=== PATIENT | male | born 1975 | race Two or more races ===

== ENCOUNTER 2017-11-20 13:52 | Inpatient (IN) | payer MEDICAID ==
[2017-11-20 15:04] LABS: % EOSINOPHILS 0.7 % (0.0-5.0); EOSINOPHILE ABSOLUTE 0.1 Th/cmm (0.1-0.4); HEMOGLOBIN 8.7 gm/dL (12-16)
[2017-11-20 15:08] LABS: % BASOPHILS 0.4 % (0.0-2.0); % LYMPHOCYTES 6.2 % (20.0-50.0); % NEUTROPHILS 88.7 % (40.0-80.0); HEMATOCRIT 25.3 % (41.0-60); LYMPHOCYTE ABSOLUTE 0.5 Th/cmm (1.5-3.0); MEAN CELL VOLUME 87.5 fl (80-99); MEAN CORPUSCULAR HGB CONC 34.3 pg (28.0-36.0); MEAN PLATELET VOLUME 6.8 fl; MONOCYTE ABSOLUTE 0.3 Th/cmm (0.3-1.0); NEUTROPHILE ABSOLUTE 7.8 Th/cmm (1.8-8.0); PLATELET COUNT 218 Th/cmm (150-400); RED BLOOD COUNT 2.89 Mil/cmm (4.30-5.70); RED CELL DISTRIBUTION WIDTH 12.1 % (11.5-20.0); WHITE BLOOD COUNT 8.7 Th/cmm (4.8-10.8)
[2017-11-20 15:29] LABS: ALB/GLOB RATIO 0.8 (1.0-1.8); ALBUMIN 2.9 gm/dL (4.2-5.5); ALKALINE PHOSPHATASE 88 U/L (34-104); ANION GAP 9.9 (7.0-16.0); BILIRUBIN,TOTAL 0.5 mg/dL (0.3-1.0); BUN - UREA NITROGEN 14 mg/dL (7-25); CALCIUM SERUM 8.5 mg/dL (8.6-10.3); CARBON DIOXIDE 29.2 mEq/L (21.0-31.0); CHLORIDE 95 mEq/L (98-107); CREATININE - SERUM 1.2 mg/dL (0.7-1.3); GFR AFRICAN-AMERICAN > 60.0 ml/min (>90); GFR NON AFRICAN-AMERICAN > 60.0 ml/min; GLUCOSE 411 mg/dL (70-105); POTASSIUM SERUM 3.1 mEq/L (3.5-5.1); SGOT 13 U/L (13-39); SGPT/ALT 13 U/L (7-52); SODIUM SERUM 131 mEq/L (136-145); TOTAL PROTEIN,SERUM 6.4 gm/dL (6.0-8.3)
[2017-11-20] MEDS ORDERED: Potassium Chloride Elixir 20 mEq /15 mL UDC PO ONE (16:04)
[2017-11-20] MEDS ORDERED: Potassium Chloride Elixir 20 mEq /15 mL UDC ONE (16:05)
[2017-11-20] MEDS ORDERED: Sodium Chloride 0.9% 1,000 ML IV ONE (16:05)
[2017-11-20] MEDS ORDERED: INSULIN HUMAN REGULAR 100 UNITS/ML UNIT SUBQ ONE (16:08)
--- NOTE | 2017-11-20 16:14 | ED Physician Chart ---
ED Chief Complaint/HPI - Patient Information Date Seen:: 11/20/17 Time Seen:: 14:20 Chief Complaint:: LEFT ARM PAIN History of Present Illness:: THIS IS A PARAPLEGIC WHO IS DIABETIC WITH HYPERTENSION AND HAS DIFFICULTY MOVING AROUND BECAUSE OF HE IS PARAPLEGIC. Allergies:: Allergies Allergy/AdvReac Type Severity Reaction Status Date / Time No Known Allergies Allergy Verified 11/20/17 14:00 Vitals:: Vital Signs - 8 hr 11/20/17 14:00 Temp 97.9 F HR 101 RR 15 BP 167/86 O2 Sat % 95 Historian:: Patient Review:: Nurse's Note Reviewed ED Review of Systems - Review of Systems General/Constitutional: No fever, No chills, Weight loss, Weakness, No diaphoresis, No edema, No loss of appetite Skin: No skin lesions, No rash, No bruising Head: No headache, No light-headedness Eyes: No loss of vision, No pain, No diplopia ENT: No earache, No nasal drainage, No sore throat, No tinnitus Neck: No neck pain, No swelling, No thyromegaly, No stiffness, No mass noted Cardio Vascular: No chest pain, No palpitations, No PND, No orthopnea, No edema Pulmonary: No SOB, No cough, No sputum, No wheezing GI: No nausea, No vomiting, No diarrhea, No pain, No melena, No hematochezia, No constipation, No hematemesis G/U: No dysuria, No frequency, No hematuria Musculoskeletal: Bone or joint pain, No back pain, Muscle pain Endocrine: No polyuria, No polydipsia Psychiatric: No prior psych history, No depression, No anxiety, No suicidal ideation Hematopoietic: No bruising, No lymphadenopathy Allergic/Immuno: No urticaria, No angioedema Neurological: No syncope, Focal symptoms, Weakness, No paresthesia, No headache , No seizure, No dizziness, No confusion, No vertigo ED Past Medical History - Past Medical History Obtainable: Yes Past Medical History: HTN, DM, CVA/TIA Family History: None Social History: Non Smoker, Alcohol, No Drug Use, Homeless, Lives Alone Surgical History: other (BACK SURGERY) Psychiatricy History: Depression Medication: Reviewed Family Medical History - Family Member Mother History Unknown: Yes ED Physical Exam - Physical Examination General/Constitutional: Awake, Well-developed, well-nourished, Alert, No distress, GCS 15, Non-toxic appearing, Ambulatory Head: Atraumatic Eyes: Lids, conjuctiva normal, PERRL, EOMI Skin: Nl inspection, No rash, No skin lesions, No ecchymosis, Well hydrated, No lymphadenopathy ENMT: External ears, nose nl, Nasal exam nl, Lips, teeth, gums nl Neck: Nontender, Full ROM w/o pain, No JVD, No nuchal rigidity, No bruit, No mass, No stridor Respiratory: Nl effort/Exclusion, Clear to Auscultation, No Wheeze/Rhonchi/Rales Cardio Vascular: RRR, No murmur, gallop, rubs, NL S1 S2 GI: No tenderness/rebounding/guarding, No organomegaly, No hernia, Normal BS's, Nondistended, No mass/bruits, No McBurney tenderness : No CVA tenderness Extremities: Full ROM, normal strength in all extremities Other Extremities comments:: BOTH LOWER EXTREMITIES ARE SWOLLEN WITH FLUID GREATER ON THE LEFT THAN ON THE RIGHT. Neuro/Psych: Alert/oriented, DTR's symmetric, Normal sensory exam, Normal motor strength, Judgement/insight normal, Mood normal, Normal gait, No focal deficits Other Neuro/Psych comments:: PARAPLEGIC Misc: Normal back, No paraspinal tenderness ED Labs/Radiology/EKG Results - Lab Results Results: Laboratory Tests 11/20/17 11/20/17 11/20/17 14:50 14:50 14:50 WBC 8.7 RBC 2.89 L Hgb 8.7 L Hct 25.3 L MCV 87.5 MCH 30.0 MCHC Differential 34.3 RDW 12.1 Plt Count 218 MPV 6.8 Neutrophils % 88.7 H Lymphocytes % 6.2 L Monocytes % 4.0 Eosinophils % 0.7 Basophils % 0.4 PTT (Actin FS) 30.1 Sodium 131 L Potassium 3.1 L Chloride 95 L Carbon Dioxide 29.2 Anion Gap 9.9 BUN 14 Creatinine 1.2 Est GFR ( Amer) > 60.0 Est GFR (Non-Af Amer) > 60.0 BUN/Creatinine Ratio 11.7 Glucose 411 H Calcium 8.5 L Total Bilirubin 0.5 AST 13 ALT 13 Alkaline Phosphatase 88 Troponin I Total Protein 6.4 Albumin 2.9 L Globulin 3.5 Albumin/Globulin Ratio 0.8 L 11/20/17 14:50 WBC RBC Hgb Hct MCV MCH MCHC Differential RDW Plt Count MPV Neutrophils % Lymphocytes % Monocytes % Eosinophils % Basophils % PTT (Actin FS) Sodium Potassium Chloride Carbon Dioxide Anion Gap BUN Creatinine Est GFR ( Amer) Est GFR (Non-Af Amer) BUN/Creatinine Ratio Glucose Calcium Total Bilirubin AST ALT Alkaline Phosphatase Troponin I 0.03 Total Protein Albumin Globulin Albumin/Globulin Ratio ED Assessment - Assessment General Assessment: ANEMIA ELECTROLYTE IMBALANCE ED Septic Shock - . Is Septic Shock (SBP<90, OR Lactate>4 mmol\L) present?: No - <6hrs of presentation: Vital Signs: Vital Signs - 8 hr 11/20/17 14:00 Temp 97.9 F HR 101 RR 15 BP 167/86 O2 Sat % 95 ED Reassessment (Disposition) - Reassessment Reassessment Condition:: Unchanged - Diagnosis Diagnosis:: ANEMIA DIABETIC HYPERTENSION PARAPLEGIC - Patient Disposition Discharge/Transfer:: Acute Care w/in this hosp Admitted to:: Med/Surg Admitting Medical Physician:: Ajay Davis Condition at Disposition:: Unchanged
[2017-11-20] MEDS ORDERED: INSULIN HUMAN REGULAR 100 UNITS/ML UNIT ONE (16:30)
[2017-11-21] MEDS ORDERED: Sodium Chloride 0.9% 1,000 ML IV ONE (06:20)
[2017-11-21 06:51] LABS: % EOSINOPHILS 0.6 % (0.0-5.0); % NEUTROPHILS 82.4 % (40.0-80.0); BASOPHILE ABSOLUTE 0.1 Th/cumm (0-0.2); EOSINOPHILE ABSOLUTE 0.1 Th/cmm (0.1-0.4); MEAN CELL VOLUME 86.8 fl (80-99); MEAN CORPUSCULAR HEMOGLOBIN 30.1 pg (26.0-30.0); MEAN CORPUSCULAR HGB CONC 34.7 pg (28.0-36.0); MONOCYTE ABSOLUTE 0.4 Th/cmm (0.3-1.0); NEUTROPHILE ABSOLUTE 7.3 Th/cmm (1.8-8.0); RED BLOOD COUNT 2.67 Mil/cmm (4.30-5.70); RED CELL DISTRIBUTION WIDTH 12.3 % (11.5-20.0); WHITE BLOOD COUNT 8.9 Th/cmm (4.8-10.8)
[2017-11-21 06:59] LABS: HEMATOCRIT 23.2 % (41.0-60); PLATELET COUNT 165 Th/cmm (150-400)
[2017-11-21 07:06] LABS: ANION GAP 9.8 (7.0-16.0); BUN - UREA NITROGEN 16 mg/dL (7-25); CARBON DIOXIDE 26.5 mEq/L (21.0-31.0); CHLORIDE 97 mEq/L (98-107); CREATININE - SERUM 1.1 mg/dL (0.7-1.3); GFR AFRICAN-AMERICAN > 60.0 ml/min (>90); GFR NON AFRICAN-AMERICAN > 60.0 ml/min; GLUCOSE 385 mg/dL (70-105); POTASSIUM SERUM 3.3 mEq/L (3.5-5.1); SODIUM SERUM 130 mEq/L (136-145)
[2017-11-21] MEDS ORDERED: Potassium Chloride 20 mEq ER Tab PO ONE ×2 (07:34→08:39)
--- NOTE | 2017-11-21 07:41 | History and Physical ---
History of Present Illness - HPI Chief Complaint: Left arm pain s/p fall HPI: 42 y/o paraplegic homeless man who presents to [facility] ER for left arm pain s/p fall. Patient was brought in for evaluation of his left arm pain due to a fall. Xray of the left arm was negative for a fracture. However the patient had the following labwork WBC 8.9 H/H 8.0/23.2 platelets 165K Na 131 K 3.1 Bun/Cr 14/1.2 glu 411 Patient has a history of Diabetes, HTN, CVA, Depression. Patient was subsequently admitted for further evaluation and treatment. Vital Signs: Last Vital Signs Temp 98.3 F 11/21/17 07:07 Pulse 62 11/21/17 07:07 Resp 17 11/21/17 07:07 BP 142/70 11/21/17 07:07 Pulse Ox 97 11/21/17 07:07 Past Medical History Cardiovascular: Report: HTN Pulmonary: Report: No Pertinent Hx [employer] WORKER: Report: CVA, TIA GI: Report: No Pertinent Hx Psych: Report: Depression Musculoskeletal: Report: No Pertinent Hx Rheumatologic: Report: No pertinent Hx Infectious Disease: Report: No Pertinent Hx Renal/: Report: No Pertinent Hx Endocrine: Report: Diabetes - Past Surgical History Past Surgical History: No pertinent Hx Family Medical History - Family Member Mother History Unknown: Yes Social History Smoke: No Alcohol: None Drugs: None Lives: Homeless - Allergies Allergies/Adverse Reactions: Allergies Allergy/AdvReac Type Severity Reaction Status Date / Time No Known Allergies Allergy Verified 11/20/17 14:00 Review of Systems - Review of Systems Constitutional: Report: No Significant Eyes: Report: No Significant ENT: Report: No Significant Respiratory: Report: No Significant Cardiovascular: Report: No Significant Gastrointestinal: Report: No Significant Genitourinary: Report: No Significant Musculoskeletal: Report: No Significant Skin: Report: No Significant Neurological: Report: No Significant Physical Exam - Physical Exam HEENT: Report: Ears Nose Throat within normal limits, Pharnyx within normal limits Neck: Report: Within normal limits Cardiovascular Systems: Report: +s1/s2 noted, Regular, Rate and Rhythm Respiratory: Report: Breath Sounds are within normal limits, Clear to Auscultation of lung dover Abdomen: Report: Non-tender to palpation Back: Report: Inspection of back is within normal limits. Extremities: Report: Other (patient is a paraplegic) Skin: Report: Color of skin is within normal limits Neuro/Psych: Report: Mood affect is within normal limits - Lab Results All Lab Results last 24 hours: Laboratory Results - last 24 hr 11/20/17 11/20/17 11/20/17 14:50 14:50 14:50 WBC 8.7 RBC 2.89 L Hgb 8.7 L Hct 25.3 L MCV 87.5 MCH 30.0 MCHC Differential 34.3 RDW 12.1 Plt Count 218 MPV 6.8 Neutrophils % 88.7 H Lymphocytes % 6.2 L Monocytes % 4.0 Eosinophils % 0.7 Basophils % 0.4 PTT (Actin FS) 30.1 Sodium 131 L Potassium 3.1 L Chloride 95 L Carbon Dioxide 29.2 Anion Gap 9.9 BUN 14 Creatinine 1.2 Est GFR ( Amer) > 60.0 Est GFR (Non-Af Amer) > 60.0 BUN/Creatinine Ratio 11.7 Glucose 411 H Calcium 8.5 L Total Bilirubin 0.5 AST 13 ALT 13 Alkaline Phosphatase 88 Troponin I Total Protein 6.4 Albumin 2.9 L Globulin 3.5 Albumin/Globulin Ratio 0.8 L 11/20/17 11/21/17 11/21/17 14:50 06:40 06:40 WBC 8.9 RBC 2.67 L Hgb 8.0 L Hct 23.2 L MCV 86.8 MCH 30.1 H MCHC Differential 34.7 RDW 12.3 Plt Count 165 D MPV 7.0 Neutrophils % 82.4 H Lymphocytes % 11.0 L Monocytes % 5.0 Eosinophils % 0.6 Basophils % 1.0 PTT (Actin FS) Sodium 130 L Potassium 3.3 L Chloride 97 L Carbon Dioxide 26.5 Anion Gap 9.8 BUN 16 Creatinine 1.1 Est GFR ( Amer) > 60.0 Est GFR (Non-Af Amer) > 60.0 BUN/Creatinine Ratio 14.5 Glucose 385 H Calcium 8.0 L Total Bilirubin AST ALT Alkaline Phosphatase Troponin I 0.03 Total Protein Albumin Globulin Albumin/Globulin Ratio - Assessment Assessment: s/p fall homeless anemia hyponatremia hypokalemia diabetes mellitus hyperglycemia - Plan Plan: will repeat labwork CBC,CMP GI consult stool occult Protonix 40mg IV qdaily K supplements
[2017-11-21] MEDS ORDERED: Morphine Sulfate 2 mg/mL 1mL Syr IV STA (08:26)
[2017-11-21 09:08] LABS: IRON LC 7 ug/dL (38-169); TIBC (LC) 161 ug/dL (250-450); UIBC 154 ug/dL (111-343)
[2017-11-21] MEDS ORDERED: Morphine Sulfate 2 mg/mL 1mL Syr ONE (09:32)
--- NOTE | 2017-11-21 09:38 | Diagnostic Imaging Report ---
Portable chest x-ray History: Shortness of breath Allowing for portable technique the heart size is normal. No focal pulmonary parenchymal processes. No hilar or mediastinal abnormalities. Impression: No acute abnormalities.
--- NOTE | 2017-11-21 09:43 | Diagnostic Imaging Report ---
Left elbow (3 views) HISTORY: Pain, trauma No acute bony abnormalities. No fractures. Joint spaces appear normal. No radiographic evidence of a joint effusion. IMPRESSION: No acute bony abnormalities
--- NOTE | 2017-11-21 09:44 | Diagnostic Imaging Report ---
Left lower extremity Doppler venous ultrasound exam HISTORY: Pain/swelling Sonographic sector images were obtained through the deep venous systems of the left leg. Associated Doppler data was obtained. The exam demonstrates patency of the common femoral, superficial femoral, popliteal, and posterior tibial veins. Specifically, no thrombus is seen. There are normal compressibility and augmentation responses. IMPRESSION: Negative exam for deep vein thrombophlebitis.
[2017-11-21] MEDS: INSULIN ASPART SLIDING SCALE 100 UNITS/ML UNIT SUBQ SCH ×3 (11:35→21:32)
[2017-11-21] MEDS: KCL 20mEq/100mL Premix 20 MEQ/100 ML PIGGYBACK IV SCH ×2 (13:13→18:20)
[2017-11-21 14:21] LABS: URINE SOURCE CATH
[2017-11-21 14:23] LABS: URINE BILIRUBIN NEGATIVE (NEGATIVE); URINE BLOOD LARGE (NEGATIVE); URINE GLUCOSE (UA) >=1000 mg/dL (NEGATIVE); URINE KETONE 15 mg/dL (NEGATIVE); URINE LEUKOCYTE ESTERASE MODERATE (NEGATIVE); URINE MICROSCOPIC INDICATED? YES; URINE NITRATE NEGATIVE (NEGATIVE); URINE PROTEIN >=300 mg/dL (NEGATIVE); URINE UROBILINOGEN 0.2 E.U./dL (0.2 - 1.0)
[2017-11-21 14:44] LABS: URINE CLARITY HAZY (CLEAR); URINE COLOR YELLOW
[2017-11-21 14:46] LABS: URINE RBC 0-2 /hpf (0-5)
[2017-11-21 14:47] LABS: URINE WBC 50-100 /hpf (0-5)
[2017-11-21 14:48] LABS: URINE BACTERIA MANY /hpf (NONE SEEN); URINE EPITHELIAL CELLS FEW /lpf (FEW)
[2017-11-21] MEDS ORDERED: KCL 20mEq/100mL Premix 20 MEQ/100 ML PIGGYBACK IV ONE (18:07)
[2017-11-21] MEDS: 0.9% NS w/20 mEq KCL 1,000 ML IV SCH (18:19)
--- NOTE | 2017-11-21 20:20 | Consultation ---
Consult Note - Consult Note Service Date: 11/21/17 Referring Physician: Evelio Davis Consult Note: PHYSICIAN Consultation Note: Date of Admission: 11/20/17 Purpose of Consultation: sepsis, UTI. Chief Complaint: Patient NEEMA AGEE was admitted to location Medical/ Surgical Unit I with ELECTROLYTE IMBALANCE,ANEMIA. History of Present Illness: 42 year old male admitted for left arm pain after a fall. On initial evaluation , his temperature was 97.9 F and WBC count was 8,700. He was found to have UTI. sepsis w/u was performed and blood culture grew GNR and ID consult was called for antibiotic management. Meanwhile, Zosyn was started. There is no episode of fever. Today, he was coming out of his car and he fell on his left forearm and developed pain. Patient gives history of paresthesia in legs and went for back surgery at the [facility]. Since his back surgery, he has no sensation in the waist down and has developed bladder issues. He has indwelling Boles catheter since then. He has also developed back pains. Past Medical History: DM2, HTN, CVA and depression. Allergies Allergy/AdvReac Type Severity Reaction Status Date / Time No Known Allergies Allergy Verified 11/20/17 14:00 Vital Signs Temp 98.3 F 11/21/17 11:00 Pulse 89 11/21/17 11:00 Resp 20 11/21/17 11:00 BP 137/73 11/21/17 11:00 Pulse Ox 97 11/21/17 11:00 Intake & Output 11/21/17 11/21/17 11/22/17 06:59 18:59 06:59 Intake Total 1999 100 Balance 1999 Intake: Intake, IV Amount 1999 100 KCL 20mEq/100mL Premix 20 100 meq In 100 ml @ 50 mls/ hr IV Q2H [facility] Rx#: [id number] Sodium Chloride 0.9% 1, 1000 000 ml @ 100 mls/hr IV . Q10H ONE Rx#:[id number] Laboratory Results - last 24 hr 11/20/17 11/21/17 11/21/17 14:50 06:40 06:40 WBC 8.9 RBC 2.67 L Hgb 8.0 L Hct 23.2 L MCV 86.8 MCH 30.1 H MCHC Differential 34.7 RDW 12.3 Plt Count 165 D MPV 7.0 Neutrophils % 82.4 H Lymphocytes % 11.0 L Monocytes % 5.0 Eosinophils % 0.6 Basophils % 1.0 Sodium 130 L Potassium 3.3 L Chloride 97 L Carbon Dioxide 26.5 Anion Gap 9.8 BUN 16 Creatinine 1.1 Est GFR ( Amer) > 60.0 Est GFR (Non-Af Amer) > 60.0 BUN/Creatinine Ratio 14.5 Glucose 385 H POC Glucose Calcium 8.0 L Iron 7 L TIBC 161 L Iron Saturation 4 L Unsaturated IBC 154 B-Natriuretic Peptide Urine Source Urine Color Urine Clarity Urine pH Ur Specific [place] Urine Protein Urine Glucose (UA) Urine Ketones Urine Blood Urine Nitrate Urine Bilirubin Urine Urobilinogen Ur Leukocyte Esterase Urine RBC Urine WBC Ur Epithelial Cells Urine Bacteria 11/21/17 11/21/17 11/21/17 06:40 09:00 11:27 WBC RBC Hgb Hct MCV MCH MCHC Differential RDW Plt Count MPV Neutrophils % Lymphocytes % Monocytes % Eosinophils % Basophils % Sodium Potassium Chloride Carbon Dioxide Anion Gap BUN Creatinine Est GFR ( Amer) Est GFR (Non-Af Amer) BUN/Creatinine Ratio Glucose POC Glucose 405 H Calcium Iron TIBC Iron Saturation Unsaturated IBC B-Natriuretic Peptide 239.0 H Urine Source CATH Urine Color YELLOW Urine Clarity HAZY Urine pH 6.0 Ur Specific [place] 1.020 Urine Protein >=300 Urine Glucose (UA) >=1000 H Urine Ketones 15 H Urine Blood LARGE H Urine Nitrate NEGATIVE Urine Bilirubin NEGATIVE Urine Urobilinogen 0.2 Ur Leukocyte Esterase MODERATE H Urine RBC 0-2 H Urine WBC 50-100 H Ur Epithelial Cells FEW Urine Bacteria MANY H 11/21/17 16:52 WBC RBC Hgb Hct MCV MCH MCHC Differential RDW Plt Count MPV Neutrophils % Lymphocytes % Monocytes % Eosinophils % Basophils % Sodium Potassium Chloride Carbon Dioxide Anion Gap BUN Creatinine Est GFR ( Amer) Est GFR (Non-Af Amer) BUN/Creatinine Ratio Glucose POC Glucose 415 H Calcium Iron TIBC Iron Saturation Unsaturated IBC B-Natriuretic Peptide Urine Source Urine Color Urine Clarity Urine pH Ur Specific [place] Urine Protein Urine Glucose (UA) Urine Ketones Urine Blood Urine Nitrate Urine Bilirubin Urine Urobilinogen Ur Leukocyte Esterase Urine RBC Urine WBC Ur Epithelial Cells Urine Bacteria Home Medication Medication Instructions Recorded Type NK [No Home Meds] 11/21/17 History Current Medications Generic Name Dose Route Start Last Admin Trade Name Freq PRN Reason Stop Dose Admin Glipizide 10 mg 11/21/17 09:00 11/21/17 13:12 Glucotrol PO 01/20/18 08:59 10 mg DAILY CLARICE Administration Sodium Chloride 1,000 mls @ 50 mls/hr 11/21/17 06:20 11/21/17 07:02 Nacl 0.9% IV 11/22/17 02:19 50 mls/hr .Q20H ONE Administration Potassium Chloride/Sodium Chloride 1,000 mls @ 50 mls/hr 11/21/17 09:00 11/21 18:19 0.9% Ns W/20 Meq Kcl IV 01/20/18 08:59 50 mls/hr .Q20H CLARICE Administration Piperacillin Sod/Tazobactam 100 mls @ 200 mls/hr 11/21/17 18:30 Sod 3.375 gm/ Dextrose IV 01/20/18 18:29 Q6H CLARICE Insulin Aspart 0 units 11/21/17 08:00 11/21/17 17:18 Novolog Insulin Sliding Scale SUBQ 01/20/18 07:59 12 units ACHS CLARICE Administration Protocol Insulin Detemir 10 units 11/21/17 21:00 Levemir Insulin SUBQ 01/20/18 20:59 HS CLARICE Protocol Miscellaneous 1 ea 11/21/17 17:35 Zosyn Iv Per Pharmacy 01/20/18 17:34 PRN PRN PROTOCOL Nystatin 1 appl 11/21/17 09:00 Mycostatin Cream TP 01/20/18 08:59 DAILY PRN Diaper Rash Nystatin 100,000 units 11/21/17 07:57 Nystop TP 01/20/18 07:56 DAILY PRN Diaper Rash Pantoprazole Sodium 40 mg 11/21/17 09:00 11/21/17 18:19 Protonix IVP 01/20/18 08:59 40 mg DAILY CLARICE Administration Review of Systems: A 12 point ROS was reviewed with the pertinent positive and negatives noted in the HPI. General/Constitutional: No fever, No chills, Weight loss, Weakness, No diaphoresis, No edema, No loss of appetite Skin: No skin lesions, No rash, No bruising Head: No headache, No light-headedness Eyes: No loss of vision, No pain, No diplopia ENT: No earache, No nasal drainage, No sore throat, No tinnitus Neck: No neck pain, No swelling, No thyromegaly, No stiffness, No mass noted Cardio Vascular: No chest pain, No palpitations, No PND, No orthopnea, No edema Pulmonary: No SOB, No cough, No sputum, No wheezing GI: No nausea, No vomiting, No diarrhea, No pain, No melena, No hematochezia, No constipation, No hematemesis G/U: has indwelling Boles catheter for his neurogenic bladder. Musculoskeletal: Bone or joint pain, No back pain, Muscle pain Endocrine: No polyuria, No polydipsia Psychiatric: No prior psych history, No depression, No anxiety, No suicidal ideation Hematopoietic: No bruising, No lymphadenopathy Allergic/Immuno: No urticaria, No angioedema Neurological: No syncope, , No headache, No seizure, No dizziness, No confusion , No vertigo. He has paraparesis and neurogenic bladder. Social History Homeless. Smoking Status Light Tobacco Smoker Drug Use No Alcohol Use No Family Medical History Family Medical History Start: 11/21/17 08: 25 Freq: ONCE Status: Active Protocol: Document 11/21/17 08:25 [email or web address] (Rec: 11/21/17 20:04 [email or web address] [id number] [id number] -[id number]) Family Medical History Mother History Unknown Yes Ethnicity Living Status Unknown Hx Family Cancer No Hx Family Coronary Artery Disease No Hx Family Congestive Heart Failure No Hx Family Hypertension No Hx Family Stroke No Hx Family Diabetes No Hx Family Seizures No Hx Family Dementia No Hx Family AIDS No Hx Family HIV No Hx Family COPD No Hx Family Hepatitis No Hx Family Psychiatric Problems No Hx Family Tuberculosis No Physical Exam: General: Comfortable, not in any acute distress. HEENT: HEAD: normocephalic, atraumatic. Oral Cavity is moist, pink tongue. Pupil PERRLA. EOMI. Neck: Supple, no JVD. no carotid bruit. Cardio: S1 and S2 WNL. Respiratory: Vesicular breath sounds. Abdominal: Soft NT ND BS. Genital/Urinary: Extremities: NCCE Neurological: AAO x3. Paraplegia. SKIN: L inner buttock decubitus 4 cm x 2 cm---grade II well defined border, no surrounding erythema. inflammation of groins. Assessment: 1. GNR bacteremia. 2. UTI/pyelonephritis. 3. Tinia crurus. 4. DM2 5. HTN. 6. H/o CVA. 7. H/o depression. 8. Gluteal wound. 9. 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 10. Neurogenic bladder. 11. H/o Back surgery. 12. Left forearm pain after a traumatic fall. Plan: Continue Zosyn. Depending on the culture report will define final antibiotic therapy. CT a/p. repeat blood cultures. Wound care. Check HIV. X ray of left forearm and wrist. apply lotrisone to groins. Thank you, Dr Davis for involving me in taking care of this patient. Signed, Cyrus Muhammad M.D. [id number]
[2017-11-21] MEDS: Insulin Detemir 100 units/mL 10mL Vial SUBQ SCH (21:32)
[2017-11-21 23:55] VITALS: BP 135/75
[2017-11-22] MEDS ORDERED: Piperacillin Sodium/Tazobact 3.375 gm Vial IV ONE ×2 (00:10→05:14)
[2017-11-22 07:11] LABS: MEAN CELL VOLUME 87.2 fl (80-99); MEAN CORPUSCULAR HEMOGLOBIN 29.5 pg (26.0-30.0); MEAN CORPUSCULAR HGB CONC 33.8 pg (28.0-36.0); MEAN PLATELET VOLUME 7.9 fl; PLATELET COUNT 183 Th/cmm (150-400); RED BLOOD COUNT 2.57 Mil/cmm (4.30-5.70); WHITE BLOOD COUNT 6.6 Th/cmm (4.8-10.8)
[2017-11-22 07:23] LABS: HEMATOCRIT 22.4 % (41.0-60)
[2017-11-22 07:26] LABS: HEMOGLOBIN 7.6 gm/dL (12-16)
[2017-11-22 08:01] LABS: BAND NEUTROPHILE 3 % (0-10); BASOPHIL 0 % (0-3); EOSINOPHIL 2 % (0-5); LYMPHOCYTE 17 % (20-50); MONOCYTE 2 % (2-10); NEUTROPHILS 76 % (40-80)
[2017-11-22 08:02] LABS: PLATELET ESTIMATE ADEQUATE (NORMAL)
--- NOTE | 2017-11-22 08:29 | General Progress Note ---
Subjective - Review of Systems Service Date: 11/22/17 Subjective: Patient was seen and examined. Patient is resting comfortably in bed in no acute distress. Objective - Results Result Diagrams: 11/22/17 05:40 11/21/17 06:40 Recent Labs: Laboratory Last Values WBC 6.6 Th/cmm (4.8-10.8) 11/22/17 05:40 RBC 2.57 Mil/cmm (4.30-5.70) L 11/22/17 05:40 Hgb 7.6 gm/dL (12-16) L* 11/22/17 05:40 Hct 22.4 % (41.0-60) L 11/22/17 05:40 MCV 87.2 fl (80-99) 11/22/17 05:40 MCH 29.5 pg (26.0-30.0) 11/22/17 05:40 MCHC Differential 33.8 pg (28.0-36.0) 11/22/17 05:40 RDW 12.0 % (11.5-20.0) 11/22/17 05:40 Plt Count 183 Th/cmm (150-400) 11/22/17 05:40 MPV 7.9 fl 11/22/17 05:40 Add Manual Diff YES 11/22/17 05:40 Neutrophils % 82.4 % (40.0-80.0) H 11/21/17 06:40 Band Neutrophils % 3 % (0-10) 11/22/17 05:40 Lymphocytes % 11.0 % (20.0-50.0) L 11/21/17 06:40 Monocytes % 5.0 % (2.0-10.0) 11/21/17 06:40 Eosinophils % 0.6 % (0.0-5.0) 11/21/17 06:40 Basophils % 1.0 % (0.0-2.0) 11/21/17 06:40 Neutrophils (Manual) 76 % (40-80) 11/22/17 05:40 Lymphocytes 17 % (20-50) L 11/22/17 05:40 Monocytes 2 % (2-10) 11/22/17 05:40 Eosinophils 2 % (0-5) 11/22/17 05:40 Basophils 0 % (0-3) 11/22/17 05:40 Platelet Estimate ADEQUATE (NORMAL) 11/22/17 05:40 PTT (Actin FS) 30.1 SECONDS (26.0-38.0) 11/20/17 14:50 Sodium 130 mEq/L (136-145) L 11/21/17 06:40 Potassium 3.3 mEq/L (3.5-5.1) L 11/21/17 06:40 Chloride 97 mEq/L (98-107) L 11/21/17 06:40 Carbon Dioxide 26.5 mEq/L (21.0-31.0) 11/21/17 06:40 Anion Gap 9.8 (7.0-16.0) 11/21/17 06:40 BUN 16 mg/dL (7-25) 11/21/17 06:40 Creatinine 1.1 mg/dL (0.7-1.3) 11/21/17 06:40 Est GFR ( Amer) > 60.0 ml/min (>90) 11/21/17 06:40 Est GFR (Non-Af Amer) > 60.0 ml/min 11/21/17 06:40 BUN/Creatinine Ratio 14.5 11/21/17 06:40 Glucose 385 mg/dL (70-105) H 11/21/17 06:40 POC Glucose 245 MG/DL (70 - 105) H 11/22/17 07:01 Calcium 8.0 mg/dL (8.6-10.3) L 11/21/17 06:40 Iron 7 ug/dL (38-169) L 11/20/17 14:50 TIBC 161 ug/dL (250-450) L 11/20/17 14:50 Iron Saturation 4 % (15-55) L 11/20/17 14:50 Unsaturated IBC 154 ug/dL (111-343) 11/20/17 14:50 Total Bilirubin 0.5 mg/dL (0.3-1.0) 11/20/17 14:50 AST 13 U/L (13-39) 11/20/17 14:50 ALT 13 U/L (7-52) 11/20/17 14:50 Alkaline Phosphatase 88 U/L (34-104) 11/20/17 14:50 Troponin I 0.03 ng/mL (0.01-0.05) 11/20/17 14:50 B-Natriuretic Peptide 239.0 pg/mL (5.0-100.0) H 11/21/17 06:40 Total Protein 6.4 gm/dL (6.0-8.3) 11/20/17 14:50 Albumin 2.9 gm/dL (4.2-5.5) L 11/20/17 14:50 Globulin 3.5 gm/dL 11/20/17 14:50 Albumin/Globulin Ratio 0.8 (1.0-1.8) L 11/20/17 14:50 Urine Source CATH 11/21/17 09:00 Urine Color YELLOW 11/21/17 09:00 Urine Clarity HAZY (CLEAR) 11/21/17 09:00 Urine pH 6.0 (4.6 - 8.0) 11/21/17 09:00 Ur Specific [place] 1.020 (1.005-1.030) 11/21/17 09:00 Urine Protein >=300 mg/dL (NEGATIVE) 11/21/17 09:00 Urine Glucose (UA) >=1000 mg/dL (NEGATIVE) H 11/21/17 09:00 Urine Ketones 15 mg/dL (NEGATIVE) H 11/21/17 09:00 Urine Blood LARGE (NEGATIVE) H 11/21/17 09:00 Urine Nitrate NEGATIVE (NEGATIVE) 11/21/17 09:00 Urine Bilirubin NEGATIVE (NEGATIVE) 11/21/17 09:00 Urine Urobilinogen 0.2 E.U./dL (0.2 - 1.0) 11/21/17 09:00 Ur Leukocyte Esterase MODERATE (NEGATIVE) H 11/21/17 09:00 Urine RBC 0-2 /hpf (0-5) H 11/21/17 09:00 Urine WBC 50-100 /hpf (0-5) H 11/21/17 09:00 Ur Epithelial Cells FEW /lpf (FEW) 11/21/17 09:00 Urine Bacteria MANY /hpf (NONE SEEN) H 11/21/17 09:00 HIV 1&2 Antibody Screen NEGATIVE (NEG) 11/22/17 05:40 - Physical Exam Vitals and I&O: Vital Signs Temp 98.2 F 11/22/17 08:06 Pulse 88 11/22/17 08:06 Resp 18 09/17/18 08:06 BP 148/75 11/22/17 08:06 Pulse Ox 92 11/22/17 08:06 Intake & Output 11/21/17 11/22/17 11/22/17 18:59 06:59 18:59 Intake Total 100 900 Output Total 2000 Balance 100 -1100 Weight (lbs) 81.647 kg Intake: Intake, IV Amount 100 200 KCL 20mEq/100mL Premix 20 100 meq In 100 ml @ 50 mls/ hr IV Q2H [facility] Rx#: [id number] Piperacillin Sodium/ 200 Tazobact 3.375 gm In Sodium Chloride 0.9% 100 ml @ 200 mls/hr IV Q6HR [facility] Rx#:[id number] Oral 700 Output: Urine 2000 Other: # Bowel Movements 0 Weight Source Bedscale Active Medications: Current Medications Glipizide (Glucotrol) 10 mg PO DAILY [facility] Stop: 01/20/18 08:59 Last Admin: 11/21/17 13:12 Dose: 10 mg Potassium Chloride/Sodium Chloride (0.9% Ns W/20 Meq Kcl) 1,000 mls @ 50 mls/ hr IV .Q20H [facility] Stop: 01/20/18 08:59 Last Admin: 11/21/17 18:19 Dose: 50 mls/hr Piperacillin Sod/Tazobactam (Sod 3.375 gm/ Sodium Chloride) 100 mls @ 200 mls/ hr IV Q6HR [facility] Stop: 01/21/18 00:59 Last Infusion: 11/22/17 06:36 Dose: Infused Potassium Chloride (Potassium Chloride) 20 meq in 100 mls @ 50 mls/hr IV Q2H [facility] Stop: 11/22/17 12:14 Ibuprofen (Motrin) 600 mg PO BID [facility] Stop: 01/21/18 08:59 Insulin Aspart (Novolog Insulin Sliding Scale) 0 units SUBQ ACHS [facility]; Protocol Stop: 01/20/18 07:59 Last Admin: 11/21/17 21:32 Dose: 8 units Insulin Detemir (Levemir Insulin) 10 units SUBQ HS [facility]; Protocol Stop: 01/20/18 20:59 Last Admin: 11/21/17 21:32 Dose: 10 units Miscellaneous (Zosyn Iv Per Pharmacy) 1 ea MC PRN PRN PRN Reason: PROTOCOL Stop: 01/20/18 17:34 Nystatin (Mycostatin Cream) 1 appl TP DAILY PRN PRN Reason: Diaper Rash Stop: 01/20/18 08:59 Nystatin (Nystop) 100,000 units TP DAILY PRN PRN Reason: Diaper Rash Stop: 01/20/18 07:56 Pantoprazole Sodium (Protonix) 40 mg IVP DAILY [facility] Stop: 01/20/18 08:59 Last Admin: 11/21/17 18:19 Dose: 40 mg General: Alert, Oriented x3 HEENT: Atraumatic Neck: Supple Cardiovascular: Regular rate, Normal S1, Normal S2 Lungs: Clear to auscultation Abdomen: Bowel sounds, Soft Extremities: no Clubbing, no Cyanosis, no Edema Assessment/Plan - Assessment Assessment: s/p fall homeless anemia hyponatremia hypokalemia diabetes mellitus hyperglycemia GNR bacteremia. UTI/pyelonephritis. Tinia crurus. HTN. H/o CVA. H/o depression. Gluteal wound. 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 Neurogenic bladder. H/o Back surgery. Left forearm pain after a traumatic fall. - Plan Plan: will repeat labwork CBC,CMP GI consult stool occult Protonix 40mg IV qdaily K supplements ID consult type and screen 1 unit of pRBC's for CT abd/pelvis
[2017-11-22] MEDS ORDERED: KCL 20mEq/100mL Premix 20 MEQ/100 ML PIGGYBACK IV SCH (09:00)
--- NOTE | 2017-11-22 09:14 | Diagnostic Imaging Report ---
Left forearm (3 views) HISTORY: Pain, fracture Prior exams are not available for comparison. There is deformity involving the distal radius. Findings consistent with old trauma. No definite acute bony abnormalities. In addition, there appears to be an acute nondisplaced avulsion fracture of the ulnar styloid. IMPRESSION: 1. Deformity of the distal radius which appears chronic and consistent with old trauma 2. Findings suggesting an acute nondisplaced fracture of the ulna styloid. If necessary, dedicated radiographs of the left wrist would provide additional detail.
--- NOTE | 2017-11-22 09:15 | Diagnostic Imaging Report ---
Left wrist (3 views) HISTORY: Pain As noted in the previous forearm radiograph report, there is chronic deformity of the distal radius consistent with old trauma. A previously described fracture fragment involving the ulna styloid exhibits sclerotic margins also consistent with chronic change. No acute bony abnormalities. IMPRESSION: 1. Findings consistent with old fractures of the distal radius and ulna styloid.
[2017-11-22] MEDS: INSULIN ASPART SLIDING SCALE 100 UNITS/ML UNIT SUBQ SCH ×4 (09:38→21:47)
[2017-11-22] MEDS ORDERED: Potassium Chloride 40 MEQ, Lidocaine 1% 20mL Vial 25 MG in Sodium Chloride 0.9% 250 ML IV ONE (10:00)
--- NOTE | 2017-11-22 10:47 | Diagnostic Imaging Report ---
CT scan abdomen and pelvis without intravenous contrast HISTORY: Pyelonephritis, pain Total DLP equals 516 CTDI equals 9.5 Axial sections were obtained from the xiphoid process down to the pubic symphysis. Limited sections of the lower chest demonstrate small bilateral pleural effusions. The liver is increased in size. No focal lesions. The spleen is also generous in size. Evidence for small hiatal hernia. No focal amenities seen within the region of the pancreas. The exam of the right kidney demonstrates [id number] hydronephrosis along with dilatation of the right ureter. The left kidney also demonstrates mild to moderate hydronephrosis along with dilatation of the left ureter. Findings are associated with a distended thick-walled urinary bladder. Changes associated with a degree of bladder outlet obstruction cannot be excluded. Clinical correlation is needed. An inferior vena cava filter is seen. Surgical changes noted in the lumbar spine. No abnormal masses or fluid collections seen within the pelvis. IMPRESSION: 1. Bilateral hydronephrosis associated with a thick-walled somewhat distended urinary bladder. The findings may be associated with a degree of bladder outlet obstruction. Clinical correlation is needed. No focal renal lesions are seen. Mild perinephric stranding. Changes may be related to obstructive sequelae. Inflammatory change cannot be definitely excluded. Clinical correlation is needed. 2. Inferior vena cava filter 3. Minimally distended stool-filled ascending colon 4. Small bilateral pleural effusions
[2017-11-22] MEDS ORDERED: Probiotic Screen MC PRN (12:44)
--- NOTE | 2017-11-22 13:37 | Infectious Disease Prog Note ---
Infectious Disease Subjective - Review of Systems Service Date: 11/22/17 Subjective: There is no new change, no fever. CT A/p reviewed. Infectious Disease Objective - Results Result Diagrams: 11/22/17 05:40 11/21/17 06:40 Recent Labs: Laboratory Last Values WBC 6.6 Th/cmm (4.8-10.8) 11/22/17 05:40 RBC 2.57 Mil/cmm (4.30-5.70) L 11/22/17 05:40 Hgb 7.6 gm/dL (12-16) L* 11/22/17 05:40 Hct 22.4 % (41.0-60) L 11/22/17 05:40 MCV 87.2 fl (80-99) 11/22/17 05:40 MCH 29.5 pg (26.0-30.0) 11/22/17 05:40 MCHC Differential 33.8 pg (28.0-36.0) 11/22/17 05:40 RDW 12.0 % (11.5-20.0) 11/22/17 05:40 Plt Count 183 Th/cmm (150-400) 11/22/17 05:40 MPV 7.9 fl 11/22/17 05:40 Add Manual Diff YES 11/22/17 05:40 Neutrophils % 82.4 % (40.0-80.0) H 11/21/17 06:40 Band Neutrophils % 3 % (0-10) 11/22/17 05:40 Lymphocytes % 11.0 % (20.0-50.0) L 11/21/17 06:40 Monocytes % 5.0 % (2.0-10.0) 11/21/17 06:40 Eosinophils % 0.6 % (0.0-5.0) 11/21/17 06:40 Basophils % 1.0 % (0.0-2.0) 11/21/17 06:40 Neutrophils (Manual) 76 % (40-80) 11/22/17 05:40 Lymphocytes 17 % (20-50) L 11/22/17 05:40 Monocytes 2 % (2-10) 11/22/17 05:40 Eosinophils 2 % (0-5) 11/22/17 05:40 Basophils 0 % (0-3) 11/22/17 05:40 Platelet Estimate ADEQUATE (NORMAL) 11/22/17 05:40 PTT (Actin FS) 30.1 SECONDS (26.0-38.0) 11/20/17 14:50 Sodium 130 mEq/L (136-145) L 11/21/17 06:40 Potassium 3.3 mEq/L (3.5-5.1) L 11/21/17 06:40 Chloride 97 mEq/L (98-107) L 11/21/17 06:40 Carbon Dioxide 26.5 mEq/L (21.0-31.0) 11/21/17 06:40 Anion Gap 9.8 (7.0-16.0) 11/21/17 06:40 BUN 16 mg/dL (7-25) 11/21/17 06:40 Creatinine 1.1 mg/dL (0.7-1.3) 11/21/17 06:40 Est GFR ( Amer) > 60.0 ml/min (>90) 11/21/17 06:40 Est GFR (Non-Af Amer) > 60.0 ml/min 11/21/17 06:40 BUN/Creatinine Ratio 14.5 11/21/17 06:40 Glucose 385 mg/dL (70-105) H 11/21/17 06:40 POC Glucose 287 MG/DL (70 - 105) H 11/22/17 11:18 Calcium 8.0 mg/dL (8.6-10.3) L 11/21/17 06:40 Iron 7 ug/dL (38-169) L 11/20/17 14:50 TIBC 161 ug/dL (250-450) L 11/20/17 14:50 Iron Saturation 4 % (15-55) L 11/20/17 14:50 Unsaturated IBC 154 ug/dL (111-343) 11/20/17 14:50 Total Bilirubin 0.5 mg/dL (0.3-1.0) 11/20/17 14:50 AST 13 U/L (13-39) 11/20/17 14:50 ALT 13 U/L (7-52) 11/20/17 14:50 Alkaline Phosphatase 88 U/L (34-104) 11/20/17 14:50 Troponin I 0.03 ng/mL (0.01-0.05) 11/20/17 14:50 B-Natriuretic Peptide 239.0 pg/mL (5.0-100.0) H 11/21/17 06:40 Total Protein 6.4 gm/dL (6.0-8.3) 11/20/17 14:50 Albumin 2.9 gm/dL (4.2-5.5) L 11/20/17 14:50 Globulin 3.5 gm/dL 11/20/17 14:50 Albumin/Globulin Ratio 0.8 (1.0-1.8) L 11/20/17 14:50 Urine Source CATH 11/21/17 09:00 Urine Color YELLOW 11/21/17 09:00 Urine Clarity HAZY (CLEAR) 11/21/17 09:00 Urine pH 6.0 (4.6 - 8.0) 11/21/17 09:00 Ur Specific [place] 1.020 (1.005-1.030) 11/21/17 09:00 Urine Protein >=300 mg/dL (NEGATIVE) 11/21/17 09:00 Urine Glucose (UA) >=1000 mg/dL (NEGATIVE) H 11/21/17 09:00 Urine Ketones 15 mg/dL (NEGATIVE) H 11/21/17 09:00 Urine Blood LARGE (NEGATIVE) H 11/21/17 09:00 Urine Nitrate NEGATIVE (NEGATIVE) 11/21/17 09:00 Urine Bilirubin NEGATIVE (NEGATIVE) 11/21/17 09:00 Urine Urobilinogen 0.2 E.U./dL (0.2 - 1.0) 11/21/17 09:00 Ur Leukocyte Esterase MODERATE (NEGATIVE) H 11/21/17 09:00 Urine RBC 0-2 /hpf (0-5) H 11/21/17 09:00 Urine WBC 50-100 /hpf (0-5) H 11/21/17 09:00 Ur Epithelial Cells FEW /lpf (FEW) 11/21/17 09:00 Urine Bacteria MANY /hpf (NONE SEEN) H 11/21/17 09:00 HIV 1&2 Antibody Screen NEGATIVE (NEG) 11/22/17 05:40 Blood Type A POSITIVE 11/22/17 09:50 Antibody Screen NEGATIVE 11/22/17 09:50 Crossmatch See Detail 11/22/17 09:50 - Physical Exam Vitals and I&O: Vital Signs Temp 98.4 F 11/22/17 11:44 Pulse 80 11/22/17 11:44 Resp 18 11/22/17 11:44 BP 132/71 11/22/17 11:44 Pulse Ox 94 11/22/17 11:44 Intake & Output 11/21/17 11/22/17 11/22/17 18:59 06:59 18:59 Intake Total 100 900 Output Total 2000 Balance 100 -1100 Weight (lbs) 81.647 kg Intake: Intake, IV Amount 100 200 KCL 20mEq/100mL Premix 20 100 meq In 100 ml @ 50 mls/ hr IV Q2H [facility] Rx#: [id number] Piperacillin Sodium/ 200 Tazobact 3.375 gm In Sodium Chloride 0.9% 100 ml @ 200 mls/hr IV Q6HR [facility] Rx#:[id number] Oral 700 Output: Urine 2000 Other: # Bowel Movements 0 Weight Source Bedscale Active Medications: Current Medications Glipizide (Glucotrol) 10 mg PO DAILY [facility] Stop: 01/20/18 08:59 Last Admin: 11/22/17 09:33 Dose: 10 mg Potassium Chloride/Sodium Chloride (0.9% Ns W/20 Meq Kcl) 1,000 mls @ 50 mls/ hr IV .Q20H [facility] Stop: 01/20/18 08:59 Last Admin: 11/21/17 18:19 Dose: 50 mls/hr Piperacillin Sod/Tazobactam (Sod 3.375 gm/ Sodium Chloride) 100 mls @ 200 mls/ hr IV Q6HR [facility] Stop: 01/21/18 00:59 Last Admin: 11/22/17 12:34 Dose: 200 mls/hr Potassium Chloride 40 meq/Lidocaine HCl 25 mg/ Sodium Chloride 272.5 mls @ 68 mls/hr IV X1 [facility] Stop: 11/22/17 14:00 Last Admin: 11/22/17 10:20 Dose: 68 mls/hr Ibuprofen (Motrin) 600 mg PO BID [facility] Stop: 01/21/18 08:59 Last Admin: 11/22/17 09:33 Dose: 600 mg Insulin Aspart (Novolog Insulin Sliding Scale) 0 units SUBQ ACHS [facility]; Protocol Stop: 01/20/18 07:59 Last Admin: 11/22/17 12:37 Dose: 6 units Insulin Detemir (Levemir Insulin) 10 units SUBQ HS [facility]; Protocol Stop: 01/20/18 20:59 Last Admin: 11/21/17 21:32 Dose: 10 units Lactobacillus Rhamnosus (Culturelle 15b) 1 each PO DAILY [facility] Stop: 01/21/18 13:59 Miscellaneous (Zosyn Iv Per Pharmacy) 1 ea PRN PRN PRN Reason: PROTOCOL Stop: 01/20/18 17:34 Miscellaneous (Probiotic Screen) 1 ea PRN PRN PRN Reason: PROTOCOL Stop: 01/21/18 12:43 Nystatin (Mycostatin Cream) 1 appl TP DAILY PRN PRN Reason: Diaper Rash Stop: 01/20/18 08:59 Nystatin (Nystop) 100,000 units TP DAILY PRN PRN Reason: Diaper Rash Stop: 01/20/18 07:56 Pantoprazole Sodium (Protonix) 40 mg IVP DAILY [facility] Stop: 01/20/18 08:59 Last Admin: 11/22/17 09:44 Dose: 40 mg General: no acute distress, well developed, well nourished HEENT: atraumatic, normocephalic, PERRLA, EOMI, moist mucous membrane Neck: supple, no thyromegaly Cardiovascular: S1S2, regular, systolic murmur Lungs: clear to auscultation bilaterally, clear to percussion Abdomen: soft, no tender, no distended, no mass, no hepatomegaly Extremities: no cyanosis, no clubbing, no edema Neurological: awake, alert, oriented Skin: intact Infectious Disease Assmt/Plan - Assessment Assessment: 1. GNR bacteremia. 2. UTI/pyelonephritis complicated with hydronephrosis. 3. Tinia crurus. 4. DM2 5. HTN. 6. H/o CVA. 7. H/o depression. 8. Gluteal wound. 9. 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 10. Neurogenic bladder. 11. H/o Back surgery. 12. Left forearm pain after a traumatic fall, acute fracture of ulna styloid. - Plan Plan: Continue Zosyn, depending on the culture report will define final antibiotic therapy. Follow up repeat blood cultures. He will need urology consult, for bilateral hydronephrosis. Renal us. Ortho consult. SHEILA RN.
[2017-11-22] MEDS: Lactobacillus Rhamnosus GG 15 Billion CFU CAP.SPRINK PO SCH (16:47)
[2017-11-22] MEDS: 0.9% NS w/20 mEq KCL 1,000 ML IV SCH (18:48)
[2017-11-22] MEDS: Insulin Detemir 100 units/mL 10mL Vial SUBQ SCH (21:45)
--- NOTE | 2017-11-22 23:40 | History & Physical ---
ADMIT DATE: 11/22/2017 REQUESTING PHYSICIAN: Evelio Davis D.O. REASON FOR CONSULTATION: Anemia. Thank you for asking me to see this patient in consultation. HISTORY OF PRESENT ILLNESS: This is a 42-year-old paraplegic homeless man who presents to [facility] for left arm pain, status post fall. The patient was brought in for evaluation of left arm pain; however, was found to be grossly anemic with a hemoglobin of 8.0 and platelet count of 165,000. The patient had MCV of 87.5 and symptomatic weakness, thought secondary to his anemia as well. The patient denies any overt blood losses. His hemoglobin had drifted down to 7.6 and GI was called. He is currently interested in having an endoscopic workup performed here in the hospital. He also had an iron level of 7 and iron saturation of about 4%. PAST MEDICAL HISTORY: Diabetes, hypertension, CVA, and depression. MEDICATIONS: Have been reviewed including glipizide, insulin, and Protonix. FAMILY HISTORY: Noncontributory for GI disease. REVIEW OF SYSTEMS: Denies any melena. Denies any abdominal pain. No nausea, no vomiting. All other 12-point systems are negative. PHYSICAL EXAMINATION: VITAL SIGNS: stable. GENERAL: He is comfortable, in no acute distress. HEENT: Normocephalic, atraumatic were positive. LUNGS: Clear bilaterally. No wheezes, rales, or rhonchi. ABDOMEN: Soft, nontender. Bowel sounds are positive. EXTREMITIES: Show no lower extremity edema. NEUROLOGIC: He has got paraplegia. SKIN: He has a left inner buttock decubitus ulcer 4 x 2 cm, grade 2 well defined border. No surrounding erythema. ASSESSMENT AND PLAN: This is a 42-year-old gentleman with paraplegia and symptomatic anemia. 1. Symptomatic anemia. 2. History of paraplegia, diabetes, and cerebrovascular accident. 3. Decubitus ulcer. The patient is currently interested in GI workup. Would recommend placing the patient on clear liquid diet and await until he has good wound care for his decubitus ulcer before proceeding with preparation for colonoscopy. Alternatively, we can offer an upper endoscopy to look for any obvious signs for anemia if they cannot prep well. Discussed that most the patient will likely get an EGD and colonoscopy later this week. Thank you for allowing us to participate in this patient's care. JOB# [id number]
[2017-11-23 07:00] LABS: HEMATOCRIT 26.1 % (41.0-60); HEMOGLOBIN 8.9 gm/dL (12-16); MEAN CELL VOLUME 86.1 fl (80-99); MEAN CORPUSCULAR HEMOGLOBIN 29.3 pg (26.0-30.0); MEAN PLATELET VOLUME 7.3 fl; PLATELET COUNT 238 Th/cmm (150-400); RED BLOOD COUNT 3.04 Mil/cmm (4.30-5.70); RED CELL DISTRIBUTION WIDTH 12.4 % (11.5-20.0); WHITE BLOOD COUNT 5.6 Th/cmm (4.8-10.8)
[2017-11-23 07:33] LABS: ALB/GLOB RATIO 0.9 (1.0-1.8); ALBUMIN 2.6 gm/dL (4.2-5.5); ALKALINE PHOSPHATASE 108 U/L (34-104); ANION GAP 9.6 (7.0-16.0); BILIRUBIN,TOTAL 0.3 mg/dL (0.3-1.0); BUN - UREA NITROGEN 18 mg/dL (7-25); CALCIUM SERUM 8.3 mg/dL (8.6-10.3); CARBON DIOXIDE 27.6 mEq/L (21.0-31.0); CHLORIDE 105 mEq/L (98-107); GFR AFRICAN-AMERICAN > 60.0 ml/min (>90); GFR NON AFRICAN-AMERICAN > 60.0 ml/min; GLUCOSE 205 mg/dL (70-105); POTASSIUM SERUM 4.2 mEq/L (3.5-5.1); SGOT 11 U/L (13-39); SGPT/ALT 8 U/L (7-52); SODIUM SERUM 138 mEq/L (136-145); TOTAL PROTEIN,SERUM 5.6 gm/dL (6.0-8.3)
--- NOTE | 2017-11-23 08:34 | General Progress Note ---
Subjective - Review of Systems Service Date: 11/23/17 Subjective: Patient was seen and examined. Patient is resting comfortably in bed in no acute distress. Objective - Results Result Diagrams: 11/23/17 05:50 11/23/17 05:50 Recent Labs: Laboratory Last Values WBC 5.6 Th/cmm (4.8-10.8) 11/23/17 05:50 RBC 3.04 Mil/cmm (4.30-5.70) L 11/23/17 05:50 Hgb 8.9 gm/dL (12-16) L 11/23/17 05:50 Hct 26.1 % (41.0-60) L 11/23/17 05:50 MCV 86.1 fl (80-99) 11/23/17 05:50 MCH 29.3 pg (26.0-30.0) 11/23/17 05:50 MCHC Differential 34.0 pg (28.0-36.0) 11/23/17 05:50 RDW 12.4 % (11.5-20.0) 11/23/17 05:50 Plt Count 238 Th/cmm (150-400) 11/23/17 05:50 MPV 7.3 fl 11/23/17 05:50 Add Manual Diff YES 11/23/17 05:50 Neutrophils % 82.4 % (40.0-80.0) H 11/21/17 06:40 Band Neutrophils % 3 % (0-10) 11/22/17 05:40 Lymphocytes % 11.0 % (20.0-50.0) L 11/21/17 06:40 Monocytes % 5.0 % (2.0-10.0) 11/21/17 06:40 Eosinophils % 0.6 % (0.0-5.0) 11/21/17 06:40 Basophils % 1.0 % (0.0-2.0) 11/21/17 06:40 Neutrophils (Manual) 76 % (40-80) 11/22/17 05:40 Lymphocytes 17 % (20-50) L 11/22/17 05:40 Monocytes 2 % (2-10) 11/22/17 05:40 Eosinophils 2 % (0-5) 11/22/17 05:40 Basophils 0 % (0-3) 11/22/17 05:40 Platelet Estimate ADEQUATE (NORMAL) 11/22/17 05:40 PTT (Actin FS) 30.1 SECONDS (26.0-38.0) 11/20/17 14:50 Sodium 138 mEq/L (136-145) 11/23/17 05:50 Potassium 4.2 mEq/L (3.5-5.1) 11/23/17 05:50 Chloride 105 mEq/L (98-107) 11/23/17 05:50 Carbon Dioxide 27.6 mEq/L (21.0-31.0) 11/23/17 05:50 Anion Gap 9.6 (7.0-16.0) 11/23/17 05:50 BUN 18 mg/dL (7-25) 11/23/17 05:50 Creatinine 1.0 mg/dL (0.7-1.3) 11/23/17 05:50 Est GFR ( Amer) > 60.0 ml/min (>90) 11/23/17 05:50 Est GFR (Non-Af Amer) > 60.0 ml/min 11/23/17 05:50 BUN/Creatinine Ratio 18.0 11/23/17 05:50 Glucose 205 mg/dL (70-105) H 11/23/17 05:50 POC Glucose 185 MG/DL (70 - 105) H 11/23/17 06:13 Calcium 8.3 mg/dL (8.6-10.3) L 11/23/17 05:50 Iron 7 ug/dL (38-169) L 11/20/17 14:50 TIBC 161 ug/dL (250-450) L 11/20/17 14:50 Iron Saturation 4 % (15-55) L 11/20/17 14:50 Unsaturated IBC 154 ug/dL (111-343) 11/20/17 14:50 Total Bilirubin 0.3 mg/dL (0.3-1.0) 11/23/17 05:50 AST 11 U/L (13-39) L 11/23/17 05:50 ALT 8 U/L (7-52) 11/23/17 05:50 Alkaline Phosphatase 108 U/L (34-104) H 11/23/17 05:50 Troponin I 0.03 ng/mL (0.01-0.05) 11/20/17 14:50 B-Natriuretic Peptide 239.0 pg/mL (5.0-100.0) H 11/21/17 06:40 Total Protein 5.6 gm/dL (6.0-8.3) L 11/23/17 05:50 Albumin 2.6 gm/dL (4.2-5.5) L 11/23/17 05:50 Globulin 3.0 gm/dL 11/23/17 05:50 Albumin/Globulin Ratio 0.9 (1.0-1.8) L 11/23/17 05:50 Urine Source CATH 11/21/17 09:00 Urine Color YELLOW 11/21/17 09:00 Urine Clarity HAZY (CLEAR) 11/21/17 09:00 Urine pH 6.0 (4.6 - 8.0) 11/21/17 09:00 Ur Specific [place] 1.020 (1.005-1.030) 11/21/17 09:00 Urine Protein >=300 mg/dL (NEGATIVE) 11/21/17 09:00 Urine Glucose (UA) >=1000 mg/dL (NEGATIVE) H 11/21/17 09:00 Urine Ketones 15 mg/dL (NEGATIVE) H 11/21/17 09:00 Urine Blood LARGE (NEGATIVE) H 11/21/17 09:00 Urine Nitrate NEGATIVE (NEGATIVE) 11/21/17 09:00 Urine Bilirubin NEGATIVE (NEGATIVE) 11/21/17 09:00 Urine Urobilinogen 0.2 E.U./dL (0.2 - 1.0) 11/21/17 09:00 Ur Leukocyte Esterase MODERATE (NEGATIVE) H 11/21/17 09:00 Urine RBC 0-2 /hpf (0-5) H 11/21/17 09:00 Urine WBC 50-100 /hpf (0-5) H 11/21/17 09:00 Ur Epithelial Cells FEW /lpf (FEW) 11/21/17 09:00 Urine Bacteria MANY /hpf (NONE SEEN) H 11/21/17 09:00 HIV 1&2 Antibody Screen NEGATIVE (NEG) 11/22/17 05:40 Blood Type A POSITIVE 11/22/17 09:50 Antibody Screen NEGATIVE 11/22/17 09:50 Crossmatch See Detail 11/22/17 09:50 - Physical Exam Vitals and I&O: Vital Signs Temp 98.3 F 11/23/17 08:00 Pulse 75 11/23/17 08:00 Resp 18 11/23/17 08:00 BP 158/84 11/23/17 08:00 Pulse Ox 99 11/23/17 08:00 Intake & Output 11/22/17 11/23/17 11/23/17 18:59 06:59 18:59 Intake Total 1100 200 Output Total 1300 700 Balance -200 -500 Weight (lbs) 81.647 kg 78.335 kg Intake: Intake, IV Amount 1100 200 0.9% NS w/20 mEq KCL 1, 1000 000 ml @ 50 mls/hr IV . Q20H [facility] Rx#:[id number] Piperacillin Sodium/ 100 200 Tazobact 3.375 gm In Sodium Chloride 0.9% 100 ml @ 200 mls/hr IV Q6HR [facility] Rx#:[id number] Output: Urine 1300 700 Other: # Bowel Movements 0 0 Weight Source Estimated Bedscale Active Medications: Current Medications Acetaminophen/Hydrocodone Bitart ([place] 5mg/325mg) 1 tab PO Q12HR PRN PRN Reason: Pain (Moderate) Stop: 12/06/17 14:25 Glipizide (Glucotrol) 10 mg PO DAILY [facility] Stop: 01/20/18 08:59 Last Admin: 11/22/17 09:33 Dose: 10 mg Potassium Chloride/Sodium Chloride (0.9% Ns W/20 Meq Kcl) 1,000 mls @ 50 mls/ hr IV .Q20H [facility] Stop: 01/20/18 08:59 Last Admin: 11/22/17 18:48 Dose: 50 mls/hr Piperacillin Sod/Tazobactam (Sod 3.375 gm/ Sodium Chloride) 100 mls @ 200 mls/ hr IV Q6HR [facility] Stop: 01/21/18 00:59 Last Admin: 11/23/17 06:32 Dose: 200 mls/hr Ibuprofen (Motrin) 600 mg PO BID [facility] Stop: 01/21/18 08:59 Last Admin: 11/22/17 16:47 Dose: 600 mg Insulin Aspart (Novolog Insulin Sliding Scale) 0 units SUBQ ACHS [facility]; Protocol Stop: 01/20/18 07:59 Last Admin: 11/22/17 21:47 Dose: 10 units Insulin Detemir (Levemir Insulin) 10 units SUBQ HS [facility]; Protocol Stop: 01/20/18 20:59 Last Admin: 11/22/17 21:45 Dose: 10 units Lactobacillus Rhamnosus (Culturelle 15b) 1 each PO DAILY [facility] Stop: 01/21/18 13:59 Last Admin: 11/22/17 16:47 Dose: 1 each Miscellaneous (Zosyn Iv Per Pharmacy) 1 ea PRN PRN PRN Reason: PROTOCOL Stop: 01/20/18 17:34 Miscellaneous (Probiotic Screen) 1 ea MC PRN PRN PRN Reason: PROTOCOL Stop: 01/21/18 12:43 Nystatin (Mycostatin Cream) 1 appl TP DAILY PRN PRN Reason: Diaper Rash Stop: 01/20/18 08:59 Nystatin (Nystop) 100,000 units TP DAILY PRN PRN Reason: Diaper Rash Stop: 01/20/18 07:56 Pantoprazole Sodium (Protonix) 40 mg IVP DAILY [facility] Stop: 01/20/18 08:59 Last Admin: 11/22/17 09:44 Dose: 40 mg General: Alert, Oriented x3 HEENT: Atraumatic Neck: Supple Cardiovascular: Regular rate, Normal S1, Normal S2 Lungs: Clear to auscultation Abdomen: Bowel sounds, Soft Extremities: no Clubbing, no Cyanosis, no Edema Assessment/Plan - Assessment Assessment: s/p fall homeless anemia -- s/p blood transfusion for GI workup hyponatremia -- improved hypokalemia -- improved diabetes mellitus --improved. hyperglycemia GNR bacteremia -- on Zosyn IV. awaiting cultures UTI/pyelonephritis -- continue IV antibiotics. Tinia crurus. HTN --start Lisinopril 10mg PO daily H/o CVA. H/o depression. Gluteal wound. 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 Neurogenic bladder. H/o Back surgery. Left forearm pain after a traumatic fall, acute fracture of ulna styloid. -- ortho consult - Plan Plan: will repeat labwork CBC,CMP GI consult stool occult Protonix 40mg IV qdaily K supplements ID consult type and screen 1 unit of pRBC's for CT abd/pelvis Nutritional Asmnt/Malnutr-PDOC - Dietary Evaluation Malnutrition Findings (Please click <Entered> for more info): Nutritional Asmnt/Malnutrition Start: 11/22/17 17: 38 Text: Status: Complete Freq: Protocol: Document 11/22/17 17:38 LCCOLLINSSanti (Rec: 11/22/17 17:57 RAMSEY ANA [id number]) Nutritional Asmnt/Malnutrition Patient General Information Nutritional Screening High Risk Diagnosis electrolyte imbalance, anemia Pertinent Medical Hx/Surgical Hx HTN, Dm, CVA/TIA, back surgery , depression Subjective Information consult received for diabetic. Pt is Khmer speaking. Per EMR, Pt consumded 50% of breakfast today. Not able to provide diabetic education d/t language barrier. Current Diet Order/ Nutrition Support diabetic diet Pertinent Medications glucotrol, novolog, levemir, culturelle, protonix, piperacillin, 0.9% ns w/20 meq kcl Pertinent Labs 11/21 Na 130, K 3.3, Cl 97, glucsoe 385 11/21-11/22 POC [id number] Nutritional Hx/Data Height 1.78 m Height (Calculated Centimeters) 177.8 Current Weight (lbs) 81.647 kg Weight (Calculated Kilograms) 81.6 Weight (Calculated Grams) 65994.6 [place] Body Weight 166 Body Mass Index (BMI) 25.8 Weight Status Overweight GI Symptoms GI Symptoms None Last BM none Difficult in: None Skin Integrity/Comment: pressure ulcer to sacrum Current %PO Fair (50-74%) Estimated Nutritional Goals BEE in Kcals: Using Current wt Calories/Kcals/Kg 25-30 Kcals Calculated 6087-7516 Protein: Using Current wt Protein g/k Protein Calculated 75 Fluid: ml 1875-2250ml (1ml/kcal) Nutritional Problem 1. Problem Problem increased nutrition needs Etiology increased metabolic needs for impaired skin integrity Signs/Symptoms: pressure ulcer to sacrum Malnutrition Alert Is there a minimum of two criteria No selected? Query Text:Check all the applicable criteria. A minimum of two criteria are recommended for diagnosis of either severe or non-severe malnutrition. Malnutrition Related to Morbid Obesity Malnutrition related to morbid obesity No Intervention/Recommendation Comments 1. Continue with diabetic diet diet as ordered. 2. Monitor PO intake, wt, labs and skin integrity 3. F/U as moderate risk in 3-5 days, 11/25-11/27, PO check Expected Outcomes/Goals Expected Outcomes/Goals 1. PO intake to meet at least 75% of nutritional needs. 2. Wt stability, skin to remain intact, labs to approach WNL.
[2017-11-23] MEDS: INSULIN ASPART SLIDING SCALE 100 UNITS/ML UNIT SUBQ SCH ×4 (08:48→20:58)
[2017-11-23] MEDS: Lactobacillus Rhamnosus GG 15 Billion CFU CAP.SPRINK PO SCH (08:48)
[2017-11-23 08:52] LABS: BAND NEUTROPHILE 4 % (0-10); BASOPHIL 0 % (0-3); EOSINOPHIL 3 % (0-5); LYMPHOCYTE 19 % (20-50); MONOCYTE 3 % (2-10); NEUTROPHILS 71 % (40-80)
--- NOTE | 2017-11-23 09:09 | GI Progress Note ---
Subjective - Review of Systems Service Date: 11/23/17 Subjective: No overt GI bleeding Objective - Results Result Diagrams: 11/23/17 05:50 11/23/17 05:50 Recent Labs: Laboratory Last Values WBC 5.6 Th/cmm (4.8-10.8) 11/23/17 05:50 RBC 3.04 Mil/cmm (4.30-5.70) L 11/23/17 05:50 Hgb 8.9 gm/dL (12-16) L 11/23/17 05:50 Hct 26.1 % (41.0-60) L 11/23/17 05:50 MCV 86.1 fl (80-99) 11/23/17 05:50 MCH 29.3 pg (26.0-30.0) 11/23/17 05:50 MCHC Differential 34.0 pg (28.0-36.0) 11/23/17 05:50 RDW 12.4 % (11.5-20.0) 11/23/17 05:50 Plt Count 238 Th/cmm (150-400) 11/23/17 05:50 MPV 7.3 fl 11/23/17 05:50 Add Manual Diff YES 11/23/17 05:50 Neutrophils % 82.4 % (40.0-80.0) H 11/21/17 06:40 Band Neutrophils % 4 % (0-10) 11/23/17 05:50 Lymphocytes % 11.0 % (20.0-50.0) L 11/21/17 06:40 Monocytes % 5.0 % (2.0-10.0) 11/21/17 06:40 Eosinophils % 0.6 % (0.0-5.0) 11/21/17 06:40 Basophils % 1.0 % (0.0-2.0) 11/21/17 06:40 Neutrophils (Manual) 71 % (40-80) 11/23/17 05:50 Lymphocytes 19 % (20-50) L 11/23/17 05:50 Monocytes 3 % (2-10) 11/23/17 05:50 Eosinophils 3 % (0-5) 11/23/17 05:50 Basophils 0 % (0-3) 11/23/17 05:50 Platelet Estimate ADEQUATE (NORMAL) 11/22/17 05:40 PTT (Actin FS) 30.1 SECONDS (26.0-38.0) 11/20/17 14:50 Sodium 138 mEq/L (136-145) 11/23/17 05:50 Potassium 4.2 mEq/L (3.5-5.1) 11/23/17 05:50 Chloride 105 mEq/L (98-107) 11/23/17 05:50 Carbon Dioxide 27.6 mEq/L (21.0-31.0) 11/23/17 05:50 Anion Gap 9.6 (7.0-16.0) 11/23/17 05:50 BUN 18 mg/dL (7-25) 11/23/17 05:50 Creatinine 1.0 mg/dL (0.7-1.3) 11/23/17 05:50 Est GFR ( Amer) > 60.0 ml/min (>90) 11/23/17 05:50 Est GFR (Non-Af Amer) > 60.0 ml/min 11/23/17 05:50 BUN/Creatinine Ratio 18.0 11/23/17 05:50 Glucose 205 mg/dL (70-105) H 11/23/17 05:50 POC Glucose 185 MG/DL (70 - 105) H 11/23/17 06:13 Calcium 8.3 mg/dL (8.6-10.3) L 11/23/17 05:50 Iron 7 ug/dL (38-169) L 11/20/17 14:50 TIBC 161 ug/dL (250-450) L 11/20/17 14:50 Iron Saturation 4 % (15-55) L 11/20/17 14:50 Unsaturated IBC 154 ug/dL (111-343) 11/20/17 14:50 Total Bilirubin 0.3 mg/dL (0.3-1.0) 11/23/17 05:50 AST 11 U/L (13-39) L 11/23/17 05:50 ALT 8 U/L (7-52) 11/23/17 05:50 Alkaline Phosphatase 108 U/L (34-104) H 11/23/17 05:50 Troponin I 0.03 ng/mL (0.01-0.05) 11/20/17 14:50 B-Natriuretic Peptide 239.0 pg/mL (5.0-100.0) H 11/21/17 06:40 Total Protein 5.6 gm/dL (6.0-8.3) L 11/23/17 05:50 Albumin 2.6 gm/dL (4.2-5.5) L 11/23/17 05:50 Globulin 3.0 gm/dL 11/23/17 05:50 Albumin/Globulin Ratio 0.9 (1.0-1.8) L 11/23/17 05:50 Urine Source CATH 11/21/17 09:00 Urine Color YELLOW 11/21/17 09:00 Urine Clarity HAZY (CLEAR) 11/21/17 09:00 Urine pH 6.0 (4.6 - 8.0) 11/21/17 09:00 Ur Specific [place] 1.020 (1.005-1.030) 11/21/17 09:00 Urine Protein >=300 mg/dL (NEGATIVE) 11/21/17 09:00 Urine Glucose (UA) >=1000 mg/dL (NEGATIVE) H 11/21/17 09:00 Urine Ketones 15 mg/dL (NEGATIVE) H 11/21/17 09:00 Urine Blood LARGE (NEGATIVE) H 11/21/17 09:00 Urine Nitrate NEGATIVE (NEGATIVE) 11/21/17 09:00 Urine Bilirubin NEGATIVE (NEGATIVE) 11/21/17 09:00 Urine Urobilinogen 0.2 E.U./dL (0.2 - 1.0) 11/21/17 09:00 Ur Leukocyte Esterase MODERATE (NEGATIVE) H 11/21/17 09:00 Urine RBC 0-2 /hpf (0-5) H 11/21/17 09:00 Urine WBC 50-100 /hpf (0-5) H 11/21/17 09:00 Ur Epithelial Cells FEW /lpf (FEW) 11/21/17 09:00 Urine Bacteria MANY /hpf (NONE SEEN) H 11/21/17 09:00 HIV 1&2 Antibody Screen NEGATIVE (NEG) 11/22/17 05:40 Blood Type A POSITIVE 11/22/17 09:50 Antibody Screen NEGATIVE 11/22/17 09:50 Crossmatch See Detail 11/22/17 09:50 - Physical Exam Vitals and I&O: Vital Signs Temp 98.3 F 11/23/17 08:00 Pulse 75 11/23/17 08:49 Resp 18 11/23/17 08:00 BP 158/84 11/23/17 08:49 Pulse Ox 99 11/23/17 08:00 Intake & Output 11/22/17 11/23/17 11/23/17 18:59 06:59 18:59 Intake Total 1100 200 Output Total 1300 700 Balance -200 -500 Weight (lbs) 81.647 kg 78.335 kg Intake: Intake, IV Amount 1100 200 0.9% NS w/20 mEq KCL 1, 1000 000 ml @ 50 mls/hr IV . Q20H [facility] Rx#:[id number] Piperacillin Sodium/ 100 200 Tazobact 3.375 gm In Sodium Chloride 0.9% 100 ml @ 200 mls/hr IV Q6HR [facility] Rx#:[id number] Output: Urine 1300 700 Other: # Bowel Movements 0 0 Weight Source Estimated Bedscale Active Medications: Current Medications Acetaminophen/Hydrocodone Bitart ([place] 5mg/325mg) 1 tab PO Q12HR PRN PRN Reason: Pain (Moderate) Stop: 12/06/17 14:25 Bisacodyl (Dulcolax 5 Mg Ec Tab) 10 mg PO X1 [facility] Stop: 11/23/17 16:01 Glipizide (Glucotrol) 10 mg PO DAILY [facility] Stop: 01/20/18 08:59 Last Admin: 11/23/17 08:49 Dose: 10 mg Potassium Chloride/Sodium Chloride (0.9% Ns W/20 Meq Kcl) 1,000 mls @ 50 mls/ hr IV .Q20H [facility] Stop: 01/20/18 08:59 Last Admin: 11/22/17 18:48 Dose: 50 mls/hr Piperacillin Sod/Tazobactam (Sod 3.375 gm/ Sodium Chloride) 100 mls @ 200 mls/ hr IV Q6HR [facility] Stop: 01/21/18 00:59 Last Admin: 11/23/17 06:32 Dose: 200 mls/hr Ibuprofen (Motrin) 600 mg PO BID [facility] Stop: 01/21/18 08:59 Last Admin: 11/23/17 08:48 Dose: 600 mg Insulin Aspart (Novolog Insulin Sliding Scale) 0 units SUBQ ACHS [facility]; Protocol Stop: 01/20/18 07:59 Last Admin: 11/23/17 08:48 Dose: Not Given Insulin Detemir (Levemir Insulin) 10 units SUBQ HS [facility]; Protocol Stop: 01/20/18 20:59 Last Admin: 11/22/17 21:45 Dose: 10 units Lactobacillus Rhamnosus (Culturelle 15b) 1 each PO DAILY [facility] Stop: 01/21/18 13:59 Last Admin: 11/23/17 08:48 Dose: 1 each Lisinopril (Zestril) 10 mg PO DAILY [facility] Stop: 01/22/18 08:59 Last Admin: 11/23/17 08:49 Dose: 10 mg Miscellaneous (Zosyn Iv Per Pharmacy) 1 ea PRN PRN PRN Reason: PROTOCOL Stop: 01/20/18 17:34 Miscellaneous (Probiotic Screen) 1 ea PRN PRN PRN Reason: PROTOCOL Stop: 01/21/18 12:43 Nystatin (Mycostatin Cream) 1 appl TP DAILY PRN PRN Reason: Diaper Rash Stop: 01/20/18 08:59 Nystatin (Nystop) 100,000 units TP DAILY PRN PRN Reason: Diaper Rash Stop: 01/20/18 07:56 Pantoprazole Sodium (Protonix) 40 mg IVP DAILY [facility] Stop: 01/20/18 08:59 Last Admin: 11/23/17 08:49 Dose: 40 mg Polyethylene Glycol/Electrolytes (Golytely) 4,000 ml PO X1 [facility] Stop: 11/23/17 17:01 General: Alert, Oriented x3 HEENT: Atraumatic Neck: Supple Cardiovascular: Regular rate Abdomen: Bowel sounds, Soft, no Tender, no Hepatomegaly, no Splenomegaly, no Distended, no Rebound, no Mass, no Guarding Extremities: no Clubbing, no Cyanosis, no Edema Assessment/Plan - Assessment Assessment: # Anemia # Hemiplegia # CVA Endoscopic indicated to investigate this patient's anemia for GI blood loss. Will plan for this tomorrow. Plan: - EGD/colo in AM. Pt CAN HAVE more than 4L golytely, which he may need given he is paraplegic - can use rectal tube as will have difficulty with going to commode - trend LFTs - clears, NPO after midnight
--- NOTE | 2017-11-23 11:41 | Diagnostic Imaging Report ---
Renal ultrasound HISTORY: Pyelonephritis, pain The right kidney is increased in size (13.1 x 7.1 x 6.9 cm). No focal lesions. No hydronephrosis. The left kidney is increased in size (13.4 x 6.5 x 6.1 cm). No focal lesions. No hydronephrosis. The urinary bladder demonstrates generalized wall thickening. Indwelling Boles catheter is seen. Following release of the Boles catheter, no significant post void residual. IMPRESSION: 1. Increased renal size is bilaterally. The significance should be correlated clinically and with renal function tests. 2. Generalized thickening of the urinary bladder wall.
[2017-11-23] MEDS: 0.9% NS w/20 mEq KCL 1,000 ML IV SCH (15:02)
[2017-11-23] MEDS: Meropenem 1 GM in Sodium Chloride 0.9% 100 ML IV SCH ×2 (15:02→20:55)
[2017-11-23] MEDS: Insulin Detemir 100 units/mL 10mL Vial SUBQ SCH (20:59)
[2017-11-23] MEDS ORDERED: Magnesium Citrate 1.75 GM/300 mL Bottle PO ONE (23:00)
[2017-11-23] MEDS: Lactulose 10 Gm/15 mL 30mL UDC PO SCH (23:31)
[2017-11-24] MEDS: Lactulose 10 Gm/15 mL 30mL UDC PO SCH ×2 (00:12→04:39)
--- NOTE | 2017-11-24 02:18 | Consultation ---
DATE OF CONSULTATION: 11/23/2017 ORTHOPEDIC SURGERY CONSULTATION HISTORY OF PRESENT ILLNESS: The patient is a 42-year-old gentleman admitted to [facility] on 11/20/2017 via the Emergency Room with multiple medical issues and complaining of left arm and wrist pain. X-rays were taken and fractures possibly old were found. I was called in Orthopedic consultation by the admitting physician regarding the patient's left arm complaints. PAST HISTORY: The patient indicated to me he has had a prior injury to his left wrist with fractures. His current injury was has he was getting out of his car, he fell onto his left forearm. He is a paraplegic and has difficulty getting around. ADDITIONAL PAST HISTORY: He had back surgery following which he was paraplegic. He also carries diagnoses of depression, history of stroke, hypertension, diabetes. PHYSICAL EXAMINATION: The patient was examined in his hospital room at [facility]. He stated he is not in pain. Inspection of the lower extremities reveals the paraplegia and some swelling of the feet and ankles. There is a decubitus ulcer over the upper left buttock. Upper extremities, he has good function and range of motion. The right upper extremity is unremarkable. 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 His strength and stability of the wrist are good. IMAGING STUDIES: I viewed images in the PACS dated 11/22/2017 of the left wrist, they are identical images labeled right wrist. It appears that we were interested in the one labeled left wrist. The others are probably mislabeled. There is an old fracture of the distal left radius with shortening. Overall alignment is otherwise okay. There is a fracture at the tip of the ulnar styloid with a smooth edge. This is probably old. X-rays of the left elbow were negative for fracture. X-rays of the left forearm showed the old Colles fracture at the distal end of the radius. ORTHOPEDIC DIAGNOSES: 1. Fracture distal left radius old, healed and stable. 2. Recent injury to left wrist - most likely a moderate sprain. 3. Paraplegia. RECOMMENDATIONS: The patient does not require surgery or cast immobilization. Regarding his left wrist injury, the fractures are healed and stable. His more recent sprain will respond to conservative care of light activity and allowing it to heal. I will see him again at your request. Thank you for this interesting referral. JOB# [id number]
[2017-11-24] MEDS: Meropenem 1 GM in Sodium Chloride 0.9% 100 ML IV SCH ×3 (06:18→20:41)
[2017-11-24 06:47] LABS: HEMATOCRIT 27.1 % (41.0-60); HEMOGLOBIN 9.1 gm/dL (12-16); MEAN CELL VOLUME 85.9 fl (80-99); MEAN CORPUSCULAR HEMOGLOBIN 28.8 pg (26.0-30.0); MEAN CORPUSCULAR HGB CONC 33.6 pg (28.0-36.0); PLATELET COUNT 271 Th/cmm (150-400); RED BLOOD COUNT 3.16 Mil/cmm (4.30-5.70); RED CELL DISTRIBUTION WIDTH 12.2 % (11.5-20.0); WHITE BLOOD COUNT 6.1 Th/cmm (4.8-10.8)
[2017-11-24 06:57] LABS: ANION GAP 8.8 (7.0-16.0); BUN - UREA NITROGEN 11 mg/dL (7-25); CALCIUM SERUM 8.2 mg/dL (8.6-10.3); CARBON DIOXIDE 25.7 mEq/L (21.0-31.0); CHLORIDE 105 mEq/L (98-107); CREATININE - SERUM 0.8 mg/dL (0.7-1.3); GFR AFRICAN-AMERICAN > 60.0 ml/min (>90); GFR NON AFRICAN-AMERICAN > 60.0 ml/min; GLUCOSE 192 mg/dL (70-105); POTASSIUM SERUM 3.5 mEq/L (3.5-5.1); SODIUM SERUM 136 mEq/L (136-145)
[2017-11-24 07:06] LABS: INR 1.01 (0.5-1.4); PROTHROMBIN TIME (TEST) 10.5 SECONDS (9.5-11.5)
[2017-11-24 07:39] LABS: BAND NEUTROPHILE 1 % (0-10); BASOPHIL 0 % (0-3); EOSINOPHIL 2 % (0-5); LYMPHOCYTE 20 % (20-50); MONOCYTE 2 % (2-10); NEUTROPHILS 75 % (40-80); PLATELET ESTIMATE ADEQUATE (NORMAL)
--- NOTE | 2017-11-24 08:34 | General Progress Note ---
Subjective - Review of Systems Service Date: 11/24/17 Subjective: Patient was seen and examined. Patient is resting comfortably in bed in no acute distress. +Klebsiella urinalysis. Objective - Results Result Diagrams: 11/24/17 05:20 11/24/17 05:20 Recent Labs: Laboratory Last Values WBC 6.1 Th/cmm (4.8-10.8) 11/24/17 05:20 RBC 3.16 Mil/cmm (4.30-5.70) L 11/24/17 05:20 Hgb 9.1 gm/dL (12-16) L 11/24/17 05:20 Hct 27.1 % (41.0-60) L 11/24/17 05:20 MCV 85.9 fl (80-99) 11/24/17 05:20 MCH 28.8 pg (26.0-30.0) 11/24/17 05:20 MCHC Differential 33.6 pg (28.0-36.0) 11/24/17 05:20 RDW 12.2 % (11.5-20.0) 11/24/17 05:20 Plt Count 271 Th/cmm (150-400) 11/24/17 05:20 MPV 7.0 fl 11/24/17 05:20 Add Manual Diff YES 11/24/17 05:20 Neutrophils % 82.4 % (40.0-80.0) H 11/21/17 06:40 Band Neutrophils % 1 % (0-10) 11/24/17 05:20 Lymphocytes % 11.0 % (20.0-50.0) L 11/21/17 06:40 Monocytes % 5.0 % (2.0-10.0) 11/21/17 06:40 Eosinophils % 0.6 % (0.0-5.0) 11/21/17 06:40 Basophils % 1.0 % (0.0-2.0) 11/21/17 06:40 Neutrophils (Manual) 75 % (40-80) 11/24/17 05:20 Lymphocytes 20 % (20-50) 11/24/17 05:20 Monocytes 2 % (2-10) 11/24/17 05:20 Eosinophils 2 % (0-5) 11/24/17 05:20 Basophils 0 % (0-3) 11/24/17 05:20 Platelet Estimate ADEQUATE (NORMAL) 11/24/17 05:20 PT 10.5 SECONDS (9.5-11.5) 11/24/17 05:20 INR 1.01 (0.5-1.4) 11/24/17 05:20 PTT (Actin FS) 30.1 SECONDS (26.0-38.0) 11/20/17 14:50 Sodium 136 mEq/L (136-145) 11/24/17 05:20 Potassium 3.5 mEq/L (3.5-5.1) 11/24/17 05:20 Chloride 105 mEq/L (98-107) 11/24/17 05:20 Carbon Dioxide 25.7 mEq/L (21.0-31.0) 11/24/17 05:20 Anion Gap 8.8 (7.0-16.0) 11/24/17 05:20 BUN 11 mg/dL (7-25) 11/24/17 05:20 Creatinine 0.8 mg/dL (0.7-1.3) 11/24/17 05:20 Est GFR ( Amer) > 60.0 ml/min (>90) 11/24/17 05:20 Est GFR (Non-Af Amer) > 60.0 ml/min 11/24/17 05:20 BUN/Creatinine Ratio 13.8 11/24/17 05:20 Glucose 192 mg/dL (70-105) H 11/24/17 05:20 POC Glucose 184 MG/DL (70 - 105) H 11/24/17 06:21 Calcium 8.2 mg/dL (8.6-10.3) L 11/24/17 05:20 Iron 7 ug/dL (38-169) L 11/20/17 14:50 TIBC 161 ug/dL (250-450) L 11/20/17 14:50 Iron Saturation 4 % (15-55) L 11/20/17 14:50 Unsaturated IBC 154 ug/dL (111-343) 11/20/17 14:50 Total Bilirubin 0.3 mg/dL (0.3-1.0) 11/23/17 05:50 AST 11 U/L (13-39) L 11/23/17 05:50 ALT 8 U/L (7-52) 11/23/17 05:50 Alkaline Phosphatase 108 U/L (34-104) H 11/23/17 05:50 Troponin I 0.03 ng/mL (0.01-0.05) 11/20/17 14:50 B-Natriuretic Peptide 239.0 pg/mL (5.0-100.0) H 11/21/17 06:40 Total Protein 5.6 gm/dL (6.0-8.3) L 11/23/17 05:50 Albumin 2.6 gm/dL (4.2-5.5) L 11/23/17 05:50 Globulin 3.0 gm/dL 11/23/17 05:50 Albumin/Globulin Ratio 0.9 (1.0-1.8) L 11/23/17 05:50 Urine Source CATH 11/21/17 09:00 Urine Color YELLOW 11/21/17 09:00 Urine Clarity HAZY (CLEAR) 11/21/17 09:00 Urine pH 6.0 (4.6 - 8.0) 11/21/17 09:00 Ur Specific [place] 1.020 (1.005-1.030) 11/21/17 09:00 Urine Protein >=300 mg/dL (NEGATIVE) 11/21/17 09:00 Urine Glucose (UA) >=1000 mg/dL (NEGATIVE) H 11/21/17 09:00 Urine Ketones 15 mg/dL (NEGATIVE) H 11/21/17 09:00 Urine Blood LARGE (NEGATIVE) H 11/21/17 09:00 Urine Nitrate NEGATIVE (NEGATIVE) 11/21/17 09:00 Urine Bilirubin NEGATIVE (NEGATIVE) 11/21/17 09:00 Urine Urobilinogen 0.2 E.U./dL (0.2 - 1.0) 11/21/17 09:00 Ur Leukocyte Esterase MODERATE (NEGATIVE) H 11/21/17 09:00 Urine RBC 0-2 /hpf (0-5) H 11/21/17 09:00 Urine WBC 50-100 /hpf (0-5) H 11/21/17 09:00 Ur Epithelial Cells FEW /lpf (FEW) 11/21/17 09:00 Urine Bacteria MANY /hpf (NONE SEEN) H 11/21/17 09:00 HIV 1&2 Antibody Screen NEGATIVE (NEG) 11/22/17 05:40 Blood Type A POSITIVE 11/22/17 09:50 Antibody Screen NEGATIVE 11/22/17 09:50 Crossmatch See Detail 11/22/17 09:50 - Physical Exam Vitals and I&O: Vital Signs Temp 97.0 F 11/24/17 07:58 Pulse 77 11/24/17 07:58 Resp 18 11/24/17 07:58 BP 181/90 11/24/17 07:58 Pulse Ox 98 11/24/17 07:58 Intake & Output 11/23/17 11/24/17 11/24/17 18:59 06:59 18:59 Intake Total 1300 600 Output Total 1800 Balance 1300 -1200 Weight (lbs) 82.1 kg Intake: Intake, IV Amount 1300 100 0.9% NS w/20 mEq KCL 1, 1000 000 ml @ 50 mls/hr IV . Q20H [facility] Rx#:[id number] Meropenem 1 gm In Sodium 100 100 Chloride 0.9% 100 ml @ 100 mls/hr IV Q8HR [facility] Rx #:[id number] Piperacillin Sodium/ 200 Tazobact 3.375 gm In Sodium Chloride 0.9% 100 ml @ 200 mls/hr IV Q6HR [facility] Rx#:[id number] Oral 500 Output: Urine 1800 Other: # Voids 2 # Bowel Movements 3 Stool Characteristics Formed Black Weight Source Bedscale Active Medications: Current Medications Acetaminophen/Hydrocodone Bitart ([place] 5mg/325mg) 1 tab PO Q12HR PRN PRN Reason: Pain (Moderate) Stop: 12/06/17 14:25 Glipizide (Glucotrol) 10 mg PO DAILY [facility] Stop: 01/20/18 08:59 Last Admin: 11/23/17 08:49 Dose: 10 mg Potassium Chloride/Sodium Chloride (0.9% Ns W/20 Meq Kcl) 1,000 mls @ 50 mls/ hr IV .Q20H [facility] Stop: 01/20/18 08:59 Last Admin: 11/23/17 15:02 Dose: 50 mls/hr Meropenem 1 gm/ Sodium (Chloride) 100 mls @ 100 mls/hr IV Q8HR [facility] Stop: 01/22/18 13:59 Last Admin: 11/24/17 06:18 Dose: 100 mls/hr Ibuprofen (Motrin) 600 mg PO BID [facility] Stop: 01/21/18 08:59 Last Admin: 11/23/17 16:38 Dose: 600 mg Insulin Aspart (Novolog Insulin Sliding Scale) 0 units SUBQ ACHS [facility]; Protocol Stop: 01/20/18 07:59 Last Admin: 11/23/17 20:58 Dose: Not Given Insulin Detemir (Levemir Insulin) 10 units SUBQ HS [facility]; Protocol Stop: 01/20/18 20:59 Last Admin: 11/23/17 20:59 Dose: Not Given Lactobacillus Rhamnosus (Culturelle 15b) 1 each PO DAILY [facility] Stop: 01/21/18 13:59 Last Admin: 11/23/17 08:48 Dose: 1 each Lisinopril (Zestril) 10 mg PO DAILY [facility] Stop: 01/22/18 08:59 Last Admin: 11/23/17 08:49 Dose: 10 mg Miscellaneous (Zosyn Iv Per Pharmacy) 1 [facility] PRN PRN PRN Reason: PROTOCOL Stop: 01/20/18 17:34 Miscellaneous (Probiotic Screen) 1 [facility] PRN PRN PRN Reason: PROTOCOL Stop: 01/21/18 12:43 Nystatin (Mycostatin Cream) 1 appl TP DAILY [facility] PRN Reason: Diaper Rash Stop: 01/20/18 08:59 Nystatin (Nystop) 100,000 units TP DAILY [facility] PRN Reason: Diaper Rash Stop: 01/20/18 07:56 Pantoprazole Sodium (Protonix) 40 mg IVP DAILY [facility] Stop: 01/20/18 08:59 Last Admin: 11/23/17 08:49 Dose: 40 mg General: Alert, Oriented x3 HEENT: Atraumatic Neck: Supple Cardiovascular: Regular rate Lungs: Clear to auscultation Abdomen: Bowel sounds, Soft, no Tender, no Hepatomegaly, no Splenomegaly, no Distended, no Rebound, no Mass, no Guarding Extremities: no Clubbing, no Cyanosis, no Edema Assessment/Plan - Assessment Assessment: s/p fall homeless anemia -- s/p blood transfusion for GI workup hyponatremia -- improved hypokalemia -- improved diabetes mellitus --improved. hyperglycemia GNR bacteremia -- on Zosyn IV. awaiting cultures UTI/pyelonephritis -- continue IV antibiotics. ID consult tinea crurus. HTN --start Lisinopril 10mg PO daily H/o CVA. H/o depression. Gluteal wound. 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 Neurogenic bladder. H/o Back surgery. Left forearm pain after a traumatic fall, acute fracture of ulna styloid. -- ortho consult - Plan Plan: will repeat labwork CBC,CMP GI consult stool occult Protonix 40mg IV qdaily K supplements ID consult type and screen 1 unit of pRBC's for CT abd/pelvis Nutritional Asmnt/Malnutr-PDOC - Dietary Evaluation Malnutrition Findings (Please click <Entered> for more info): Nutritional Asmnt/Malnutrition Start: 11/22/17 17: 38 Text: Status: Complete Freq: Protocol: Document 11/22/17 17:38 [email or web address] (Rec: 11/22/17 17:57 RAMSEY ANA [id number]) Nutritional Asmnt/Malnutrition Patient General Information Nutritional Screening High Risk Diagnosis electrolyte imbalance, anemia Pertinent Medical Hx/Surgical Hx HTN, Dm, CVA/TIA, back surgery , depression Subjective Information consult received for diabetic. Pt is Indonesian speaking. Per EMR, Pt consumded 50% of breakfast today. Not able to provide diabetic education d/t language barrier. Current Diet Order/ Nutrition Support diabetic diet Pertinent Medications glucotrol, novolog, levemir, culturelle, protonix, piperacillin, 0.9% ns w/20 meq kcl Pertinent Labs 11/21 Na 130, K 3.3, Cl 97, glucsoe 385 11/21-11/22 POC [id number] Nutritional Hx/Data Height 1.78 m Height (Calculated Centimeters) 177.8 Current Weight (lbs) 81.647 kg Weight (Calculated Kilograms) 81.6 Weight (Calculated Grams) 71174.6 [place] Body Weight 166 Body Mass Index (BMI) 25.8 Weight Status Overweight GI Symptoms GI Symptoms None Last BM none Difficult in: None Skin Integrity/Comment: pressure ulcer to sacrum Current %PO Fair (50-74%) Estimated Nutritional Goals BEE in Kcals: Using Current wt Calories/Kcals/Kg 25-30 Kcals Calculated 1127-8203 Protein: Using Current wt Protein g/k Protein Calculated 75 Fluid: ml 1875-2250ml (1ml/kcal) Nutritional Problem 1. Problem Problem increased nutrition needs Etiology increased metabolic needs for impaired skin integrity Signs/Symptoms: pressure ulcer to sacrum Malnutrition Alert Is there a minimum of two criteria No selected? Query Text:Check all the applicable criteria. A minimum of two criteria are recommended for diagnosis of either severe or non-severe malnutrition. Malnutrition Related to Morbid Obesity Malnutrition related to morbid obesity No Intervention/Recommendation Comments 1. Continue with diabetic diet diet as ordered. 2. Monitor PO intake, wt, labs and skin integrity 3. F/U as moderate risk in 3-5 days, 11/25-11/27, PO check Expected Outcomes/Goals Expected Outcomes/Goals 1. PO intake to meet at least 75% of nutritional needs. 2. Wt stability, skin to remain intact, labs to approach WNL.
[2017-11-24] MEDS: INSULIN ASPART SLIDING SCALE 100 UNITS/ML UNIT SUBQ SCH ×4 (09:03→20:37)
--- NOTE | 2017-11-24 09:04 | GI Progress Note ---
Subjective - Review of Systems Service Date: 11/24/17 Subjective: Pt refused his bowel prep. Now reports he had EGD/colo at another hospital earlier this year. Objective - Results Result Diagrams: 11/24/17 05:20 11/24/17 05:20 Recent Labs: Laboratory Last Values WBC 6.1 Th/cmm (4.8-10.8) 11/24/17 05:20 RBC 3.16 Mil/cmm (4.30-5.70) L 11/24/17 05:20 Hgb 9.1 gm/dL (12-16) L 11/24/17 05:20 Hct 27.1 % (41.0-60) L 11/24/17 05:20 MCV 85.9 fl (80-99) 11/24/17 05:20 MCH 28.8 pg (26.0-30.0) 11/24/17 05:20 MCHC Differential 33.6 pg (28.0-36.0) 11/24/17 05:20 RDW 12.2 % (11.5-20.0) 11/24/17 05:20 Plt Count 271 Th/cmm (150-400) 11/24/17 05:20 MPV 7.0 fl 11/24/17 05:20 Add Manual Diff YES 11/24/17 05:20 Neutrophils % 82.4 % (40.0-80.0) H 11/21/17 06:40 Band Neutrophils % 1 % (0-10) 11/24/17 05:20 Lymphocytes % 11.0 % (20.0-50.0) L 11/21/17 06:40 Monocytes % 5.0 % (2.0-10.0) 11/21/17 06:40 Eosinophils % 0.6 % (0.0-5.0) 11/21/17 06:40 Basophils % 1.0 % (0.0-2.0) 11/21/17 06:40 Neutrophils (Manual) 75 % (40-80) 11/24/17 05:20 Lymphocytes 20 % (20-50) 11/24/17 05:20 Monocytes 2 % (2-10) 11/24/17 05:20 Eosinophils 2 % (0-5) 11/24/17 05:20 Basophils 0 % (0-3) 11/24/17 05:20 Platelet Estimate ADEQUATE (NORMAL) 11/24/17 05:20 PT 10.5 SECONDS (9.5-11.5) 11/24/17 05:20 INR 1.01 (0.5-1.4) 11/24/17 05:20 PTT (Actin FS) 30.1 SECONDS (26.0-38.0) 11/20/17 14:50 Sodium 136 mEq/L (136-145) 11/24/17 05:20 Potassium 3.5 mEq/L (3.5-5.1) 11/24/17 05:20 Chloride 105 mEq/L (98-107) 11/24/17 05:20 Carbon Dioxide 25.7 mEq/L (21.0-31.0) 11/24/17 05:20 Anion Gap 8.8 (7.0-16.0) 11/24/17 05:20 BUN 11 mg/dL (7-25) 11/24/17 05:20 Creatinine 0.8 mg/dL (0.7-1.3) 11/24/17 05:20 Est GFR ( Amer) > 60.0 ml/min (>90) 11/24/17 05:20 Est GFR (Non-Af Amer) > 60.0 ml/min 11/24/17 05:20 BUN/Creatinine Ratio 13.8 11/24/17 05:20 Glucose 192 mg/dL (70-105) H 11/24/17 05:20 POC Glucose 184 MG/DL (70 - 105) H 11/24/17 06:21 Calcium 8.2 mg/dL (8.6-10.3) L 11/24/17 05:20 Iron 7 ug/dL (38-169) L 11/20/17 14:50 TIBC 161 ug/dL (250-450) L 11/20/17 14:50 Iron Saturation 4 % (15-55) L 11/20/17 14:50 Unsaturated IBC 154 ug/dL (111-343) 11/20/17 14:50 Total Bilirubin 0.3 mg/dL (0.3-1.0) 11/23/17 05:50 AST 11 U/L (13-39) L 11/23/17 05:50 ALT 8 U/L (7-52) 11/23/17 05:50 Alkaline Phosphatase 108 U/L (34-104) H 11/23/17 05:50 Troponin I 0.03 ng/mL (0.01-0.05) 11/20/17 14:50 B-Natriuretic Peptide 239.0 pg/mL (5.0-100.0) H 11/21/17 06:40 Total Protein 5.6 gm/dL (6.0-8.3) L 11/23/17 05:50 Albumin 2.6 gm/dL (4.2-5.5) L 11/23/17 05:50 Globulin 3.0 gm/dL 11/23/17 05:50 Albumin/Globulin Ratio 0.9 (1.0-1.8) L 11/23/17 05:50 Urine Source CATH 11/21/17 09:00 Urine Color YELLOW 11/21/17 09:00 Urine Clarity HAZY (CLEAR) 11/21/17 09:00 Urine pH 6.0 (4.6 - 8.0) 11/21/17 09:00 Ur Specific [place] 1.020 (1.005-1.030) 11/21/17 09:00 Urine Protein >=300 mg/dL (NEGATIVE) 11/21/17 09:00 Urine Glucose (UA) >=1000 mg/dL (NEGATIVE) H 11/21/17 09:00 Urine Ketones 15 mg/dL (NEGATIVE) H 11/21/17 09:00 Urine Blood LARGE (NEGATIVE) H 11/21/17 09:00 Urine Nitrate NEGATIVE (NEGATIVE) 11/21/17 09:00 Urine Bilirubin NEGATIVE (NEGATIVE) 11/21/17 09:00 Urine Urobilinogen 0.2 E.U./dL (0.2 - 1.0) 11/21/17 09:00 Ur Leukocyte Esterase MODERATE (NEGATIVE) H 11/21/17 09:00 Urine RBC 0-2 /hpf (0-5) H 11/21/17 09:00 Urine WBC 50-100 /hpf (0-5) H 11/21/17 09:00 Ur Epithelial Cells FEW /lpf (FEW) 11/21/17 09:00 Urine Bacteria MANY /hpf (NONE SEEN) H 11/21/17 09:00 HIV 1&2 Antibody Screen NEGATIVE (NEG) 11/22/17 05:40 Blood Type A POSITIVE 11/22/17 09:50 Antibody Screen NEGATIVE 11/22/17 09:50 Crossmatch See Detail 11/22/17 09:50 - Physical Exam Vitals and I&O: Vital Signs Temp 97.0 F 11/24/17 07:58 Pulse 77 11/24/17 07:58 Resp 18 11/24/17 07:58 BP 181/90 11/24/17 07:58 Pulse Ox 98 11/24/17 07:58 Intake & Output 11/23/17 11/24/17 11/24/17 18:59 06:59 18:59 Intake Total 1300 600 Output Total 1800 Balance 1300 -1200 Weight (lbs) 82.1 kg Intake: Intake, IV Amount 1300 100 0.9% NS w/20 mEq KCL 1, 1000 000 ml @ 50 mls/hr IV . Q20H [facility] Rx#:[id number] Meropenem 1 gm In Sodium 100 100 Chloride 0.9% 100 ml @ 100 mls/hr IV Q8HR [facility] Rx #:[id number] Piperacillin Sodium/ 200 Tazobact 3.375 gm In Sodium Chloride 0.9% 100 ml @ 200 mls/hr IV Q6HR [facility] Rx#:[id number] Oral 500 Output: Urine 1800 Other: # Voids 2 # Bowel Movements 3 Stool Characteristics Formed Black Weight Source Bedscale Active Medications: Current Medications Acetaminophen/Hydrocodone Bitart ([place] 5mg/325mg) 1 tab PO Q12HR PRN PRN Reason: Pain (Moderate) Stop: 12/06/17 14:25 Glipizide (Glucotrol) 10 mg PO DAILY [facility] Stop: 01/20/18 08:59 Last Admin: 11/23/17 08:49 Dose: 10 mg Potassium Chloride/Sodium Chloride (0.9% Ns W/20 Meq Kcl) 1,000 mls @ 50 mls/ hr IV .Q20H [facility] Stop: 01/20/18 08:59 Last Admin: 11/23/17 15:02 Dose: 50 mls/hr Meropenem 1 gm/ Sodium (Chloride) 100 mls @ 100 mls/hr IV Q8HR [facility] Stop: 01/22/18 13:59 Last Admin: 11/24/17 06:18 Dose: 100 mls/hr Ibuprofen (Motrin) 600 mg PO BID [facility] Stop: 01/21/18 08:59 Last Admin: 11/23/17 16:38 Dose: 600 mg Insulin Aspart (Novolog Insulin Sliding Scale) 0 units SUBQ ACHS [facility]; Protocol Stop: 01/20/18 07:59 Last Admin: 11/23/17 20:58 Dose: Not Given Insulin Detemir (Levemir Insulin) 10 units SUBQ HS [facility]; Protocol Stop: 01/20/18 20:59 Last Admin: 11/23/17 20:59 Dose: Not Given Lactobacillus Rhamnosus (Culturelle 15b) 1 each PO DAILY [facility] Stop: 01/21/18 13:59 Last Admin: 11/23/17 08:48 Dose: 1 each Lisinopril (Zestril) 10 mg PO DAILY [facility] Stop: 01/22/18 08:59 Last Admin: 11/23/17 08:49 Dose: 10 mg Miscellaneous (Zosyn Iv Per Pharmacy) 1 [facility] PRN PRN PRN Reason: PROTOCOL Stop: 01/20/18 17:34 Miscellaneous (Probiotic Screen) 1 [facility] PRN PRN PRN Reason: PROTOCOL Stop: 01/21/18 12:43 Nystatin (Mycostatin Cream) 1 appl TP DAILY [facility] PRN Reason: Diaper Rash Stop: 01/20/18 08:59 Nystatin (Nystop) 100,000 units TP DAILY [facility] PRN Reason: Diaper Rash Stop: 01/20/18 07:56 Pantoprazole Sodium (Protonix) 40 mg IVP DAILY [facility] Stop: 01/20/18 08:59 Last Admin: 11/23/17 08:49 Dose: 40 mg General: Alert, Oriented x3 HEENT: Atraumatic Neck: Supple Cardiovascular: Regular rate Lungs: Clear to auscultation Abdomen: Bowel sounds, Soft, no Tender, no Hepatomegaly, no Splenomegaly, no Distended, no Rebound, no Mass, no Guarding Extremities: no Clubbing, no Cyanosis, no Edema Assessment/Plan - Assessment Assessment: # Anemia # Hemiplegia # CVA We had planned EGD/colo on 11/24 given pt was anemic. However, he has refused prep. He also now reports he had EGD/colo done this year already at [facility], and does not want to have another repeat exam now. Plan: - try and obtain records of EGD/colo done at [facility]. Pt is refusing any further exams at this point. - trend LFTs - trend hgb - resume diet
[2017-11-24] MEDS: Lactobacillus Rhamnosus GG 15 Billion CFU CAP.SPRINK PO SCH (09:05)
--- NOTE | 2017-11-24 14:17 | Infectious Disease Prog Note ---
Infectious Disease Subjective - Review of Systems Service Date: 11/24/17 Subjective: There is no new change, no fever. Infectious Disease Objective - Results Result Diagrams: 11/24/17 05:20 11/24/17 05:20 Recent Labs: Laboratory Last Values WBC 6.1 Th/cmm (4.8-10.8) 11/24/17 05:20 RBC 3.16 Mil/cmm (4.30-5.70) L 11/24/17 05:20 Hgb 9.1 gm/dL (12-16) L 11/24/17 05:20 Hct 27.1 % (41.0-60) L 11/24/17 05:20 MCV 85.9 fl (80-99) 11/24/17 05:20 MCH 28.8 pg (26.0-30.0) 11/24/17 05:20 MCHC Differential 33.6 pg (28.0-36.0) 11/24/17 05:20 RDW 12.2 % (11.5-20.0) 11/24/17 05:20 Plt Count 271 Th/cmm (150-400) 11/24/17 05:20 MPV 7.0 fl 11/24/17 05:20 Add Manual Diff YES 11/24/17 05:20 Neutrophils % 82.4 % (40.0-80.0) H 11/21/17 06:40 Band Neutrophils % 1 % (0-10) 11/24/17 05:20 Lymphocytes % 11.0 % (20.0-50.0) L 11/21/17 06:40 Monocytes % 5.0 % (2.0-10.0) 11/21/17 06:40 Eosinophils % 0.6 % (0.0-5.0) 11/21/17 06:40 Basophils % 1.0 % (0.0-2.0) 11/21/17 06:40 Neutrophils (Manual) 75 % (40-80) 11/24/17 05:20 Lymphocytes 20 % (20-50) 11/24/17 05:20 Monocytes 2 % (2-10) 11/24/17 05:20 Eosinophils 2 % (0-5) 11/24/17 05:20 Basophils 0 % (0-3) 11/24/17 05:20 Platelet Estimate ADEQUATE (NORMAL) 11/24/17 05:20 PT 10.5 SECONDS (9.5-11.5) 11/24/17 05:20 INR 1.01 (0.5-1.4) 11/24/17 05:20 PTT (Actin FS) 30.1 SECONDS (26.0-38.0) 11/20/17 14:50 Sodium 136 mEq/L (136-145) 11/24/17 05:20 Potassium 3.5 mEq/L (3.5-5.1) 11/24/17 05:20 Chloride 105 mEq/L (98-107) 11/24/17 05:20 Carbon Dioxide 25.7 mEq/L (21.0-31.0) 11/24/17 05:20 Anion Gap 8.8 (7.0-16.0) 11/24/17 05:20 BUN 11 mg/dL (7-25) 11/24/17 05:20 Creatinine 0.8 mg/dL (0.7-1.3) 11/24/17 05:20 Est GFR ( Amer) > 60.0 ml/min (>90) 11/24/17 05:20 Est GFR (Non-Af Amer) > 60.0 ml/min 11/24/17 05:20 BUN/Creatinine Ratio 13.8 11/24/17 05:20 Glucose 192 mg/dL (70-105) H 11/24/17 05:20 POC Glucose 212 MG/DL (70 - 105) H 11/24/17 11:34 Calcium 8.2 mg/dL (8.6-10.3) L 11/24/17 05:20 Iron 7 ug/dL (38-169) L 11/20/17 14:50 TIBC 161 ug/dL (250-450) L 11/20/17 14:50 Iron Saturation 4 % (15-55) L 11/20/17 14:50 Unsaturated IBC 154 ug/dL (111-343) 11/20/17 14:50 Total Bilirubin 0.3 mg/dL (0.3-1.0) 11/23/17 05:50 AST 11 U/L (13-39) L 11/23/17 05:50 ALT 8 U/L (7-52) 11/23/17 05:50 Alkaline Phosphatase 108 U/L (34-104) H 11/23/17 05:50 Troponin I 0.03 ng/mL (0.01-0.05) 11/20/17 14:50 B-Natriuretic Peptide 239.0 pg/mL (5.0-100.0) H 11/21/17 06:40 Total Protein 5.6 gm/dL (6.0-8.3) L 11/23/17 05:50 Albumin 2.6 gm/dL (4.2-5.5) L 11/23/17 05:50 Globulin 3.0 gm/dL 11/23/17 05:50 Albumin/Globulin Ratio 0.9 (1.0-1.8) L 11/23/17 05:50 Urine Source CATH 11/21/17 09:00 Urine Color YELLOW 11/21/17 09:00 Urine Clarity HAZY (CLEAR) 11/21/17 09:00 Urine pH 6.0 (4.6 - 8.0) 11/21/17 09:00 Ur Specific [place] 1.020 (1.005-1.030) 11/21/17 09:00 Urine Protein >=300 mg/dL (NEGATIVE) 11/21/17 09:00 Urine Glucose (UA) >=1000 mg/dL (NEGATIVE) H 11/21/17 09:00 Urine Ketones 15 mg/dL (NEGATIVE) H 11/21/17 09:00 Urine Blood LARGE (NEGATIVE) H 11/21/17 09:00 Urine Nitrate NEGATIVE (NEGATIVE) 11/21/17 09:00 Urine Bilirubin NEGATIVE (NEGATIVE) 11/21/17 09:00 Urine Urobilinogen 0.2 E.U./dL (0.2 - 1.0) 11/21/17 09:00 Ur Leukocyte Esterase MODERATE (NEGATIVE) H 11/21/17 09:00 Urine RBC 0-2 /hpf (0-5) H 11/21/17 09:00 Urine WBC 50-100 /hpf (0-5) H 11/21/17 09:00 Ur Epithelial Cells FEW /lpf (FEW) 11/21/17 09:00 Urine Bacteria MANY /hpf (NONE SEEN) H 11/21/17 09:00 HIV 1&2 Antibody Screen NEGATIVE (NEG) 11/22/17 05:40 Blood Type A POSITIVE 11/22/17 09:50 Antibody Screen NEGATIVE 11/22/17 09:50 Crossmatch See Detail 11/22/17 09:50 - Physical Exam Vitals and I&O: Vital Signs Temp 97.4 F 11/24/17 11:54 Pulse 90 11/24/17 11:54 Resp 17 11/24/17 11:54 BP 163/86 11/24/17 11:54 Pulse Ox 99 11/24/17 11:54 Intake & Output 11/23/17 11/24/17 11/24/17 18:59 06:59 18:59 Intake Total 1300 600 100 Output Total 1800 Balance 1300 -1200 100 Weight (lbs) 82.1 kg Intake: Intake, IV Amount 1300 100 100 0.9% NS w/20 mEq KCL 1, 1000 000 ml @ 50 mls/hr IV . Q20H [facility] Rx#:[id number] Meropenem 1 gm In Sodium 100 100 100 Chloride 0.9% 100 ml @ 100 mls/hr IV Q8HR [facility] Rx #:[id number] Piperacillin Sodium/ 200 Tazobact 3.375 gm In Sodium Chloride 0.9% 100 ml @ 200 mls/hr IV Q6HR [facility] Rx#:[id number] Oral 500 Output: Urine 1800 Other: # Voids 2 # Bowel Movements 3 Stool Characteristics Formed Formed Black Black Weight Source Bedscale Active Medications: Current Medications Acetaminophen/Hydrocodone Bitart ([place] 5mg/325mg) 1 tab PO Q12HR PRN PRN Reason: Pain (Moderate) Stop: 12/06/17 14:25 Glipizide (Glucotrol) 10 mg PO DAILY [facility] Stop: 01/20/18 08:59 Last Admin: 11/24/17 09:04 Dose: Not Given Potassium Chloride/Sodium Chloride (0.9% Ns W/20 Meq Kcl) 1,000 mls @ 50 mls/ hr IV .Q20H [facility] Stop: 01/20/18 08:59 Last Admin: 11/23/17 15:02 Dose: 50 mls/hr Meropenem 1 gm/ Sodium (Chloride) 100 mls @ 100 mls/hr IV Q8HR [facility] Stop: 01/22/18 13:59 Last Admin: 11/24/17 12:17 Dose: 100 mls/hr Ibuprofen (Motrin) 600 mg PO BID [facility] Stop: 01/21/18 08:59 Last Admin: 11/24/17 09:04 Dose: Not Given Insulin Aspart (Novolog Insulin Sliding Scale) 0 units SUBQ ACHS [facility]; Protocol Stop: 01/20/18 07:59 Last Admin: 11/24/17 12:15 Dose: 4 units Insulin Detemir (Levemir Insulin) 10 units SUBQ HS [facility]; Protocol Stop: 01/20/18 20:59 Last Admin: 11/23/17 20:59 Dose: Not Given Lactobacillus Rhamnosus (Culturelle 15b) 1 each PO DAILY [facility] Stop: 01/21/18 13:59 Last Admin: 11/24/17 09:05 Dose: Not Given Lisinopril (Zestril) 10 mg PO DAILY [facility] Stop: 01/22/18 08:59 Last Admin: 11/24/17 09:18 Dose: 10 mg Miscellaneous (Zosyn Iv Per Pharmacy) 1 [facility] PRN PRN PRN Reason: PROTOCOL Stop: 01/20/18 17:34 Miscellaneous (Probiotic Screen) 1 ea PRN PRN PRN Reason: PROTOCOL Stop: 01/21/18 12:43 Nystatin (Mycostatin Cream) 1 appl TP DAILY PRN PRN Reason: Diaper Rash Stop: 01/20/18 08:59 Nystatin (Nystop) 100,000 units TP DAILY PRN PRN Reason: Diaper Rash Stop: 01/20/18 07:56 Pantoprazole Sodium (Protonix) 40 mg IVP DAILY [facility] Stop: 01/20/18 08:59 Last Admin: 11/24/17 09:17 Dose: 40 mg General: no acute distress, well developed, well nourished HEENT: atraumatic, normocephalic, PERRLA, EOMI Neck: supple, no thyromegaly Cardiovascular: S1S2, regular Lungs: clear to auscultation bilaterally, clear to percussion Abdomen: soft, no tender, no distended Extremities: edema, no cyanosis, no clubbing Neurological: awake, alert Skin: intact Infectious Disease Assmt/Plan - Assessment Assessment: 1. ESBL klebsiella bacteremia. 2. UTI/pyelonephritis. hydronephrosis resolved. 3. Tinia crurus. 4. DM2 5. HTN. 6. H/o CVA. 7. H/o depression. 8. Gluteal wound. 9. 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 10. Neurogenic bladder. 11. H/o Back surgery. 12. Left forearm pain after a traumatic fall, acute fracture of ulna styloid. - Plan Plan: Continue meropenem, can be changed to Invanz 1 Gm IV for 9 more days. Follow up repeat blood cultures. SHEILA RN. Nutritional Asmnt/Malnutr-PDOC - Dietary Evaluation Malnutrition Findings (Please click <Entered> for more info): Nutritional Asmnt/Malnutrition Start: 11/22/17 17: 38 Text: Status: Complete Freq: Protocol: Document 11/22/17 17:38 LCHENG (Rec: 11/22/17 17:57 LCHENG ANA [id number]) Nutritional Asmnt/Malnutrition Patient General Information Nutritional Screening High Risk Diagnosis electrolyte imbalance, anemia Pertinent Medical Hx/Surgical Hx HTN, Dm, CVA/TIA, back surgery , depression Subjective Information consult received for diabetic. Pt is Maced[place] speaking. Per EMR, Pt consumded 50% of breakfast today. Not able to provide diabetic education d/t language barrier. Current Diet Order/ Nutrition Support diabetic diet Pertinent Medications glucotrol, novolog, levemir, culturelle, protonix, piperacillin, 0.9% ns w/20 meq kcl Pertinent Labs 11/21 Na 130, K 3.3, Cl 97, glucsoe 385 11/21-11/22 POC [id number] Nutritional Hx/Data Height 1.78 m Height (Calculated Centimeters) 177.8 Current Weight (lbs) 81.647 kg Weight (Calculated Kilograms) 81.6 Weight (Calculated Grams) 45035.6 [place] Body Weight 166 Body Mass Index (BMI) 25.8 Weight Status Overweight GI Symptoms GI Symptoms None Last BM none Difficult in: None Skin Integrity/Comment: pressure ulcer to sacrum Current %PO Fair (50-74%) Estimated Nutritional Goals BEE in Kcals: Using Current wt Calories/Kcals/Kg 25-30 Kcals Calculated 9100-4765 Protein: Using Current wt Protein g/k Protein Calculated 75 Fluid: ml 1875-2250ml (1ml/kcal) Nutritional Problem 1. Problem Problem increased nutrition needs Etiology increased metabolic needs for impaired skin integrity Signs/Symptoms: pressure ulcer to sacrum Malnutrition Alert Is there a minimum of two criteria No selected? Query Text:Check all the applicable criteria. A minimum of two criteria are recommended for diagnosis of either severe or non-severe malnutrition. Malnutrition Related to Morbid Obesity Malnutrition related to morbid obesity No Intervention/Recommendation Comments 1. Continue with diabetic diet diet as ordered. 2. Monitor PO intake, wt, labs and skin integrity 3. F/U as moderate risk in 3-5 days, 11/25-11/27, PO check Expected Outcomes/Goals Expected Outcomes/Goals 1. PO intake to meet at least 75% of nutritional needs. 2. Wt stability, skin to remain intact, labs to approach WNL.
[2017-11-24] MEDS: 0.9% NS w/20 mEq KCL 1,000 ML IV SCH ×2 (19:03→20:31)
[2017-11-24] MEDS: Insulin Detemir 100 units/mL 10mL Vial SUBQ SCH (20:38)
[2017-11-25] MEDS: Meropenem 1 GM in Sodium Chloride 0.9% 100 ML IV SCH ×3 (04:24→20:38)
[2017-11-25] MEDS: INSULIN ASPART SLIDING SCALE 100 UNITS/ML UNIT SUBQ SCH ×5 (06:46→20:39)
--- NOTE | 2017-11-25 08:33 | General Progress Note ---
Subjective - Review of Systems Service Date: 11/25/17 Subjective: Patient was seen and examined. Patient is resting comfortably in bed in no acute distress. +Klebsiella in urine and blood. Patient refusing treatment. Objective - Results Result Diagrams: 11/24/17 05:20 11/24/17 05:20 Recent Labs: Laboratory Last Values WBC 6.1 Th/cmm (4.8-10.8) 11/24/17 05:20 RBC 3.16 Mil/cmm (4.30-5.70) L 11/24/17 05:20 Hgb 9.1 gm/dL (12-16) L 11/24/17 05:20 Hct 27.1 % (41.0-60) L 11/24/17 05:20 MCV 85.9 fl (80-99) 11/24/17 05:20 MCH 28.8 pg (26.0-30.0) 11/24/17 05:20 MCHC Differential 33.6 pg (28.0-36.0) 11/24/17 05:20 RDW 12.2 % (11.5-20.0) 11/24/17 05:20 Plt Count 271 Th/cmm (150-400) 11/24/17 05:20 MPV 7.0 fl 11/24/17 05:20 Add Manual Diff YES 11/24/17 05:20 Neutrophils % 82.4 % (40.0-80.0) H 11/21/17 06:40 Band Neutrophils % 1 % (0-10) 11/24/17 05:20 Lymphocytes % 11.0 % (20.0-50.0) L 11/21/17 06:40 Monocytes % 5.0 % (2.0-10.0) 11/21/17 06:40 Eosinophils % 0.6 % (0.0-5.0) 11/21/17 06:40 Basophils % 1.0 % (0.0-2.0) 11/21/17 06:40 Neutrophils (Manual) 75 % (40-80) 11/24/17 05:20 Lymphocytes 20 % (20-50) 11/24/17 05:20 Monocytes 2 % (2-10) 11/24/17 05:20 Eosinophils 2 % (0-5) 11/24/17 05:20 Basophils 0 % (0-3) 11/24/17 05:20 Platelet Estimate ADEQUATE (NORMAL) 11/24/17 05:20 PT 10.5 SECONDS (9.5-11.5) 11/24/17 05:20 INR 1.01 (0.5-1.4) 11/24/17 05:20 PTT (Actin FS) 30.1 SECONDS (26.0-38.0) 11/20/17 14:50 Sodium 136 mEq/L (136-145) 11/24/17 05:20 Potassium 3.5 mEq/L (3.5-5.1) 11/24/17 05:20 Chloride 105 mEq/L (98-107) 11/24/17 05:20 Carbon Dioxide 25.7 mEq/L (21.0-31.0) 11/24/17 05:20 Anion Gap 8.8 (7.0-16.0) 11/24/17 05:20 BUN 11 mg/dL (7-25) 11/24/17 05:20 Creatinine 0.8 mg/dL (0.7-1.3) 11/24/17 05:20 Est GFR ( Amer) > 60.0 ml/min (>90) 11/24/17 05:20 Est GFR (Non-Af Amer) > 60.0 ml/min 11/24/17 05:20 BUN/Creatinine Ratio 13.8 11/24/17 05:20 Glucose 192 mg/dL (70-105) H 11/24/17 05:20 POC Glucose 316 MG/DL (70 - 105) H 11/25/17 06:37 Calcium 8.2 mg/dL (8.6-10.3) L 11/24/17 05:20 Iron 7 ug/dL (38-169) L 11/20/17 14:50 TIBC 161 ug/dL (250-450) L 11/20/17 14:50 Iron Saturation 4 % (15-55) L 11/20/17 14:50 Unsaturated IBC 154 ug/dL (111-343) 11/20/17 14:50 Total Bilirubin 0.3 mg/dL (0.3-1.0) 11/23/17 05:50 AST 11 U/L (13-39) L 11/23/17 05:50 ALT 8 U/L (7-52) 11/23/17 05:50 Alkaline Phosphatase 108 U/L (34-104) H 11/23/17 05:50 Troponin I 0.03 ng/mL (0.01-0.05) 11/20/17 14:50 B-Natriuretic Peptide 239.0 pg/mL (5.0-100.0) H 11/21/17 06:40 Total Protein 5.6 gm/dL (6.0-8.3) L 11/23/17 05:50 Albumin 2.6 gm/dL (4.2-5.5) L 11/23/17 05:50 Globulin 3.0 gm/dL 11/23/17 05:50 Albumin/Globulin Ratio 0.9 (1.0-1.8) L 11/23/17 05:50 Urine Source CATH 11/21/17 09:00 Urine Color YELLOW 11/21/17 09:00 Urine Clarity HAZY (CLEAR) 11/21/17 09:00 Urine pH 6.0 (4.6 - 8.0) 11/21/17 09:00 Ur Specific [place] 1.020 (1.005-1.030) 11/21/17 09:00 Urine Protein >=300 mg/dL (NEGATIVE) 11/21/17 09:00 Urine Glucose (UA) >=1000 mg/dL (NEGATIVE) H 11/21/17 09:00 Urine Ketones 15 mg/dL (NEGATIVE) H 11/21/17 09:00 Urine Blood LARGE (NEGATIVE) H 11/21/17 09:00 Urine Nitrate NEGATIVE (NEGATIVE) 11/21/17 09:00 Urine Bilirubin NEGATIVE (NEGATIVE) 11/21/17 09:00 Urine Urobilinogen 0.2 E.U./dL (0.2 - 1.0) 11/21/17 09:00 Ur Leukocyte Esterase MODERATE (NEGATIVE) H 11/21/17 09:00 Urine RBC 0-2 /hpf (0-5) H 11/21/17 09:00 Urine WBC 50-100 /hpf (0-5) H 11/21/17 09:00 Ur Epithelial Cells FEW /lpf (FEW) 11/21/17 09:00 Urine Bacteria MANY /hpf (NONE SEEN) H 11/21/17 09:00 HIV 1&2 Antibody Screen NEGATIVE (NEG) 11/22/17 05:40 Blood Type A POSITIVE 11/22/17 09:50 Antibody Screen NEGATIVE 11/22/17 09:50 Crossmatch See Detail 11/22/17 09:50 - Physical Exam Vitals and I&O: Vital Signs Temp 97.8 F 11/25/17 08:07 Pulse 78 11/25/17 08:07 Resp 20 11/25/17 08:07 BP 147/76 11/25/17 08:07 Pulse Ox 96 11/25/17 08:07 Intake & Output 11/24/17 11/25/17 11/25/17 18:59 06:59 18:59 Intake Total 2000 100 Output Total 2300 1090 Balance -300 -990 Weight (lbs) 81.647 kg 80.796 kg Intake: Intake, IV Amount 1200 100 0.9% NS w/20 mEq KCL 1, 1000 000 ml @ 50 mls/hr IV . Q20H [facility] Rx#:[id number] Meropenem 1 gm In Sodium 200 100 Chloride 0.9% 100 ml @ 100 mls/hr IV Q8HR [facility] Rx #:[id number] Oral 800 Output: Urine 2300 1090 Other: # Bowel Movements 2 0 Stool Characteristics Formed Formed Black Black Weight Source Bedscale Bedscale Active Medications: Current Medications Acetaminophen/Hydrocodone Bitart ([place] 5mg/325mg) 1 tab PO Q12HR PRN PRN Reason: Pain (Moderate) Stop: 12/06/17 14:25 Glipizide (Glucotrol) 10 mg PO DAILY [facility] Stop: 01/20/18 08:59 Last Admin: 11/24/17 09:04 Dose: Not Given Potassium Chloride/Sodium Chloride (0.9% Ns W/20 Meq Kcl) 1,000 mls @ 50 mls/ hr IV .Q20H [facility] Stop: 01/20/18 08:59 Last Admin: 11/24/17 20:31 Dose: 50 mls/hr Meropenem 1 gm/ Sodium (Chloride) 100 mls @ 100 mls/hr IV Q8HR [facility] Stop: 01/22/18 13:59 Last Admin: 11/25/17 04:24 Dose: 100 mls/hr Ibuprofen (Motrin) 600 mg PO BID [facility] Stop: 01/21/18 08:59 Last Admin: 11/24/17 16:40 Dose: 600 mg Insulin Aspart (Novolog Insulin Sliding Scale) 0 units SUBQ ACHS [facility]; Protocol Stop: 01/20/18 07:59 Last Admin: 11/25/17 06:46 Dose: 8 units Insulin Detemir (Levemir Insulin) 10 units SUBQ HS [facility]; Protocol Stop: 01/20/18 20:59 Last Admin: 11/24/17 20:38 Dose: 10 units Lactobacillus Rhamnosus (Culturelle 15b) 1 each PO DAILY [facility] Stop: 01/21/18 13:59 Last Admin: 11/24/17 09:05 Dose: Not Given Lisinopril (Zestril) 10 mg PO DAILY [facility] Stop: 01/22/18 08:59 Last Admin: 11/24/17 09:18 Dose: 10 mg Miscellaneous (Probiotic Screen) 1 ea [facility] PRN PRN PRN Reason: PROTOCOL Stop: 01/21/18 12:43 Nystatin (Mycostatin Cream) 1 appl TP DAILY PRN PRN Reason: Diaper Rash Stop: 01/20/18 08:59 Nystatin (Nystop) 100,000 units TP DAILY PRN PRN Reason: Diaper Rash Stop: 01/20/18 07:56 Pantoprazole Sodium (Protonix) 40 mg IVP DAILY [facility] Stop: 01/20/18 08:59 Last Admin: 11/24/17 09:17 Dose: 40 mg General: Alert, Oriented x3 HEENT: Atraumatic Neck: Supple Cardiovascular: Regular rate Lungs: Clear to auscultation Abdomen: Bowel sounds, Soft, no Tender, no Hepatomegaly, no Splenomegaly, no Distended, no Rebound, no Mass, no Guarding Extremities: no Clubbing, no Cyanosis, no Edema Assessment/Plan - Assessment Assessment: s/p fall homeless anemia -- s/p blood transfusion for GI workup hyponatremia -- improved hypokalemia -- improved diabetes mellitus --improved. hyperglycemia GNR bacteremia -- on Zosyn IV. awaiting cultures UTI/pyelonephritis -- continue IV antibiotics. ID consult tinea crurus. HTN --start Lisinopril 10mg PO daily H/o CVA. H/o depression. Gluteal wound. 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 Neurogenic bladder. H/o Back surgery. Left forearm pain after a traumatic fall, acute fracture of ulna styloid. -- ortho consult ESBL klebsiella bacteremia. - Plan Plan: will repeat labwork CBC,CMP GI consult stool occult Protonix 40mg IV qdaily K supplements ID consult type and screen 1 unit of pRBC's for CT abd/pelvis Nutritional Asmnt/Malnutr-PDOC - Dietary Evaluation Malnutrition Findings (Please click <Entered> for more info): Nutritional Asmnt/Malnutrition Start: 11/22/17 17: 38 Text: Status: Complete Freq: Protocol: Document 11/22/17 17:38 LCHENG (Rec: 11/22/17 17:57 HENG ANA [id number]) Nutritional Asmnt/Malnutrition Patient General Information Nutritional Screening High Risk Diagnosis electrolyte imbalance, anemia Pertinent Medical Hx/Surgical Hx HTN, Dm, CVA/TIA, back surgery , depression Subjective Information consult received for diabetic. Pt is Vietnamese speaking. Per EMR, Pt consumded 50% of breakfast today. Not able to provide diabetic education d/t language barrier. Current Diet Order/ Nutrition Support diabetic diet Pertinent Medications glucotrol, novolog, levemir, culturelle, protonix, piperacillin, 0.9% ns w/20 meq kcl Pertinent Labs 11/21 Na 130, K 3.3, Cl 97, glucsoe 385 11/21-11/22 POC 245-415 Nutritional Hx/Data Height 1.78 m Height (Calculated Centimeters) 177.8 Current Weight (lbs) 81.647 kg Weight (Calculated Kilograms) 81.6 Weight (Calculated Grams) 37463.6 [place] Body Weight 166 Body Mass Index (BMI) 25.8 Weight Status Overweight GI Symptoms GI Symptoms None Last BM none Difficult in: None Skin Integrity/Comment: pressure ulcer to sacrum Current %PO Fair (50-74%) Estimated Nutritional Goals BEE in Kcals: Using Current wt Calories/Kcals/Kg 25-30 Kcals Calculated 8028-1808 Protein: Using Current wt Protein g/k Protein Calculated 75 Fluid: ml 1875-2250ml (1ml/kcal) Nutritional Problem 1. Problem Problem increased nutrition needs Etiology increased metabolic needs for impaired skin integrity Signs/Symptoms: pressure ulcer to sacrum Malnutrition Alert Is there a minimum of two criteria No selected? Query Text:Check all the applicable criteria. A minimum of two criteria are recommended for diagnosis of either severe or non-severe malnutrition. Malnutrition Related to Morbid Obesity Malnutrition related to morbid obesity No Intervention/Recommendation Comments 1. Continue with diabetic diet diet as ordered. 2. Monitor PO intake, wt, labs and skin integrity 3. F/U as moderate risk in 3-5 days, 11/25-11/27, PO check Expected Outcomes/Goals Expected Outcomes/Goals 1. PO intake to meet at least 75% of nutritional needs. 2. Wt stability, skin to remain intact, labs to approach WNL.
[2017-11-25] MEDS: Lactobacillus Rhamnosus GG 15 Billion CFU CAP.SPRINK PO SCH (08:35)
--- NOTE | 2017-11-25 08:47 | GI Progress Note ---
Subjective - Review of Systems Service Date: 11/25/17 Subjective: No new events. Objective - Results Result Diagrams: 11/24/17 05:20 11/24/17 05:20 Recent Labs: Laboratory Last Values WBC 6.1 Th/cmm (4.8-10.8) 11/24/17 05:20 RBC 3.16 Mil/cmm (4.30-5.70) L 11/24/17 05:20 Hgb 9.1 gm/dL (12-16) L 11/24/17 05:20 Hct 27.1 % (41.0-60) L 11/24/17 05:20 MCV 85.9 fl (80-99) 11/24/17 05:20 MCH 28.8 pg (26.0-30.0) 11/24/17 05:20 MCHC Differential 33.6 pg (28.0-36.0) 11/24/17 05:20 RDW 12.2 % (11.5-20.0) 11/24/17 05:20 Plt Count 271 Th/cmm (150-400) 11/24/17 05:20 MPV 7.0 fl 11/24/17 05:20 Add Manual Diff YES 11/24/17 05:20 Neutrophils % 82.4 % (40.0-80.0) H 11/21/17 06:40 Band Neutrophils % 1 % (0-10) 11/24/17 05:20 Lymphocytes % 11.0 % (20.0-50.0) L 11/21/17 06:40 Monocytes % 5.0 % (2.0-10.0) 11/21/17 06:40 Eosinophils % 0.6 % (0.0-5.0) 11/21/17 06:40 Basophils % 1.0 % (0.0-2.0) 11/21/17 06:40 Neutrophils (Manual) 75 % (40-80) 11/24/17 05:20 Lymphocytes 20 % (20-50) 11/24/17 05:20 Monocytes 2 % (2-10) 11/24/17 05:20 Eosinophils 2 % (0-5) 11/24/17 05:20 Basophils 0 % (0-3) 11/24/17 05:20 Platelet Estimate ADEQUATE (NORMAL) 11/24/17 05:20 PT 10.5 SECONDS (9.5-11.5) 11/24/17 05:20 INR 1.01 (0.5-1.4) 11/24/17 05:20 PTT (Actin FS) 30.1 SECONDS (26.0-38.0) 11/20/17 14:50 Sodium 136 mEq/L (136-145) 11/24/17 05:20 Potassium 3.5 mEq/L (3.5-5.1) 11/24/17 05:20 Chloride 105 mEq/L (98-107) 11/24/17 05:20 Carbon Dioxide 25.7 mEq/L (21.0-31.0) 11/24/17 05:20 Anion Gap 8.8 (7.0-16.0) 11/24/17 05:20 BUN 11 mg/dL (7-25) 11/24/17 05:20 Creatinine 0.8 mg/dL (0.7-1.3) 11/24/17 05:20 Est GFR ( Amer) > 60.0 ml/min (>90) 11/24/17 05:20 Est GFR (Non-Af Amer) > 60.0 ml/min 11/24/17 05:20 BUN/Creatinine Ratio 13.8 11/24/17 05:20 Glucose 192 mg/dL (70-105) H 11/24/17 05:20 POC Glucose 316 MG/DL (70 - 105) H 11/25/17 06:37 Calcium 8.2 mg/dL (8.6-10.3) L 11/24/17 05:20 Iron 7 ug/dL (38-169) L 11/20/17 14:50 TIBC 161 ug/dL (250-450) L 11/20/17 14:50 Iron Saturation 4 % (15-55) L 11/20/17 14:50 Unsaturated IBC 154 ug/dL (111-343) 11/20/17 14:50 Total Bilirubin 0.3 mg/dL (0.3-1.0) 11/23/17 05:50 AST 11 U/L (13-39) L 11/23/17 05:50 ALT 8 U/L (7-52) 11/23/17 05:50 Alkaline Phosphatase 108 U/L (34-104) H 11/23/17 05:50 Troponin I 0.03 ng/mL (0.01-0.05) 11/20/17 14:50 B-Natriuretic Peptide 239.0 pg/mL (5.0-100.0) H 11/21/17 06:40 Total Protein 5.6 gm/dL (6.0-8.3) L 11/23/17 05:50 Albumin 2.6 gm/dL (4.2-5.5) L 11/23/17 05:50 Globulin 3.0 gm/dL 11/23/17 05:50 Albumin/Globulin Ratio 0.9 (1.0-1.8) L 11/23/17 05:50 Urine Source CATH 11/21/17 09:00 Urine Color YELLOW 11/21/17 09:00 Urine Clarity HAZY (CLEAR) 11/21/17 09:00 Urine pH 6.0 (4.6 - 8.0) 11/21/17 09:00 Ur Specific [place] 1.020 (1.005-1.030) 11/21/17 09:00 Urine Protein >=300 mg/dL (NEGATIVE) 11/21/17 09:00 Urine Glucose (UA) >=1000 mg/dL (NEGATIVE) H 11/21/17 09:00 Urine Ketones 15 mg/dL (NEGATIVE) H 11/21/17 09:00 Urine Blood LARGE (NEGATIVE) H 11/21/17 09:00 Urine Nitrate NEGATIVE (NEGATIVE) 11/21/17 09:00 Urine Bilirubin NEGATIVE (NEGATIVE) 11/21/17 09:00 Urine Urobilinogen 0.2 E.U./dL (0.2 - 1.0) 11/21/17 09:00 Ur Leukocyte Esterase MODERATE (NEGATIVE) H 11/21/17 09:00 Urine RBC 0-2 /hpf (0-5) H 11/21/17 09:00 Urine WBC 50-100 /hpf (0-5) H 11/21/17 09:00 Ur Epithelial Cells FEW /lpf (FEW) 11/21/17 09:00 Urine Bacteria MANY /hpf (NONE SEEN) H 11/21/17 09:00 HIV 1&2 Antibody Screen NEGATIVE (NEG) 11/22/17 05:40 Blood Type A POSITIVE 11/22/17 09:50 Antibody Screen NEGATIVE 11/22/17 09:50 Crossmatch See Detail 11/22/17 09:50 - Physical Exam Vitals and I&O: Vital Signs Temp 97.8 F 11/25/17 08:07 Pulse 78 11/25/17 08:35 Resp 20 11/25/17 08:07 BP 147/76 11/25/17 08:35 Pulse Ox 96 11/25/17 08:07 Intake & Output 11/24/17 11/25/17 11/25/17 18:59 06:59 18:59 Intake Total 2000 100 Output Total 2300 1090 Balance -300 -990 Weight (lbs) 81.647 kg 80.796 kg Intake: Intake, IV Amount 1200 100 0.9% NS w/20 mEq KCL 1, 1000 000 ml @ 50 mls/hr IV . Q20H [facility] Rx#:[id number] Meropenem 1 gm In Sodium 200 100 Chloride 0.9% 100 ml @ 100 mls/hr IV Q8HR [facility] Rx #:[id number] Oral 800 Output: Urine 2300 1090 Other: # Bowel Movements 2 0 Stool Characteristics Formed Formed Black Black Weight Source Bedscale Bedscale Active Medications: Current Medications Acetaminophen/Hydrocodone Bitart ([place] 5mg/325mg) 1 tab PO Q12HR PRN PRN Reason: Pain (Moderate) Stop: 12/06/17 14:25 Glipizide (Glucotrol) 10 mg PO DAILY [facility] Stop: 01/20/18 08:59 Last Admin: 11/25/17 08:36 Dose: 10 mg Potassium Chloride/Sodium Chloride (0.9% Ns W/20 Meq Kcl) 1,000 mls @ 50 mls/ hr IV .Q20H [facility] Stop: 01/20/18 08:59 Last Admin: 11/24/17 20:31 Dose: 50 mls/hr Meropenem 1 gm/ Sodium (Chloride) 100 mls @ 100 mls/hr IV Q8HR [facility] Stop: 01/22/18 13:59 Last Admin: 11/25/17 04:24 Dose: 100 mls/hr Ibuprofen (Motrin) 600 mg PO BID [facility] Stop: 01/21/18 08:59 Last Admin: 11/24/17 16:40 Dose: 600 mg Insulin Aspart (Novolog Insulin Sliding Scale) 0 units SUBQ ACHS [facility]; Protocol Stop: 01/20/18 07:59 Last Admin: 11/25/17 06:46 Dose: 8 units Insulin Detemir (Levemir Insulin) 10 units SUBQ HS [facility]; Protocol Stop: 01/20/18 20:59 Last Admin: 11/24/17 20:38 Dose: 10 units Lactobacillus Rhamnosus (Culturelle 15b) 1 each PO DAILY [facility] Stop: 01/21/18 13:59 Last Admin: 11/25/17 08:35 Dose: 1 each Lisinopril (Zestril) 10 mg PO DAILY [facility] Stop: 01/22/18 08:59 Last Admin: 11/25/17 08:35 Dose: 10 mg Miscellaneous (Probiotic Screen) 1 ea MC PRN PRN PRN Reason: PROTOCOL Stop: 01/21/18 12:43 Nystatin (Mycostatin Cream) 1 appl TP DAILY PRN PRN Reason: Diaper Rash Stop: 01/20/18 08:59 Nystatin (Nystop) 100,000 units TP DAILY PRN PRN Reason: Diaper Rash Stop: 01/20/18 07:56 Pantoprazole Sodium (Protonix) 40 mg IVP DAILY [facility] Stop: 01/20/18 08:59 Last Admin: 11/25/17 08:36 Dose: 40 mg General: Alert, Oriented x3 HEENT: Atraumatic Neck: Supple Cardiovascular: Regular rate Lungs: Clear to auscultation Abdomen: Bowel sounds, Soft, no Tender, no Hepatomegaly, no Splenomegaly, no Distended, no Rebound, no Mass, no Guarding Extremities: no Clubbing, no Cyanosis, no Edema Assessment/Plan - Assessment Assessment: # Anemia # Hemiplegia # CVA We had planned EGD/colo on 11/24 given pt was anemic. However, he has refused prep. He also now reports he had EGD/colo done this year already at [facility], and does not want to have another repeat exam now. Plan: - try and obtain records of EGD/colo done at [facility]SH. Pt is refusing any further exams at this point. Have not received any records as of yet - trend hgb - resume diet
[2017-11-25] MEDS: 0.9% NS w/20 mEq KCL 1,000 ML IV SCH (13:03)
[2017-11-25] MEDS: Insulin Detemir 100 units/mL 10mL Vial SUBQ SCH (20:40)
--- NOTE | 2017-11-25 23:42 | Infectious Disease Prog Note ---
Infectious Disease Subjective - Review of Systems Service Date: 11/25/17 Subjective: There is no new change, no fever. Infectious Disease Objective - Results Result Diagrams: 11/24/17 05:20 11/24/17 05:20 Recent Labs: Laboratory Last Values WBC 6.1 Th/cmm (4.8-10.8) 11/24/17 05:20 RBC 3.16 Mil/cmm (4.30-5.70) L 11/24/17 05:20 Hgb 9.1 gm/dL (12-16) L 11/24/17 05:20 Hct 27.1 % (41.0-60) L 11/24/17 05:20 MCV 85.9 fl (80-99) 11/24/17 05:20 MCH 28.8 pg (26.0-30.0) 11/24/17 05:20 MCHC Differential 33.6 pg (28.0-36.0) 11/24/17 05:20 RDW 12.2 % (11.5-20.0) 11/24/17 05:20 Plt Count 271 Th/cmm (150-400) 11/24/17 05:20 MPV 7.0 fl 11/24/17 05:20 Add Manual Diff YES 11/24/17 05:20 Neutrophils % 82.4 % (40.0-80.0) H 11/21/17 06:40 Band Neutrophils % 1 % (0-10) 11/24/17 05:20 Lymphocytes % 11.0 % (20.0-50.0) L 11/21/17 06:40 Monocytes % 5.0 % (2.0-10.0) 11/21/17 06:40 Eosinophils % 0.6 % (0.0-5.0) 11/21/17 06:40 Basophils % 1.0 % (0.0-2.0) 11/21/17 06:40 Neutrophils (Manual) 75 % (40-80) 11/24/17 05:20 Lymphocytes 20 % (20-50) 11/24/17 05:20 Monocytes 2 % (2-10) 11/24/17 05:20 Eosinophils 2 % (0-5) 11/24/17 05:20 Basophils 0 % (0-3) 11/24/17 05:20 Platelet Estimate ADEQUATE (NORMAL) 11/24/17 05:20 PT 10.5 SECONDS (9.5-11.5) 11/24/17 05:20 INR 1.01 (0.5-1.4) 11/24/17 05:20 PTT (Actin FS) 30.1 SECONDS (26.0-38.0) 11/20/17 14:50 Sodium 136 mEq/L (136-145) 11/24/17 05:20 Potassium 3.5 mEq/L (3.5-5.1) 11/24/17 05:20 Chloride 105 mEq/L (98-107) 11/24/17 05:20 Carbon Dioxide 25.7 mEq/L (21.0-31.0) 11/24/17 05:20 Anion Gap 8.8 (7.0-16.0) 11/24/17 05:20 BUN 11 mg/dL (7-25) 11/24/17 05:20 Creatinine 0.8 mg/dL (0.7-1.3) 11/24/17 05:20 Est GFR ( Amer) > 60.0 ml/min (>90) 11/24/17 05:20 Est GFR (Non-Af Amer) > 60.0 ml/min 11/24/17 05:20 BUN/Creatinine Ratio 13.8 11/24/17 05:20 Glucose 192 mg/dL (70-105) H 11/24/17 05:20 POC Glucose 193 MG/DL (70 - 105) H 11/25/17 20:37 Calcium 8.2 mg/dL (8.6-10.3) L 11/24/17 05:20 Iron 7 ug/dL (38-169) L 11/20/17 14:50 TIBC 161 ug/dL (250-450) L 11/20/17 14:50 Iron Saturation 4 % (15-55) L 11/20/17 14:50 Unsaturated IBC 154 ug/dL (111-343) 11/20/17 14:50 Total Bilirubin 0.3 mg/dL (0.3-1.0) 11/23/17 05:50 AST 11 U/L (13-39) L 11/23/17 05:50 ALT 8 U/L (7-52) 11/23/17 05:50 Alkaline Phosphatase 108 U/L (34-104) H 11/23/17 05:50 Troponin I 0.03 ng/mL (0.01-0.05) 11/20/17 14:50 B-Natriuretic Peptide 239.0 pg/mL (5.0-100.0) H 11/21/17 06:40 Total Protein 5.6 gm/dL (6.0-8.3) L 11/23/17 05:50 Albumin 2.6 gm/dL (4.2-5.5) L 11/23/17 05:50 Globulin 3.0 gm/dL 11/23/17 05:50 Albumin/Globulin Ratio 0.9 (1.0-1.8) L 11/23/17 05:50 Urine Source CATH 11/21/17 09:00 Urine Color YELLOW 11/21/17 09:00 Urine Clarity HAZY (CLEAR) 11/21/17 09:00 Urine pH 6.0 (4.6 - 8.0) 11/21/17 09:00 Ur Specific [place] 1.020 (1.005-1.030) 11/21/17 09:00 Urine Protein >=300 mg/dL (NEGATIVE) 11/21/17 09:00 Urine Glucose (UA) >=1000 mg/dL (NEGATIVE) H 11/21/17 09:00 Urine Ketones 15 mg/dL (NEGATIVE) H 11/21/17 09:00 Urine Blood LARGE (NEGATIVE) H 11/21/17 09:00 Urine Nitrate NEGATIVE (NEGATIVE) 11/21/17 09:00 Urine Bilirubin NEGATIVE (NEGATIVE) 11/21/17 09:00 Urine Urobilinogen 0.2 E.U./dL (0.2 - 1.0) 11/21/17 09:00 Ur Leukocyte Esterase MODERATE (NEGATIVE) H 11/21/17 09:00 Urine RBC 0-2 /hpf (0-5) H 11/21/17 09:00 Urine WBC 50-100 /hpf (0-5) H 11/21/17 09:00 Ur Epithelial Cells FEW /lpf (FEW) 11/21/17 09:00 Urine Bacteria MANY /hpf (NONE SEEN) H 11/21/17 09:00 HIV 1&2 Antibody Screen NEGATIVE (NEG) 11/22/17 05:40 Blood Type A POSITIVE 11/22/17 09:50 Antibody Screen NEGATIVE 11/22/17 09:50 Crossmatch See Detail 11/22/17 09:50 - Physical Exam Vitals and I&O: Vital Signs Temp 99.8 F 11/25/17 20:00 Pulse 81 11/25/17 20:00 Resp 18 11/25/17 20:00 BP 147/74 11/25/17 20:00 Pulse Ox 95 11/25/17 20:00 Intake & Output 11/25/17 11/25/17 11/26/17 06:59 18:59 06:59 Intake Total 200 700 Output Total 1090 1200 Balance -890 -500 Weight (lbs) 80.796 kg 80.796 kg Intake: Intake, IV Amount 200 100 Meropenem 1 gm In Sodium 200 100 Chloride 0.9% 100 ml @ 100 mls/hr IV Q8HR [facility] Rx #:[id number] Oral 600 Output: Urine 1090 1200 Other: # Bowel Movements 0 0 Stool Characteristics Formed Black Weight Source Bedscale Bedscale Active Medications: Current Medications Acetaminophen/Hydrocodone Bitart ([place] 5mg/325mg) 1 tab PO Q12HR PRN PRN Reason: Pain (Moderate) Stop: 12/06/17 14:25 Glipizide (Glucotrol) 10 mg PO DAILY [facility] Stop: 01/20/18 08:59 Last Admin: 11/25/17 08:36 Dose: 10 mg Potassium Chloride/Sodium Chloride (0.9% Ns W/20 Meq Kcl) 1,000 mls @ 50 mls/ hr IV .Q20H [facility] Stop: 01/20/18 08:59 Last Admin: 11/24/17 20:31 Dose: 50 mls/hr Meropenem 1 gm/ Sodium (Chloride) 100 mls @ 100 mls/hr IV Q8HR [facility] Stop: 01/22/18 13:59 Last Admin: 11/25/17 20:38 Dose: 100 mls/hr Ibuprofen (Motrin) 600 mg PO BID [facility] Stop: 01/21/18 08:59 Last Admin: 11/25/17 16:38 Dose: 600 mg Insulin Aspart (Novolog Insulin Sliding Scale) 0 units SUBQ ACHS [facility]; Protocol Stop: 01/20/18 07:59 Last Admin: 11/25/17 20:39 Dose: 2 units Insulin Detemir (Levemir Insulin) 10 units SUBQ HS [facility]; Protocol Stop: 01/20/18 20:59 Last Admin: 11/25/17 20:40 Dose: 10 units Lactobacillus Rhamnosus (Culturelle 15b) 1 each PO DAILY [facility] Stop: 01/21/18 13:59 Last Admin: 11/25/17 08:35 Dose: 1 each Lisinopril (Zestril) 10 mg PO DAILY [facility] Stop: 01/22/18 08:59 Last Admin: 11/25/17 08:35 Dose: 10 mg Miscellaneous (Probiotic Screen) 1 ea MC PRN PRN PRN Reason: PROTOCOL Stop: 01/21/18 12:43 Nystatin (Mycostatin Cream) 1 appl TP DAILY PRN PRN Reason: Diaper Rash Stop: 01/20/18 08:59 Nystatin (Nystop) 100,000 units TP DAILY PRN PRN Reason: Diaper Rash Stop: 01/20/18 07:56 Pantoprazole Sodium (Protonix) 40 mg IVP DAILY [facility] Stop: 01/20/18 08:59 Last Admin: 11/25/17 08:36 Dose: 40 mg General: no acute distress, well developed, well nourished HEENT: atraumatic, normocephalic, PERRLA Neck: no supple, no thyromegaly, no lymphadenopathy Cardiovascular: no S1S2, no regular Lungs: clear to auscultation bilaterally, crackles Abdomen: soft, distended Extremities: no cyanosis, no clubbing, no edema Neurological: alert, oriented, no awake Skin: no intact Infectious Disease Assmt/Plan - Assessment Assessment: 1. ESBL klebsiella bacteremia. 2. UTI/pyelonephritis. hydronephrosis resolved. 3. Tinia crurus. 4. DM2 5. HTN. 6. H/o CVA. 7. H/o depression. 8. Gluteal wound. 9. 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 10. Neurogenic bladder. 11. H/o Back surgery. 12. Left forearm pain after a traumatic fall, acute fracture of ulna styloid. - Plan Plan: Continue meropenem, can be changed to Invanz 1 Gm IV for 9 more days. Follow up repeat blood cultures. SHEILA RN. Nutritional Asmnt/Malnutr-PDOC - Dietary Evaluation Malnutrition Findings (Please click <Entered> for more info): Nutritional Asmnt/Malnutrition Start: 11/22/17 17: 38 Text: Status: Complete Freq: Protocol: Document 11/22/17 17:38 RAMSEY (Rec: 11/22/17 17:57 SATNAMDEXTER [email or web address]) Nutritional Asmnt/Malnutrition Patient General Information Nutritional Screening High Risk Diagnosis electrolyte imbalance, anemia Pertinent Medical Hx/Surgical Hx HTN, Dm, CVA/TIA, back surgery , depression Subjective Information consult received for diabetic. Pt is Turkish speaking. Per EMR, Pt consumded 50% of breakfast today. Not able to provide diabetic education d/t language barrier. Current Diet Order/ Nutrition Support diabetic diet Pertinent Medications glucotrol, novolog, levemir, culturelle, protonix, piperacillin, 0.9% ns w/20 meq kcl Pertinent Labs 11/21 Na 130, K 3.3, Cl 97, glucsoe 385 11/21-11/22 POC [id number] Nutritional Hx/Data Height 1.78 m Height (Calculated Centimeters) 177.8 Current Weight (lbs) 81.647 kg Weight (Calculated Kilograms) 81.6 Weight (Calculated Grams) 43862.6 [place] Body Weight 166 Body Mass Index (BMI) 25.8 Weight Status Overweight GI Symptoms GI Symptoms None Last BM none Difficult in: None Skin Integrity/Comment: pressure ulcer to sacrum Current %PO Fair (50-74%) Estimated Nutritional Goals BEE in Kcals: Using Current wt Calories/Kcals/Kg 25-30 Kcals Calculated [id number] Protein: Using Current wt Protein g/k Protein Calculated 75 Fluid: ml 1875-2250ml (1ml/kcal) Nutritional Problem 1. Problem Problem increased nutrition needs Etiology increased metabolic needs for impaired skin integrity Signs/Symptoms: pressure ulcer to sacrum Malnutrition Alert Is there a minimum of two criteria No selected? Query Text:Check all the applicable criteria. A minimum of two criteria are recommended for diagnosis of either severe or non-severe malnutrition. Malnutrition Related to Morbid Obesity Malnutrition related to morbid obesity No Intervention/Recommendation Comments 1. Continue with diabetic diet diet as ordered. 2. Monitor PO intake, wt, labs and skin integrity 3. F/U as moderate risk in 3-5 days, 11/25-11/27, PO check Expected Outcomes/Goals Expected Outcomes/Goals 1. PO intake to meet at least 75% of nutritional needs. 2. Wt stability, skin to remain intact, labs to approach WNL.
[2017-11-26] MEDS: Hydrocodone/APAP 5mg/325mg Tab PO PRN ×2 (01:28→20:32)
--- NOTE | 2017-11-26 05:06 | General Progress Note ---
Subjective - Review of Systems Service Date: 11/26/17 Subjective: Patient was seen and examined. Patient is resting comfortably in bed in no acute distress. +Klebsiella in urine and blood and wound. Patient for PICC Line placement for IV antibiotic treatment. Objective - Results Result Diagrams: 11/24/17 05:20 11/24/17 05:20 Recent Labs: Laboratory Last Values WBC 6.1 Th/cmm (4.8-10.8) 11/24/17 05:20 RBC 3.16 Mil/cmm (4.30-5.70) L 11/24/17 05:20 Hgb 9.1 gm/dL (12-16) L 11/24/17 05:20 Hct 27.1 % (41.0-60) L 11/24/17 05:20 MCV 85.9 fl (80-99) 11/24/17 05:20 MCH 28.8 pg (26.0-30.0) 11/24/17 05:20 MCHC Differential 33.6 pg (28.0-36.0) 11/24/17 05:20 RDW 12.2 % (11.5-20.0) 11/24/17 05:20 Plt Count 271 Th/cmm (150-400) 11/24/17 05:20 MPV 7.0 fl 11/24/17 05:20 Add Manual Diff YES 11/24/17 05:20 Neutrophils % 82.4 % (40.0-80.0) H 11/21/17 06:40 Band Neutrophils % 1 % (0-10) 11/24/17 05:20 Lymphocytes % 11.0 % (20.0-50.0) L 11/21/17 06:40 Monocytes % 5.0 % (2.0-10.0) 11/21/17 06:40 Eosinophils % 0.6 % (0.0-5.0) 11/21/17 06:40 Basophils % 1.0 % (0.0-2.0) 11/21/17 06:40 Neutrophils (Manual) 75 % (40-80) 11/24/17 05:20 Lymphocytes 20 % (20-50) 11/24/17 05:20 Monocytes 2 % (2-10) 11/24/17 05:20 Eosinophils 2 % (0-5) 11/24/17 05:20 Basophils 0 % (0-3) 11/24/17 05:20 Platelet Estimate ADEQUATE (NORMAL) 11/24/17 05:20 PT 10.5 SECONDS (9.5-11.5) 11/24/17 05:20 INR 1.01 (0.5-1.4) 11/24/17 05:20 PTT (Actin FS) 30.1 SECONDS (26.0-38.0) 11/20/17 14:50 Sodium 136 mEq/L (136-145) 11/24/17 05:20 Potassium 3.5 mEq/L (3.5-5.1) 11/24/17 05:20 Chloride 105 mEq/L (98-107) 11/24/17 05:20 Carbon Dioxide 25.7 mEq/L (21.0-31.0) 11/24/17 05:20 Anion Gap 8.8 (7.0-16.0) 11/24/17 05:20 BUN 11 mg/dL (7-25) 11/24/17 05:20 Creatinine 0.8 mg/dL (0.7-1.3) 11/24/17 05:20 Est GFR ( Amer) > 60.0 ml/min (>90) 11/24/17 05:20 Est GFR (Non-Af Amer) > 60.0 ml/min 11/24/17 05:20 BUN/Creatinine Ratio 13.8 11/24/17 05:20 Glucose 192 mg/dL (70-105) H 11/24/17 05:20 POC Glucose 193 MG/DL (70 - 105) H 11/25/17 20:37 Calcium 8.2 mg/dL (8.6-10.3) L 11/24/17 05:20 Iron 7 ug/dL (38-169) L 11/20/17 14:50 TIBC 161 ug/dL (250-450) L 11/20/17 14:50 Iron Saturation 4 % (15-55) L 11/20/17 14:50 Unsaturated IBC 154 ug/dL (111-343) 11/20/17 14:50 Total Bilirubin 0.3 mg/dL (0.3-1.0) 11/23/17 05:50 AST 11 U/L (13-39) L 11/23/17 05:50 ALT 8 U/L (7-52) 11/23/17 05:50 Alkaline Phosphatase 108 U/L (34-104) H 11/23/17 05:50 Troponin I 0.03 ng/mL (0.01-0.05) 11/20/17 14:50 B-Natriuretic Peptide 239.0 pg/mL (5.0-100.0) H 11/21/17 06:40 Total Protein 5.6 gm/dL (6.0-8.3) L 11/23/17 05:50 Albumin 2.6 gm/dL (4.2-5.5) L 11/23/17 05:50 Globulin 3.0 gm/dL 11/23/17 05:50 Albumin/Globulin Ratio 0.9 (1.0-1.8) L 11/23/17 05:50 Urine Source CATH 11/21/17 09:00 Urine Color YELLOW 11/21/17 09:00 Urine Clarity HAZY (CLEAR) 11/21/17 09:00 Urine pH 6.0 (4.6 - 8.0) 11/21/17 09:00 Ur Specific [place] 1.020 (1.005-1.030) 11/21/17 09:00 Urine Protein >=300 mg/dL (NEGATIVE) 11/21/17 09:00 Urine Glucose (UA) >=1000 mg/dL (NEGATIVE) H 11/21/17 09:00 Urine Ketones 15 mg/dL (NEGATIVE) H 11/21/17 09:00 Urine Blood LARGE (NEGATIVE) H 11/21/17 09:00 Urine Nitrate NEGATIVE (NEGATIVE) 11/21/17 09:00 Urine Bilirubin NEGATIVE (NEGATIVE) 11/21/17 09:00 Urine Urobilinogen 0.2 E.U./dL (0.2 - 1.0) 11/21/17 09:00 Ur Leukocyte Esterase MODERATE (NEGATIVE) H 11/21/17 09:00 Urine RBC 0-2 /hpf (0-5) H 11/21/17 09:00 Urine WBC 50-100 /hpf (0-5) H 11/21/17 09:00 Ur Epithelial Cells FEW /lpf (FEW) 11/21/17 09:00 Urine Bacteria MANY /hpf (NONE SEEN) H 11/21/17 09:00 HIV 1&2 Antibody Screen NEGATIVE (NEG) 11/22/17 05:40 Blood Type A POSITIVE 11/22/17 09:50 Antibody Screen NEGATIVE 11/22/17 09:50 Crossmatch See Detail 11/22/17 09:50 - Physical Exam Vitals and I&O: Vital Signs Temp 99.7 F 11/26/17 01:10 Pulse 84 11/26/17 01:10 Resp 18 11/26/17 01:10 BP 159/82 11/26/17 01:10 Pulse Ox 95 11/26/17 01:10 Intake & Output 11/25/17 11/25/17 11/26/17 06:59 18:59 06:59 Intake Total 200 700 Output Total 1090 1200 Balance -890 -500 Weight (lbs) 80.796 kg 80.796 kg Intake: Intake, IV Amount 200 100 Meropenem 1 gm In Sodium 200 100 Chloride 0.9% 100 ml @ 100 mls/hr IV Q8HR [facility] Rx #:[id number] Oral 600 Output: Urine 1090 1200 Other: # Bowel Movements 0 0 Stool Characteristics Formed Black Weight Source Bedscale Bedscale Active Medications: Current Medications Acetaminophen/Hydrocodone Bitart ([place] 5mg/325mg) 1 tab PO Q12HR PRN PRN Reason: Pain (Moderate) Stop: 12/06/17 14:25 Last Admin: 11/26/17 01:28 Dose: 1 tab Glipizide (Glucotrol) 10 mg PO DAILY [facility] Stop: 01/20/18 08:59 Last Admin: 11/25/17 08:36 Dose: 10 mg Potassium Chloride/Sodium Chloride (0.9% Ns W/20 Meq Kcl) 1,000 mls @ 50 mls/ hr IV .Q20H [facility] Stop: 01/20/18 08:59 Last Admin: 11/24/17 20:31 Dose: 50 mls/hr Meropenem 1 gm/ Sodium (Chloride) 100 mls @ 100 mls/hr IV Q8HR [facility] Stop: 01/22/18 13:59 Last Admin: 11/25/17 20:38 Dose: 100 mls/hr Ibuprofen (Motrin) 600 mg PO BID [facility] Stop: 01/21/18 08:59 Last Admin: 11/25/17 16:38 Dose: 600 mg Insulin Aspart (Novolog Insulin Sliding Scale) 0 units SUBQ ACHS [facility]; Protocol Stop: 01/20/18 07:59 Last Admin: 11/25/17 20:39 Dose: 2 units Insulin Detemir (Levemir Insulin) 10 units SUBQ HS [facility]; Protocol Stop: 01/20/18 20:59 Last Admin: 11/25/17 20:40 Dose: 10 units Lactobacillus Rhamnosus (Culturelle 15b) 1 each PO DAILY [facility] Stop: 01/21/18 13:59 Last Admin: 11/25/17 08:35 Dose: 1 each Lisinopril (Zestril) 10 mg PO DAILY [facility] Stop: 01/22/18 08:59 Last Admin: 11/25/17 08:35 Dose: 10 mg Miscellaneous (Probiotic Screen) 1 ea MC PRN PRN PRN Reason: PROTOCOL Stop: 01/21/18 12:43 Nystatin (Mycostatin Cream) 1 appl TP DAILY PRN PRN Reason: Diaper Rash Stop: 01/20/18 08:59 Nystatin (Nystop) 100,000 units TP DAILY PRN PRN Reason: Diaper Rash Stop: 01/20/18 07:56 Pantoprazole Sodium (Protonix) 40 mg IVP DAILY [facility] Stop: 01/20/18 08:59 Last Admin: 11/25/17 08:36 Dose: 40 mg General: Alert, Oriented x3 HEENT: Atraumatic Neck: Supple Cardiovascular: Regular rate Lungs: Clear to auscultation Abdomen: Bowel sounds, Soft, no Tender, no Hepatomegaly, no Splenomegaly, no Distended, no Rebound, no Mass, no Guarding Extremities: no Clubbing, no Cyanosis, no Edema Assessment/Plan - Assessment Assessment: s/p fall homeless anemia -- s/p blood transfusion for GI workup hyponatremia -- improved hypokalemia -- improved diabetes mellitus --improved. hyperglycemia GNR bacteremia -- on Zosyn IV. awaiting cultures UTI/pyelonephritis -- continue IV antibiotics. ID consult tinhalie lim. HTN --start Lisinopril 10mg PO daily H/o CVA. H/o depression. Gluteal wound. 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 Neurogenic bladder. H/o Back surgery. Left forearm pain after a traumatic fall, acute fracture of ulna styloid. -- ortho consult ESBL klebsiella bacteremia. - Plan Plan: will repeat labwork CBC,CMP GI consult stool occult Protonix 40mg IV qdaily K supplements ID consult type and screen 1 unit of pRBC's for CT abd/pelvis Nutritional Asmnt/Malnutr-PDOC - Dietary Evaluation Malnutrition Findings (Please click <Entered> for more info): Nutritional Asmnt/Malnutrition Start: 11/22/17 17: 38 Text: Status: Complete Freq: Protocol: Document 11/22/17 17:38 LCHENG (Rec: 11/22/17 17:57 [id number]) Nutritional Asmnt/Malnutrition Patient General Information Nutritional Screening High Risk Diagnosis electrolyte imbalance, anemia Pertinent Medical Hx/Surgical Hx HTN, Dm, CVA/TIA, back surgery , depression Subjective Information consult received for diabetic. Pt is [place] speaking. Per EMR, Pt consumded 50% of breakfast today. Not able to provide diabetic education d/t language barrier. Current Diet Order/ Nutrition Support diabetic diet Pertinent Medications glucotrol, novolog, levemir, culturelle, protonix, piperacillin, 0.9% ns w/20 meq kcl Pertinent Labs 11/21 Na 130, K 3.3, Cl 97, glucsoe 385 11/21-11/22 POC [id number] Nutritional Hx/Data Height 1.78 m Height (Calculated Centimeters) 177.8 Current Weight (lbs) 81.647 kg Weight (Calculated Kilograms) 81.6 Weight (Calculated Grams) 85330.6 [place] Body Weight 166 Body Mass Index (BMI) 25.8 Weight Status Overweight GI Symptoms GI Symptoms None Last BM none Difficult in: None Skin Integrity/Comment: pressure ulcer to sacrum Current %PO Fair (50-74%) Estimated Nutritional Goals BEE in Kcals: Using Current wt Calories/Kcals/Kg 25-30 Kcals Calculated 1595-1455 Protein: Using Current wt Protein g/k Protein Calculated 75 Fluid: ml 1875-2250ml (1ml/kcal) Nutritional Problem 1. Problem Problem increased nutrition needs Etiology increased metabolic needs for impaired skin integrity Signs/Symptoms: pressure ulcer to sacrum Malnutrition Alert Is there a minimum of two criteria No selected? Query Text:Check all the applicable criteria. A minimum of two criteria are recommended for diagnosis of either severe or non-severe malnutrition. Malnutrition Related to Morbid Obesity Malnutrition related to morbid obesity No Intervention/Recommendation Comments 1. Continue with diabetic diet diet as ordered. 2. Monitor PO intake, wt, labs and skin integrity 3. F/U as moderate risk in 3-5 days, 11/25-11/27, PO check Expected Outcomes/Goals Expected Outcomes/Goals 1. PO intake to meet at least 75% of nutritional needs. 2. Wt stability, skin to remain intact, labs to approach WNL.
[2017-11-26] MEDS: Meropenem 1 GM in Sodium Chloride 0.9% 100 ML IV SCH ×3 (05:16→20:36)
[2017-11-26] MEDS: 0.9% NS w/20 mEq KCL 1,000 ML IV SCH (05:24)
[2017-11-26] MEDS: INSULIN ASPART SLIDING SCALE 100 UNITS/ML UNIT SUBQ SCH ×4 (08:44→20:32)
[2017-11-26] MEDS: Lactobacillus Rhamnosus GG 15 Billion CFU CAP.SPRINK PO SCH (08:45)
--- NOTE | 2017-11-26 09:31 | GI Progress Note ---
Subjective - Review of Systems Service Date: 11/26/17 Subjective: No new events. Objective - Results Result Diagrams: 11/24/17 05:20 11/24/17 05:20 Recent Labs: Laboratory Last Values WBC 6.1 Th/cmm (4.8-10.8) 11/24/17 05:20 RBC 3.16 Mil/cmm (4.30-5.70) L 11/24/17 05:20 Hgb 9.1 gm/dL (12-16) L 11/24/17 05:20 Hct 27.1 % (41.0-60) L 11/24/17 05:20 MCV 85.9 fl (80-99) 11/24/17 05:20 MCH 28.8 pg (26.0-30.0) 11/24/17 05:20 MCHC Differential 33.6 pg (28.0-36.0) 11/24/17 05:20 RDW 12.2 % (11.5-20.0) 11/24/17 05:20 Plt Count 271 Th/cmm (150-400) 11/24/17 05:20 MPV 7.0 fl 11/24/17 05:20 Add Manual Diff YES 11/24/17 05:20 Neutrophils % 82.4 % (40.0-80.0) H 11/21/17 06:40 Band Neutrophils % 1 % (0-10) 11/24/17 05:20 Lymphocytes % 11.0 % (20.0-50.0) L 11/21/17 06:40 Monocytes % 5.0 % (2.0-10.0) 11/21/17 06:40 Eosinophils % 0.6 % (0.0-5.0) 11/21/17 06:40 Basophils % 1.0 % (0.0-2.0) 11/21/17 06:40 Neutrophils (Manual) 75 % (40-80) 11/24/17 05:20 Lymphocytes 20 % (20-50) 11/24/17 05:20 Monocytes 2 % (2-10) 11/24/17 05:20 Eosinophils 2 % (0-5) 11/24/17 05:20 Basophils 0 % (0-3) 11/24/17 05:20 Platelet Estimate ADEQUATE (NORMAL) 11/24/17 05:20 PT 10.5 SECONDS (9.5-11.5) 11/24/17 05:20 INR 1.01 (0.5-1.4) 11/24/17 05:20 PTT (Actin FS) 30.1 SECONDS (26.0-38.0) 11/20/17 14:50 Sodium 136 mEq/L (136-145) 11/24/17 05:20 Potassium 3.5 mEq/L (3.5-5.1) 11/24/17 05:20 Chloride 105 mEq/L (98-107) 11/24/17 05:20 Carbon Dioxide 25.7 mEq/L (21.0-31.0) 11/24/17 05:20 Anion Gap 8.8 (7.0-16.0) 11/24/17 05:20 BUN 11 mg/dL (7-25) 11/24/17 05:20 Creatinine 0.8 mg/dL (0.7-1.3) 11/24/17 05:20 Est GFR ( Amer) > 60.0 ml/min (>90) 11/24/17 05:20 Est GFR (Non-Af Amer) > 60.0 ml/min 11/24/17 05:20 BUN/Creatinine Ratio 13.8 11/24/17 05:20 Glucose 192 mg/dL (70-105) H 11/24/17 05:20 POC Glucose 193 MG/DL (70 - 105) H 11/25/17 20:37 Calcium 8.2 mg/dL (8.6-10.3) L 11/24/17 05:20 Iron 7 ug/dL (38-169) L 11/20/17 14:50 TIBC 161 ug/dL (250-450) L 11/20/17 14:50 Iron Saturation 4 % (15-55) L 11/20/17 14:50 Unsaturated IBC 154 ug/dL (111-343) 11/20/17 14:50 Total Bilirubin 0.3 mg/dL (0.3-1.0) 11/23/17 05:50 AST 11 U/L (13-39) L 11/23/17 05:50 ALT 8 U/L (7-52) 11/23/17 05:50 Alkaline Phosphatase 108 U/L (34-104) H 11/23/17 05:50 Troponin I 0.03 ng/mL (0.01-0.05) 11/20/17 14:50 B-Natriuretic Peptide 239.0 pg/mL (5.0-100.0) H 11/21/17 06:40 Total Protein 5.6 gm/dL (6.0-8.3) L 11/23/17 05:50 Albumin 2.6 gm/dL (4.2-5.5) L 11/23/17 05:50 Globulin 3.0 gm/dL 11/23/17 05:50 Albumin/Globulin Ratio 0.9 (1.0-1.8) L 11/23/17 05:50 Urine Source CATH 11/21/17 09:00 Urine Color YELLOW 11/21/17 09:00 Urine Clarity HAZY (CLEAR) 11/21/17 09:00 Urine pH 6.0 (4.6 - 8.0) 11/21/17 09:00 Ur Specific [place] 1.020 (1.005-1.030) 11/21/17 09:00 Urine Protein >=300 mg/dL (NEGATIVE) 11/21/17 09:00 Urine Glucose (UA) >=1000 mg/dL (NEGATIVE) H 11/21/17 09:00 Urine Ketones 15 mg/dL (NEGATIVE) H 11/21/17 09:00 Urine Blood LARGE (NEGATIVE) H 11/21/17 09:00 Urine Nitrate NEGATIVE (NEGATIVE) 11/21/17 09:00 Urine Bilirubin NEGATIVE (NEGATIVE) 11/21/17 09:00 Urine Urobilinogen 0.2 E.U./dL (0.2 - 1.0) 11/21/17 09:00 Ur Leukocyte Esterase MODERATE (NEGATIVE) H 11/21/17 09:00 Urine RBC 0-2 /hpf (0-5) H 11/21/17 09:00 Urine WBC 50-100 /hpf (0-5) H 11/21/17 09:00 Ur Epithelial Cells FEW /lpf (FEW) 11/21/17 09:00 Urine Bacteria MANY /hpf (NONE SEEN) H 11/21/17 09:00 HIV 1&2 Antibody Screen NEGATIVE (NEG) 11/22/17 05:40 Blood Type A POSITIVE 11/22/17 09:50 Antibody Screen NEGATIVE 11/22/17 09:50 Crossmatch See Detail 11/22/17 09:50 - Physical Exam Vitals and I&O: Vital Signs Temp 98.0 F 11/26/17 08:17 Pulse 65 11/26/17 08:45 Resp 18 11/26/17 08:17 BP 149/81 11/26/17 08:45 Pulse Ox 99 11/26/17 08:17 Intake & Output 11/25/17 11/26/17 11/26/17 18:59 06:59 18:59 Intake Total 1700 100 300 Output Total 1200 950 Balance 500 100 -650 Weight (lbs) 80.796 kg 81.193 kg Intake: Intake, IV Amount 1100 100 0.9% NS w/20 mEq KCL 1, 1000 000 ml @ 50 mls/hr IV . Q20H [facility] Rx#:[id number] Meropenem 1 gm In Sodium 100 100 Chloride 0.9% 100 ml @ 100 mls/hr IV Q8HR [facility] Rx #:[id number] Oral 600 300 Output: Urine 1200 950 Other: # Bowel Movements 0 0 Weight Source Bedscale Bedscale Active Medications: Current Medications Acetaminophen/Hydrocodone Bitart ([place] 5mg/325mg) 1 tab PO Q12HR PRN PRN Reason: Pain (Moderate) Stop: 12/06/17 14:25 Last Admin: 11/26/17 01:28 Dose: 1 tab Glipizide (Glucotrol) 10 mg PO DAILY [facility] Stop: 01/20/18 08:59 Last Admin: 11/26/17 08:45 Dose: 10 mg Potassium Chloride/Sodium Chloride (0.9% Ns W/20 Meq Kcl) 1,000 mls @ 50 mls/ hr IV .Q20H [facility] Stop: 01/20/18 08:59 Last Admin: 11/26/17 05:24 Dose: 50 mls/hr Meropenem 1 gm/ Sodium (Chloride) 100 mls @ 100 mls/hr IV Q8HR [facility] Stop: 01/22/18 13:59 Last Admin: 11/26/17 05:16 Dose: 100 mls/hr Ibuprofen (Motrin) 600 mg PO BID [facility] Stop: 01/21/18 08:59 Last Admin: 11/26/17 08:46 Dose: 600 mg Insulin Aspart (Novolog Insulin Sliding Scale) 0 units SUBQ ACHS [facility]; Protocol Stop: 01/20/18 07:59 Last Admin: 11/26/17 08:44 Dose: 2 units Insulin Detemir (Levemir Insulin) 10 units SUBQ HS [facility]; Protocol Stop: 01/20/18 20:59 Last Admin: 11/25/17 20:40 Dose: 10 units Lactobacillus Rhamnosus (Culturelle 15b) 1 each PO DAILY [facility] Stop: 01/21/18 13:59 Last Admin: 11/26/17 08:45 Dose: 1 each Lisinopril (Zestril) 10 mg PO DAILY [facility] Stop: 01/22/18 08:59 Last Admin: 11/26/17 08:45 Dose: 10 mg Miscellaneous (Probiotic Screen) 1 ea MC PRN PRN PRN Reason: PROTOCOL Stop: 01/21/18 12:43 Nystatin (Mycostatin Cream) 1 appl TP DAILY PRN PRN Reason: Diaper Rash Stop: 01/20/18 08:59 Nystatin (Nystop) 100,000 units TP DAILY PRN PRN Reason: Diaper Rash Stop: 01/20/18 07:56 Pantoprazole Sodium (Protonix) 40 mg IVP DAILY [facility] Stop: 01/20/18 08:59 Last Admin: 11/26/17 08:45 Dose: 40 mg General: Alert, Oriented x3 HEENT: Atraumatic Neck: Supple Cardiovascular: Regular rate Lungs: Clear to auscultation Abdomen: Bowel sounds, Soft, no Tender, no Hepatomegaly, no Splenomegaly, no Distended, no Rebound, no Mass, no Guarding Extremities: no Clubbing, no Cyanosis, no Edema Assessment/Plan - Assessment Assessment: # Anemia # Hemiplegia # CVA We had planned EGD/colo on 11/24 given pt was anemic. However, he has refused prep. He also now reports he had EGD/colo done this year already at [facility], and does not want to have another repeat exam now. Plan: - try and obtain records of EGD/colo done at [facility]. Pt is refusing any further exams at this point. Have not received any records as of yet - trend hgb - resume diet GI available to review EGD/colo report if it arrives. Otherwise will see intermittently. Please call with any questions
--- NOTE | 2017-11-26 12:48 | Infectious Disease Prog Note ---
Infectious Disease Subjective - Review of Systems Service Date: 11/26/17 Subjective: There is no new change, no fever. Infectious Disease Objective - Results Result Diagrams: 11/24/17 05:20 11/24/17 05:20 Recent Labs: Laboratory Last Values WBC 6.1 Th/cmm (4.8-10.8) 11/24/17 05:20 RBC 3.16 Mil/cmm (4.30-5.70) L 11/24/17 05:20 Hgb 9.1 gm/dL (12-16) L 11/24/17 05:20 Hct 27.1 % (41.0-60) L 11/24/17 05:20 MCV 85.9 fl (80-99) 11/24/17 05:20 MCH 28.8 pg (26.0-30.0) 11/24/17 05:20 MCHC Differential 33.6 pg (28.0-36.0) 11/24/17 05:20 RDW 12.2 % (11.5-20.0) 11/24/17 05:20 Plt Count 271 Th/cmm (150-400) 11/24/17 05:20 MPV 7.0 fl 11/24/17 05:20 Add Manual Diff YES 11/24/17 05:20 Neutrophils % 82.4 % (40.0-80.0) H 11/21/17 06:40 Band Neutrophils % 1 % (0-10) 11/24/17 05:20 Lymphocytes % 11.0 % (20.0-50.0) L 11/21/17 06:40 Monocytes % 5.0 % (2.0-10.0) 11/21/17 06:40 Eosinophils % 0.6 % (0.0-5.0) 11/21/17 06:40 Basophils % 1.0 % (0.0-2.0) 11/21/17 06:40 Neutrophils (Manual) 75 % (40-80) 11/24/17 05:20 Lymphocytes 20 % (20-50) 11/24/17 05:20 Monocytes 2 % (2-10) 11/24/17 05:20 Eosinophils 2 % (0-5) 11/24/17 05:20 Basophils 0 % (0-3) 11/24/17 05:20 Platelet Estimate ADEQUATE (NORMAL) 11/24/17 05:20 PT 10.5 SECONDS (9.5-11.5) 11/24/17 05:20 INR 1.01 (0.5-1.4) 11/24/17 05:20 PTT (Actin FS) 30.1 SECONDS (26.0-38.0) 11/20/17 14:50 Sodium 136 mEq/L (136-145) 11/24/17 05:20 Potassium 3.5 mEq/L (3.5-5.1) 11/24/17 05:20 Chloride 105 mEq/L (98-107) 11/24/17 05:20 Carbon Dioxide 25.7 mEq/L (21.0-31.0) 11/24/17 05:20 Anion Gap 8.8 (7.0-16.0) 11/24/17 05:20 BUN 11 mg/dL (7-25) 11/24/17 05:20 Creatinine 0.8 mg/dL (0.7-1.3) 11/24/17 05:20 Est GFR ( Amer) > 60.0 ml/min (>90) 11/24/17 05:20 Est GFR (Non-Af Amer) > 60.0 ml/min 11/24/17 05:20 BUN/Creatinine Ratio 13.8 11/24/17 05:20 Glucose 192 mg/dL (70-105) H 11/24/17 05:20 POC Glucose 259 MG/DL (70 - 105) H 11/26/17 11:52 Calcium 8.2 mg/dL (8.6-10.3) L 11/24/17 05:20 Iron 7 ug/dL (38-169) L 11/20/17 14:50 TIBC 161 ug/dL (250-450) L 11/20/17 14:50 Iron Saturation 4 % (15-55) L 11/20/17 14:50 Unsaturated IBC 154 ug/dL (111-343) 11/20/17 14:50 Total Bilirubin 0.3 mg/dL (0.3-1.0) 11/23/17 05:50 AST 11 U/L (13-39) L 11/23/17 05:50 ALT 8 U/L (7-52) 11/23/17 05:50 Alkaline Phosphatase 108 U/L (34-104) H 11/23/17 05:50 Troponin I 0.03 ng/mL (0.01-0.05) 11/20/17 14:50 B-Natriuretic Peptide 239.0 pg/mL (5.0-100.0) H 11/21/17 06:40 Total Protein 5.6 gm/dL (6.0-8.3) L 11/23/17 05:50 Albumin 2.6 gm/dL (4.2-5.5) L 11/23/17 05:50 Globulin 3.0 gm/dL 11/23/17 05:50 Albumin/Globulin Ratio 0.9 (1.0-1.8) L 11/23/17 05:50 Urine Source CATH 11/21/17 09:00 Urine Color YELLOW 11/21/17 09:00 Urine Clarity HAZY (CLEAR) 11/21/17 09:00 Urine pH 6.0 (4.6 - 8.0) 11/21/17 09:00 Ur Specific [place] 1.020 (1.005-1.030) 11/21/17 09:00 Urine Protein >=300 mg/dL (NEGATIVE) 11/21/17 09:00 Urine Glucose (UA) >=1000 mg/dL (NEGATIVE) H 11/21/17 09:00 Urine Ketones 15 mg/dL (NEGATIVE) H 11/21/17 09:00 Urine Blood LARGE (NEGATIVE) H 11/21/17 09:00 Urine Nitrate NEGATIVE (NEGATIVE) 11/21/17 09:00 Urine Bilirubin NEGATIVE (NEGATIVE) 11/21/17 09:00 Urine Urobilinogen 0.2 E.U./dL (0.2 - 1.0) 11/21/17 09:00 Ur Leukocyte Esterase MODERATE (NEGATIVE) H 11/21/17 09:00 Urine RBC 0-2 /hpf (0-5) H 11/21/17 09:00 Urine WBC 50-100 /hpf (0-5) H 11/21/17 09:00 Ur Epithelial Cells FEW /lpf (FEW) 11/21/17 09:00 Urine Bacteria MANY /hpf (NONE SEEN) H 11/21/17 09:00 HIV 1&2 Antibody Screen NEGATIVE (NEG) 11/22/17 05:40 Blood Type A POSITIVE 11/22/17 09:50 Antibody Screen NEGATIVE 11/22/17 09:50 Crossmatch See Detail 11/22/17 09:50 - Physical Exam Vitals and I&O: Vital Signs Temp 98.3 F 11/26/17 11:31 Pulse 72 11/26/17 11:31 Resp 18 11/26/17 11:31 BP 132/79 11/26/17 11:31 Pulse Ox 98 11/26/17 11:31 Intake & Output 11/25/17 11/26/17 11/26/17 18:59 06:59 18:59 Intake Total 1700 100 300 Output Total 1200 950 Balance 500 100 -650 Weight (lbs) 80.796 kg 81.193 kg Intake: Intake, IV Amount 1100 100 0.9% NS w/20 mEq KCL 1, 1000 000 ml @ 50 mls/hr IV . Q20H [facility] Rx#:[id number] Meropenem 1 gm In Sodium 100 100 Chloride 0.9% 100 ml @ 100 mls/hr IV Q8HR [facility] Rx #:[id number] Oral 600 300 Output: Urine 1200 950 Other: # Bowel Movements 0 0 Weight Source Bedscale Bedscale Active Medications: Current Medications Acetaminophen/Hydrocodone Bitart ([place] 5mg/325mg) 1 tab PO Q12HR PRN PRN Reason: Pain (Moderate) Stop: 12/06/17 14:25 Last Admin: 11/26/17 01:28 Dose: 1 tab Glipizide (Glucotrol) 10 mg PO DAILY [facility] Stop: 01/20/18 08:59 Last Admin: 11/26/17 08:45 Dose: 10 mg Potassium Chloride/Sodium Chloride (0.9% Ns W/20 Meq Kcl) 1,000 mls @ 50 mls/ hr IV .Q20H [facility] Stop: 01/20/18 08:59 Last Admin: 11/26/17 05:24 Dose: 50 mls/hr Meropenem 1 gm/ Sodium (Chloride) 100 mls @ 100 mls/hr IV Q8HR [facility] Stop: 01/22/18 13:59 Last Admin: 11/26/17 05:16 Dose: 100 mls/hr Ibuprofen (Motrin) 600 mg PO BID [facility] Stop: 01/21/18 08:59 Last Admin: 11/26/17 08:46 Dose: 600 mg Insulin Aspart (Novolog Insulin Sliding Scale) 0 units SUBQ ACHS [facility]; Protocol Stop: 01/20/18 07:59 Last Admin: 11/26/17 08:44 Dose: 2 units Insulin Detemir (Levemir Insulin) 10 units SUBQ HS [facility]; Protocol Stop: 01/20/18 20:59 Last Admin: 11/25/17 20:40 Dose: 10 units Lactobacillus Rhamnosus (Culturelle 15b) 1 each PO DAILY [facility] Stop: 01/21/18 13:59 Last Admin: 11/26/17 08:45 Dose: 1 each Lisinopril (Zestril) 10 mg PO DAILY [facility] Stop: 01/22/18 08:59 Last Admin: 11/26/17 08:45 Dose: 10 mg Miscellaneous (Probiotic Screen) 1 ea MC PRN PRN PRN Reason: PROTOCOL Stop: 01/21/18 12:43 Nystatin (Mycostatin Cream) 1 appl TP DAILY PRN PRN Reason: Diaper Rash Stop: 01/20/18 08:59 Nystatin (Nystop) 100,000 units TP DAILY PRN PRN Reason: Diaper Rash Stop: 01/20/18 07:56 Pantoprazole Sodium (Protonix) 40 mg IVP DAILY [facility] Stop: 01/20/18 08:59 Last Admin: 11/26/17 08:45 Dose: 40 mg General: no acute distress, well developed, well nourished HEENT: atraumatic, normocephalic, PERRLA, EOMI Neck: supple, no thyromegaly Cardiovascular: S1S2, regular Lungs: clear to auscultation bilaterally, clear to percussion Abdomen: soft, no tender, no distended Extremities: no cyanosis, no clubbing, no edema Neurological: awake, alert, oriented Infectious Disease Assmt/Plan - Assessment Assessment: 1. ESBL klebsiella bacteremia. 2. UTI/pyelonephritis. hydronephrosis resolved. 3. Tinia crurus. 4. DM2 5. HTN. 6. H/o CVA. 7. H/o depression. 8. Gluteal wound. 9. 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 10. Neurogenic bladder. 11. H/o Back surgery. 12. Left forearm pain after a traumatic fall, acute fracture of ulna styloid. - Plan Plan: Continue meropenem, can be changed to Invanz 1 Gm IV for 6 more days. ( end date 12/02/2017) SHEILA RN. Nutritional Asmnt/Malnutr-PDOC - Dietary Evaluation Malnutrition Findings (Please click <Entered> for more info): Nutritional Asmnt/Malnutrition Start: 11/22/17 17: 38 Text: Status: Complete Freq: Protocol: Document 11/22/17 17:38 LCHENG (Rec: 11/22/17 17:57 LCHENG ANA [id number]) Nutritional Asmnt/Malnutrition Patient General Information Nutritional Screening High Risk Diagnosis electrolyte imbalance, anemia Pertinent Medical Hx/Surgical Hx HTN, Dm, CVA/TIA, back surgery , depression Subjective Information consult received for diabetic. Pt is [place]ian speaking. Per EMR, Pt consumded 50% of breakfast today. Not able to provide diabetic education d/t language barrier. Current Diet Order/ Nutrition Support diabetic diet Pertinent Medications glucotrol, novolog, levemir, culturelle, protonix, piperacillin, 0.9% ns w/20 meq kcl Pertinent Labs 11/21 Na 130, K 3.3, Cl 97, glucsoe 385 11/21-11/22 POC [id number] Nutritional Hx/Data Height 1.78 m Height (Calculated Centimeters) 177.8 Current Weight (lbs) 81.647 kg Weight (Calculated Kilograms) 81.6 Weight (Calculated Grams) 69944.6 [place] Body Weight 166 Body Mass Index (BMI) 25.8 Weight Status Overweight GI Symptoms GI Symptoms None Last BM none Difficult in: None Skin Integrity/Comment: pressure ulcer to sacrum Current %PO Fair (50-74%) Estimated Nutritional Goals BEE in Kcals: Using Current wt Calories/Kcals/Kg 25-30 Kcals Calculated 1676-5319 Protein: Using Current wt Protein g/k Protein Calculated 75 Fluid: ml 1875-2250ml (1ml/kcal) Nutritional Problem 1. Problem Problem increased nutrition needs Etiology increased metabolic needs for impaired skin integrity Signs/Symptoms: pressure ulcer to sacrum Malnutrition Alert Is there a minimum of two criteria No selected? Query Text:Check all the applicable criteria. A minimum of two criteria are recommended for diagnosis of either severe or non-severe malnutrition. Malnutrition Related to Morbid Obesity Malnutrition related to morbid obesity No Intervention/Recommendation Comments 1. Continue with diabetic diet diet as ordered. 2. Monitor PO intake, wt, labs and skin integrity 3. F/U as moderate risk in 3-5 days, 11/25-11/27, PO check Expected Outcomes/Goals Expected Outcomes/Goals 1. PO intake to meet at least 75% of nutritional needs. 2. Wt stability, skin to remain intact, labs to approach WNL.
[2017-11-26] MEDS: Insulin Detemir 100 units/mL 10mL Vial SUBQ SCH (20:33)
[2017-11-27] MEDS: Hydrocodone/APAP 5mg/325mg Tab PO PRN ×2 (04:51→15:32)
[2017-11-27] MEDS: 0.9% NS w/20 mEq KCL 1,000 ML IV SCH (04:59)
[2017-11-27] MEDS: Meropenem 1 GM in Sodium Chloride 0.9% 100 ML IV SCH ×3 (05:00→20:48)
--- NOTE | 2017-11-27 05:04 | General Progress Note ---
Subjective - Review of Systems Service Date: 11/27/17 Subjective: Patient was seen and examined. Patient is resting comfortably in bed in no acute distress. +Klebsiella in urine and blood and wound. Objective - Results Result Diagrams: 11/24/17 05:20 11/24/17 05:20 Recent Labs: Laboratory Last Values WBC 6.1 Th/cmm (4.8-10.8) 11/24/17 05:20 RBC 3.16 Mil/cmm (4.30-5.70) L 11/24/17 05:20 Hgb 9.1 gm/dL (12-16) L 11/24/17 05:20 Hct 27.1 % (41.0-60) L 11/24/17 05:20 MCV 85.9 fl (80-99) 11/24/17 05:20 MCH 28.8 pg (26.0-30.0) 11/24/17 05:20 MCHC Differential 33.6 pg (28.0-36.0) 11/24/17 05:20 RDW 12.2 % (11.5-20.0) 11/24/17 05:20 Plt Count 271 Th/cmm (150-400) 11/24/17 05:20 MPV 7.0 fl 11/24/17 05:20 Add Manual Diff YES 11/24/17 05:20 Neutrophils % 82.4 % (40.0-80.0) H 11/21/17 06:40 Band Neutrophils % 1 % (0-10) 11/24/17 05:20 Lymphocytes % 11.0 % (20.0-50.0) L 11/21/17 06:40 Monocytes % 5.0 % (2.0-10.0) 11/21/17 06:40 Eosinophils % 0.6 % (0.0-5.0) 11/21/17 06:40 Basophils % 1.0 % (0.0-2.0) 11/21/17 06:40 Neutrophils (Manual) 75 % (40-80) 11/24/17 05:20 Lymphocytes 20 % (20-50) 11/24/17 05:20 Monocytes 2 % (2-10) 11/24/17 05:20 Eosinophils 2 % (0-5) 11/24/17 05:20 Basophils 0 % (0-3) 11/24/17 05:20 Platelet Estimate ADEQUATE (NORMAL) 11/24/17 05:20 PT 10.5 SECONDS (9.5-11.5) 11/24/17 05:20 INR 1.01 (0.5-1.4) 11/24/17 05:20 PTT (Actin FS) 30.1 SECONDS (26.0-38.0) 11/20/17 14:50 Sodium 136 mEq/L (136-145) 11/24/17 05:20 Potassium 3.5 mEq/L (3.5-5.1) 11/24/17 05:20 Chloride 105 mEq/L (98-107) 11/24/17 05:20 Carbon Dioxide 25.7 mEq/L (21.0-31.0) 11/24/17 05:20 Anion Gap 8.8 (7.0-16.0) 11/24/17 05:20 BUN 11 mg/dL (7-25) 11/24/17 05:20 Creatinine 0.8 mg/dL (0.7-1.3) 11/24/17 05:20 Est GFR ( Amer) > 60.0 ml/min (>90) 11/24/17 05:20 Est GFR (Non-Af Amer) > 60.0 ml/min 11/24/17 05:20 BUN/Creatinine Ratio 13.8 11/24/17 05:20 Glucose 192 mg/dL (70-105) H 11/24/17 05:20 POC Glucose 178 MG/DL (70 - 105) H 11/26/17 17:10 Calcium 8.2 mg/dL (8.6-10.3) L 11/24/17 05:20 Iron 7 ug/dL (38-169) L 11/20/17 14:50 TIBC 161 ug/dL (250-450) L 11/20/17 14:50 Iron Saturation 4 % (15-55) L 11/20/17 14:50 Unsaturated IBC 154 ug/dL (111-343) 11/20/17 14:50 Total Bilirubin 0.3 mg/dL (0.3-1.0) 11/23/17 05:50 AST 11 U/L (13-39) L 11/23/17 05:50 ALT 8 U/L (7-52) 11/23/17 05:50 Alkaline Phosphatase 108 U/L (34-104) H 11/23/17 05:50 Troponin I 0.03 ng/mL (0.01-0.05) 11/20/17 14:50 B-Natriuretic Peptide 239.0 pg/mL (5.0-100.0) H 11/21/17 06:40 Total Protein 5.6 gm/dL (6.0-8.3) L 11/23/17 05:50 Albumin 2.6 gm/dL (4.2-5.5) L 11/23/17 05:50 Globulin 3.0 gm/dL 11/23/17 05:50 Albumin/Globulin Ratio 0.9 (1.0-1.8) L 11/23/17 05:50 Urine Source CATH 11/21/17 09:00 Urine Color YELLOW 11/21/17 09:00 Urine Clarity HAZY (CLEAR) 11/21/17 09:00 Urine pH 6.0 (4.6 - 8.0) 11/21/17 09:00 Ur Specific [place] 1.020 (1.005-1.030) 11/21/17 09:00 Urine Protein >=300 mg/dL (NEGATIVE) 11/21/17 09:00 Urine Glucose (UA) >=1000 mg/dL (NEGATIVE) H 11/21/17 09:00 Urine Ketones 15 mg/dL (NEGATIVE) H 11/21/17 09:00 Urine Blood LARGE (NEGATIVE) H 11/21/17 09:00 Urine Nitrate NEGATIVE (NEGATIVE) 11/21/17 09:00 Urine Bilirubin NEGATIVE (NEGATIVE) 11/21/17 09:00 Urine Urobilinogen 0.2 E.U./dL (0.2 - 1.0) 11/21/17 09:00 Ur Leukocyte Esterase MODERATE (NEGATIVE) H 11/21/17 09:00 Urine RBC 0-2 /hpf (0-5) H 11/21/17 09:00 Urine WBC 50-100 /hpf (0-5) H 11/21/17 09:00 Ur Epithelial Cells FEW /lpf (FEW) 11/21/17 09:00 Urine Bacteria MANY /hpf (NONE SEEN) H 11/21/17 09:00 HIV 1&2 Antibody Screen NEGATIVE (NEG) 11/22/17 05:40 Blood Type A POSITIVE 11/22/17 09:50 Antibody Screen NEGATIVE 11/22/17 09:50 Crossmatch See Detail 11/22/17 09:50 - Physical Exam Vitals and I&O: Vital Signs Temp 99.8 F 11/27/17 00:00 Pulse 85 11/27/17 01:35 Resp 18 11/27/17 00:00 BP 172/95 11/27/17 00:00 Pulse Ox 96 11/27/17 00:00 Intake & Output 11/26/17 11/26/17 11/27/17 06:59 18:59 06:59 Intake Total 200 2400 Output Total 3250 Balance 200 -850 Weight (lbs) 81.193 kg Intake: Intake, IV Amount 200 100 Meropenem 1 gm In Sodium 200 100 Chloride 0.9% 100 ml @ 100 mls/hr IV Q8HR [facility] Rx #:[id number] Oral 2300 Output: Urine 3250 Other: # Bowel Movements 0 Weight Source Bedscale Active Medications: Current Medications Acetaminophen (Tylenol) 650 mg PO Q4H PRN PRN Reason: T=100 F Stop: 01/26/18 01:28 Acetaminophen/Hydrocodone Bitart ([place] 5mg/325mg) 1 tab PO Q12HR PRN PRN Reason: Pain (Moderate) Stop: 12/06/17 14:25 Last Admin: 11/27/17 04:51 Dose: 1 tab Glipizide (Glucotrol) 10 mg PO DAILY [facility] Stop: 01/20/18 08:59 Last Admin: 11/26/17 08:45 Dose: 10 mg Potassium Chloride/Sodium Chloride (0.9% Ns W/20 Meq Kcl) 1,000 mls @ 50 mls/ hr IV .Q20H [facility] Stop: 01/20/18 08:59 Last Admin: 11/26/17 05:24 Dose: 50 mls/hr Meropenem 1 gm/ Sodium (Chloride) 100 mls @ 100 mls/hr IV Q8HR [facility] Stop: 01/22/18 13:59 Last Admin: 11/26/17 20:36 Dose: 100 mls/hr Ibuprofen (Motrin) 600 mg PO BID [facility] Stop: 01/21/18 08:59 Last Admin: 11/26/17 17:33 Dose: 600 mg Insulin Aspart (Novolog Insulin Sliding Scale) 0 units SUBQ ACHS [facility]; Protocol Stop: 01/20/18 07:59 Last Admin: 11/26/17 20:32 Dose: 4 units Insulin Detemir (Levemir Insulin) 10 units SUBQ HS [facility]; Protocol Stop: 01/20/18 20:59 Last Admin: 11/26/17 20:33 Dose: 10 units Lactobacillus Rhamnosus (Culturelle 15b) 1 each PO DAILY [facility] Stop: 01/21/18 13:59 Last Admin: 11/26/17 08:45 Dose: 1 each Lisinopril (Zestril) 10 mg PO DAILY [facility] Stop: 01/22/18 08:59 Last Admin: 11/26/17 08:45 Dose: 10 mg Miscellaneous (Probiotic Screen) 1 ea MC PRN PRN PRN Reason: PROTOCOL Stop: 01/21/18 12:43 Nystatin (Mycostatin Cream) 1 appl TP DAILY PRN PRN Reason: Diaper Rash Stop: 01/20/18 08:59 Nystatin (Nystop) 100,000 units TP DAILY PRN PRN Reason: Diaper Rash Stop: 01/20/18 07:56 Pantoprazole Sodium (Protonix) 40 mg IVP DAILY [facility] Stop: 01/20/18 08:59 Last Admin: 11/26/17 08:45 Dose: 40 mg General: Alert, Oriented x3 HEENT: Atraumatic Neck: Supple Cardiovascular: Regular rate Lungs: Clear to auscultation Abdomen: Bowel sounds, Soft, no Tender, no Hepatomegaly, no Splenomegaly, no Distended, no Rebound, no Mass, no Guarding Extremities: no Clubbing, no Cyanosis, no Edema Assessment/Plan - Assessment Assessment: s/p fall homeless anemia -- s/p blood transfusion for GI workup hyponatremia -- improved hypokalemia -- improved diabetes mellitus --improved. hyperglycemia UTI/pyelonephritis -- continue IV antibiotics. ID consult tinea crurus. HTN --start Lisinopril 10mg PO daily H/o CVA. H/o depression. Gluteal wound. 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 Neurogenic bladder. H/o Back surgery. Left forearm pain after a traumatic fall, acute fracture of ulna styloid. -- ortho consult ESBL klebsiella +blood +urine +wound ... continue IV antibiotics. - Plan Plan: will repeat labwork CBC,CMP GI consult stool occult Protonix 40mg IV qdaily K supplements ID consult type and screen 1 unit of pRBC's for CT abd/pelvis Nutritional Asmnt/Malnutr-PDOC - Dietary Evaluation Malnutrition Findings (Please click <Entered> for more info): Nutritional Asmnt/Malnutrition Start: 11/22/17 17: 38 Text: Status: Complete Freq: Protocol: Document 11/22/17 17:38 LCCOLLINSG (Rec: 11/22/17 17:57 [email or web address] Nutritional Asmnt/Malnutrition Patient General Information Nutritional Screening High Risk Diagnosis electrolyte imbalance, anemia Pertinent Medical Hx/Surgical Hx HTN, Dm, CVA/TIA, back surgery , depression Subjective Information consult received for diabetic. Pt is Sinhala speaking. Per EMR, Pt consumded 50% of breakfast today. Not able to provide diabetic education d/t language barrier. Current Diet Order/ Nutrition Support diabetic diet Pertinent Medications glucotrol, novolog, levemir, culturelle, protonix, piperacillin, 0.9% ns w/20 meq kcl Pertinent Labs 11/21 Na 130, K 3.3, Cl 97, glucsoe 385 11/21-11/22 POC 245-415 Nutritional Hx/Data Height 1.78 m Height (Calculated Centimeters) 177.8 Current Weight (lbs) 81.647 kg Weight (Calculated Kilograms) 81.6 Weight (Calculated Grams) 14772.6 [place] Body Weight 166 Body Mass Index (BMI) 25.8 Weight Status Overweight GI Symptoms GI Symptoms None Last BM none Difficult in: None Skin Integrity/Comment: pressure ulcer to sacrum Current %PO Fair (50-74%) Estimated Nutritional Goals BEE in Kcals: Using Current wt Calories/Kcals/Kg 25-30 Kcals Calculated 3885-0281 Protein: Using Current wt Protein g/k Protein Calculated 75 Fluid: ml 1875-2250ml (1ml/kcal) Nutritional Problem 1. Problem Problem increased nutrition needs Etiology increased metabolic needs for impaired skin integrity Signs/Symptoms: pressure ulcer to sacrum Malnutrition Alert Is there a minimum of two criteria No selected? Query Text:Check all the applicable criteria. A minimum of two criteria are recommended for diagnosis of either severe or non-severe malnutrition. Malnutrition Related to Morbid Obesity Malnutrition related to morbid obesity No Intervention/Recommendation Comments 1. Continue with diabetic diet diet as ordered. 2. Monitor PO intake, wt, labs and skin integrity 3. F/U as moderate risk in 3-5 days, 11/25-11/27, PO check Expected Outcomes/Goals Expected Outcomes/Goals 1. PO intake to meet at least 75% of nutritional needs. 2. Wt stability, skin to remain intact, labs to approach WNL.
[2017-11-27] MEDS: INSULIN ASPART SLIDING SCALE 100 UNITS/ML UNIT SUBQ SCH ×4 (07:00→20:46)
[2017-11-27] MEDS: Lactobacillus Rhamnosus GG 15 Billion CFU CAP.SPRINK PO SCH (09:26)
--- NOTE | 2017-11-27 15:22 | Infectious Disease Prog Note ---
Infectious Disease Subjective - Review of Systems Service Date: 11/27/17 Subjective: There is no new change, no fever. Infectious Disease Objective - Results Result Diagrams: 11/24/17 05:20 11/24/17 05:20 Recent Labs: Laboratory Last Values WBC 6.1 Th/cmm (4.8-10.8) 11/24/17 05:20 RBC 3.16 Mil/cmm (4.30-5.70) L 11/24/17 05:20 Hgb 9.1 gm/dL (12-16) L 11/24/17 05:20 Hct 27.1 % (41.0-60) L 11/24/17 05:20 MCV 85.9 fl (80-99) 11/24/17 05:20 MCH 28.8 pg (26.0-30.0) 11/24/17 05:20 MCHC Differential 33.6 pg (28.0-36.0) 11/24/17 05:20 RDW 12.2 % (11.5-20.0) 11/24/17 05:20 Plt Count 271 Th/cmm (150-400) 11/24/17 05:20 MPV 7.0 fl 11/24/17 05:20 Add Manual Diff YES 11/24/17 05:20 Neutrophils % 82.4 % (40.0-80.0) H 11/21/17 06:40 Band Neutrophils % 1 % (0-10) 11/24/17 05:20 Lymphocytes % 11.0 % (20.0-50.0) L 11/21/17 06:40 Monocytes % 5.0 % (2.0-10.0) 11/21/17 06:40 Eosinophils % 0.6 % (0.0-5.0) 11/21/17 06:40 Basophils % 1.0 % (0.0-2.0) 11/21/17 06:40 Neutrophils (Manual) 75 % (40-80) 11/24/17 05:20 Lymphocytes 20 % (20-50) 11/24/17 05:20 Monocytes 2 % (2-10) 11/24/17 05:20 Eosinophils 2 % (0-5) 11/24/17 05:20 Basophils 0 % (0-3) 11/24/17 05:20 Platelet Estimate ADEQUATE (NORMAL) 11/24/17 05:20 PT 10.5 SECONDS (9.5-11.5) 11/24/17 05:20 INR 1.01 (0.5-1.4) 11/24/17 05:20 PTT (Actin FS) 30.1 SECONDS (26.0-38.0) 11/20/17 14:50 Sodium 136 mEq/L (136-145) 11/24/17 05:20 Potassium 3.5 mEq/L (3.5-5.1) 11/24/17 05:20 Chloride 105 mEq/L (98-107) 11/24/17 05:20 Carbon Dioxide 25.7 mEq/L (21.0-31.0) 11/24/17 05:20 Anion Gap 8.8 (7.0-16.0) 11/24/17 05:20 BUN 11 mg/dL (7-25) 11/24/17 05:20 Creatinine 0.8 mg/dL (0.7-1.3) 11/24/17 05:20 Est GFR ( Amer) > 60.0 ml/min (>90) 11/24/17 05:20 Est GFR (Non-Af Amer) > 60.0 ml/min 11/24/17 05:20 BUN/Creatinine Ratio 13.8 11/24/17 05:20 Glucose 192 mg/dL (70-105) H 11/24/17 05:20 POC Glucose 196 MG/DL (70 - 105) H 11/27/17 12:20 Calcium 8.2 mg/dL (8.6-10.3) L 11/24/17 05:20 Iron 7 ug/dL (38-169) L 11/20/17 14:50 TIBC 161 ug/dL (250-450) L 11/20/17 14:50 Iron Saturation 4 % (15-55) L 11/20/17 14:50 Unsaturated IBC 154 ug/dL (111-343) 11/20/17 14:50 Total Bilirubin 0.3 mg/dL (0.3-1.0) 11/23/17 05:50 AST 11 U/L (13-39) L 11/23/17 05:50 ALT 8 U/L (7-52) 11/23/17 05:50 Alkaline Phosphatase 108 U/L (34-104) H 11/23/17 05:50 Troponin I 0.03 ng/mL (0.01-0.05) 11/20/17 14:50 B-Natriuretic Peptide 239.0 pg/mL (5.0-100.0) H 11/21/17 06:40 Total Protein 5.6 gm/dL (6.0-8.3) L 11/23/17 05:50 Albumin 2.6 gm/dL (4.2-5.5) L 11/23/17 05:50 Globulin 3.0 gm/dL 11/23/17 05:50 Albumin/Globulin Ratio 0.9 (1.0-1.8) L 11/23/17 05:50 Urine Source CATH 11/21/17 09:00 Urine Color YELLOW 11/21/17 09:00 Urine Clarity HAZY (CLEAR) 11/21/17 09:00 Urine pH 6.0 (4.6 - 8.0) 11/21/17 09:00 Ur Specific [place] 1.020 (1.005-1.030) 11/21/17 09:00 Urine Protein >=300 mg/dL (NEGATIVE) 11/21/17 09:00 Urine Glucose (UA) >=1000 mg/dL (NEGATIVE) H 11/21/17 09:00 Urine Ketones 15 mg/dL (NEGATIVE) H 11/21/17 09:00 Urine Blood LARGE (NEGATIVE) H 11/21/17 09:00 Urine Nitrate NEGATIVE (NEGATIVE) 11/21/17 09:00 Urine Bilirubin NEGATIVE (NEGATIVE) 11/21/17 09:00 Urine Urobilinogen 0.2 E.U./dL (0.2 - 1.0) 11/21/17 09:00 Ur Leukocyte Esterase MODERATE (NEGATIVE) H 11/21/17 09:00 Urine RBC 0-2 /hpf (0-5) H 11/21/17 09:00 Urine WBC 50-100 /hpf (0-5) H 11/21/17 09:00 Ur Epithelial Cells FEW /lpf (FEW) 11/21/17 09:00 Urine Bacteria MANY /hpf (NONE SEEN) H 11/21/17 09:00 HIV 1&2 Antibody Screen NEGATIVE (NEG) 11/22/17 05:40 Blood Type A POSITIVE 11/22/17 09:50 Antibody Screen NEGATIVE 11/22/17 09:50 Crossmatch See Detail 11/22/17 09:50 - Physical Exam Vitals and I&O: Vital Signs Temp 98.4 F 11/27/17 11:45 Pulse 71 11/27/17 11:45 Resp 17 11/27/17 11:45 BP 136/80 11/27/17 11:45 Pulse Ox 100 11/27/17 11:45 Intake & Output 11/26/17 11/27/17 11/27/17 18:59 06:59 18:59 Intake Total 2400 1200 500 Output Total 3250 1870 Balance -850 1200 -1370 Weight (lbs) 81.193 kg 81.363 kg Intake: Intake, IV Amount 100 1200 0.9% NS w/20 mEq KCL 1, 1000 000 ml @ 50 mls/hr IV . Q20H [facility] Rx#:[id number] Meropenem 1 gm In Sodium 100 200 Chloride 0.9% 100 ml @ 100 mls/hr IV Q8HR [facility] Rx #:[id number] Oral 2300 500 Output: Urine 3250 1870 Other: # Bowel Movements 0 0 Weight Source Bedscale Bedscale Active Medications: Current Medications Acetaminophen (Tylenol) 650 mg PO Q4H PRN PRN Reason: T=100 F Stop: 01/26/18 01:28 Acetaminophen/Hydrocodone Bitart ([place] 5mg/325mg) 1 tab PO Q12HR PRN PRN Reason: Pain (Moderate) Stop: 12/06/17 14:25 Last Admin: 11/27/17 04:51 Dose: 1 tab Glipizide (Glucotrol) 10 mg PO DAILY [facility] Stop: 01/20/18 08:59 Last Admin: 11/27/17 09:25 Dose: 10 mg Potassium Chloride/Sodium Chloride (0.9% Ns W/20 Meq Kcl) 1,000 mls @ 50 mls/ hr IV .Q20H [facility] Stop: 01/20/18 08:59 Last Admin: 11/27/17 04:59 Dose: 50 mls/hr Meropenem 1 gm/ Sodium (Chloride) 100 mls @ 100 mls/hr IV Q8HR [facility] Stop: 01/22/18 13:59 Last Admin: 11/27/17 12:54 Dose: 100 mls/hr Ibuprofen (Motrin) 600 mg PO BID [facility] Stop: 01/21/18 08:59 Last Admin: 11/27/17 09:26 Dose: 600 mg Insulin Aspart (Novolog Insulin Sliding Scale) 0 units SUBQ ACHS [facility]; Protocol Stop: 01/20/18 07:59 Last Admin: 11/27/17 12:54 Dose: 2 units Insulin Detemir (Levemir Insulin) 10 units SUBQ HS [facility]; Protocol Stop: 01/20/18 20:59 Last Admin: 11/26/17 20:33 Dose: 10 units Lactobacillus Rhamnosus (Culturelle 15b) 1 each PO DAILY [facility] Stop: 01/21/18 13:59 Last Admin: 11/27/17 09:26 Dose: 1 each Lisinopril (Zestril) 20 mg PO DAILY [facility] Stop: 01/26/18 08:59 Last Admin: 11/27/17 09:25 Dose: 20 mg Miscellaneous (Probiotic Screen) 1 ea MC PRN PRN PRN Reason: PROTOCOL Stop: 01/21/18 12:43 Nystatin (Mycostatin Cream) 1 appl TP DAILY PRN PRN Reason: Diaper Rash Stop: 01/20/18 08:59 Nystatin (Nystop) 100,000 units TP DAILY PRN PRN Reason: Diaper Rash Stop: 01/20/18 07:56 Pantoprazole Sodium (Protonix) 40 mg IVP DAILY [facility] Stop: 01/20/18 08:59 Last Admin: 11/27/17 09:25 Dose: 40 mg General: no acute distress, well developed, well nourished HEENT: atraumatic, normocephalic, PERRLA Neck: supple, no thyromegaly Cardiovascular: S1S2, regular Lungs: clear to auscultation bilaterally, clear to percussion Abdomen: soft, no tender, no distended Extremities: no cyanosis, no clubbing, no edema Neurological: awake, alert, oriented Skin: intact Infectious Disease Assmt/Plan - Assessment Assessment: 1. ESBL klebsiella bacteremia. 2. UTI/pyelonephritis. hydronephrosis resolved. 3. Tinia crurus. 4. DM2 5. HTN. 6. H/o CVA. 7. H/o depression. 8. Gluteal wound. 9. 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 10. Neurogenic bladder. 11. H/o Back surgery. 12. Left forearm pain after a traumatic fall, acute fracture of ulna styloid. - Plan Plan: Continue meropenem, will change it to levaquin po for 5 more days ( end date ). I will s/o please call me as needed. SHEILA RN. Nutritional Asmnt/Malnutr-PDOC - Dietary Evaluation Malnutrition Findings (Please click <Entered> for more info): Nutritional Asmnt/Malnutrition Start: 11/22/17 17: 38 Text: Status: Complete Freq: Protocol: Document 11/22/17 17:38 LCHENG (Rec: 11/22/17 17:57 LCHENG ANA [id number]) Nutritional Asmnt/Malnutrition Patient General Information Nutritional Screening High Risk Diagnosis electrolyte imbalance, anemia Pertinent Medical Hx/Surgical Hx HTN, Dm, CVA/TIA, back surgery , depression Subjective Information consult received for diabetic. Pt is [place] speaking. Per EMR, Pt consumded 50% of breakfast today. Not able to provide diabetic education d/t language barrier. Current Diet Order/ Nutrition Support diabetic diet Pertinent Medications glucotrol, novolog, levemir, culturelle, protonix, piperacillin, 0.9% ns w/20 meq kcl Pertinent Labs 11/21 Na 130, K 3.3, Cl 97, glucsoe 385 11/21-11/22 POC [id number] Nutritional Hx/Data Height 1.78 m Height (Calculated Centimeters) 177.8 Current Weight (lbs) 81.647 kg Weight (Calculated Kilograms) 81.6 Weight (Calculated Grams) 92429.6 [place] Body Weight 166 Body Mass Index (BMI) 25.8 Weight Status Overweight GI Symptoms GI Symptoms None Last BM none Difficult in: None Skin Integrity/Comment: pressure ulcer to sacrum Current %PO Fair (50-74%) Estimated Nutritional Goals BEE in Kcals: Using Current wt Calories/Kcals/Kg 25-30 Kcals Calculated 2073-1608 Protein: Using Current wt Protein g/k Protein Calculated 75 Fluid: ml 1875-2250ml (1ml/kcal) Nutritional Problem 1. Problem Problem increased nutrition needs Etiology increased metabolic needs for impaired skin integrity Signs/Symptoms: pressure ulcer to sacrum Malnutrition Alert Is there a minimum of two criteria No selected? Query Text:Check all the applicable criteria. A minimum of two criteria are recommended for diagnosis of either severe or non-severe malnutrition. Malnutrition Related to Morbid Obesity Malnutrition related to morbid obesity No Intervention/Recommendation Comments 1. Continue with diabetic diet diet as ordered. 2. Monitor PO intake, wt, labs and skin integrity 3. F/U as moderate risk in 3-5 days, 11/25-11/27, PO check Expected Outcomes/Goals Expected Outcomes/Goals 1. PO intake to meet at least 75% of nutritional needs. 2. Wt stability, skin to remain intact, labs to approach WNL.
[2017-11-27] MEDS: Insulin Detemir 100 units/mL 10mL Vial SUBQ SCH (20:47)
[2017-11-28] MEDS: 0.9% NS w/20 mEq KCL 1,000 ML IV SCH (04:25)
[2017-11-28] MEDS: Meropenem 1 GM in Sodium Chloride 0.9% 100 ML IV SCH ×3 (04:27→20:42)
[2017-11-28] MEDS: Nystatin Cream 100,000 u/gm Cream 15 gm TP PRN (04:58)
--- NOTE | 2017-11-28 05:34 | General Progress Note ---
Subjective - Review of Systems Service Date: 11/28/17 Subjective: Patient was seen and examined. Patient is resting comfortably in bed in no acute distress. +Klebsiella in urine and blood and wound. Objective - Results Result Diagrams: 11/24/17 05:20 11/24/17 05:20 Recent Labs: Laboratory Last Values WBC 6.1 Th/cmm (4.8-10.8) 11/24/17 05:20 RBC 3.16 Mil/cmm (4.30-5.70) L 11/24/17 05:20 Hgb 9.1 gm/dL (12-16) L 11/24/17 05:20 Hct 27.1 % (41.0-60) L 11/24/17 05:20 MCV 85.9 fl (80-99) 11/24/17 05:20 MCH 28.8 pg (26.0-30.0) 11/24/17 05:20 MCHC Differential 33.6 pg (28.0-36.0) 11/24/17 05:20 RDW 12.2 % (11.5-20.0) 11/24/17 05:20 Plt Count 271 Th/cmm (150-400) 11/24/17 05:20 MPV 7.0 fl 11/24/17 05:20 Add Manual Diff YES 11/24/17 05:20 Neutrophils % 82.4 % (40.0-80.0) H 11/21/17 06:40 Band Neutrophils % 1 % (0-10) 11/24/17 05:20 Lymphocytes % 11.0 % (20.0-50.0) L 11/21/17 06:40 Monocytes % 5.0 % (2.0-10.0) 11/21/17 06:40 Eosinophils % 0.6 % (0.0-5.0) 11/21/17 06:40 Basophils % 1.0 % (0.0-2.0) 11/21/17 06:40 Neutrophils (Manual) 75 % (40-80) 11/24/17 05:20 Lymphocytes 20 % (20-50) 11/24/17 05:20 Monocytes 2 % (2-10) 11/24/17 05:20 Eosinophils 2 % (0-5) 11/24/17 05:20 Basophils 0 % (0-3) 11/24/17 05:20 Platelet Estimate ADEQUATE (NORMAL) 11/24/17 05:20 PT 10.5 SECONDS (9.5-11.5) 11/24/17 05:20 INR 1.01 (0.5-1.4) 11/24/17 05:20 PTT (Actin FS) 30.1 SECONDS (26.0-38.0) 11/20/17 14:50 Sodium 136 mEq/L (136-145) 11/24/17 05:20 Potassium 3.5 mEq/L (3.5-5.1) 11/24/17 05:20 Chloride 105 mEq/L (98-107) 11/24/17 05:20 Carbon Dioxide 25.7 mEq/L (21.0-31.0) 11/24/17 05:20 Anion Gap 8.8 (7.0-16.0) 11/24/17 05:20 BUN 11 mg/dL (7-25) 11/24/17 05:20 Creatinine 0.8 mg/dL (0.7-1.3) 11/24/17 05:20 Est GFR ( Amer) > 60.0 ml/min (>90) 11/24/17 05:20 Est GFR (Non-Af Amer) > 60.0 ml/min 11/24/17 05:20 BUN/Creatinine Ratio 13.8 11/24/17 05:20 Glucose 192 mg/dL (70-105) H 11/24/17 05:20 POC Glucose 268 MG/DL (70 - 105) H 11/27/17 20:45 Calcium 8.2 mg/dL (8.6-10.3) L 11/24/17 05:20 Iron 7 ug/dL (38-169) L 11/20/17 14:50 TIBC 161 ug/dL (250-450) L 11/20/17 14:50 Iron Saturation 4 % (15-55) L 11/20/17 14:50 Unsaturated IBC 154 ug/dL (111-343) 11/20/17 14:50 Total Bilirubin 0.3 mg/dL (0.3-1.0) 11/23/17 05:50 AST 11 U/L (13-39) L 11/23/17 05:50 ALT 8 U/L (7-52) 11/23/17 05:50 Alkaline Phosphatase 108 U/L (34-104) H 11/23/17 05:50 Troponin I 0.03 ng/mL (0.01-0.05) 11/20/17 14:50 B-Natriuretic Peptide 239.0 pg/mL (5.0-100.0) H 11/21/17 06:40 Total Protein 5.6 gm/dL (6.0-8.3) L 11/23/17 05:50 Albumin 2.6 gm/dL (4.2-5.5) L 11/23/17 05:50 Globulin 3.0 gm/dL 11/23/17 05:50 Albumin/Globulin Ratio 0.9 (1.0-1.8) L 11/23/17 05:50 Urine Source CATH 11/21/17 09:00 Urine Color YELLOW 11/21/17 09:00 Urine Clarity HAZY (CLEAR) 11/21/17 09:00 Urine pH 6.0 (4.6 - 8.0) 11/21/17 09:00 Ur Specific [place] 1.020 (1.005-1.030) 11/21/17 09:00 Urine Protein >=300 mg/dL (NEGATIVE) 11/21/17 09:00 Urine Glucose (UA) >=1000 mg/dL (NEGATIVE) H 11/21/17 09:00 Urine Ketones 15 mg/dL (NEGATIVE) H 11/21/17 09:00 Urine Blood LARGE (NEGATIVE) H 11/21/17 09:00 Urine Nitrate NEGATIVE (NEGATIVE) 11/21/17 09:00 Urine Bilirubin NEGATIVE (NEGATIVE) 11/21/17 09:00 Urine Urobilinogen 0.2 E.U./dL (0.2 - 1.0) 11/21/17 09:00 Ur Leukocyte Esterase MODERATE (NEGATIVE) H 11/21/17 09:00 Urine RBC 0-2 /hpf (0-5) H 11/21/17 09:00 Urine WBC 50-100 /hpf (0-5) H 11/21/17 09:00 Ur Epithelial Cells FEW /lpf (FEW) 11/21/17 09:00 Urine Bacteria MANY /hpf (NONE SEEN) H 11/21/17 09:00 HIV 1&2 Antibody Screen NEGATIVE (NEG) 11/22/17 05:40 Blood Type A POSITIVE 11/22/17 09:50 Antibody Screen NEGATIVE 11/22/17 09:50 Crossmatch See Detail 11/22/17 09:50 - Physical Exam Vitals and I&O: Vital Signs Temp 98.3 F 11/28/17 04:00 Pulse 64 11/28/17 04:00 Resp 20 11/28/17 04:00 BP 149/77 11/28/17 04:00 Pulse Ox 98 11/28/17 04:00 Intake & Output 11/27/17 11/27/17 11/28/17 06:59 18:59 06:59 Intake Total 1200 2450 1400 Output Total 4120 1600 Balance 1200 -1670 -200 Weight (lbs) 81.329 kg 80.91 kg Intake: Intake, IV Amount 3310 192 7370 0.9% NS w/20 mEq KCL 1, 1000 1000 000 ml @ 50 mls/hr IV . Q20H [facility] Rx#:[id number] Meropenem 1 gm In Sodium 200 100 100 Chloride 0.9% 100 ml @ 100 mls/hr IV Q8HR [facility] Rx #:[id number] Oral 2350 300 Output: Urine 4120 1600 Other: # Bowel Movements 0 0 Weight Source Bedscale Bedscale Active Medications: Current Medications Acetaminophen (Tylenol) 650 mg PO Q4H PRN PRN Reason: T=100 F Stop: 01/26/18 01:28 Acetaminophen/Hydrocodone Bitart ([place] 5mg/325mg) 1 tab PO Q12HR PRN PRN Reason: Pain (Moderate) Stop: 12/06/17 14:25 Last Admin: 11/27/17 15:32 Dose: 1 tab Glipizide (Glucotrol) 10 mg PO DAILY [facility] Stop: 01/20/18 08:59 Last Admin: 11/27/17 09:25 Dose: 10 mg Potassium Chloride/Sodium Chloride (0.9% Ns W/20 Meq Kcl) 1,000 mls @ 50 mls/ hr IV .Q20H [facility] Stop: 01/20/18 08:59 Last Admin: 11/28/17 04:25 Dose: 50 mls/hr Meropenem 1 gm/ Sodium (Chloride) 100 mls @ 100 mls/hr IV Q8HR [facility] Stop: 01/22/18 13:59 Last Admin: 11/28/17 04:27 Dose: 100 mls/hr Ibuprofen (Motrin) 600 mg PO BID [facility] Stop: 01/21/18 08:59 Last Admin: 11/27/17 16:04 Dose: 600 mg Insulin Aspart (Novolog Insulin Sliding Scale) 0 units SUBQ ACHS [facility]; Protocol Stop: 01/20/18 07:59 Last Admin: 11/27/17 20:46 Dose: 6 units Insulin Detemir (Levemir Insulin) 10 units SUBQ HS [facility]; Protocol Stop: 01/20/18 20:59 Last Admin: 11/27/17 20:47 Dose: 10 units Lactobacillus Rhamnosus (Culturelle 15b) 1 each PO DAILY [facility] Stop: 01/21/18 13:59 Last Admin: 11/27/17 09:26 Dose: 1 each Lisinopril (Zestril) 20 mg PO DAILY [facility] Stop: 01/26/18 08:59 Last Admin: 11/27/17 09:25 Dose: 20 mg Miscellaneous (Probiotic Screen) 1 ea MC PRN PRN PRN Reason: PROTOCOL Stop: 01/21/18 12:43 Nystatin (Mycostatin Cream) 1 appl TP DAILY PRN PRN Reason: Diaper Rash Stop: 01/20/18 08:59 Last Admin: 11/28/17 04:58 Dose: 1 appl Nystatin (Nystop) 100,000 units TP DAILY PRN PRN Reason: Diaper Rash Stop: 01/20/18 07:56 Pantoprazole Sodium (Protonix) 40 mg IVP DAILY [facility] Stop: 01/20/18 08:59 Last Admin: 11/27/17 09:25 Dose: 40 mg General: Alert, Oriented x3 HEENT: Atraumatic Neck: Supple Cardiovascular: Regular rate Lungs: Clear to auscultation Abdomen: Bowel sounds, Soft, no Tender, no Hepatomegaly, no Splenomegaly, no Distended, no Rebound, no Mass, no Guarding Extremities: no Clubbing, no Cyanosis, no Edema Assessment/Plan - Assessment Assessment: s/p fall homeless anemia -- s/p blood transfusion for GI workup hyponatremia -- improved hypokalemia -- improved diabetes mellitus --improved. hyperglycemia UTI/pyelonephritis -- continue IV antibiotics. ID consult tinea crurus. HTN --start Lisinopril 10mg PO daily H/o CVA. H/o depression. Gluteal wound. 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 Neurogenic bladder. H/o Back surgery. Left forearm pain after a traumatic fall, acute fracture of ulna styloid. -- ortho consult ESBL klebsiella +blood +urine +wound ... continue IV antibiotics. - Plan Plan: will repeat labwork CBC,CMP GI consult stool occult Protonix 40mg IV qdaily K supplements ID consult type and screen 1 unit of pRBC's for CT abd/pelvis Nutritional Asmnt/Malnutr-PDOC - Dietary Evaluation Malnutrition Findings (Please click <Entered> for more info): Nutritional Asmnt/Malnutrition Start: 11/22/17 17: 38 Text: Status: Complete Freq: Protocol: Document 11/22/17 17:38 MERYLG (Rec: 11/22/17 17:57 DEXTER ANA [id number]) Nutritional Asmnt/Malnutrition Patient General Information Nutritional Screening High Risk Diagnosis electrolyte imbalance, anemia Pertinent Medical Hx/Surgical Hx HTN, Dm, CVA/TIA, back surgery , depression Subjective Information consult received for diabetic. Pt is [place] speaking. Per EMR, Pt consumded 50% of breakfast today. Not able to provide diabetic education d/t language barrier. Current Diet Order/ Nutrition Support diabetic diet Pertinent Medications glucotrol, novolog, levemir, culturelle, protonix, piperacillin, 0.9% ns w/20 meq kcl Pertinent Labs 11/21 Na 130, K 3.3, Cl 97, glucsoe 385 11/21-11/22 POC 245-415 Nutritional Hx/Data Height 1.78 m Height (Calculated Centimeters) 177.8 Current Weight (lbs) 81.647 kg Weight (Calculated Kilograms) 81.6 Weight (Calculated Grams) 95892.6 [place] Body Weight 166 Body Mass Index (BMI) 25.8 Weight Status Overweight GI Symptoms GI Symptoms None Last BM none Difficult in: None Skin Integrity/Comment: pressure ulcer to sacrum Current %PO Fair (50-74%) Estimated Nutritional Goals BEE in Kcals: Using Current wt Calories/Kcals/Kg 25-30 Kcals Calculated 1100-9402 Protein: Using Current wt Protein g/k Protein Calculated 75 Fluid: ml 1875-2250ml (1ml/kcal) Nutritional Problem 1. Problem Problem increased nutrition needs Etiology increased metabolic needs for impaired skin integrity Signs/Symptoms: pressure ulcer to sacrum Malnutrition Alert Is there a minimum of two criteria No selected? Query Text:Check all the applicable criteria. A minimum of two criteria are recommended for diagnosis of either severe or non-severe malnutrition. Malnutrition Related to Morbid Obesity Malnutrition related to morbid obesity No Intervention/Recommendation Comments 1. Continue with diabetic diet diet as ordered. 2. Monitor PO intake, wt, labs and skin integrity 3. F/U as moderate risk in 3-5 days, 11/25-11/27, PO check Expected Outcomes/Goals Expected Outcomes/Goals 1. PO intake to meet at least 75% of nutritional needs. 2. Wt stability, skin to remain intact, labs to approach WNL.
[2017-11-28 06:54] LABS: HEMATOCRIT 29.2 % (41.0-60); RED BLOOD COUNT 3.37 Mil/cmm (4.30-5.70)
[2017-11-28 07:19] LABS: MEAN CELL VOLUME 86.5 fl (80-99); MEAN CORPUSCULAR HEMOGLOBIN 29.8 pg (26.0-30.0); MEAN CORPUSCULAR HGB CONC 34.4 pg (28.0-36.0); MEAN PLATELET VOLUME 6.9 fl; PLATELET COUNT 304 Th/cmm (150-400); RED CELL DISTRIBUTION WIDTH 12.6 % (11.5-20.0); WHITE BLOOD COUNT 4.9 Th/cmm (4.8-10.8)
[2017-11-28 07:26] LABS: ANION GAP 8.6 (7.0-16.0); BUN - UREA NITROGEN 17 mg/dL (7-25); CALCIUM SERUM 8.7 mg/dL (8.6-10.3); CARBON DIOXIDE 28.5 mEq/L (21.0-31.0); CHLORIDE 106 mEq/L (98-107); CREATININE - SERUM 0.9 mg/dL (0.7-1.3); GFR AFRICAN-AMERICAN > 60.0 ml/min (>90); GFR NON AFRICAN-AMERICAN > 60.0 ml/min; GLUCOSE 121 mg/dL (70-105); POTASSIUM SERUM 4.1 mEq/L (3.5-5.1); SODIUM SERUM 139 mEq/L (136-145)
[2017-11-28] MEDS: INSULIN ASPART SLIDING SCALE 100 UNITS/ML UNIT SUBQ SCH ×4 (07:41→20:59)
[2017-11-28 08:05] LABS: BAND NEUTROPHILE 2 % (0-10); BASOPHIL 0 % (0-3); EOSINOPHIL 0 % (0-5); LYMPHOCYTE 26 % (20-50); MONOCYTE 9 % (2-10); NEUTROPHILS 63 % (40-80)
[2017-11-28] MEDS: Hydrocodone/APAP 5mg/325mg Tab PO PRN ×3 (08:21→20:55)
[2017-11-28] MEDS: Lactobacillus Rhamnosus GG 15 Billion CFU CAP.SPRINK PO SCH (08:21)
[2017-11-28] MEDS: Insulin Detemir 100 units/mL 10mL Vial SUBQ SCH (20:45)
[2017-11-29] MEDS: 0.9% NS w/20 mEq KCL 1,000 ML IV SCH (03:35)
[2017-11-29] MEDS: Meropenem 1 GM in Sodium Chloride 0.9% 100 ML IV SCH ×3 (05:03→21:06)
[2017-11-29] MEDS: INSULIN ASPART SLIDING SCALE 100 UNITS/ML UNIT SUBQ SCH ×4 (06:36→21:07)
--- NOTE | 2017-11-29 08:15 | General Progress Note ---
Subjective - Review of Systems Service Date: 11/29/17 Subjective: Patient was seen and examined. Patient is resting comfortably in bed in no acute distress. +Klebsiella in urine and blood and wound. Objective - Results Result Diagrams: 11/28/17 06:33 11/28/17 06:33 Recent Labs: Laboratory Last Values WBC 4.9 Th/cmm (4.8-10.8) 11/28/17 06:33 RBC 3.37 Mil/cmm (4.30-5.70) L 11/28/17 06:33 Hgb 10.0 gm/dL (12-16) L 11/28/17 06:33 Hct 29.2 % (41.0-60) L 11/28/17 06:33 MCV 86.5 fl (80-99) 11/28/17 06:33 MCH 29.8 pg (26.0-30.0) 11/28/17 06:33 MCHC Differential 34.4 pg (28.0-36.0) 11/28/17 06:33 RDW 12.6 % (11.5-20.0) 11/28/17 06:33 Plt Count 304 Th/cmm (150-400) 11/28/17 06:33 MPV 6.9 fl 11/28/17 06:33 Add Manual Diff YES 11/28/17 06:33 Neutrophils % 82.4 % (40.0-80.0) H 11/21/17 06:40 Band Neutrophils % 2 % (0-10) 11/28/17 06:33 Lymphocytes % 11.0 % (20.0-50.0) L 11/21/17 06:40 Monocytes % 5.0 % (2.0-10.0) 11/21/17 06:40 Eosinophils % 0.6 % (0.0-5.0) 11/21/17 06:40 Basophils % 1.0 % (0.0-2.0) 11/21/17 06:40 Neutrophils (Manual) 63 % (40-80) 11/28/17 06:33 Lymphocytes 26 % (20-50) 11/28/17 06:33 Monocytes 9 % (2-10) 11/28/17 06:33 Eosinophils 0 % (0-5) 11/28/17 06:33 Basophils 0 % (0-3) 11/28/17 06:33 Platelet Estimate ADEQUATE (NORMAL) 11/24/17 05:20 PT 10.5 SECONDS (9.5-11.5) 11/24/17 05:20 INR 1.01 (0.5-1.4) 11/24/17 05:20 PTT (Actin FS) 30.1 SECONDS (26.0-38.0) 11/20/17 14:50 Sodium 139 mEq/L (136-145) 11/28/17 06:33 Potassium 4.1 mEq/L (3.5-5.1) 11/28/17 06:33 Chloride 106 mEq/L (98-107) 11/28/17 06:33 Carbon Dioxide 28.5 mEq/L (21.0-31.0) 11/28/17 06:33 Anion Gap 8.6 (7.0-16.0) 11/28/17 06:33 BUN 17 mg/dL (7-25) 11/28/17 06:33 Creatinine 0.9 mg/dL (0.7-1.3) 11/28/17 06:33 Est GFR ( Amer) > 60.0 ml/min (>90) 11/28/17 06:33 Est GFR (Non-Af Amer) > 60.0 ml/min 11/28/17 06:33 BUN/Creatinine Ratio 18.9 11/28/17 06:33 Glucose 121 mg/dL (70-105) H 11/28/17 06:33 POC Glucose 106 MG/DL (70 - 105) H 11/29/17 06:33 Calcium 8.7 mg/dL (8.6-10.3) 11/28/17 06:33 Iron 7 ug/dL (38-169) L 11/20/17 14:50 TIBC 161 ug/dL (250-450) L 11/20/17 14:50 Iron Saturation 4 % (15-55) L 11/20/17 14:50 Unsaturated IBC 154 ug/dL (111-343) 11/20/17 14:50 Total Bilirubin 0.3 mg/dL (0.3-1.0) 11/23/17 05:50 AST 11 U/L (13-39) L 11/23/17 05:50 ALT 8 U/L (7-52) 11/23/17 05:50 Alkaline Phosphatase 108 U/L (34-104) H 11/23/17 05:50 Troponin I 0.03 ng/mL (0.01-0.05) 11/20/17 14:50 B-Natriuretic Peptide 239.0 pg/mL (5.0-100.0) H 11/21/17 06:40 Total Protein 5.6 gm/dL (6.0-8.3) L 11/23/17 05:50 Albumin 2.6 gm/dL (4.2-5.5) L 11/23/17 05:50 Globulin 3.0 gm/dL 11/23/17 05:50 Albumin/Globulin Ratio 0.9 (1.0-1.8) L 11/23/17 05:50 Urine Source CATH 11/21/17 09:00 Urine Color YELLOW 11/21/17 09:00 Urine Clarity HAZY (CLEAR) 11/21/17 09:00 Urine pH 6.0 (4.6 - 8.0) 11/21/17 09:00 Ur Specific [place] 1.020 (1.005-1.030) 11/21/17 09:00 Urine Protein >=300 mg/dL (NEGATIVE) 11/21/17 09:00 Urine Glucose (UA) >=1000 mg/dL (NEGATIVE) H 11/21/17 09:00 Urine Ketones 15 mg/dL (NEGATIVE) H 11/21/17 09:00 Urine Blood LARGE (NEGATIVE) H 11/21/17 09:00 Urine Nitrate NEGATIVE (NEGATIVE) 11/21/17 09:00 Urine Bilirubin NEGATIVE (NEGATIVE) 11/21/17 09:00 Urine Urobilinogen 0.2 E.U./dL (0.2 - 1.0) 11/21/17 09:00 Ur Leukocyte Esterase MODERATE (NEGATIVE) H 11/21/17 09:00 Urine RBC 0-2 /hpf (0-5) H 11/21/17 09:00 Urine WBC 50-100 /hpf (0-5) H 11/21/17 09:00 Ur Epithelial Cells FEW /lpf (FEW) 11/21/17 09:00 Urine Bacteria MANY /hpf (NONE SEEN) H 11/21/17 09:00 HIV 1&2 Antibody Screen NEGATIVE (NEG) 11/22/17 05:40 Blood Type A POSITIVE 11/22/17 09:50 Antibody Screen NEGATIVE 11/22/17 09:50 Crossmatch See Detail 11/22/17 09:50 - Physical Exam Vitals and I&O: Vital Signs Temp 98.9 F 11/29/17 07:45 Pulse 66 11/29/17 07:45 Resp 19 11/29/17 07:45 BP 173/79 11/29/17 07:45 Pulse Ox 97 11/29/17 07:45 Intake & Output 11/28/17 11/29/17 11/29/17 18:59 06:59 18:59 Intake Total 1750 1200 Output Total 2600 1400 Balance -850 -200 Weight (lbs) 80.876 kg 76.793 kg Intake: Intake, IV Amount 100 1200 0.9% NS w/20 mEq KCL 1, 1000 000 ml @ 50 mls/hr IV . Q20H [facility] Rx#:[id number] Meropenem 1 gm In Sodium 100 200 Chloride 0.9% 100 ml @ 100 mls/hr IV Q8HR [facility] Rx #:[id number] Oral 1650 Output: Urine 2600 1400 Other: # Voids 2 # Bowel Movements 0 Weight Source Bedscale Bedscale Active Medications: Current Medications Acetaminophen (Tylenol) 650 mg PO Q4H PRN PRN Reason: T=100 F Stop: 01/26/18 01:28 Acetaminophen/Hydrocodone Bitart ([place] 5mg/325mg) 1 tab PO Q12HR PRN PRN Reason: Pain (Moderate) Stop: 12/06/17 14:25 Last Admin: 11/28/17 20:55 Dose: 1 tab Glipizide (Glucotrol) 10 mg PO DAILY [facility] Stop: 01/20/18 08:59 Last Admin: 11/28/17 08:21 Dose: 10 mg Hydrochlorothiazide (Hctz) 25 mg PO DAILY [facility] Stop: 01/28/18 08:59 Potassium Chloride/Sodium Chloride (0.9% Ns W/20 Meq Kcl) 1,000 mls @ 50 mls/ hr IV .Q20H [facility] Stop: 01/20/18 08:59 Last Admin: 11/29/17 03:35 Dose: 50 mls/hr Meropenem 1 gm/ Sodium (Chloride) 100 mls @ 100 mls/hr IV Q8HR [facility] Stop: 01/22/18 13:59 Last Infusion: 11/29/17 06:37 Dose: Infused Ibuprofen (Motrin) 600 mg PO BID [facility] Stop: 01/21/18 08:59 Last Admin: 11/28/17 16:42 Dose: 600 mg Insulin Aspart (Novolog Insulin Sliding Scale) 0 units SUBQ ACHS [facility]; Protocol Stop: 01/20/18 07:59 Last Admin: 11/29/17 06:36 Dose: Not Given Insulin Detemir (Levemir Insulin) 10 units SUBQ HS [facility]; Protocol Stop: 01/20/18 20:59 Last Admin: 11/28/17 20:45 Dose: 10 units Lactobacillus Rhamnosus (Culturelle 15b) 1 each PO DAILY [facility] Stop: 01/21/18 13:59 Last Admin: 11/28/17 08:21 Dose: 1 each Lisinopril (Zestril) 20 mg PO DAILY [facility] Stop: 01/26/18 08:59 Last Admin: 11/28/17 08:21 Dose: 20 mg Miscellaneous (Probiotic Screen) 1 ea MC PRN PRN PRN Reason: PROTOCOL Stop: 01/21/18 12:43 Nystatin (Mycostatin Cream) 1 appl TP DAILY PRN PRN Reason: Diaper Rash Stop: 01/20/18 08:59 Last Admin: 11/28/17 04:58 Dose: 1 appl Nystatin (Nystop) 100,000 units TP DAILY PRN PRN Reason: Diaper Rash Stop: 01/20/18 07:56 Pantoprazole Sodium (Protonix) 40 mg IVP DAILY [facility] Stop: 01/20/18 08:59 Last Admin: 11/28/17 08:21 Dose: 40 mg General: Alert, Oriented x3 HEENT: Atraumatic Neck: Supple Cardiovascular: Regular rate Lungs: Clear to auscultation Abdomen: Bowel sounds, Soft, no Tender, no Hepatomegaly, no Splenomegaly, no Distended, no Rebound, no Mass, no Guarding Extremities: no Clubbing, no Cyanosis, no Edema Assessment/Plan - Assessment Assessment: s/p fall homeless anemia -- s/p blood transfusion for GI workup hyponatremia -- improved hypokalemia -- improved diabetes mellitus --improved. hyperglycemia UTI/pyelonephritis -- continue IV antibiotics. ID consult tinea crurus. HTN --uncontrolled will increase Lisinopril to 20mg PO daily. Will add HCTZ 25mg daily H/o CVA. H/o depression. Gluteal wound. 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 Neurogenic bladder. H/o Back surgery. Left forearm pain after a traumatic fall, acute fracture of ulna styloid. -- ortho consult ESBL klebsiella +blood +urine +wound ... continue IV antibiotics. - Plan Plan: will repeat labwork CBC,CMP GI consult stool occult Protonix 40mg IV qdaily K supplements ID consult type and screen 1 unit of pRBC's for CT abd/pelvis Nutritional Asmnt/Malnutr-PDOC - Dietary Evaluation Malnutrition Findings (Please click <Entered> for more info): Nutritional Asmnt/Malnutrition Start: 11/22/17 17: 38 Text: Status: Complete Freq: Protocol: Document 11/22/17 17:38 LCHENG (Rec: 11/22/17 17:57 LCCOLLINSG ANA [id number]) Nutritional Asmnt/Malnutrition Patient General Information Nutritional Screening High Risk Diagnosis electrolyte imbalance, anemia Pertinent Medical Hx/Surgical Hx HTN, Dm, CVA/TIA, back surgery , depression Subjective Information consult received for diabetic. Pt is [place] speaking. Per EMR, Pt consumded 50% of breakfast today. Not able to provide diabetic education d/t language barrier. Current Diet Order/ Nutrition Support diabetic diet Pertinent Medications glucotrol, novolog, levemir, culturelle, protonix, piperacillin, 0.9% ns w/20 meq kcl Pertinent Labs 11/21 Na 130, K 3.3, Cl 97, glucsoe 385 11/21-11/22 POC 245-415 Nutritional Hx/Data Height 1.78 m Height (Calculated Centimeters) 177.8 Current Weight (lbs) 81.647 kg Weight (Calculated Kilograms) 81.6 Weight (Calculated Grams) 63658.6 [place] Body Weight 166 Body Mass Index (BMI) 25.8 Weight Status Overweight GI Symptoms GI Symptoms None Last BM none Difficult in: None Skin Integrity/Comment: pressure ulcer to sacrum Current %PO Fair (50-74%) Estimated Nutritional Goals BEE in Kcals: Using Current wt Calories/Kcals/Kg 25-30 Kcals Calculated 2885-6211 Protein: Using Current wt Protein g/k Protein Calculated 75 Fluid: ml 1875-2250ml (1ml/kcal) Nutritional Problem 1. Problem Problem increased nutrition needs Etiology increased metabolic needs for impaired skin integrity Signs/Symptoms: pressure ulcer to sacrum Malnutrition Alert Is there a minimum of two criteria No selected? Query Text:Check all the applicable criteria. A minimum of two criteria are recommended for diagnosis of either severe or non-severe malnutrition. Malnutrition Related to Morbid Obesity Malnutrition related to morbid obesity No Intervention/Recommendation Comments 1. Continue with diabetic diet diet as ordered. 2. Monitor PO intake, wt, labs and skin integrity 3. F/U as moderate risk in 3-5 days, 11/25-11/27, PO check Expected Outcomes/Goals Expected Outcomes/Goals 1. PO intake to meet at least 75% of nutritional needs. 2. Wt stability, skin to remain intact, labs to approach WNL.
[2017-11-29] MEDS: Lactobacillus Rhamnosus GG 15 Billion CFU CAP.SPRINK PO SCH (09:06)
[2017-11-29] MEDS: Hydrocodone/APAP 5mg/325mg Tab PO PRN ×2 (09:06→21:06)
[2017-11-29] MEDS: Nystatin Cream 100,000 u/gm Cream 15 gm TP PRN (16:52)
[2017-11-29] MEDS: Insulin Detemir 100 units/mL 10mL Vial SUBQ SCH (21:09)
[2017-11-30] MEDS: 0.9% NS w/20 mEq KCL 1,000 ML IV SCH ×2 (01:50→16:10)
[2017-11-30] MEDS: Meropenem 1 GM in Sodium Chloride 0.9% 100 ML IV SCH ×3 (05:27→20:43)
[2017-11-30] MEDS: INSULIN ASPART SLIDING SCALE 100 UNITS/ML UNIT SUBQ SCH ×4 (07:06→20:45)
--- NOTE | 2017-11-30 08:14 | General Progress Note ---
Subjective - Review of Systems Service Date: 11/30/17 Subjective: Patient was seen and examined. Patient is resting comfortably in bed in no acute distress. +Klebsiella in urine and blood and wound. Objective - Results Result Diagrams: 11/28/17 06:33 11/28/17 06:33 Recent Labs: Laboratory Last Values WBC 4.9 Th/cmm (4.8-10.8) 11/28/17 06:33 RBC 3.37 Mil/cmm (4.30-5.70) L 11/28/17 06:33 Hgb 10.0 gm/dL (12-16) L 11/28/17 06:33 Hct 29.2 % (41.0-60) L 11/28/17 06:33 MCV 86.5 fl (80-99) 11/28/17 06:33 MCH 29.8 pg (26.0-30.0) 11/28/17 06:33 MCHC Differential 34.4 pg (28.0-36.0) 11/28/17 06:33 RDW 12.6 % (11.5-20.0) 11/28/17 06:33 Plt Count 304 Th/cmm (150-400) 11/28/17 06:33 MPV 6.9 fl 11/28/17 06:33 Add Manual Diff YES 11/28/17 06:33 Neutrophils % 82.4 % (40.0-80.0) H 11/21/17 06:40 Band Neutrophils % 2 % (0-10) 11/28/17 06:33 Lymphocytes % 11.0 % (20.0-50.0) L 11/21/17 06:40 Monocytes % 5.0 % (2.0-10.0) 11/21/17 06:40 Eosinophils % 0.6 % (0.0-5.0) 11/21/17 06:40 Basophils % 1.0 % (0.0-2.0) 11/21/17 06:40 Neutrophils (Manual) 63 % (40-80) 11/28/17 06:33 Lymphocytes 26 % (20-50) 11/28/17 06:33 Monocytes 9 % (2-10) 11/28/17 06:33 Eosinophils 0 % (0-5) 11/28/17 06:33 Basophils 0 % (0-3) 11/28/17 06:33 Platelet Estimate ADEQUATE (NORMAL) 11/24/17 05:20 PT 10.5 SECONDS (9.5-11.5) 11/24/17 05:20 INR 1.01 (0.5-1.4) 11/24/17 05:20 PTT (Actin FS) 30.1 SECONDS (26.0-38.0) 11/20/17 14:50 Sodium 139 mEq/L (136-145) 11/28/17 06:33 Potassium 4.1 mEq/L (3.5-5.1) 11/28/17 06:33 Chloride 106 mEq/L (98-107) 11/28/17 06:33 Carbon Dioxide 28.5 mEq/L (21.0-31.0) 11/28/17 06:33 Anion Gap 8.6 (7.0-16.0) 11/28/17 06:33 BUN 17 mg/dL (7-25) 11/28/17 06:33 Creatinine 0.9 mg/dL (0.7-1.3) 11/28/17 06:33 Est GFR ( Amer) > 60.0 ml/min (>90) 11/28/17 06:33 Est GFR (Non-Af Amer) > 60.0 ml/min 11/28/17 06:33 BUN/Creatinine Ratio 18.9 11/28/17 06:33 Glucose 121 mg/dL (70-105) H 11/28/17 06:33 POC Glucose 176 MG/DL (70 - 105) H 11/29/17 20:39 Calcium 8.7 mg/dL (8.6-10.3) 11/28/17 06:33 Iron 7 ug/dL (38-169) L 11/20/17 14:50 TIBC 161 ug/dL (250-450) L 11/20/17 14:50 Iron Saturation 4 % (15-55) L 11/20/17 14:50 Unsaturated IBC 154 ug/dL (111-343) 11/20/17 14:50 Total Bilirubin 0.3 mg/dL (0.3-1.0) 11/23/17 05:50 AST 11 U/L (13-39) L 11/23/17 05:50 ALT 8 U/L (7-52) 11/23/17 05:50 Alkaline Phosphatase 108 U/L (34-104) H 11/23/17 05:50 Troponin I 0.03 ng/mL (0.01-0.05) 11/20/17 14:50 B-Natriuretic Peptide 239.0 pg/mL (5.0-100.0) H 11/21/17 06:40 Total Protein 5.6 gm/dL (6.0-8.3) L 11/23/17 05:50 Albumin 2.6 gm/dL (4.2-5.5) L 11/23/17 05:50 Globulin 3.0 gm/dL 11/23/17 05:50 Albumin/Globulin Ratio 0.9 (1.0-1.8) L 11/23/17 05:50 Urine Source CATH 11/21/17 09:00 Urine Color YELLOW 11/21/17 09:00 Urine Clarity HAZY (CLEAR) 11/21/17 09:00 Urine pH 6.0 (4.6 - 8.0) 11/21/17 09:00 Ur Specific [place] 1.020 (1.005-1.030) 11/21/17 09:00 Urine Protein >=300 mg/dL (NEGATIVE) 11/21/17 09:00 Urine Glucose (UA) >=1000 mg/dL (NEGATIVE) H 11/21/17 09:00 Urine Ketones 15 mg/dL (NEGATIVE) H 11/21/17 09:00 Urine Blood LARGE (NEGATIVE) H 11/21/17 09:00 Urine Nitrate NEGATIVE (NEGATIVE) 11/21/17 09:00 Urine Bilirubin NEGATIVE (NEGATIVE) 11/21/17 09:00 Urine Urobilinogen 0.2 E.U./dL (0.2 - 1.0) 11/21/17 09:00 Ur Leukocyte Esterase MODERATE (NEGATIVE) H 11/21/17 09:00 Urine RBC 0-2 /hpf (0-5) H 11/21/17 09:00 Urine WBC 50-100 /hpf (0-5) H 11/21/17 09:00 Ur Epithelial Cells FEW /lpf (FEW) 11/21/17 09:00 Urine Bacteria MANY /hpf (NONE SEEN) H 11/21/17 09:00 HIV 1&2 Antibody Screen NEGATIVE (NEG) 11/22/17 05:40 Blood Type A POSITIVE 11/22/17 09:50 Antibody Screen NEGATIVE 11/22/17 09:50 Crossmatch See Detail 11/22/17 09:50 - Physical Exam Vitals and I&O: Vital Signs Temp 97.4 F 11/30/17 07:41 Pulse 69 11/30/17 07:41 Resp 17 11/30/17 07:41 BP 137/71 11/30/17 07:41 Pulse Ox 100 11/30/17 07:41 Intake & Output 11/29/17 11/30/17 11/30/17 18:59 06:59 18:59 Intake Total 2200 1100 Output Total 3300 Balance -1100 1100 Weight (lbs) 76.793 kg Intake: Intake, IV Amount 100 1100 0.9% NS w/20 mEq KCL 1, 1000 000 ml @ 50 mls/hr IV . Q20H [facility] Rx#:[id number] Meropenem 1 gm In Sodium 100 100 Chloride 0.9% 100 ml @ 100 mls/hr IV Q8HR [facility] Rx #:[id number] Oral 2100 Output: Urine 3300 Other: # Bowel Movements 0 Weight Source Bedscale Active Medications: Current Medications Acetaminophen (Tylenol) 650 mg PO Q4H PRN PRN Reason: T=100 F Stop: 01/26/18 01:28 Acetaminophen/Hydrocodone Bitart ([place] 5mg/325mg) 1 tab PO Q12HR PRN PRN Reason: Pain (Moderate) Stop: 12/06/17 14:25 Last Admin: 11/29/17 21:06 Dose: 1 tab Glipizide (Glucotrol) 10 mg PO DAILY [facility] Stop: 01/20/18 08:59 Last Admin: 11/29/17 09:05 Dose: 10 mg Hydrochlorothiazide (Hctz) 25 mg PO DAILY [facility] Stop: 01/28/18 08:59 Last Admin: 11/29/17 09:06 Dose: 25 mg Potassium Chloride/Sodium Chloride (0.9% Ns W/20 Meq Kcl) 1,000 mls @ 50 mls/ hr IV .Q20H [facility] Stop: 01/20/18 08:59 Last Admin: 11/30/17 01:50 Dose: 50 mls/hr Meropenem 1 gm/ Sodium (Chloride) 100 mls @ 100 mls/hr IV Q8HR [facility] Stop: 01/22/18 13:59 Last Admin: 11/30/17 05:27 Dose: 100 mls/hr Ibuprofen (Motrin) 600 mg PO BID [facility] Stop: 01/21/18 08:59 Last Admin: 11/29/17 16:52 Dose: 600 mg Insulin Aspart (Novolog Insulin Sliding Scale) 0 units SUBQ ACHS [facility]; Protocol Stop: 01/20/18 07:59 Last Admin: 11/30/17 07:06 Dose: Not Given Insulin Detemir (Levemir Insulin) 10 units SUBQ HS [facility]; Protocol Stop: 01/20/18 20:59 Last Admin: 11/29/17 21:09 Dose: 10 units Lactobacillus Rhamnosus (Culturelle 15b) 1 each PO DAILY [facility] Stop: 01/21/18 13:59 Last Admin: 11/29/17 09:06 Dose: 1 each Lisinopril (Zestril) 20 mg PO DAILY [facility] Stop: 01/26/18 08:59 Last Admin: 11/29/17 09:05 Dose: 20 mg Miscellaneous (Probiotic Screen) 1 ea MC PRN PRN PRN Reason: PROTOCOL Stop: 01/21/18 12:43 Nystatin (Mycostatin Cream) 1 appl TP DAILY PRN PRN Reason: Diaper Rash Stop: 01/20/18 08:59 Last Admin: 11/29/17 16:52 Dose: 1 appl Nystatin (Nystop) 100,000 units TP DAILY PRN PRN Reason: Diaper Rash Stop: 01/20/18 07:56 Pantoprazole Sodium (Protonix) 40 mg IVP DAILY [facility] Stop: 01/20/18 08:59 Last Admin: 11/29/17 09:05 Dose: 40 mg General: Alert, Oriented x3 HEENT: Atraumatic Neck: Supple Cardiovascular: Regular rate Lungs: Clear to auscultation Abdomen: Bowel sounds, Soft, no Tender, no Hepatomegaly, no Splenomegaly, no Distended, no Rebound, no Mass, no Guarding Extremities: no Clubbing, no Cyanosis, no Edema Assessment/Plan - Assessment Assessment: s/p fall homeless anemia -- s/p blood transfusion for GI workup hyponatremia -- improved hypokalemia -- improved diabetes mellitus --improved. hyperglycemia UTI/pyelonephritis -- continue IV antibiotics. ID consult tinea crurus. HTN --controlled continue with Lisinopril 20mg PO daily and HCTZ 25mg daily H/o CVA. H/o depression. Gluteal wound. 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 Neurogenic bladder. H/o Back surgery. Left forearm pain after a traumatic fall, acute fracture of ulna styloid. -- ortho consult ESBL klebsiella +blood +urine +wound ... continue IV antibiotics per ID - Plan Plan: will repeat labwork CBC,CMP GI consult stool occult Protonix 40mg IV qdaily K supplements ID consult type and screen 1 unit of pRBC's for CT abd/pelvis Nutritional Asmnt/Malnutr-PDOC - Dietary Evaluation Malnutrition Findings (Please click <Entered> for more info): Nutritional Asmnt/Malnutrition Start: 11/22/17 17: 38 Text: Status: Complete Freq: Protocol: Document 11/22/17 17:38 LCCOLLINSG (Rec: 11/22/17 17:57 LCCOLLINSG ANA [id number]) Nutritional Asmnt/Malnutrition Patient General Information Nutritional Screening High Risk Diagnosis electrolyte imbalance, anemia Pertinent Medical Hx/Surgical Hx HTN, Dm, CVA/TIA, back surgery , depression Subjective Information consult received for diabetic. Pt is [place]ian speaking. Per EMR, Pt consumded 50% of breakfast today. Not able to provide diabetic education d/t language barrier. Current Diet Order/ Nutrition Support diabetic diet Pertinent Medications glucotrol, novolog, levemir, culturelle, protonix, piperacillin, 0.9% ns w/20 meq kcl Pertinent Labs 11/21 Na 130, K 3.3, Cl 97, glucsoe 385 11/21-11/22 POC 245-415 Nutritional Hx/Data Height 1.78 m Height (Calculated Centimeters) 177.8 Current Weight (lbs) 81.647 kg Weight (Calculated Kilograms) 81.6 Weight (Calculated Grams) 14165.6 [place] Body Weight 166 Body Mass Index (BMI) 25.8 Weight Status Overweight GI Symptoms GI Symptoms None Last BM none Difficult in: None Skin Integrity/Comment: pressure ulcer to sacrum Current %PO Fair (50-74%) Estimated Nutritional Goals BEE in Kcals: Using Current wt Calories/Kcals/Kg 25-30 Kcals Calculated 2705-7946 Protein: Using Current wt Protein g/k Protein Calculated 75 Fluid: ml 1875-2250ml (1ml/kcal) Nutritional Problem 1. Problem Problem increased nutrition needs Etiology increased metabolic needs for impaired skin integrity Signs/Symptoms: pressure ulcer to sacrum Malnutrition Alert Is there a minimum of two criteria No selected? Query Text:Check all the applicable criteria. A minimum of two criteria are recommended for diagnosis of either severe or non-severe malnutrition. Malnutrition Related to Morbid Obesity Malnutrition related to morbid obesity No Intervention/Recommendation Comments 1. Continue with diabetic diet diet as ordered. 2. Monitor PO intake, wt, labs and skin integrity 3. F/U as moderate risk in 3-5 days, 11/25-11/27, PO check Expected Outcomes/Goals Expected Outcomes/Goals 1. PO intake to meet at least 75% of nutritional needs. 2. Wt stability, skin to remain intact, labs to approach WNL.
[2017-11-30] MEDS: Lactobacillus Rhamnosus GG 15 Billion CFU CAP.SPRINK PO SCH (09:03)
--- NOTE | 2017-11-30 14:57 | Consultation ---
DATE OF CONSULTATION: 11/30/2017 SURGICAL CONSULTATION REFERRING PHYSICIAN: Dr. Davis. REASON FOR CONSULTATION: Decubitus ulcer, left hip. Thank you for referring this patient to me. HISTORY OF PRESENT ILLNESS: This is a 42-year-old apparently homeless man who came in following a fall raising the question of fracture of the forearm. The patient has been seen by Dr. Smallwood, orthopedic surgeon and no fracture is noted. Because of anemia, he has been seen by electrical technology instructor as well and infectious disease behavioral health consultant Dr. Muhammad has been following him. 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 PHYSICAL EXAMINATION: Now shows a patient who speaks mostly [place], but understands Danish and responds to it this way. He does have decubitus ulcer more to the left side of the sacrum which is unstageable but likely stage 3. Size today also is about 3 x 5 cm with no active drainage or purulent material. RECOMMENDATION: Suggest excisional debridement and local wound care, which will consist of Santyl ointment and wound dressings daily. Thank you for this consultation. I will follow with you. JOB# [id number]
[2017-11-30] MEDS: Insulin Detemir 100 units/mL 10mL Vial SUBQ SCH (20:44)
[2017-11-30] MEDS: Hydrocodone/APAP 5mg/325mg Tab PO PRN (21:16)
[2017-12-01] MEDS: D5-0.9NS w/KCL 20mEq 1,000 ML IV SCH (00:22)
[2017-12-01] MEDS: Meropenem 1 GM in Sodium Chloride 0.9% 100 ML IV SCH ×3 (04:42→21:07)
[2017-12-01 06:06] LABS: % BASOPHILS 0.5 % (0.0-2.0); % EOSINOPHILS 2.1 % (0.0-5.0); % MONOCYTES 6.4 % (2.0-10.0); EOSINOPHILE ABSOLUTE 0.1 Th/cmm (0.1-0.4); HEMATOCRIT 30.6 % (41.0-60); HEMOGLOBIN 10.2 gm/dL (12-16); LYMPHOCYTE ABSOLUTE 1.5 Th/cmm (1.5-3.0); MEAN CELL VOLUME 86.1 fl (80-99); MEAN CORPUSCULAR HEMOGLOBIN 28.7 pg (26.0-30.0); MEAN CORPUSCULAR HGB CONC 33.3 pg (28.0-36.0); MEAN PLATELET VOLUME 6.8 fl; MONOCYTE ABSOLUTE 0.4 Th/cmm (0.3-1.0); NEUTROPHILE ABSOLUTE 3.9 Th/cmm (1.8-8.0); PLATELET COUNT 325 Th/cmm (150-400); RED BLOOD COUNT 3.55 Mil/cmm (4.30-5.70); RED CELL DISTRIBUTION WIDTH 13.2 % (11.5-20.0); WHITE BLOOD COUNT 5.9 Th/cmm (4.8-10.8)
[2017-12-01 06:09] LABS: ANION GAP 8.9 (7.0-16.0); BUN - UREA NITROGEN 24 mg/dL (7-25); CALCIUM SERUM 8.9 mg/dL (8.6-10.3); CHLORIDE 104 mEq/L (98-107); CREATININE - SERUM 0.8 mg/dL (0.7-1.3); GFR AFRICAN-AMERICAN > 60.0 ml/min (>90); GFR NON AFRICAN-AMERICAN > 60.0 ml/min; GLUCOSE 181 mg/dL (70-105); POTASSIUM SERUM 3.9 mEq/L (3.5-5.1); SODIUM SERUM 137 mEq/L (136-145)
[2017-12-01] MEDS: INSULIN ASPART SLIDING SCALE 100 UNITS/ML UNIT SUBQ SCH ×4 (06:35→21:12)
[2017-12-01] MEDS ORDERED: Venelex 60gm Tube TP ONE (06:53)
[2017-12-01] MEDS ORDERED: Propofol 10 mg/mL 20mL Vial **SURGERY USE ONLY IV ONE (07:25)
[2017-12-01] MEDS ORDERED: fentaNYL Citrate 100 mcg/2mL Vial ONE (07:38)
--- NOTE | 2017-12-01 08:15 | General Progress Note ---
Subjective - Review of Systems Service Date: 12/01/17 Subjective: Patient was seen and examined. Patient is resting comfortably in bed in no acute distress. +Klebsiella in urine and blood and wound. Objective - Results Result Diagrams: 12/01/17 05:20 12/01/17 05:20 Recent Labs: Laboratory Last Values WBC 5.9 Th/cmm (4.8-10.8) 12/01/17 05:20 RBC 3.55 Mil/cmm (4.30-5.70) L 12/01/17 05:20 Hgb 10.2 gm/dL (12-16) L 12/01/17 05:20 Hct 30.6 % (41.0-60) L 12/01/17 05:20 MCV 86.1 fl (80-99) 12/01/17 05:20 MCH 28.7 pg (26.0-30.0) 12/01/17 05:20 MCHC Differential 33.3 pg (28.0-36.0) 12/01/17 05:20 RDW 13.2 % (11.5-20.0) 12/01/17 05:20 Plt Count 325 Th/cmm (150-400) 12/01/17 05:20 MPV 6.8 fl 12/01/17 05:20 Add Manual Diff YES 11/28/17 06:33 Neutrophils % 66.0 % (40.0-80.0) 12/01/17 05:20 Band Neutrophils % 2 % (0-10) 11/28/17 06:33 Lymphocytes % 25.0 % (20.0-50.0) 12/01/17 05:20 Monocytes % 6.4 % (2.0-10.0) 12/01/17 05:20 Eosinophils % 2.1 % (0.0-5.0) 12/01/17 05:20 Basophils % 0.5 % (0.0-2.0) 12/01/17 05:20 Neutrophils (Manual) 63 % (40-80) 11/28/17 06:33 Lymphocytes 26 % (20-50) 11/28/17 06:33 Monocytes 9 % (2-10) 11/28/17 06:33 Eosinophils 0 % (0-5) 11/28/17 06:33 Basophils 0 % (0-3) 11/28/17 06:33 Platelet Estimate ADEQUATE (NORMAL) 11/24/17 05:20 PT 10.5 SECONDS (9.5-11.5) 11/24/17 05:20 INR 1.01 (0.5-1.4) 11/24/17 05:20 PTT (Actin FS) 30.1 SECONDS (26.0-38.0) 11/20/17 14:50 Sodium 137 mEq/L (136-145) 12/01/17 05:20 Potassium 3.9 mEq/L (3.5-5.1) 12/01/17 05:20 Chloride 104 mEq/L (98-107) 12/01/17 05:20 Carbon Dioxide 28.0 mEq/L (21.0-31.0) 12/01/17 05:20 Anion Gap 8.9 (7.0-16.0) 12/01/17 05:20 BUN 24 mg/dL (7-25) 12/01/17 05:20 Creatinine 0.8 mg/dL (0.7-1.3) 12/01/17 05:20 Est GFR ( Amer) > 60.0 ml/min (>90) 12/01/17 05:20 Est GFR (Non-Af Amer) > 60.0 ml/min 12/01/17 05:20 BUN/Creatinine Ratio 30.0 12/01/17 05:20 Glucose 181 mg/dL (70-105) H 12/01/17 05:20 POC Glucose 199 MG/DL (70 - 105) H 12/01/17 06:31 Calcium 8.9 mg/dL (8.6-10.3) 12/01/17 05:20 Iron 7 ug/dL (38-169) L 11/20/17 14:50 TIBC 161 ug/dL (250-450) L 11/20/17 14:50 Iron Saturation 4 % (15-55) L 11/20/17 14:50 Unsaturated IBC 154 ug/dL (111-343) 11/20/17 14:50 Total Bilirubin 0.3 mg/dL (0.3-1.0) 11/23/17 05:50 AST 11 U/L (13-39) L 11/23/17 05:50 ALT 8 U/L (7-52) 11/23/17 05:50 Alkaline Phosphatase 108 U/L (34-104) H 11/23/17 05:50 Troponin I 0.03 ng/mL (0.01-0.05) 11/20/17 14:50 B-Natriuretic Peptide 239.0 pg/mL (5.0-100.0) H 11/21/17 06:40 Total Protein 5.6 gm/dL (6.0-8.3) L 11/23/17 05:50 Albumin 2.6 gm/dL (4.2-5.5) L 11/23/17 05:50 Globulin 3.0 gm/dL 11/23/17 05:50 Albumin/Globulin Ratio 0.9 (1.0-1.8) L 11/23/17 05:50 Urine Source CATH 11/21/17 09:00 Urine Color YELLOW 11/21/17 09:00 Urine Clarity HAZY (CLEAR) 11/21/17 09:00 Urine pH 6.0 (4.6 - 8.0) 11/21/17 09:00 Ur Specific [place] 1.020 (1.005-1.030) 11/21/17 09:00 Urine Protein >=300 mg/dL (NEGATIVE) 11/21/17 09:00 Urine Glucose (UA) >=1000 mg/dL (NEGATIVE) H 11/21/17 09:00 Urine Ketones 15 mg/dL (NEGATIVE) H 11/21/17 09:00 Urine Blood LARGE (NEGATIVE) H 11/21/17 09:00 Urine Nitrate NEGATIVE (NEGATIVE) 11/21/17 09:00 Urine Bilirubin NEGATIVE (NEGATIVE) 11/21/17 09:00 Urine Urobilinogen 0.2 E.U./dL (0.2 - 1.0) 11/21/17 09:00 Ur Leukocyte Esterase MODERATE (NEGATIVE) H 11/21/17 09:00 Urine RBC 0-2 /hpf (0-5) H 11/21/17 09:00 Urine WBC 50-100 /hpf (0-5) H 11/21/17 09:00 Ur Epithelial Cells FEW /lpf (FEW) 11/21/17 09:00 Urine Bacteria MANY /hpf (NONE SEEN) H 11/21/17 09:00 HIV 1&2 Antibody Screen NEGATIVE (NEG) 11/22/17 05:40 Blood Type A POSITIVE 11/22/17 09:50 Antibody Screen NEGATIVE 11/22/17 09:50 Crossmatch See Detail 11/22/17 09:50 - Physical Exam Vitals and I&O: Vital Signs Temp 98.4 F 12/01/17 07:35 Pulse 66 12/01/17 07:35 Resp 17 12/01/17 07:35 BP 150/74 12/01/17 07:35 Pulse Ox 96 12/01/17 07:35 Intake & Output 11/30/17 12/01/17 12/01/17 18:59 06:59 18:59 Intake Total 2016.667 610.833 220 Output Total 1800 1400 Balance 216.667 610.833 -1180 Weight (lbs) 77.111 kg 72.847 kg Intake: Intake, IV Amount 816.667 610.833 0.9% NS w/20 mEq KCL 1, 716.667 410.833 000 ml @ 50 mls/hr IV . Q20H [facility] Rx#:[id number] Meropenem 1 gm In Sodium 100 200 Chloride 0.9% 100 ml @ 100 mls/hr IV Q8HR [facility] Rx #:[id number] Oral 1200 220 Output: Urine 1800 1400 Other: # Bowel Movements 0 0 Weight Source Bedscale Bedscale Active Medications: Current Medications Acetaminophen (Tylenol) 650 mg PO Q4H PRN PRN Reason: T=100 F Stop: 01/26/18 01:28 Acetaminophen/Hydrocodone Bitart ([place] 5mg/325mg) 1 tab PO Q12HR PRN PRN Reason: Pain (Moderate) Stop: 12/06/17 14:25 Last Admin: 11/30/17 21:16 Dose: 1 tab Glipizide (Glucotrol) 10 mg PO DAILY [facility] Stop: 01/20/18 08:59 Last Admin: 11/30/17 09:03 Dose: 10 mg Hydrochlorothiazide (Hctz) 25 mg PO DAILY [facility] Stop: 01/28/18 08:59 Last Admin: 11/30/17 09:03 Dose: 25 mg Potassium Chloride/Sodium Chloride (0.9% Ns W/20 Meq Kcl) 1,000 mls @ 50 mls/ hr IV .Q20H [facility] Stop: 01/20/18 08:59 Last Infusion: 12/01/17 00:23 Dose: 0 mls/hr Meropenem 1 gm/ Sodium (Chloride) 100 mls @ 100 mls/hr IV Q8HR [facility] Stop: 01/22/18 13:59 Last Infusion: 12/01/17 05:42 Dose: Infused Potassium Chloride/Dextrose/Sod Cl (D5-0.9ns W/Kcl 20meq) 1,000 mls @ 50 mls/ hr IV .Q20H [facility] Stop: 01/30/18 00:00 Last Admin: 12/01/17 00:22 Dose: 50 mls/hr Ibuprofen (Motrin) 600 mg PO BID [facility] Stop: 01/21/18 08:59 Last Admin: 11/30/17 16:10 Dose: 600 mg Insulin Aspart (Novolog Insulin Sliding Scale) 0 units SUBQ ACHS [facility]; Protocol Stop: 01/20/18 07:59 Last Admin: 12/01/17 06:35 Dose: Not Given Insulin Detemir (Levemir Insulin) 10 units SUBQ HS [facility]; Protocol Stop: 01/20/18 20:59 Last Admin: 11/30/17 20:44 Dose: 10 units Lactobacillus Rhamnosus (Culturelle 15b) 1 each PO DAILY [facility] Stop: 01/21/18 13:59 Last Admin: 11/30/17 09:03 Dose: 1 each Lisinopril (Zestril) 20 mg PO DAILY [facility] Stop: 01/26/18 08:59 Last Admin: 11/30/17 09:04 Dose: 20 mg Miscellaneous (Probiotic Screen) 1 ea MC PRN PRN PRN Reason: PROTOCOL Stop: 01/21/18 12:43 Nystatin (Mycostatin Cream) 1 appl TP DAILY PRN PRN Reason: Diaper Rash Stop: 01/20/18 08:59 Last Admin: 11/29/17 16:52 Dose: 1 appl Nystatin (Nystop) 100,000 units TP DAILY PRN PRN Reason: Diaper Rash Stop: 01/20/18 07:56 Pantoprazole Sodium (Protonix) 40 mg IVP DAILY [facility] Stop: 01/20/18 08:59 Last Admin: 11/30/17 09:04 Dose: 40 mg General: Alert, Oriented x3 HEENT: Atraumatic Neck: Supple Cardiovascular: Regular rate Lungs: Clear to auscultation Abdomen: Bowel sounds, Soft, no Tender, no Hepatomegaly, no Splenomegaly, no Distended, no Rebound, no Mass, no Guarding Extremities: no Clubbing, no Cyanosis, no Edema Assessment/Plan - Assessment Assessment: s/p fall homeless anemia -- s/p blood transfusion for GI workup hyponatremia -- improved hypokalemia -- improved diabetes mellitus --improved. hyperglycemia UTI/pyelonephritis -- continue IV antibiotics. ID consult tinea crurus. HTN --controlled continue with Lisinopril 20mg PO daily and HCTZ 25mg daily H/o CVA. H/o depression. Gluteal wound. 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 Neurogenic bladder. H/o Back surgery. Left forearm pain after a traumatic fall, acute fracture of ulna styloid. -- ortho consult ESBL klebsiella +blood +urine +wound ... continue IV antibiotics per ID - Plan Plan: will repeat labwork CBC,CMP GI consult stool occult Protonix 40mg IV qdaily K supplements ID consult type and screen 1 unit of pRBC's for CT abd/pelvis Nutritional Asmnt/Malnutr-PDOC - Dietary Evaluation Malnutrition Findings (Please click <Entered> for more info): Nutritional Asmnt/Malnutrition Start: 11/22/17 17: 38 Text: Status: Complete Freq: Protocol: Document 11/22/17 17:38 LCHENG (Rec: 11/22/17 17:57 LCHENG ANA [id number]) Nutritional Asmnt/Malnutrition Patient General Information Nutritional Screening High Risk Diagnosis electrolyte imbalance, anemia Pertinent Medical Hx/Surgical Hx HTN, Dm, CVA/TIA, back surgery , depression Subjective Information consult received for diabetic. Pt is Bulgarian speaking. Per EMR, Pt consumded 50% of breakfast today. Not able to provide diabetic education d/t language barrier. Current Diet Order/ Nutrition Support diabetic diet Pertinent Medications glucotrol, novolog, levemir, culturelle, protonix, piperacillin, 0.9% ns w/20 meq kcl Pertinent Labs 11/21 Na 130, K 3.3, Cl 97, glucsoe 385 11/21-11/22 POC 245-415 Nutritional Hx/Data Height 1.78 m Height (Calculated Centimeters) 177.8 Current Weight (lbs) 81.647 kg Weight (Calculated Kilograms) 81.6 Weight (Calculated Grams) 50650.6 [place] Body Weight 166 Body Mass Index (BMI) 25.8 Weight Status Overweight GI Symptoms GI Symptoms None Last BM none Difficult in: None Skin Integrity/Comment: pressure ulcer to sacrum Current %PO Fair (50-74%) Estimated Nutritional Goals BEE in Kcals: Using Current wt Calories/Kcals/Kg 25-30 Kcals Calculated 1169-0129 Protein: Using Current wt Protein g/k Protein Calculated 75 Fluid: ml 1875-2250ml (1ml/kcal) Nutritional Problem 1. Problem Problem increased nutrition needs Etiology increased metabolic needs for impaired skin integrity Signs/Symptoms: pressure ulcer to sacrum Malnutrition Alert Is there a minimum of two criteria No selected? Query Text:Check all the applicable criteria. A minimum of two criteria are recommended for diagnosis of either severe or non-severe malnutrition. Malnutrition Related to Morbid Obesity Malnutrition related to morbid obesity No Intervention/Recommendation Comments 1. Continue with diabetic diet diet as ordered. 2. Monitor PO intake, wt, labs and skin integrity 3. F/U as moderate risk in 3-5 days, 11/25-11/27, PO check Expected Outcomes/Goals Expected Outcomes/Goals 1. PO intake to meet at least 75% of nutritional needs. 2. Wt stability, skin to remain intact, labs to approach WNL.
--- NOTE | 2017-12-01 08:38 | Operative Report ---
DATE OF SURGERY: 12/01/2017 PREOPERATIVE DIAGNOSES: 1. Left sacral decubitus ulcer, stage II. 2. Diabetes mellitus. 3. Cerebrovascular accident. 4. Depression. POSTOPERATIVE DIAGNOSES: 1. Left sacral decubitus ulcer, stage II. 2. Diabetes mellitus. 3. Cerebrovascular accident. 4. Depression. OPERATION DONE: Excisional debridement of left sacral decubitus ulcer. Size is a 10 x 5 cm, depth to subcutaneous tissues. SURGEON: Wanda Perez M.D. ANESTHESIA: MAC anesthesia, Dr. Rg. ESTIMATED BLOOD LOSS: None. DESCRIPTION OF PROCEDURE: The patient was given IV sedation. He was turned on the right lateral decubitus position. The ulcer was prepped with Betadine and draped. The ulcer was debrided sharply. Minimal bleeding sites were noted in the depth of the ulcer, subcutaneous tissues. The ulcer bed was treated with Venelex ointment and Optifoam was applied. The patient tolerated the procedure well. JOB# [id number]
[2017-12-01] MEDS: Lactobacillus Rhamnosus GG 15 Billion CFU CAP.SPRINK PO SCH (08:45)
[2017-12-01] MEDS: Hydrocodone/APAP 5mg/325mg Tab PO PRN (15:23)
[2017-12-01] MEDS: Insulin Detemir 100 units/mL 10mL Vial SUBQ SCH (21:10)
[2017-12-02] MEDS: D5-0.9NS w/KCL 20mEq 1,000 ML IV SCH (02:57)
[2017-12-02] MEDS: Meropenem 1 GM in Sodium Chloride 0.9% 100 ML IV SCH (05:47)
[2017-12-02] MEDS: Hydrocodone/APAP 5mg/325mg Tab PO PRN (07:32)
[2017-12-02] MEDS: INSULIN ASPART SLIDING SCALE 100 UNITS/ML UNIT SUBQ SCH ×4 (07:32→20:33)
--- NOTE | 2017-12-02 08:32 | General Progress Note ---
Subjective - Review of Systems Service Date: 12/02/17 Subjective: Patient was seen and examined. Patient is resting comfortably in bed in no acute distress. +Klebsiella in urine and blood and wound. Objective - Results Result Diagrams: 12/01/17 05:20 12/01/17 05:20 Recent Labs: Laboratory Last Values WBC 5.9 Th/cmm (4.8-10.8) 12/01/17 05:20 RBC 3.55 Mil/cmm (4.30-5.70) L 12/01/17 05:20 Hgb 10.2 gm/dL (12-16) L 12/01/17 05:20 Hct 30.6 % (41.0-60) L 12/01/17 05:20 MCV 86.1 fl (80-99) 12/01/17 05:20 MCH 28.7 pg (26.0-30.0) 12/01/17 05:20 MCHC Differential 33.3 pg (28.0-36.0) 12/01/17 05:20 RDW 13.2 % (11.5-20.0) 12/01/17 05:20 Plt Count 325 Th/cmm (150-400) 12/01/17 05:20 MPV 6.8 fl 12/01/17 05:20 Add Manual Diff YES 11/28/17 06:33 Neutrophils % 66.0 % (40.0-80.0) 12/01/17 05:20 Band Neutrophils % 2 % (0-10) 11/28/17 06:33 Lymphocytes % 25.0 % (20.0-50.0) 12/01/17 05:20 Monocytes % 6.4 % (2.0-10.0) 12/01/17 05:20 Eosinophils % 2.1 % (0.0-5.0) 12/01/17 05:20 Basophils % 0.5 % (0.0-2.0) 12/01/17 05:20 Neutrophils (Manual) 63 % (40-80) 11/28/17 06:33 Lymphocytes 26 % (20-50) 11/28/17 06:33 Monocytes 9 % (2-10) 11/28/17 06:33 Eosinophils 0 % (0-5) 11/28/17 06:33 Basophils 0 % (0-3) 11/28/17 06:33 Platelet Estimate ADEQUATE (NORMAL) 11/24/17 05:20 PT 10.5 SECONDS (9.5-11.5) 11/24/17 05:20 INR 1.01 (0.5-1.4) 11/24/17 05:20 PTT (Actin FS) 30.1 SECONDS (26.0-38.0) 11/20/17 14:50 Sodium 137 mEq/L (136-145) 12/01/17 05:20 Potassium 3.9 mEq/L (3.5-5.1) 12/01/17 05:20 Chloride 104 mEq/L (98-107) 12/01/17 05:20 Carbon Dioxide 28.0 mEq/L (21.0-31.0) 12/01/17 05:20 Anion Gap 8.9 (7.0-16.0) 12/01/17 05:20 BUN 24 mg/dL (7-25) 12/01/17 05:20 Creatinine 0.8 mg/dL (0.7-1.3) 12/01/17 05:20 Est GFR ( Amer) > 60.0 ml/min (>90) 12/01/17 05:20 Est GFR (Non-Af Amer) > 60.0 ml/min 12/01/17 05:20 BUN/Creatinine Ratio 30.0 12/01/17 05:20 Glucose 181 mg/dL (70-105) H 12/01/17 05:20 POC Glucose 113 MG/DL (70 - 105) H 12/02/17 06:56 Calcium 8.9 mg/dL (8.6-10.3) 12/01/17 05:20 Iron 7 ug/dL (38-169) L 11/20/17 14:50 TIBC 161 ug/dL (250-450) L 11/20/17 14:50 Iron Saturation 4 % (15-55) L 11/20/17 14:50 Unsaturated IBC 154 ug/dL (111-343) 11/20/17 14:50 Total Bilirubin 0.3 mg/dL (0.3-1.0) 11/23/17 05:50 AST 11 U/L (13-39) L 11/23/17 05:50 ALT 8 U/L (7-52) 11/23/17 05:50 Alkaline Phosphatase 108 U/L (34-104) H 11/23/17 05:50 Troponin I 0.03 ng/mL (0.01-0.05) 11/20/17 14:50 B-Natriuretic Peptide 239.0 pg/mL (5.0-100.0) H 11/21/17 06:40 Total Protein 5.6 gm/dL (6.0-8.3) L 11/23/17 05:50 Albumin 2.6 gm/dL (4.2-5.5) L 11/23/17 05:50 Globulin 3.0 gm/dL 11/23/17 05:50 Albumin/Globulin Ratio 0.9 (1.0-1.8) L 11/23/17 05:50 Urine Source CATH 11/21/17 09:00 Urine Color YELLOW 11/21/17 09:00 Urine Clarity HAZY (CLEAR) 11/21/17 09:00 Urine pH 6.0 (4.6 - 8.0) 11/21/17 09:00 Ur Specific [place] 1.020 (1.005-1.030) 11/21/17 09:00 Urine Protein >=300 mg/dL (NEGATIVE) 11/21/17 09:00 Urine Glucose (UA) >=1000 mg/dL (NEGATIVE) H 11/21/17 09:00 Urine Ketones 15 mg/dL (NEGATIVE) H 11/21/17 09:00 Urine Blood LARGE (NEGATIVE) H 11/21/17 09:00 Urine Nitrate NEGATIVE (NEGATIVE) 11/21/17 09:00 Urine Bilirubin NEGATIVE (NEGATIVE) 11/21/17 09:00 Urine Urobilinogen 0.2 E.U./dL (0.2 - 1.0) 11/21/17 09:00 Ur Leukocyte Esterase MODERATE (NEGATIVE) H 11/21/17 09:00 Urine RBC 0-2 /hpf (0-5) H 11/21/17 09:00 Urine WBC 50-100 /hpf (0-5) H 11/21/17 09:00 Ur Epithelial Cells FEW /lpf (FEW) 11/21/17 09:00 Urine Bacteria MANY /hpf (NONE SEEN) H 11/21/17 09:00 HIV 1&2 Antibody Screen NEGATIVE (NEG) 11/22/17 05:40 Blood Type A POSITIVE 11/22/17 09:50 Antibody Screen NEGATIVE 11/22/17 09:50 Crossmatch See Detail 11/22/17 09:50 - Physical Exam Vitals and I&O: Vital Signs Temp 98.5 F 12/02/17 08:22 Pulse 91 12/02/17 08:22 Resp 17 12/02/17 08:22 BP 148/81 12/02/17 08:22 Pulse Ox 96 12/02/17 08:22 Intake & Output 12/01/17 12/02/17 12/02/17 18:59 06:59 18:59 Intake Total 1220 1100 Output Total 3300 800 Balance -2080 300 Weight (lbs) 72.847 kg 73.346 kg Intake: Intake, IV Amount 100 1100 D5-0.9NS w/KCL 20mEq 1, 1000 000 ml @ 50 mls/hr IV . Q20H [facility] Rx#:[id number] Meropenem 1 gm In Sodium 100 100 Chloride 0.9% 100 ml @ 100 mls/hr IV Q8HR [facility] Rx #:[id number] Oral 1120 Output: Urine 3300 800 Other: # Bowel Movements 0 Weight Source Bedscale Bedscale Active Medications: Current Medications Acetaminophen (Tylenol) 650 mg PO Q4H PRN PRN Reason: T=100 F Stop: 01/26/18 01:28 Acetaminophen/Hydrocodone Bitart ([place] 5mg/325mg) 1 tab PO Q12HR PRN PRN Reason: Pain (Moderate) Stop: 12/06/17 14:25 Last Admin: 12/02/17 07:32 Dose: 1 tab Glipizide (Glucotrol) 10 mg PO DAILY [facility] Stop: 01/20/18 08:59 Last Admin: 12/01/17 08:45 Dose: Not Given Hydrochlorothiazide (Hctz) 25 mg PO DAILY [facility] Stop: 01/28/18 08:59 Last Admin: 12/01/17 08:45 Dose: Not Given Meropenem 1 gm/ Sodium (Chloride) 100 mls @ 100 mls/hr IV Q8HR [facility] Stop: 01/22/18 13:59 Last Admin: 12/02/17 05:47 Dose: 100 mls/hr Potassium Chloride/Dextrose/Sod Cl (D5-0.9ns W/Kcl 20meq) 1,000 mls @ 50 mls/ hr IV .Q20H [facility] Stop: 01/30/18 00:00 Last Admin: 12/02/17 02:57 Dose: 50 mls/hr Ibuprofen (Motrin) 600 mg PO BID [facility] Stop: 01/21/18 08:59 Last Admin: 12/01/17 17:24 Dose: 600 mg Insulin Aspart (Novolog Insulin Sliding Scale) 0 units SUBQ ACHS [facility]; Protocol Stop: 01/20/18 07:59 Last Admin: 12/02/17 07:32 Dose: Not Given Insulin Detemir (Levemir Insulin) 10 units SUBQ HS [facility]; Protocol Stop: 01/20/18 20:59 Last Admin: 12/01/17 21:10 Dose: 10 units Lactobacillus Rhamnosus (Culturelle 15b) 1 each PO DAILY [facility] Stop: 01/21/18 13:59 Last Admin: 12/01/17 08:45 Dose: Not Given Lisinopril (Zestril) 20 mg PO DAILY [facility] Stop: 01/26/18 08:59 Last Admin: 12/01/17 08:46 Dose: Not Given Miscellaneous (Probiotic Screen) 1 ea MC PRN PRN PRN Reason: PROTOCOL Stop: 01/21/18 12:43 Nystatin (Mycostatin Cream) 1 appl TP DAILY PRN PRN Reason: Diaper Rash Stop: 01/20/18 08:59 Last Admin: 11/29/17 16:52 Dose: 1 appl Nystatin (Nystop) 100,000 units TP DAILY PRN PRN Reason: Diaper Rash Stop: 01/20/18 07:56 Pantoprazole Sodium (Protonix) 40 mg IVP DAILY [facility] Stop: 01/20/18 08:59 Last Admin: 12/01/17 08:46 Dose: Not Given General: Alert, Oriented x3 HEENT: Atraumatic Neck: Supple Cardiovascular: Regular rate Lungs: Clear to auscultation Abdomen: Bowel sounds, Soft, no Tender, no Hepatomegaly, no Splenomegaly, no Distended, no Rebound, no Mass, no Guarding Extremities: no Clubbing, no Cyanosis, no Edema Assessment/Plan - Assessment Assessment: s/p fall homeless anemia -- s/p blood transfusion for GI workup hyponatremia -- improved hypokalemia -- improved diabetes mellitus --improved. hyperglycemia UTI/pyelonephritis -- continue IV antibiotics. ID consult tinhalie lim. HTN --controlled continue with Lisinopril 20mg PO daily and HCTZ 25mg daily H/o CVA. H/o depression. Gluteal wound. 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 Neurogenic bladder. H/o Back surgery. Left forearm pain after a traumatic fall, acute fracture of ulna styloid. -- ortho consult ESBL klebsiella +blood +urine +wound ... change antibiotics per ID to Levaquin PO x 5 days. - Plan Plan: okay to discharge patient and to follow up with PMD in 3-5 days. Nutritional Asmnt/Malnutr-PDOC - Dietary Evaluation Malnutrition Findings (Please click <Entered> for more info): Nutritional Asmnt/Malnutrition Start: 11/22/17 17: 38 Text: Status: Complete Freq: Protocol: Document 11/22/17 17:38 LCHENG (Rec: 11/22/17 17:57 LCCOLLINSG ANA [id number]) Nutritional Asmnt/Malnutrition Patient General Information Nutritional Screening High Risk Diagnosis electrolyte imbalance, anemia Pertinent Medical Hx/Surgical Hx HTN, Dm, CVA/TIA, back surgery , depression Subjective Information consult received for diabetic. Pt is Sami speaking. Per EMR, Pt consumded 50% of breakfast today. Not able to provide diabetic education d/t language barrier. Current Diet Order/ Nutrition Support diabetic diet Pertinent Medications glucotrol, novolog, levemir, culturelle, protonix, piperacillin, 0.9% ns w/20 meq kcl Pertinent Labs 11/21 Na 130, K 3.3, Cl 97, glucsoe 385 11/21-11/22 POC 245-415 Nutritional Hx/Data Height 1.78 m Height (Calculated Centimeters) 177.8 Current Weight (lbs) 81.647 kg Weight (Calculated Kilograms) 81.6 Weight (Calculated Grams) 03524.6 [place] Body Weight 166 Body Mass Index (BMI) 25.8 Weight Status Overweight GI Symptoms GI Symptoms None Last BM none Difficult in: None Skin Integrity/Comment: pressure ulcer to sacrum Current %PO Fair (50-74%) Estimated Nutritional Goals BEE in Kcals: Using Current wt Calories/Kcals/Kg 25-30 Kcals Calculated 4606-9816 Protein: Using Current wt Protein g/k Protein Calculated 75 Fluid: ml 1875-2250ml (1ml/kcal) Nutritional Problem 1. Problem Problem increased nutrition needs Etiology increased metabolic needs for impaired skin integrity Signs/Symptoms: pressure ulcer to sacrum Malnutrition Alert Is there a minimum of two criteria No selected? Query Text:Check all the applicable criteria. A minimum of two criteria are recommended for diagnosis of either severe or non-severe malnutrition. Malnutrition Related to Morbid Obesity Malnutrition related to morbid obesity No Intervention/Recommendation Comments 1. Continue with diabetic diet diet as ordered. 2. Monitor PO intake, wt, labs and skin integrity 3. F/U as moderate risk in 3-5 days, 11/25-11/27, PO check Expected Outcomes/Goals Expected Outcomes/Goals 1. PO intake to meet at least 75% of nutritional needs. 2. Wt stability, skin to remain intact, labs to approach WNL.
[2017-12-02] MEDS: Lactobacillus Rhamnosus GG 15 Billion CFU CAP.SPRINK PO SCH (08:58)
--- NOTE | 2017-12-02 11:23 | General Progress Note ---
Subjective - Review of Systems Service Date: 12/02/17 Events since last encounter: continue local wound treatment with Venelex Objective - Results Result Diagrams: 12/01/17 05:20 12/01/17 05:20 Recent Labs: Laboratory Last Values WBC 5.9 Th/cmm (4.8-10.8) 12/01/17 05:20 RBC 3.55 Mil/cmm (4.30-5.70) L 12/01/17 05:20 Hgb 10.2 gm/dL (12-16) L 12/01/17 05:20 Hct 30.6 % (41.0-60) L 12/01/17 05:20 MCV 86.1 fl (80-99) 12/01/17 05:20 MCH 28.7 pg (26.0-30.0) 12/01/17 05:20 MCHC Differential 33.3 pg (28.0-36.0) 12/01/17 05:20 RDW 13.2 % (11.5-20.0) 12/01/17 05:20 Plt Count 325 Th/cmm (150-400) 12/01/17 05:20 MPV 6.8 fl 12/01/17 05:20 Add Manual Diff YES 11/28/17 06:33 Neutrophils % 66.0 % (40.0-80.0) 12/01/17 05:20 Band Neutrophils % 2 % (0-10) 11/28/17 06:33 Lymphocytes % 25.0 % (20.0-50.0) 12/01/17 05:20 Monocytes % 6.4 % (2.0-10.0) 12/01/17 05:20 Eosinophils % 2.1 % (0.0-5.0) 12/01/17 05:20 Basophils % 0.5 % (0.0-2.0) 12/01/17 05:20 Neutrophils (Manual) 63 % (40-80) 11/28/17 06:33 Lymphocytes 26 % (20-50) 11/28/17 06:33 Monocytes 9 % (2-10) 11/28/17 06:33 Eosinophils 0 % (0-5) 11/28/17 06:33 Basophils 0 % (0-3) 11/28/17 06:33 Platelet Estimate ADEQUATE (NORMAL) 11/24/17 05:20 PT 10.5 SECONDS (9.5-11.5) 11/24/17 05:20 INR 1.01 (0.5-1.4) 11/24/17 05:20 PTT (Actin FS) 30.1 SECONDS (26.0-38.0) 11/20/17 14:50 Sodium 137 mEq/L (136-145) 12/01/17 05:20 Potassium 3.9 mEq/L (3.5-5.1) 12/01/17 05:20 Chloride 104 mEq/L (98-107) 12/01/17 05:20 Carbon Dioxide 28.0 mEq/L (21.0-31.0) 12/01/17 05:20 Anion Gap 8.9 (7.0-16.0) 12/01/17 05:20 BUN 24 mg/dL (7-25) 12/01/17 05:20 Creatinine 0.8 mg/dL (0.7-1.3) 12/01/17 05:20 Est GFR ( Amer) > 60.0 ml/min (>90) 12/01/17 05:20 Est GFR (Non-Af Amer) > 60.0 ml/min 12/01/17 05:20 BUN/Creatinine Ratio 30.0 12/01/17 05:20 Glucose 181 mg/dL (70-105) H 12/01/17 05:20 POC Glucose 113 MG/DL (70 - 105) H 12/02/17 06:56 Calcium 8.9 mg/dL (8.6-10.3) 12/01/17 05:20 Iron 7 ug/dL (38-169) L 11/20/17 14:50 TIBC 161 ug/dL (250-450) L 11/20/17 14:50 Iron Saturation 4 % (15-55) L 11/20/17 14:50 Unsaturated IBC 154 ug/dL (111-343) 11/20/17 14:50 Total Bilirubin 0.3 mg/dL (0.3-1.0) 11/23/17 05:50 AST 11 U/L (13-39) L 11/23/17 05:50 ALT 8 U/L (7-52) 11/23/17 05:50 Alkaline Phosphatase 108 U/L (34-104) H 11/23/17 05:50 Troponin I 0.03 ng/mL (0.01-0.05) 11/20/17 14:50 B-Natriuretic Peptide 239.0 pg/mL (5.0-100.0) H 11/21/17 06:40 Total Protein 5.6 gm/dL (6.0-8.3) L 11/23/17 05:50 Albumin 2.6 gm/dL (4.2-5.5) L 11/23/17 05:50 Globulin 3.0 gm/dL 11/23/17 05:50 Albumin/Globulin Ratio 0.9 (1.0-1.8) L 11/23/17 05:50 Urine Source CATH 11/21/17 09:00 Urine Color YELLOW 11/21/17 09:00 Urine Clarity HAZY (CLEAR) 11/21/17 09:00 Urine pH 6.0 (4.6 - 8.0) 11/21/17 09:00 Ur Specific [place] 1.020 (1.005-1.030) 11/21/17 09:00 Urine Protein >=300 mg/dL (NEGATIVE) 11/21/17 09:00 Urine Glucose (UA) >=1000 mg/dL (NEGATIVE) H 11/21/17 09:00 Urine Ketones 15 mg/dL (NEGATIVE) H 11/21/17 09:00 Urine Blood LARGE (NEGATIVE) H 11/21/17 09:00 Urine Nitrate NEGATIVE (NEGATIVE) 11/21/17 09:00 Urine Bilirubin NEGATIVE (NEGATIVE) 11/21/17 09:00 Urine Urobilinogen 0.2 E.U./dL (0.2 - 1.0) 11/21/17 09:00 Ur Leukocyte Esterase MODERATE (NEGATIVE) H 11/21/17 09:00 Urine RBC 0-2 /hpf (0-5) H 11/21/17 09:00 Urine WBC 50-100 /hpf (0-5) H 11/21/17 09:00 Ur Epithelial Cells FEW /lpf (FEW) 11/21/17 09:00 Urine Bacteria MANY /hpf (NONE SEEN) H 11/21/17 09:00 HIV 1&2 Antibody Screen NEGATIVE (NEG) 11/22/17 05:40 Blood Type A POSITIVE 11/22/17 09:50 Antibody Screen NEGATIVE 11/22/17 09:50 Crossmatch See Detail 11/22/17 09:50 - Physical Exam Vitals and I&O: Vital Signs Temp 98.5 F 12/02/17 08:22 Pulse 91 12/02/17 09:00 Resp 17 12/02/17 08:22 BP 148/81 12/02/17 09:00 Pulse Ox 96 12/02/17 08:22 Intake & Output 12/01/17 12/02/17 12/02/17 18:59 06:59 18:59 Intake Total 1220 1100 Output Total 3300 800 Balance -2080 300 Weight (lbs) 72.847 kg 73.346 kg Intake: Intake, IV Amount 100 1100 D5-0.9NS w/KCL 20mEq 1, 1000 000 ml @ 50 mls/hr IV . Q20H [facility] Rx#:[id number] Meropenem 1 gm In Sodium 100 100 Chloride 0.9% 100 ml @ 100 mls/hr IV Q8HR [facility] Rx #:[id number] Oral 1120 Output: Urine 3300 800 Other: # Bowel Movements 0 Weight Source Bedscale Bedscale Active Medications: Current Medications Acetaminophen (Tylenol) 650 mg PO Q4H PRN PRN Reason: T=100 F Stop: 01/26/18 01:28 Acetaminophen/Hydrocodone Bitart ([place] 5mg/325mg) 1 tab PO Q12HR PRN PRN Reason: Pain (Moderate) Stop: 12/06/17 14:25 Last Admin: 12/02/17 07:32 Dose: 1 tab Glipizide (Glucotrol) 10 mg PO DAILY [facility] Stop: 01/20/18 08:59 Last Admin: 12/02/17 08:59 Dose: 10 mg Hydrochlorothiazide (Hctz) 25 mg PO DAILY [facility] Stop: 01/28/18 08:59 Last Admin: 12/02/17 09:00 Dose: 25 mg Potassium Chloride/Dextrose/Sod Cl (D5-0.9ns W/Kcl 20meq) 1,000 mls @ 50 mls/ hr IV .Q20H [facility] Stop: 01/30/18 00:00 Last Admin: 12/02/17 02:57 Dose: 50 mls/hr Ibuprofen (Motrin) 600 mg PO BID [facility] Stop: 01/21/18 08:59 Last Admin: 12/02/17 08:59 Dose: Not Given Insulin Aspart (Novolog Insulin Sliding Scale) 0 units SUBQ ACHS [facility]; Protocol Stop: 01/20/18 07:59 Last Admin: 12/02/17 07:32 Dose: Not Given Insulin Detemir (Levemir Insulin) 10 units SUBQ HS [facility]; Protocol Stop: 01/20/18 20:59 Last Admin: 12/01/17 21:10 Dose: 10 units Lactobacillus Rhamnosus (Culturelle 15b) 1 each PO DAILY [facility] Stop: 01/21/18 13:59 Last Admin: 12/02/17 08:58 Dose: 1 each Levofloxacin (Levaquin) 500 mg PO DAILY [facility] Stop: 01/31/18 08:59 Last Admin: 12/02/17 08:58 Dose: 500 mg Lisinopril (Zestril) 20 mg PO DAILY [facility] Stop: 01/26/18 08:59 Last Admin: 12/02/17 09:00 Dose: 20 mg Miscellaneous (Probiotic Screen) 1 ea MC PRN PRN PRN Reason: PROTOCOL Stop: 01/21/18 12:43 Nystatin (Mycostatin Cream) 1 appl TP DAILY PRN PRN Reason: Diaper Rash Stop: 01/20/18 08:59 Last Admin: 11/29/17 16:52 Dose: 1 appl Nystatin (Nystop) 100,000 units TP DAILY PRN PRN Reason: Diaper Rash Stop: 01/20/18 07:56 Pantoprazole Sodium (Protonix) 40 mg IVP DAILY [facility] Stop: 01/20/18 08:59 Last Admin: 12/02/17 08:58 Dose: 40 mg General: Alert, Oriented x3 HEENT: Atraumatic Neck: Supple Cardiovascular: Regular rate Lungs: Clear to auscultation Abdomen: Bowel sounds, Soft, no Tender, no Hepatomegaly, no Splenomegaly, no Distended, no Rebound, no Mass, no Guarding Extremities: no Clubbing, no Cyanosis, no Edema Nutritional Asmnt/Malnutr-PDOC - Dietary Evaluation Malnutrition Findings (Please click <Entered> for more info): Nutritional Asmnt/Malnutrition Start: 11/22/17 17: 38 Text: Status: Complete Freq: Protocol: Document 11/22/17 17:38 LCHENG (Rec: 11/22/17 17:57 LCHENG ANA [id number]) Nutritional Asmnt/Malnutrition Patient General Information Nutritional Screening High Risk Diagnosis electrolyte imbalance, anemia Pertinent Medical Hx/Surgical Hx HTN, Dm, CVA/TIA, back surgery , depression Subjective Information consult received for diabetic. Pt is [place] speaking. Per EMR, Pt consumded 50% of breakfast today. Not able to provide diabetic education d/t language barrier. Current Diet Order/ Nutrition Support diabetic diet Pertinent Medications glucotrol, novolog, levemir, culturelle, protonix, piperacillin, 0.9% ns w/20 meq kcl Pertinent Labs 11/21 Na 130, K 3.3, Cl 97, glucsoe 385 11/21-11/22 POC 245-415 Nutritional Hx/Data Height 1.78 m Height (Calculated Centimeters) 177.8 Current Weight (lbs) 81.647 kg Weight (Calculated Kilograms) 81.6 Weight (Calculated Grams) 49733.6 [place] Body Weight 166 Body Mass Index (BMI) 25.8 Weight Status Overweight GI Symptoms GI Symptoms None Last BM none Difficult in: None Skin Integrity/Comment: pressure ulcer to sacrum Current %PO Fair (50-74%) Estimated Nutritional Goals BEE in Kcals: Using Current wt Calories/Kcals/Kg 25-30 Kcals Calculated 7159-8063 Protein: Using Current wt Protein g/k Protein Calculated 75 Fluid: ml 1875-2250ml (1ml/kcal) Nutritional Problem 1. Problem Problem increased nutrition needs Etiology increased metabolic needs for impaired skin integrity Signs/Symptoms: pressure ulcer to sacrum Malnutrition Alert Is there a minimum of two criteria No selected? Query Text:Check all the applicable criteria. A minimum of two criteria are recommended for diagnosis of either severe or non-severe malnutrition. Malnutrition Related to Morbid Obesity Malnutrition related to morbid obesity No Intervention/Recommendation Comments 1. Continue with diabetic diet diet as ordered. 2. Monitor PO intake, wt, labs and skin integrity 3. F/U as moderate risk in 3-5 days, 11/25-11/27, PO check Expected Outcomes/Goals Expected Outcomes/Goals 1. PO intake to meet at least 75% of nutritional needs. 2. Wt stability, skin to remain intact, labs to approach WNL.
[2017-12-02] MEDS: Insulin Detemir 100 units/mL 10mL Vial SUBQ SCH (20:36)
[2017-12-03] MEDS: INSULIN ASPART SLIDING SCALE 100 UNITS/ML UNIT SUBQ SCH ×4 (07:40→21:21)
--- NOTE | 2017-12-03 08:27 | General Progress Note ---
Subjective - Review of Systems Service Date: 12/03/17 Subjective: Patient was seen and examined. Patient is resting comfortably in bed in no acute distress. +Klebsiella in urine and blood and wound. Objective - Results Result Diagrams: 12/01/17 05:20 12/01/17 05:20 Recent Labs: Laboratory Last Values WBC 5.9 Th/cmm (4.8-10.8) 12/01/17 05:20 RBC 3.55 Mil/cmm (4.30-5.70) L 12/01/17 05:20 Hgb 10.2 gm/dL (12-16) L 12/01/17 05:20 Hct 30.6 % (41.0-60) L 12/01/17 05:20 MCV 86.1 fl (80-99) 12/01/17 05:20 MCH 28.7 pg (26.0-30.0) 12/01/17 05:20 MCHC Differential 33.3 pg (28.0-36.0) 12/01/17 05:20 RDW 13.2 % (11.5-20.0) 12/01/17 05:20 Plt Count 325 Th/cmm (150-400) 12/01/17 05:20 MPV 6.8 fl 12/01/17 05:20 Add Manual Diff YES 11/28/17 06:33 Neutrophils % 66.0 % (40.0-80.0) 12/01/17 05:20 Band Neutrophils % 2 % (0-10) 11/28/17 06:33 Lymphocytes % 25.0 % (20.0-50.0) 12/01/17 05:20 Monocytes % 6.4 % (2.0-10.0) 12/01/17 05:20 Eosinophils % 2.1 % (0.0-5.0) 12/01/17 05:20 Basophils % 0.5 % (0.0-2.0) 12/01/17 05:20 Neutrophils (Manual) 63 % (40-80) 11/28/17 06:33 Lymphocytes 26 % (20-50) 11/28/17 06:33 Monocytes 9 % (2-10) 11/28/17 06:33 Eosinophils 0 % (0-5) 11/28/17 06:33 Basophils 0 % (0-3) 11/28/17 06:33 Platelet Estimate ADEQUATE (NORMAL) 11/24/17 05:20 PT 10.5 SECONDS (9.5-11.5) 11/24/17 05:20 INR 1.01 (0.5-1.4) 11/24/17 05:20 PTT (Actin FS) 30.1 SECONDS (26.0-38.0) 11/20/17 14:50 Sodium 137 mEq/L (136-145) 12/01/17 05:20 Potassium 3.9 mEq/L (3.5-5.1) 12/01/17 05:20 Chloride 104 mEq/L (98-107) 12/01/17 05:20 Carbon Dioxide 28.0 mEq/L (21.0-31.0) 12/01/17 05:20 Anion Gap 8.9 (7.0-16.0) 12/01/17 05:20 BUN 24 mg/dL (7-25) 12/01/17 05:20 Creatinine 0.8 mg/dL (0.7-1.3) 12/01/17 05:20 Est GFR ( Amer) > 60.0 ml/min (>90) 12/01/17 05:20 Est GFR (Non-Af Amer) > 60.0 ml/min 12/01/17 05:20 BUN/Creatinine Ratio 30.0 12/01/17 05:20 Glucose 181 mg/dL (70-105) H 12/01/17 05:20 POC Glucose 223 MG/DL (70 - 105) H 12/03/17 06:33 Calcium 8.9 mg/dL (8.6-10.3) 12/01/17 05:20 Iron 7 ug/dL (38-169) L 11/20/17 14:50 TIBC 161 ug/dL (250-450) L 11/20/17 14:50 Iron Saturation 4 % (15-55) L 11/20/17 14:50 Unsaturated IBC 154 ug/dL (111-343) 11/20/17 14:50 Total Bilirubin 0.3 mg/dL (0.3-1.0) 11/23/17 05:50 AST 11 U/L (13-39) L 11/23/17 05:50 ALT 8 U/L (7-52) 11/23/17 05:50 Alkaline Phosphatase 108 U/L (34-104) H 11/23/17 05:50 Troponin I 0.03 ng/mL (0.01-0.05) 11/20/17 14:50 B-Natriuretic Peptide 239.0 pg/mL (5.0-100.0) H 11/21/17 06:40 Total Protein 5.6 gm/dL (6.0-8.3) L 11/23/17 05:50 Albumin 2.6 gm/dL (4.2-5.5) L 11/23/17 05:50 Globulin 3.0 gm/dL 11/23/17 05:50 Albumin/Globulin Ratio 0.9 (1.0-1.8) L 11/23/17 05:50 Urine Source CATH 11/21/17 09:00 Urine Color YELLOW 11/21/17 09:00 Urine Clarity HAZY (CLEAR) 11/21/17 09:00 Urine pH 6.0 (4.6 - 8.0) 11/21/17 09:00 Ur Specific [place] 1.020 (1.005-1.030) 11/21/17 09:00 Urine Protein >=300 mg/dL (NEGATIVE) 11/21/17 09:00 Urine Glucose (UA) >=1000 mg/dL (NEGATIVE) H 11/21/17 09:00 Urine Ketones 15 mg/dL (NEGATIVE) H 11/21/17 09:00 Urine Blood LARGE (NEGATIVE) H 11/21/17 09:00 Urine Nitrate NEGATIVE (NEGATIVE) 11/21/17 09:00 Urine Bilirubin NEGATIVE (NEGATIVE) 11/21/17 09:00 Urine Urobilinogen 0.2 E.U./dL (0.2 - 1.0) 11/21/17 09:00 Ur Leukocyte Esterase MODERATE (NEGATIVE) H 11/21/17 09:00 Urine RBC 0-2 /hpf (0-5) H 11/21/17 09:00 Urine WBC 50-100 /hpf (0-5) H 11/21/17 09:00 Ur Epithelial Cells FEW /lpf (FEW) 11/21/17 09:00 Urine Bacteria MANY /hpf (NONE SEEN) H 11/21/17 09:00 HIV 1&2 Antibody Screen NEGATIVE (NEG) 11/22/17 05:40 Blood Type A POSITIVE 11/22/17 09:50 Antibody Screen NEGATIVE 11/22/17 09:50 Crossmatch See Detail 11/22/17 09:50 - Physical Exam Vitals and I&O: Vital Signs Temp 98.4 F 12/03/17 04:00 Pulse 78 12/03/17 04:00 Resp 18 12/03/17 08:00 BP 125/67 12/03/17 04:00 Pulse Ox 98 12/03/17 04:00 Intake & Output 12/02/17 12/03/17 12/03/17 18:59 06:59 18:59 Intake Total 950 Output Total 1350 1700 Balance -400 -1700 Weight (lbs) 73.346 kg 72.575 kg Intake: Oral 950 Output: Urine 1350 1700 Other: # Bowel Movements 0 1 Weight Source Bedscale Bedscale Active Medications: Current Medications Acetaminophen (Tylenol) 650 mg PO Q4H PRN PRN Reason: T=100 F Stop: 01/26/18 01:28 Acetaminophen/Hydrocodone Bitart ([place] 5mg/325mg) 1 tab PO Q12HR PRN PRN Reason: Pain (Moderate) Stop: 12/06/17 14:25 Last Admin: 12/02/17 07:32 Dose: 1 tab Glipizide (Glucotrol) 10 mg PO DAILY [facility] Stop: 01/20/18 08:59 Last Admin: 12/02/17 08:59 Dose: 10 mg Hydrochlorothiazide (Hctz) 25 mg PO DAILY [facility] Stop: 01/28/18 08:59 Last Admin: 12/02/17 09:00 Dose: 25 mg Potassium Chloride/Dextrose/Sod Cl (D5-0.9ns W/Kcl 20meq) 1,000 mls @ 50 mls/ hr IV .Q20H [facility] Stop: 01/30/18 00:00 Last Admin: 12/02/17 02:57 Dose: 50 mls/hr Ibuprofen (Motrin) 600 mg PO BID [facility] Stop: 01/21/18 08:59 Last Admin: 12/02/17 16:29 Dose: Not Given Insulin Aspart (Novolog Insulin Sliding Scale) 0 units SUBQ ACHS [facility]; Protocol Stop: 01/20/18 07:59 Last Admin: 12/03/17 07:40 Dose: 4 units Insulin Detemir (Levemir Insulin) 10 units SUBQ HS [facility]; Protocol Stop: 01/20/18 20:59 Last Admin: 12/02/17 20:36 Dose: Not Given Lactobacillus Rhamnosus (Culturelle 15b) 1 each PO DAILY [facility] Stop: 01/21/18 13:59 Last Admin: 12/02/17 08:58 Dose: 1 each Levofloxacin (Levaquin) 500 mg PO DAILY [facility] Stop: 01/31/18 08:59 Last Admin: 12/02/17 08:58 Dose: 500 mg Lisinopril (Zestril) 20 mg PO DAILY [facility] Stop: 01/26/18 08:59 Last Admin: 12/02/17 09:00 Dose: 20 mg Miscellaneous (Probiotic Screen) 1 ea MC PRN PRN PRN Reason: PROTOCOL Stop: 01/21/18 12:43 Nystatin (Mycostatin Cream) 1 appl TP DAILY PRN PRN Reason: Diaper Rash Stop: 01/20/18 08:59 Last Admin: 11/29/17 16:52 Dose: 1 appl Nystatin (Nystop) 100,000 units TP DAILY PRN PRN Reason: Diaper Rash Stop: 01/20/18 07:56 Pantoprazole Sodium (Protonix) 40 mg IVP DAILY [facility] Stop: 01/20/18 08:59 Last Admin: 12/02/17 08:58 Dose: 40 mg General: Alert, Oriented x3 HEENT: Atraumatic Neck: Supple Cardiovascular: Regular rate Lungs: Clear to auscultation Abdomen: Bowel sounds, Soft, no Tender, no Hepatomegaly, no Splenomegaly, no Distended, no Rebound, no Mass, no Guarding Extremities: no Clubbing, no Cyanosis, no Edema Assessment/Plan - Assessment Assessment: s/p fall homeless anemia -- s/p blood transfusion for GI workup hyponatremia -- improved hypokalemia -- improved diabetes mellitus --improved. hyperglycemia UTI/pyelonephritis -- continue IV antibiotics. ID consult tinea crurus. HTN --controlled continue with Lisinopril 20mg PO daily and HCTZ 25mg daily H/o CVA. H/o depression. 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 Neurogenic bladder. H/o Back surgery. Left forearm pain after a traumatic fall, acute fracture of ulna styloid. -- ortho consult ESBL klebsiella +blood +urine +wound ... change antibiotics per ID to Levaquin PO x 5 days. - Plan Plan: okay to discharge patient and to follow up with PMD in 3-5 days. Arranging for possible board and care. Nutritional Asmnt/Malnutr-PDOC - Dietary Evaluation Malnutrition Findings (Please click <Entered> for more info): Nutritional Asmnt/Malnutrition Start: 11/22/17 17: 38 Text: Status: Complete Freq: Protocol: Document 11/22/17 17:38 LCHENG (Rec: 11/22/17 17:57 [id number] Nutritional Asmnt/Malnutrition Patient General Information Nutritional Screening High Risk Diagnosis electrolyte imbalance, anemia Pertinent Medical Hx/Surgical Hx HTN, Dm, CVA/TIA, back surgery , depression Subjective Information consult received for diabetic. Pt is [place] speaking. Per EMR, Pt consumded 50% of breakfast today. Not able to provide diabetic education d/t language barrier. Current Diet Order/ Nutrition Support diabetic diet Pertinent Medications glucotrol, novolog, levemir, culturelle, protonix, piperacillin, 0.9% ns w/20 meq kcl Pertinent Labs 11/21 Na 130, K 3.3, Cl 97, glucsoe 385 11/21-11/22 POC 245-415 Nutritional Hx/Data Height 1.78 m Height (Calculated Centimeters) 177.8 Current Weight (lbs) 81.647 kg Weight (Calculated Kilograms) 81.6 Weight (Calculated Grams) 25347.6 [place] Body Weight 166 Body Mass Index (BMI) 25.8 Weight Status Overweight GI Symptoms GI Symptoms None Last BM none Difficult in: None Skin Integrity/Comment: pressure ulcer to sacrum Current %PO Fair (50-74%) Estimated Nutritional Goals BEE in Kcals: Using Current wt Calories/Kcals/Kg 25-30 Kcals Calculated 8238-7906 Protein: Using Current wt Protein g/k Protein Calculated 75 Fluid: ml 1875-2250ml (1ml/kcal) Nutritional Problem 1. Problem Problem increased nutrition needs Etiology increased metabolic needs for impaired skin integrity Signs/Symptoms: pressure ulcer to sacrum Malnutrition Alert Is there a minimum of two criteria No selected? Query Text:Check all the applicable criteria. A minimum of two criteria are recommended for diagnosis of either severe or non-severe malnutrition. Malnutrition Related to Morbid Obesity Malnutrition related to morbid obesity No Intervention/Recommendation Comments 1. Continue with diabetic diet diet as ordered. 2. Monitor PO intake, wt, labs and skin integrity 3. F/U as moderate risk in 3-5 days, 11/25-11/27, PO check Expected Outcomes/Goals Expected Outcomes/Goals 1. PO intake to meet at least 75% of nutritional needs. 2. Wt stability, skin to remain intact, labs to approach WNL.
[2017-12-03] MEDS: Lactobacillus Rhamnosus GG 15 Billion CFU CAP.SPRINK PO SCH (09:14)
[2017-12-03] MEDS: D5-0.9NS w/KCL 20mEq 1,000 ML IV SCH (16:49)
[2017-12-03] MEDS: Insulin Detemir 100 units/mL 10mL Vial SUBQ SCH (21:19)
--- NOTE | 2017-12-04 05:31 | General Progress Note ---
Subjective - Review of Systems Service Date: 12/04/17 Subjective: Patient was seen and examined. Patient is resting comfortably in bed in no acute distress. +Klebsiella in urine, blood and wound. S/P surgical debridement of sacal wound. Objective - Results Result Diagrams: 12/01/17 05:20 12/01/17 05:20 Recent Labs: Laboratory Last Values WBC 5.9 Th/cmm (4.8-10.8) 12/01/17 05:20 RBC 3.55 Mil/cmm (4.30-5.70) L 12/01/17 05:20 Hgb 10.2 gm/dL (12-16) L 12/01/17 05:20 Hct 30.6 % (41.0-60) L 12/01/17 05:20 MCV 86.1 fl (80-99) 12/01/17 05:20 MCH 28.7 pg (26.0-30.0) 12/01/17 05:20 MCHC Differential 33.3 pg (28.0-36.0) 12/01/17 05:20 RDW 13.2 % (11.5-20.0) 12/01/17 05:20 Plt Count 325 Th/cmm (150-400) 12/01/17 05:20 MPV 6.8 fl 12/01/17 05:20 Add Manual Diff YES 11/28/17 06:33 Neutrophils % 66.0 % (40.0-80.0) 12/01/17 05:20 Band Neutrophils % 2 % (0-10) 11/28/17 06:33 Lymphocytes % 25.0 % (20.0-50.0) 12/01/17 05:20 Monocytes % 6.4 % (2.0-10.0) 12/01/17 05:20 Eosinophils % 2.1 % (0.0-5.0) 12/01/17 05:20 Basophils % 0.5 % (0.0-2.0) 12/01/17 05:20 Neutrophils (Manual) 63 % (40-80) 11/28/17 06:33 Lymphocytes 26 % (20-50) 11/28/17 06:33 Monocytes 9 % (2-10) 11/28/17 06:33 Eosinophils 0 % (0-5) 11/28/17 06:33 Basophils 0 % (0-3) 11/28/17 06:33 Platelet Estimate ADEQUATE (NORMAL) 11/24/17 05:20 PT 10.5 SECONDS (9.5-11.5) 11/24/17 05:20 INR 1.01 (0.5-1.4) 11/24/17 05:20 PTT (Actin FS) 30.1 SECONDS (26.0-38.0) 11/20/17 14:50 Sodium 137 mEq/L (136-145) 12/01/17 05:20 Potassium 3.9 mEq/L (3.5-5.1) 12/01/17 05:20 Chloride 104 mEq/L (98-107) 12/01/17 05:20 Carbon Dioxide 28.0 mEq/L (21.0-31.0) 12/01/17 05:20 Anion Gap 8.9 (7.0-16.0) 12/01/17 05:20 BUN 24 mg/dL (7-25) 12/01/17 05:20 Creatinine 0.8 mg/dL (0.7-1.3) 12/01/17 05:20 Est GFR ( Amer) > 60.0 ml/min (>90) 12/01/17 05:20 Est GFR (Non-Af Amer) > 60.0 ml/min 12/01/17 05:20 BUN/Creatinine Ratio 30.0 12/01/17 05:20 Glucose 181 mg/dL (70-105) H 12/01/17 05:20 POC Glucose 200 MG/DL (70 - 105) H 12/03/17 21:18 Calcium 8.9 mg/dL (8.6-10.3) 12/01/17 05:20 Iron 7 ug/dL (38-169) L 11/20/17 14:50 TIBC 161 ug/dL (250-450) L 11/20/17 14:50 Iron Saturation 4 % (15-55) L 11/20/17 14:50 Unsaturated IBC 154 ug/dL (111-343) 11/20/17 14:50 Total Bilirubin 0.3 mg/dL (0.3-1.0) 11/23/17 05:50 AST 11 U/L (13-39) L 11/23/17 05:50 ALT 8 U/L (7-52) 11/23/17 05:50 Alkaline Phosphatase 108 U/L (34-104) H 11/23/17 05:50 Troponin I 0.03 ng/mL (0.01-0.05) 11/20/17 14:50 B-Natriuretic Peptide 239.0 pg/mL (5.0-100.0) H 11/21/17 06:40 Total Protein 5.6 gm/dL (6.0-8.3) L 11/23/17 05:50 Albumin 2.6 gm/dL (4.2-5.5) L 11/23/17 05:50 Globulin 3.0 gm/dL 11/23/17 05:50 Albumin/Globulin Ratio 0.9 (1.0-1.8) L 11/23/17 05:50 Urine Source CATH 11/21/17 09:00 Urine Color YELLOW 11/21/17 09:00 Urine Clarity HAZY (CLEAR) 11/21/17 09:00 Urine pH 6.0 (4.6 - 8.0) 11/21/17 09:00 Ur Specific [place] 1.020 (1.005-1.030) 11/21/17 09:00 Urine Protein >=300 mg/dL (NEGATIVE) 11/21/17 09:00 Urine Glucose (UA) >=1000 mg/dL (NEGATIVE) H 11/21/17 09:00 Urine Ketones 15 mg/dL (NEGATIVE) H 11/21/17 09:00 Urine Blood LARGE (NEGATIVE) H 11/21/17 09:00 Urine Nitrate NEGATIVE (NEGATIVE) 11/21/17 09:00 Urine Bilirubin NEGATIVE (NEGATIVE) 11/21/17 09:00 Urine Urobilinogen 0.2 E.U./dL (0.2 - 1.0) 11/21/17 09:00 Ur Leukocyte Esterase MODERATE (NEGATIVE) H 11/21/17 09:00 Urine RBC 0-2 /hpf (0-5) H 11/21/17 09:00 Urine WBC 50-100 /hpf (0-5) H 11/21/17 09:00 Ur Epithelial Cells FEW /lpf (FEW) 11/21/17 09:00 Urine Bacteria MANY /hpf (NONE SEEN) H 11/21/17 09:00 HIV 1&2 Antibody Screen NEGATIVE (NEG) 11/22/17 05:40 Blood Type A POSITIVE 11/22/17 09:50 Antibody Screen NEGATIVE 11/22/17 09:50 Crossmatch See Detail 11/22/17 09:50 - Physical Exam Vitals and I&O: Vital Signs Temp 100.3 F 12/04/17 00:00 Pulse 91 12/04/17 00:00 Resp 17 12/04/17 00:00 BP 131/68 12/04/17 00:00 Pulse Ox 94 12/04/17 00:00 Intake & Output 12/03/17 12/03/17 12/04/17 06:59 18:59 06:59 Intake Total 1000 950 Output Total 1700 Balance -700 950 Weight (lbs) 72.575 kg 72.575 kg Intake: Intake, IV Amount 1000 D5-0.9NS w/KCL 20mEq 1, 1000 000 ml @ 50 mls/hr IV . Q20H [facility] Rx#:[id number] Oral 950 Output: Urine 1700 Other: # Voids 1,300 # Bowel Movements 1 1 Weight Source Bedscale Bedscale Active Medications: Current Medications Acetaminophen (Tylenol) 650 mg PO Q4H PRN PRN Reason: T=100 F Stop: 01/26/18 01:28 Last Admin: 12/03/17 23:36 Dose: 650 mg Acetaminophen/Hydrocodone Bitart ([place] 5mg/325mg) 1 tab PO Q12HR PRN PRN Reason: Pain (Moderate) Stop: 12/06/17 14:25 Last Admin: 12/02/17 07:32 Dose: 1 tab Glipizide (Glucotrol) 10 mg PO DAILY [facility] Stop: 01/20/18 08:59 Last Admin: 12/03/17 09:14 Dose: 10 mg Hydrochlorothiazide (Hctz) 25 mg PO DAILY [facility] Stop: 01/28/18 08:59 Last Admin: 12/03/17 09:16 Dose: 25 mg Potassium Chloride/Dextrose/Sod Cl (D5-0.9ns W/Kcl 20meq) 1,000 mls @ 50 mls/ hr IV .Q20H [facility] Stop: 01/30/18 00:00 Last Admin: 12/03/17 16:49 Dose: 50 mls/hr Ibuprofen (Motrin) 600 mg PO BID [facility] Stop: 01/21/18 08:59 Last Admin: 12/03/17 17:04 Dose: Not Given Insulin Aspart (Novolog Insulin Sliding Scale) 0 units SUBQ ACHS [facility]; Protocol Stop: 01/20/18 07:59 Last Admin: 12/03/17 21:21 Dose: 2 units Insulin Detemir (Levemir Insulin) 10 units SUBQ HS [facility]; Protocol Stop: 01/20/18 20:59 Last Admin: 12/03/17 21:19 Dose: 10 units Lactobacillus Rhamnosus (Culturelle 15b) 1 each PO DAILY [facility] Stop: 01/21/18 13:59 Last Admin: 12/03/17 09:14 Dose: 1 each Levofloxacin (Levaquin) 500 mg PO DAILY [facility] Stop: 01/31/18 08:59 Last Admin: 12/03/17 09:16 Dose: 500 mg Lisinopril (Zestril) 20 mg PO DAILY [facility] Stop: 01/26/18 08:59 Last Admin: 12/03/17 09:15 Dose: 20 mg Miscellaneous (Probiotic Screen) 1 ea MC PRN PRN PRN Reason: PROTOCOL Stop: 01/21/18 12:43 Nystatin (Mycostatin Cream) 1 appl TP DAILY PRN PRN Reason: Diaper Rash Stop: 01/20/18 08:59 Last Admin: 11/29/17 16:52 Dose: 1 appl Nystatin (Nystop) 100,000 units TP DAILY PRN PRN Reason: Diaper Rash Stop: 01/20/18 07:56 Pantoprazole Sodium (Protonix) 40 mg IVP DAILY [facility] Stop: 01/20/18 08:59 Last Admin: 12/03/17 09:14 Dose: 40 mg General: Alert, Oriented x3 HEENT: Atraumatic Neck: Supple Cardiovascular: Regular rate Lungs: Clear to auscultation Abdomen: Bowel sounds, Soft, no Tender, no Hepatomegaly, no Splenomegaly, no Distended, no Rebound, no Mass, no Guarding Extremities: no Clubbing, no Cyanosis, no Edema Assessment/Plan - Assessment Assessment: s/p fall homeless anemia -- s/p blood transfusion for GI workup hyponatremia -- improved hypokalemia -- improved diabetes mellitus --improved. hyperglycemia UTI/pyelonephritis -- continue IV antibiotics. ID consult tinea crurus. HTN --controlled continue with Lisinopril 20mg PO daily and HCTZ 25mg daily H/o CVA. H/o depression. 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 Neurogenic bladder. H/o Back surgery. Left forearm pain after a traumatic fall, acute fracture of ulna styloid. -- ortho consult ESBL klebsiella +blood +urine +wound ... change antibiotics per ID to Levaquin PO x 5 days. - Plan Plan: okay to discharge patient and to follow up with PMD in 3-5 days. Arranging for possible board and care. Nutritional Asmnt/Malnutr-PDOC - Dietary Evaluation Malnutrition Findings (Please click <Entered> for more info): Nutritional Asmnt/Malnutrition Start: 11/22/17 17: 38 Text: Status: Complete Freq: Protocol: Document 11/22/17 17:38 LCHENG (Rec: 11/22/17 17:57 LCHENG ANA [id number]) Nutritional Asmnt/Malnutrition Patient General Information Nutritional Screening High Risk Diagnosis electrolyte imbalance, anemia Pertinent Medical Hx/Surgical Hx HTN, Dm, CVA/TIA, back surgery , depression Subjective Information consult received for diabetic. Pt is [place] speaking. Per EMR, Pt consumded 50% of breakfast today. Not able to provide diabetic education d/t language barrier. Current Diet Order/ Nutrition Support diabetic diet Pertinent Medications glucotrol, novolog, levemir, culturelle, protonix, piperacillin, 0.9% ns w/20 meq kcl Pertinent Labs 11/21 Na 130, K 3.3, Cl 97, glucsoe 385 11/21-11/22 POC 245-415 Nutritional Hx/Data Height 1.78 m Height (Calculated Centimeters) 177.8 Current Weight (lbs) 81.647 kg Weight (Calculated Kilograms) 81.6 Weight (Calculated Grams) 88681.6 [place] Body Weight 166 Body Mass Index (BMI) 25.8 Weight Status Overweight GI Symptoms GI Symptoms None Last BM none Difficult in: None Skin Integrity/Comment: pressure ulcer to sacrum Current %PO Fair (50-74%) Estimated Nutritional Goals BEE in Kcals: Using Current wt Calories/Kcals/Kg 25-30 Kcals Calculated 4654-9376 Protein: Using Current wt Protein g/k Protein Calculated 75 Fluid: ml 1875-2250ml (1ml/kcal) Nutritional Problem 1. Problem Problem increased nutrition needs Etiology increased metabolic needs for impaired skin integrity Signs/Symptoms: pressure ulcer to sacrum Malnutrition Alert Is there a minimum of two criteria No selected? Query Text:Check all the applicable criteria. A minimum of two criteria are recommended for diagnosis of either severe or non-severe malnutrition. Malnutrition Related to Morbid Obesity Malnutrition related to morbid obesity No Intervention/Recommendation Comments 1. Continue with diabetic diet diet as ordered. 2. Monitor PO intake, wt, labs and skin integrity 3. F/U as moderate risk in 3-5 days, 11/25-11/27, PO check Expected Outcomes/Goals Expected Outcomes/Goals 1. PO intake to meet at least 75% of nutritional needs. 2. Wt stability, skin to remain intact, labs to approach WNL.
[2017-12-04] MEDS: INSULIN ASPART SLIDING SCALE 100 UNITS/ML UNIT SUBQ SCH ×4 (08:28→20:46)
[2017-12-04] MEDS: Lactobacillus Rhamnosus GG 15 Billion CFU CAP.SPRINK PO SCH (08:31)
[2017-12-04] MEDS: D5-0.9NS w/KCL 20mEq 1,000 ML IV SCH (15:09)
[2017-12-04] MEDS: Insulin Detemir 100 units/mL 10mL Vial SUBQ SCH (20:47)
--- NOTE | 2017-12-05 05:19 | General Progress Note ---
Subjective - Review of Systems Service Date: 12/05/17 Subjective: Patient was seen and examined. Patient is resting comfortably in bed in no acute distress. +Klebsiella in urine, blood and wound. S/P surgical debridement of sacal wound. Objective - Results Result Diagrams: 12/01/17 05:20 12/01/17 05:20 Recent Labs: Laboratory Last Values WBC 5.9 Th/cmm (4.8-10.8) 12/01/17 05:20 RBC 3.55 Mil/cmm (4.30-5.70) L 12/01/17 05:20 Hgb 10.2 gm/dL (12-16) L 12/01/17 05:20 Hct 30.6 % (41.0-60) L 12/01/17 05:20 MCV 86.1 fl (80-99) 12/01/17 05:20 MCH 28.7 pg (26.0-30.0) 12/01/17 05:20 MCHC Differential 33.3 pg (28.0-36.0) 12/01/17 05:20 RDW 13.2 % (11.5-20.0) 12/01/17 05:20 Plt Count 325 Th/cmm (150-400) 12/01/17 05:20 MPV 6.8 fl 12/01/17 05:20 Add Manual Diff YES 11/28/17 06:33 Neutrophils % 66.0 % (40.0-80.0) 12/01/17 05:20 Band Neutrophils % 2 % (0-10) 11/28/17 06:33 Lymphocytes % 25.0 % (20.0-50.0) 12/01/17 05:20 Monocytes % 6.4 % (2.0-10.0) 12/01/17 05:20 Eosinophils % 2.1 % (0.0-5.0) 12/01/17 05:20 Basophils % 0.5 % (0.0-2.0) 12/01/17 05:20 Neutrophils (Manual) 63 % (40-80) 11/28/17 06:33 Lymphocytes 26 % (20-50) 11/28/17 06:33 Monocytes 9 % (2-10) 11/28/17 06:33 Eosinophils 0 % (0-5) 11/28/17 06:33 Basophils 0 % (0-3) 11/28/17 06:33 Platelet Estimate ADEQUATE (NORMAL) 11/24/17 05:20 PT 10.5 SECONDS (9.5-11.5) 11/24/17 05:20 INR 1.01 (0.5-1.4) 11/24/17 05:20 PTT (Actin FS) 30.1 SECONDS (26.0-38.0) 11/20/17 14:50 Sodium 137 mEq/L (136-145) 12/01/17 05:20 Potassium 3.9 mEq/L (3.5-5.1) 12/01/17 05:20 Chloride 104 mEq/L (98-107) 12/01/17 05:20 Carbon Dioxide 28.0 mEq/L (21.0-31.0) 12/01/17 05:20 Anion Gap 8.9 (7.0-16.0) 12/01/17 05:20 BUN 24 mg/dL (7-25) 12/01/17 05:20 Creatinine 0.8 mg/dL (0.7-1.3) 12/01/17 05:20 Est GFR ( Amer) > 60.0 ml/min (>90) 12/01/17 05:20 Est GFR (Non-Af Amer) > 60.0 ml/min 12/01/17 05:20 BUN/Creatinine Ratio 30.0 12/01/17 05:20 Glucose 181 mg/dL (70-105) H 12/01/17 05:20 POC Glucose 209 MG/DL (70 - 105) H 12/04/17 20:45 Calcium 8.9 mg/dL (8.6-10.3) 12/01/17 05:20 Iron 7 ug/dL (38-169) L 11/20/17 14:50 TIBC 161 ug/dL (250-450) L 11/20/17 14:50 Iron Saturation 4 % (15-55) L 11/20/17 14:50 Unsaturated IBC 154 ug/dL (111-343) 11/20/17 14:50 Total Bilirubin 0.3 mg/dL (0.3-1.0) 11/23/17 05:50 AST 11 U/L (13-39) L 11/23/17 05:50 ALT 8 U/L (7-52) 11/23/17 05:50 Alkaline Phosphatase 108 U/L (34-104) H 11/23/17 05:50 Troponin I 0.03 ng/mL (0.01-0.05) 11/20/17 14:50 B-Natriuretic Peptide 239.0 pg/mL (5.0-100.0) H 11/21/17 06:40 Total Protein 5.6 gm/dL (6.0-8.3) L 11/23/17 05:50 Albumin 2.6 gm/dL (4.2-5.5) L 11/23/17 05:50 Globulin 3.0 gm/dL 11/23/17 05:50 Albumin/Globulin Ratio 0.9 (1.0-1.8) L 11/23/17 05:50 Urine Source CATH 11/21/17 09:00 Urine Color YELLOW 11/21/17 09:00 Urine Clarity HAZY (CLEAR) 11/21/17 09:00 Urine pH 6.0 (4.6 - 8.0) 11/21/17 09:00 Ur Specific [place] 1.020 (1.005-1.030) 11/21/17 09:00 Urine Protein >=300 mg/dL (NEGATIVE) 11/21/17 09:00 Urine Glucose (UA) >=1000 mg/dL (NEGATIVE) H 11/21/17 09:00 Urine Ketones 15 mg/dL (NEGATIVE) H 11/21/17 09:00 Urine Blood LARGE (NEGATIVE) H 11/21/17 09:00 Urine Nitrate NEGATIVE (NEGATIVE) 11/21/17 09:00 Urine Bilirubin NEGATIVE (NEGATIVE) 11/21/17 09:00 Urine Urobilinogen 0.2 E.U./dL (0.2 - 1.0) 11/21/17 09:00 Ur Leukocyte Esterase MODERATE (NEGATIVE) H 11/21/17 09:00 Urine RBC 0-2 /hpf (0-5) H 11/21/17 09:00 Urine WBC 50-100 /hpf (0-5) H 11/21/17 09:00 Ur Epithelial Cells FEW /lpf (FEW) 11/21/17 09:00 Urine Bacteria MANY /hpf (NONE SEEN) H 11/21/17 09:00 HIV 1&2 Antibody Screen NEGATIVE (NEG) 11/22/17 05:40 Blood Type A POSITIVE 11/22/17 09:50 Antibody Screen NEGATIVE 11/22/17 09:50 Crossmatch See Detail 11/22/17 09:50 - Physical Exam Vitals and I&O: Vital Signs Temp 98.6 F 12/05/17 04:00 Pulse 69 12/05/17 04:00 Resp 18 12/05/17 04:00 BP 143/79 12/05/17 04:00 Pulse Ox 98 12/05/17 04:00 Intake & Output 12/04/17 12/04/17 12/05/17 06:59 18:59 06:59 Intake Total 2250 Output Total 1500 Balance 750 Weight (lbs) 72.575 kg Intake: Intake, IV Amount 1000 D5-0.9NS w/KCL 20mEq 1, 1000 000 ml @ 50 mls/hr IV . Q20H [facility] Rx#:[id number] Oral 1250 Output: Urine 1500 Other: # Bowel Movements 2 Weight Source Bedscale Active Medications: Current Medications Acetaminophen (Tylenol) 650 mg PO Q4H PRN PRN Reason: T=100 F Stop: 01/26/18 01:28 Last Admin: 12/04/17 12:40 Dose: 650 mg Acetaminophen/Hydrocodone Bitart ([place] 5mg/325mg) 1 tab PO Q12HR PRN PRN Reason: Pain (Moderate) Stop: 12/06/17 14:25 Last Admin: 12/02/17 07:32 Dose: 1 tab Glipizide (Glucotrol) 10 mg PO DAILY [facility] Stop: 01/20/18 08:59 Last Admin: 12/04/17 08:30 Dose: 10 mg Hydrochlorothiazide (Hctz) 25 mg PO DAILY [facility] Stop: 01/28/18 08:59 Last Admin: 12/04/17 08:30 Dose: 25 mg Potassium Chloride/Dextrose/Sod Cl (D5-0.9ns W/Kcl 20meq) 1,000 mls @ 50 mls/ hr IV .Q20H [facility] Stop: 01/30/18 00:00 Last Admin: 12/04/17 15:09 Dose: 50 mls/hr Ibuprofen (Motrin) 600 mg PO BID [facility] Stop: 01/21/18 08:59 Last Admin: 12/04/17 17:57 Dose: Not Given Insulin Aspart (Novolog Insulin Sliding Scale) 0 units SUBQ ACHS [facility]; Protocol Stop: 01/20/18 07:59 Last Admin: 12/04/17 20:46 Dose: 4 units Insulin Detemir (Levemir Insulin) 10 units SUBQ HS [facility]; Protocol Stop: 01/20/18 20:59 Last Admin: 12/04/17 20:47 Dose: 10 units Lactobacillus Rhamnosus (Culturelle 15b) 1 each PO DAILY [facility] Stop: 01/21/18 13:59 Last Admin: 12/04/17 08:31 Dose: 1 each Levofloxacin (Levaquin) 500 mg PO DAILY [facility] Stop: 01/31/18 08:59 Last Admin: 12/04/17 08:31 Dose: 500 mg Lisinopril (Zestril) 20 mg PO DAILY [facility] Stop: 01/26/18 08:59 Last Admin: 12/04/17 08:31 Dose: 20 mg Miscellaneous (Probiotic Screen) 1 ea PRN PRN PRN Reason: PROTOCOL Stop: 01/21/18 12:43 Nystatin (Mycostatin Cream) 1 appl TP DAILY PRN PRN Reason: Diaper Rash Stop: 01/20/18 08:59 Last Admin: 11/29/17 16:52 Dose: 1 appl Nystatin (Nystop) 100,000 units TP DAILY PRN PRN Reason: Diaper Rash Stop: 01/20/18 07:56 Pantoprazole Sodium (Protonix) 40 mg IVP DAILY [facility] Stop: 01/20/18 08:59 Last Admin: 12/04/17 08:32 Dose: 40 mg General: Alert, Oriented x3 HEENT: Atraumatic Neck: Supple Cardiovascular: Regular rate Lungs: Clear to auscultation Abdomen: Bowel sounds, Soft, no Tender, no Hepatomegaly, no Splenomegaly, no Distended, no Rebound, no Mass, no Guarding Extremities: no Clubbing, no Cyanosis, no Edema Assessment/Plan - Assessment Assessment: s/p fall homeless anemia -- s/p blood transfusion for GI workup hyponatremia -- improved hypokalemia -- improved diabetes mellitus --improved. hyperglycemia UTI/pyelonephritis -- continue IV antibiotics. ID consult tinea crurus. HTN --controlled continue with Lisinopril 20mg PO daily and HCTZ 25mg daily H/o CVA. H/o depression. 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 Neurogenic bladder. H/o Back surgery. Left forearm pain after a traumatic fall, acute fracture of ulna styloid. -- ortho consult ESBL klebsiella +blood +urine +wound ... change antibiotics per ID to Levaquin PO x 5 days. For Discharge planning to Board and Care - Plan Plan: okay to discharge patient and to follow up with PMD in 3-5 days. Arranging for possible board and care. Nutritional Asmnt/Malnutr-PDOC - Dietary Evaluation Malnutrition Findings (Please click <Entered> for more info): Nutritional Asmnt/Malnutrition Start: 11/22/17 17: 38 Text: Status: Complete Freq: Protocol: Document 11/22/17 17:38 LCHENG (Rec: 11/22/17 17:57 LCCOLLINSG ANA [id number]) Nutritional Asmnt/Malnutrition Patient General Information Nutritional Screening High Risk Diagnosis electrolyte imbalance, anemia Pertinent Medical Hx/Surgical Hx HTN, Dm, CVA/TIA, back surgery , depression Subjective Information consult received for diabetic. Pt is [place] speaking. Per EMR, Pt consumded 50% of breakfast today. Not able to provide diabetic education d/t language barrier. Current Diet Order/ Nutrition Support diabetic diet Pertinent Medications glucotrol, novolog, levemir, culturelle, protonix, piperacillin, 0.9% ns w/20 meq kcl Pertinent Labs 11/21 Na 130, K 3.3, Cl 97, glucsoe 385 11/21-11/22 POC 245-415 Nutritional Hx/Data Height 1.78 m Height (Calculated Centimeters) 177.8 Current Weight (lbs) 81.647 kg Weight (Calculated Kilograms) 81.6 Weight (Calculated Grams) 18429.6 [place] Body Weight 166 Body Mass Index (BMI) 25.8 Weight Status Overweight GI Symptoms GI Symptoms None Last BM none Difficult in: None Skin Integrity/Comment: pressure ulcer to sacrum Current %PO Fair (50-74%) Estimated Nutritional Goals BEE in Kcals: Using Current wt Calories/Kcals/Kg 25-30 Kcals Calculated 5675-6269 Protein: Using Current wt Protein g/k Protein Calculated 75 Fluid: ml 1875-2250ml (1ml/kcal) Nutritional Problem 1. Problem Problem increased nutrition needs Etiology increased metabolic needs for impaired skin integrity Signs/Symptoms: pressure ulcer to sacrum Malnutrition Alert Is there a minimum of two criteria No selected? Query Text:Check all the applicable criteria. A minimum of two criteria are recommended for diagnosis of either severe or non-severe malnutrition. Malnutrition Related to Morbid Obesity Malnutrition related to morbid obesity No Intervention/Recommendation Comments 1. Continue with diabetic diet diet as ordered. 2. Monitor PO intake, wt, labs and skin integrity 3. F/U as moderate risk in 3-5 days, 11/25-11/27, PO check Expected Outcomes/Goals Expected Outcomes/Goals 1. PO intake to meet at least 75% of nutritional needs. 2. Wt stability, skin to remain intact, labs to approach WNL.
[2017-12-05] MEDS: INSULIN ASPART SLIDING SCALE 100 UNITS/ML UNIT SUBQ SCH ×4 (08:37→20:53)
[2017-12-05] MEDS: Lactobacillus Rhamnosus GG 15 Billion CFU CAP.SPRINK PO SCH (08:38)
[2017-12-05] MEDS: D5-0.9NS w/KCL 20mEq 1,000 ML IV SCH (10:20)
[2017-12-05] MEDS: Insulin Detemir 100 units/mL 10mL Vial SUBQ SCH (20:57)
[2017-12-06] MEDS: D5-0.9NS w/KCL 20mEq 1,000 ML IV SCH (05:54)
[2017-12-06] MEDS: INSULIN ASPART SLIDING SCALE 100 UNITS/ML UNIT SUBQ SCH ×4 (06:41→20:54)
--- NOTE | 2017-12-06 08:23 | General Progress Note ---
Subjective - Review of Systems Service Date: 12/06/17 Subjective: Patient was seen and examined. Patient is resting comfortably in bed in no acute distress. +Klebsiella in urine, blood and wound. S/P surgical debridement of sacral wound. Depression noted by staff. Patient refusing to bath. Decrease appetite Objective - Results Result Diagrams: 12/01/17 05:20 12/01/17 05:20 Recent Labs: Laboratory Last Values WBC 5.9 Th/cmm (4.8-10.8) 12/01/17 05:20 RBC 3.55 Mil/cmm (4.30-5.70) L 12/01/17 05:20 Hgb 10.2 gm/dL (12-16) L 12/01/17 05:20 Hct 30.6 % (41.0-60) L 12/01/17 05:20 MCV 86.1 fl (80-99) 12/01/17 05:20 MCH 28.7 pg (26.0-30.0) 12/01/17 05:20 MCHC Differential 33.3 pg (28.0-36.0) 12/01/17 05:20 RDW 13.2 % (11.5-20.0) 12/01/17 05:20 Plt Count 325 Th/cmm (150-400) 12/01/17 05:20 MPV 6.8 fl 12/01/17 05:20 Add Manual Diff YES 11/28/17 06:33 Neutrophils % 66.0 % (40.0-80.0) 12/01/17 05:20 Band Neutrophils % 2 % (0-10) 11/28/17 06:33 Lymphocytes % 25.0 % (20.0-50.0) 12/01/17 05:20 Monocytes % 6.4 % (2.0-10.0) 12/01/17 05:20 Eosinophils % 2.1 % (0.0-5.0) 12/01/17 05:20 Basophils % 0.5 % (0.0-2.0) 12/01/17 05:20 Neutrophils (Manual) 63 % (40-80) 11/28/17 06:33 Lymphocytes 26 % (20-50) 11/28/17 06:33 Monocytes 9 % (2-10) 11/28/17 06:33 Eosinophils 0 % (0-5) 11/28/17 06:33 Basophils 0 % (0-3) 11/28/17 06:33 Platelet Estimate ADEQUATE (NORMAL) 11/24/17 05:20 PT 10.5 SECONDS (9.5-11.5) 11/24/17 05:20 INR 1.01 (0.5-1.4) 11/24/17 05:20 PTT (Actin FS) 30.1 SECONDS (26.0-38.0) 11/20/17 14:50 Sodium 137 mEq/L (136-145) 12/01/17 05:20 Potassium 3.9 mEq/L (3.5-5.1) 12/01/17 05:20 Chloride 104 mEq/L (98-107) 12/01/17 05:20 Carbon Dioxide 28.0 mEq/L (21.0-31.0) 12/01/17 05:20 Anion Gap 8.9 (7.0-16.0) 12/01/17 05:20 BUN 24 mg/dL (7-25) 12/01/17 05:20 Creatinine 0.8 mg/dL (0.7-1.3) 12/01/17 05:20 Est GFR ( Amer) > 60.0 ml/min (>90) 12/01/17 05:20 Est GFR (Non-Af Amer) > 60.0 ml/min 12/01/17 05:20 BUN/Creatinine Ratio 30.0 12/01/17 05:20 Glucose 181 mg/dL (70-105) H 12/01/17 05:20 POC Glucose 132 MG/DL (70 - 105) H 12/06/17 05:57 Calcium 8.9 mg/dL (8.6-10.3) 12/01/17 05:20 Iron 7 ug/dL (38-169) L 11/20/17 14:50 TIBC 161 ug/dL (250-450) L 11/20/17 14:50 Iron Saturation 4 % (15-55) L 11/20/17 14:50 Unsaturated IBC 154 ug/dL (111-343) 11/20/17 14:50 Total Bilirubin 0.3 mg/dL (0.3-1.0) 11/23/17 05:50 AST 11 U/L (13-39) L 11/23/17 05:50 ALT 8 U/L (7-52) 11/23/17 05:50 Alkaline Phosphatase 108 U/L (34-104) H 11/23/17 05:50 Troponin I 0.03 ng/mL (0.01-0.05) 11/20/17 14:50 B-Natriuretic Peptide 239.0 pg/mL (5.0-100.0) H 11/21/17 06:40 Total Protein 5.6 gm/dL (6.0-8.3) L 11/23/17 05:50 Albumin 2.6 gm/dL (4.2-5.5) L 11/23/17 05:50 Globulin 3.0 gm/dL 11/23/17 05:50 Albumin/Globulin Ratio 0.9 (1.0-1.8) L 11/23/17 05:50 Urine Source CATH 11/21/17 09:00 Urine Color YELLOW 11/21/17 09:00 Urine Clarity HAZY (CLEAR) 11/21/17 09:00 Urine pH 6.0 (4.6 - 8.0) 11/21/17 09:00 Ur Specific [place] 1.020 (1.005-1.030) 11/21/17 09:00 Urine Protein >=300 mg/dL (NEGATIVE) 11/21/17 09:00 Urine Glucose (UA) >=1000 mg/dL (NEGATIVE) H 11/21/17 09:00 Urine Ketones 15 mg/dL (NEGATIVE) H 11/21/17 09:00 Urine Blood LARGE (NEGATIVE) H 11/21/17 09:00 Urine Nitrate NEGATIVE (NEGATIVE) 11/21/17 09:00 Urine Bilirubin NEGATIVE (NEGATIVE) 11/21/17 09:00 Urine Urobilinogen 0.2 E.U./dL (0.2 - 1.0) 11/21/17 09:00 Ur Leukocyte Esterase MODERATE (NEGATIVE) H 11/21/17 09:00 Urine RBC 0-2 /hpf (0-5) H 11/21/17 09:00 Urine WBC 50-100 /hpf (0-5) H 11/21/17 09:00 Ur Epithelial Cells FEW /lpf (FEW) 11/21/17 09:00 Urine Bacteria MANY /hpf (NONE SEEN) H 11/21/17 09:00 HIV 1&2 Antibody Screen NEGATIVE (NEG) 11/22/17 05:40 Blood Type A POSITIVE 11/22/17 09:50 Antibody Screen NEGATIVE 11/22/17 09:50 Crossmatch See Detail 11/22/17 09:50 - Physical Exam Vitals and I&O: Vital Signs Temp 98.4 F 12/06/17 04:00 Pulse 78 12/06/17 04:00 Resp 18 12/06/17 08:00 BP 133/78 12/06/17 04:00 Pulse Ox 97 12/06/17 04:00 Intake & Output 12/05/17 12/06/17 12/06/17 18:59 06:59 18:59 Intake Total 544.761 4230.333 Output Total 2450 Balance 959.167 -721.667 Weight (lbs) 71.214 kg Intake: Intake, IV Amount 959.167 978.333 D5-0.9NS w/KCL 20mEq 1, 959.167 978.333 000 ml @ 50 mls/hr IV . Q20H [facility] Rx#:[id number] Oral 750 Output: Urine 2450 Other: # Bowel Movements 2 Stool Characteristics Soft Soft Brown Brown Weight Source Bedscale Active Medications: Current Medications Acetaminophen (Tylenol) 650 mg PO Q4H PRN PRN Reason: T=100 F Stop: 01/26/18 01:28 Last Admin: 12/04/17 12:40 Dose: 650 mg Acetaminophen/Hydrocodone Bitart (Sabael 5mg/325mg) 1 tab PO Q12HR PRN PRN Reason: Pain (Moderate) Stop: 12/06/17 14:25 Last Admin: 12/02/17 07:32 Dose: 1 tab Glipizide (Glucotrol) 10 mg PO DAILY [facility] Stop: 01/20/18 08:59 Last Admin: 12/05/17 08:39 Dose: 10 mg Hydrochlorothiazide (Hctz) 25 mg PO DAILY [facility] Stop: 01/28/18 08:59 Last Admin: 12/05/17 08:39 Dose: 25 mg Potassium Chloride/Dextrose/Sod Cl (D5-0.9ns W/Kcl 20meq) 1,000 mls @ 50 mls/ hr IV .Q20H [facility] Stop: 01/30/18 00:00 Last Admin: 12/06/17 05:54 Dose: 50 mls/hr Ibuprofen (Motrin) 600 mg PO BID [facility] Stop: 01/21/18 08:59 Last Admin: 12/05/17 17:53 Dose: Not Given Insulin Aspart (Novolog Insulin Sliding Scale) 0 units SUBQ ACHS [facility]; Protocol Stop: 01/20/18 07:59 Last Admin: 12/06/17 06:41 Dose: Not Given Insulin Detemir (Levemir Insulin) 10 units SUBQ HS [facility]; Protocol Stop: 01/20/18 20:59 Last Admin: 12/05/17 20:57 Dose: 10 units Lactobacillus Rhamnosus (Culturelle 15b) 1 each PO DAILY [facility] Stop: 01/21/18 13:59 Last Admin: 12/05/17 08:38 Dose: 1 each Levofloxacin (Levaquin) 500 mg PO DAILY [facility] Stop: 01/31/18 08:59 Last Admin: 12/05/17 08:38 Dose: 500 mg Lisinopril (Zestril) 20 mg PO DAILY [facility] Stop: 01/26/18 08:59 Last Admin: 12/05/17 08:39 Dose: 20 mg Miscellaneous (Probiotic Screen) 1 ea MC PRN PRN PRN Reason: PROTOCOL Stop: 01/21/18 12:43 Nystatin (Mycostatin Cream) 1 appl TP DAILY PRN PRN Reason: Diaper Rash Stop: 01/20/18 08:59 Last Admin: 11/29/17 16:52 Dose: 1 appl Nystatin (Nystop) 100,000 units TP DAILY PRN PRN Reason: Diaper Rash Stop: 01/20/18 07:56 Pantoprazole Sodium (Protonix) 40 mg IVP DAILY [facility] Stop: 01/20/18 08:59 Last Admin: 12/05/17 08:40 Dose: 40 mg General: Alert, Oriented x3 HEENT: Atraumatic Neck: Supple Cardiovascular: Regular rate Lungs: Clear to auscultation Abdomen: Bowel sounds, Soft, no Tender, no Hepatomegaly, no Splenomegaly, no Distended, no Rebound, no Mass, no Guarding Extremities: no Clubbing, no Cyanosis, no Edema Assessment/Plan - Assessment Assessment: s/p fall homeless anemia -- s/p blood transfusion for GI workup hyponatremia -- improved hypokalemia -- improved diabetes mellitus --improved. hyperglycemia UTI/pyelonephritis -- continue IV antibiotics. ID consult tinea crurus. HTN --controlled continue with Lisinopril 20mg PO daily and HCTZ 25mg daily H/o CVA. H/o depression. 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 Neurogenic bladder. H/o Back surgery. Left forearm pain after a traumatic fall, acute fracture of ulna styloid. -- ortho consult ESBL klebsiella +blood +urine +wound ... change antibiotics per ID to Levaquin PO x 5 days. Depression ... will order psychiatric evaluation. For Discharge planning to Board and Care - Plan Plan: okay to discharge patient and to follow up with PMD in 3-5 days. Arranging for possible board and care. Nutritional Asmnt/Malnutr-PDOC - Dietary Evaluation Malnutrition Findings (Please click <Entered> for more info): Nutritional Asmnt/Malnutrition Start: 11/22/17 17: 38 Text: Status: Complete Freq: Protocol: Document 11/22/17 17:38 [facility] (Rec: 11/22/17 17:57 [facility] ANA [id number]) Nutritional Asmnt/Malnutrition Patient General Information Nutritional Screening High Risk Diagnosis electrolyte imbalance, anemia Pertinent Medical Hx/Surgical Hx HTN, Dm, CVA/TIA, back surgery , depression Subjective Information consult received for diabetic. Pt is [place] speaking. Per EMR, Pt consumded 50% of breakfast today. Not able to provide diabetic education d/t language barrier. Current Diet Order/ Nutrition Support diabetic diet Pertinent Medications glucotrol, novolog, levemir, culturelle, protonix, piperacillin, 0.9% ns w/20 meq kcl Pertinent Labs 11/21 Na 130, K 3.3, Cl 97, glucsoe 385 11/21-11/22 POC 245-415 Nutritional Hx/Data Height 1.78 m Height (Calculated Centimeters) 177.8 Current Weight (lbs) 81.647 kg Weight (Calculated Kilograms) 81.6 Weight (Calculated Grams) 83628.6 [place] Body Weight 166 Body Mass Index (BMI) 25.8 Weight Status Overweight GI Symptoms GI Symptoms None Last BM none Difficult in: None Skin Integrity/Comment: pressure ulcer to sacrum Current %PO Fair (50-74%) Estimated Nutritional Goals BEE in Kcals: Using Current wt Calories/Kcals/Kg 25-30 Kcals Calculated 5174-1930 Protein: Using Current wt Protein g/k Protein Calculated 75 Fluid: ml 1875-2250ml (1ml/kcal) Nutritional Problem 1. Problem Problem increased nutrition needs Etiology increased metabolic needs for impaired skin integrity Signs/Symptoms: pressure ulcer to sacrum Malnutrition Alert Is there a minimum of two criteria No selected? Query Text:Check all the applicable criteria. A minimum of two criteria are recommended for diagnosis of either severe or non-severe malnutrition. Malnutrition Related to Morbid Obesity Malnutrition related to morbid obesity No Intervention/Recommendation Comments 1. Continue with diabetic diet diet as ordered. 2. Monitor PO intake, wt, labs and skin integrity 3. F/U as moderate risk in 3-5 days, 11/25-11/27, PO check Expected Outcomes/Goals Expected Outcomes/Goals 1. PO intake to meet at least 75% of nutritional needs. 2. Wt stability, skin to remain intact, labs to approach WNL.
[2017-12-06] MEDS: Lactobacillus Rhamnosus GG 15 Billion CFU CAP.SPRINK PO SCH (09:21)
[2017-12-06] MEDS: Insulin Detemir 100 units/mL 10mL Vial SUBQ SCH (20:53)
[2017-12-07] MEDS: D5-0.9NS w/KCL 20mEq 1,000 ML IV SCH (01:52)
[2017-12-07] MEDS: INSULIN ASPART SLIDING SCALE 100 UNITS/ML UNIT SUBQ SCH ×4 (07:21→20:59)
--- NOTE | 2017-12-07 08:51 | General Progress Note ---
Subjective - Review of Systems Service Date: 12/07/17 Subjective: Patient was seen and examined. Patient is resting comfortably in bed in no acute distress. +Klebsiella in urine, blood and wound. S/P surgical debridement of sacral wound. Depression noted by staff. Patient refusing to bath. Decrease appetite Objective - Results Result Diagrams: 12/01/17 05:20 12/01/17 05:20 Recent Labs: Laboratory Last Values WBC 5.9 Th/cmm (4.8-10.8) 12/01/17 05:20 RBC 3.55 Mil/cmm (4.30-5.70) L 12/01/17 05:20 Hgb 10.2 gm/dL (12-16) L 12/01/17 05:20 Hct 30.6 % (41.0-60) L 12/01/17 05:20 MCV 86.1 fl (80-99) 12/01/17 05:20 MCH 28.7 pg (26.0-30.0) 12/01/17 05:20 MCHC Differential 33.3 pg (28.0-36.0) 12/01/17 05:20 RDW 13.2 % (11.5-20.0) 12/01/17 05:20 Plt Count 325 Th/cmm (150-400) 12/01/17 05:20 MPV 6.8 fl 12/01/17 05:20 Add Manual Diff YES 11/28/17 06:33 Neutrophils % 66.0 % (40.0-80.0) 12/01/17 05:20 Band Neutrophils % 2 % (0-10) 11/28/17 06:33 Lymphocytes % 25.0 % (20.0-50.0) 12/01/17 05:20 Monocytes % 6.4 % (2.0-10.0) 12/01/17 05:20 Eosinophils % 2.1 % (0.0-5.0) 12/01/17 05:20 Basophils % 0.5 % (0.0-2.0) 12/01/17 05:20 Neutrophils (Manual) 63 % (40-80) 11/28/17 06:33 Lymphocytes 26 % (20-50) 11/28/17 06:33 Monocytes 9 % (2-10) 11/28/17 06:33 Eosinophils 0 % (0-5) 11/28/17 06:33 Basophils 0 % (0-3) 11/28/17 06:33 Platelet Estimate ADEQUATE (NORMAL) 11/24/17 05:20 PT 10.5 SECONDS (9.5-11.5) 11/24/17 05:20 INR 1.01 (0.5-1.4) 11/24/17 05:20 PTT (Actin FS) 30.1 SECONDS (26.0-38.0) 11/20/17 14:50 Sodium 137 mEq/L (136-145) 12/01/17 05:20 Potassium 3.9 mEq/L (3.5-5.1) 12/01/17 05:20 Chloride 104 mEq/L (98-107) 12/01/17 05:20 Carbon Dioxide 28.0 mEq/L (21.0-31.0) 12/01/17 05:20 Anion Gap 8.9 (7.0-16.0) 12/01/17 05:20 BUN 24 mg/dL (7-25) 12/01/17 05:20 Creatinine 0.8 mg/dL (0.7-1.3) 12/01/17 05:20 Est GFR ( Amer) > 60.0 ml/min (>90) 12/01/17 05:20 Est GFR (Non-Af Amer) > 60.0 ml/min 12/01/17 05:20 BUN/Creatinine Ratio 30.0 12/01/17 05:20 Glucose 181 mg/dL (70-105) H 12/01/17 05:20 POC Glucose 92 MG/DL (70 - 105) 12/07/17 06:28 Calcium 8.9 mg/dL (8.6-10.3) 12/01/17 05:20 Iron 7 ug/dL (38-169) L 11/20/17 14:50 TIBC 161 ug/dL (250-450) L 11/20/17 14:50 Iron Saturation 4 % (15-55) L 11/20/17 14:50 Unsaturated IBC 154 ug/dL (111-343) 11/20/17 14:50 Total Bilirubin 0.3 mg/dL (0.3-1.0) 11/23/17 05:50 AST 11 U/L (13-39) L 11/23/17 05:50 ALT 8 U/L (7-52) 11/23/17 05:50 Alkaline Phosphatase 108 U/L (34-104) H 11/23/17 05:50 Troponin I 0.03 ng/mL (0.01-0.05) 11/20/17 14:50 B-Natriuretic Peptide 239.0 pg/mL (5.0-100.0) H 11/21/17 06:40 Total Protein 5.6 gm/dL (6.0-8.3) L 11/23/17 05:50 Albumin 2.6 gm/dL (4.2-5.5) L 11/23/17 05:50 Globulin 3.0 gm/dL 11/23/17 05:50 Albumin/Globulin Ratio 0.9 (1.0-1.8) L 11/23/17 05:50 Urine Source CATH 11/21/17 09:00 Urine Color YELLOW 11/21/17 09:00 Urine Clarity HAZY (CLEAR) 11/21/17 09:00 Urine pH 6.0 (4.6 - 8.0) 11/21/17 09:00 Ur Specific [place] 1.020 (1.005-1.030) 11/21/17 09:00 Urine Protein >=300 mg/dL (NEGATIVE) 11/21/17 09:00 Urine Glucose (UA) >=1000 mg/dL (NEGATIVE) H 11/21/17 09:00 Urine Ketones 15 mg/dL (NEGATIVE) H 11/21/17 09:00 Urine Blood LARGE (NEGATIVE) H 11/21/17 09:00 Urine Nitrate NEGATIVE (NEGATIVE) 11/21/17 09:00 Urine Bilirubin NEGATIVE (NEGATIVE) 11/21/17 09:00 Urine Urobilinogen 0.2 E.U./dL (0.2 - 1.0) 11/21/17 09:00 Ur Leukocyte Esterase MODERATE (NEGATIVE) H 11/21/17 09:00 Urine RBC 0-2 /hpf (0-5) H 11/21/17 09:00 Urine WBC 50-100 /hpf (0-5) H 11/21/17 09:00 Ur Epithelial Cells FEW /lpf (FEW) 11/21/17 09:00 Urine Bacteria MANY /hpf (NONE SEEN) H 11/21/17 09:00 HIV 1&2 Antibody Screen NEGATIVE (NEG) 11/22/17 05:40 Blood Type A POSITIVE 11/22/17 09:50 Antibody Screen NEGATIVE 11/22/17 09:50 Crossmatch See Detail 11/22/17 09:50 - Physical Exam Vitals and I&O: Vital Signs Temp 97.1 F 12/07/17 08:32 Pulse 70 12/07/17 08:32 Resp 17 12/07/17 08:32 BP 152/87 12/07/17 08:32 Pulse Ox 97 12/07/17 08:32 Intake & Output 12/06/17 12/07/17 12/07/17 18:59 06:59 18:59 Intake Total 1800 998.333 Output Total 1300 Balance 500 998.333 Weight (lbs) 71.214 kg 71.804 kg Intake: Intake, IV Amount 998.333 D5-0.9NS w/KCL 20mEq 1, 998.333 000 ml @ 50 mls/hr IV . Q20H [facility] Rx#:[id number] Oral 1800 Output: Urine 1300 Other: # Voids 2 # Bowel Movements 0 1 Stool Characteristics Soft Brown Weight Source Bedscale Bedscale Active Medications: Current Medications Acetaminophen (Tylenol) 650 mg PO Q4H PRN PRN Reason: T=100 F Stop: 01/26/18 01:28 Last Admin: 12/04/17 12:40 Dose: 650 mg Glipizide (Glucotrol) 10 mg PO DAILY [facility] Stop: 01/20/18 08:59 Last Admin: 12/06/17 09:21 Dose: 10 mg Hydrochlorothiazide (Hctz) 25 mg PO DAILY [facility] Stop: 01/28/18 08:59 Last Admin: 12/06/17 09:20 Dose: 25 mg Potassium Chloride/Dextrose/Sod Cl (D5-0.9ns W/Kcl 20meq) 1,000 mls @ 50 mls/ hr IV .Q20H [facility] Stop: 01/30/18 00:00 Last Admin: 12/07/17 01:52 Dose: 50 mls/hr Ibuprofen (Motrin) 600 mg PO BID [facility] Stop: 01/21/18 08:59 Last Admin: 12/06/17 17:22 Dose: Not Given Insulin Aspart (Novolog Insulin Sliding Scale) 0 units SUBQ ACHS [facility]; Protocol Stop: 01/20/18 07:59 Last Admin: 12/07/17 07:21 Dose: Not Given Insulin Detemir (Levemir Insulin) 10 units SUBQ HS [facility]; Protocol Stop: 01/20/18 20:59 Last Admin: 12/06/17 20:53 Dose: 10 units Lactobacillus Rhamnosus (Culturelle 15b) 1 each PO DAILY [facility] Stop: 01/21/18 13:59 Last Admin: 12/06/17 09:21 Dose: 1 each Levofloxacin (Levaquin) 500 mg PO DAILY [facility] Stop: 01/31/18 08:59 Last Admin: 12/06/17 09:19 Dose: 500 mg Lisinopril (Zestril) 20 mg PO DAILY [facility] Stop: 01/26/18 08:59 Last Admin: 12/06/17 09:21 Dose: 20 mg Miscellaneous (Probiotic Screen) 1 ea MC PRN PRN PRN Reason: PROTOCOL Stop: 01/21/18 12:43 Nystatin (Mycostatin Cream) 1 appl TP DAILY PRN PRN Reason: Diaper Rash Stop: 01/20/18 08:59 Last Admin: 11/29/17 16:52 Dose: 1 appl Nystatin (Nystop) 100,000 units TP DAILY PRN PRN Reason: Diaper Rash Stop: 01/20/18 07:56 Pantoprazole Sodium (Protonix) 40 mg IVP DAILY [facility] Stop: 01/20/18 08:59 Last Admin: 12/06/17 09:21 Dose: Not Given General: Alert, Oriented x3 HEENT: Atraumatic Neck: Supple Cardiovascular: Regular rate Lungs: Clear to auscultation Abdomen: Bowel sounds, Soft, no Tender, no Hepatomegaly, no Splenomegaly, no Distended, no Rebound, no Mass, no Guarding Extremities: no Clubbing, no Cyanosis, no Edema Assessment/Plan - Assessment Assessment: s/p fall homeless anemia -- s/p blood transfusion for GI workup hyponatremia -- improved hypokalemia -- improved diabetes mellitus --improved. hyperglycemia UTI/pyelonephritis -- continue IV antibiotics. ID consult tinea crurus. HTN --controlled continue with Lisinopril 20mg PO daily and HCTZ 25mg daily H/o CVA. H/o depression. 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 Neurogenic bladder. H/o Back surgery. Left forearm pain after a traumatic fall, acute fracture of ulna styloid. -- ortho consult ESBL klebsiella +blood +urine +wound ... change antibiotics per ID to Levaquin PO x 5 days. Depression ... will order psychiatric evaluation. For Discharge planning to Board and Care - Plan Plan: okay to discharge patient and to follow up with PMD in 3-5 days. Arranging for possible board and care. Nutritional Asmnt/Malnutr-PDOC - Dietary Evaluation Malnutrition Findings (Please click <Entered> for more info): Nutritional Asmnt/Malnutrition Start: 11/22/17 17: 38 Text: Status: Complete Freq: Protocol: Document 11/22/17 17:38 [facility] (Rec: 11/22/17 17:57 [facility] [id number]) Nutritional Asmnt/Malnutrition Patient General Information Nutritional Screening High Risk Diagnosis electrolyte imbalance, anemia Pertinent Medical Hx/Surgical Hx HTN, Dm, CVA/TIA, back surgery , depression Subjective Information consult received for diabetic. Pt is [place] speaking. Per EMR, Pt consumded 50% of breakfast today. Not able to provide diabetic education d/t language barrier. Current Diet Order/ Nutrition Support diabetic diet Pertinent Medications glucotrol, novolog, levemir, culturelle, protonix, piperacillin, 0.9% ns w/20 meq kcl Pertinent Labs 11/21 Na 130, K 3.3, Cl 97, glucsoe 385 11/21-11/22 POC 245-415 Nutritional Hx/Data Height 1.78 m Height (Calculated Centimeters) 177.8 Current Weight (lbs) 81.647 kg Weight (Calculated Kilograms) 81.6 Weight (Calculated Grams) 23888.6 [place] Body Weight 166 Body Mass Index (BMI) 25.8 Weight Status Overweight GI Symptoms GI Symptoms None Last BM none Difficult in: None Skin Integrity/Comment: pressure ulcer to sacrum Current %PO Fair (50-74%) Estimated Nutritional Goals BEE in Kcals: Using Current wt Calories/Kcals/Kg 25-30 Kcals Calculated 4134-8938 Protein: Using Current wt Protein g/k Protein Calculated 75 Fluid: ml 1875-2250ml (1ml/kcal) Nutritional Problem 1. Problem Problem increased nutrition needs Etiology increased metabolic needs for impaired skin integrity Signs/Symptoms: pressure ulcer to sacrum Malnutrition Alert Is there a minimum of two criteria No selected? Query Text:Check all the applicable criteria. A minimum of two criteria are recommended for diagnosis of either severe or non-severe malnutrition. Malnutrition Related to Morbid Obesity Malnutrition related to morbid obesity No Intervention/Recommendation Comments 1. Continue with diabetic diet diet as ordered. 2. Monitor PO intake, wt, labs and skin integrity 3. F/U as moderate risk in 3-5 days, 11/25-11/27, PO check Expected Outcomes/Goals Expected Outcomes/Goals 1. PO intake to meet at least 75% of nutritional needs. 2. Wt stability, skin to remain intact, labs to approach WNL.
[2017-12-07] MEDS: Lactobacillus Rhamnosus GG 15 Billion CFU CAP.SPRINK PO SCH (08:52)
[2017-12-07] MEDS: Insulin Detemir 100 units/mL 10mL Vial SUBQ SCH (20:58)
[2017-12-08] MEDS: D5-0.9NS w/KCL 20mEq 1,000 ML IV SCH (02:25)
[2017-12-08] MEDS: INSULIN ASPART SLIDING SCALE 100 UNITS/ML UNIT SUBQ SCH ×4 (07:38→21:40)
[2017-12-08] MEDS: Lactobacillus Rhamnosus GG 15 Billion CFU CAP.SPRINK PO SCH (08:51)
--- NOTE | 2017-12-08 08:52 | General Progress Note ---
Subjective - Review of Systems Service Date: 12/08/17 Subjective: Patient was seen and examined. Patient is resting comfortably in bed in no acute distress. +Klebsiella in urine, blood and wound. S/P surgical debridement of sacral wound. Depression noted by staff. Patient refusing to bath. Decrease appetite Objective - Results Result Diagrams: 12/01/17 05:20 12/01/17 05:20 Recent Labs: Laboratory Last Values WBC 5.9 Th/cmm (4.8-10.8) 12/01/17 05:20 RBC 3.55 Mil/cmm (4.30-5.70) L 12/01/17 05:20 Hgb 10.2 gm/dL (12-16) L 12/01/17 05:20 Hct 30.6 % (41.0-60) L 12/01/17 05:20 MCV 86.1 fl (80-99) 12/01/17 05:20 MCH 28.7 pg (26.0-30.0) 12/01/17 05:20 MCHC Differential 33.3 pg (28.0-36.0) 12/01/17 05:20 RDW 13.2 % (11.5-20.0) 12/01/17 05:20 Plt Count 325 Th/cmm (150-400) 12/01/17 05:20 MPV 6.8 fl 12/01/17 05:20 Add Manual Diff YES 11/28/17 06:33 Neutrophils % 66.0 % (40.0-80.0) 12/01/17 05:20 Band Neutrophils % 2 % (0-10) 11/28/17 06:33 Lymphocytes % 25.0 % (20.0-50.0) 12/01/17 05:20 Monocytes % 6.4 % (2.0-10.0) 12/01/17 05:20 Eosinophils % 2.1 % (0.0-5.0) 12/01/17 05:20 Basophils % 0.5 % (0.0-2.0) 12/01/17 05:20 Neutrophils (Manual) 63 % (40-80) 11/28/17 06:33 Lymphocytes 26 % (20-50) 11/28/17 06:33 Monocytes 9 % (2-10) 11/28/17 06:33 Eosinophils 0 % (0-5) 11/28/17 06:33 Basophils 0 % (0-3) 11/28/17 06:33 Platelet Estimate ADEQUATE (NORMAL) 11/24/17 05:20 PT 10.5 SECONDS (9.5-11.5) 11/24/17 05:20 INR 1.01 (0.5-1.4) 11/24/17 05:20 PTT (Actin FS) 30.1 SECONDS (26.0-38.0) 11/20/17 14:50 Sodium 137 mEq/L (136-145) 12/01/17 05:20 Potassium 3.9 mEq/L (3.5-5.1) 12/01/17 05:20 Chloride 104 mEq/L (98-107) 12/01/17 05:20 Carbon Dioxide 28.0 mEq/L (21.0-31.0) 12/01/17 05:20 Anion Gap 8.9 (7.0-16.0) 12/01/17 05:20 BUN 24 mg/dL (7-25) 12/01/17 05:20 Creatinine 0.8 mg/dL (0.7-1.3) 12/01/17 05:20 Est GFR ( Amer) > 60.0 ml/min (>90) 12/01/17 05:20 Est GFR (Non-Af Amer) > 60.0 ml/min 12/01/17 05:20 BUN/Creatinine Ratio 30.0 12/01/17 05:20 Glucose 181 mg/dL (70-105) H 12/01/17 05:20 POC Glucose 177 MG/DL (70 - 105) H 12/07/17 20:56 Calcium 8.9 mg/dL (8.6-10.3) 12/01/17 05:20 Iron 7 ug/dL (38-169) L 11/20/17 14:50 TIBC 161 ug/dL (250-450) L 11/20/17 14:50 Iron Saturation 4 % (15-55) L 11/20/17 14:50 Unsaturated IBC 154 ug/dL (111-343) 11/20/17 14:50 Total Bilirubin 0.3 mg/dL (0.3-1.0) 11/23/17 05:50 AST 11 U/L (13-39) L 11/23/17 05:50 ALT 8 U/L (7-52) 11/23/17 05:50 Alkaline Phosphatase 108 U/L (34-104) H 11/23/17 05:50 Troponin I 0.03 ng/mL (0.01-0.05) 11/20/17 14:50 B-Natriuretic Peptide 239.0 pg/mL (5.0-100.0) H 11/21/17 06:40 Total Protein 5.6 gm/dL (6.0-8.3) L 11/23/17 05:50 Albumin 2.6 gm/dL (4.2-5.5) L 11/23/17 05:50 Globulin 3.0 gm/dL 11/23/17 05:50 Albumin/Globulin Ratio 0.9 (1.0-1.8) L 11/23/17 05:50 Urine Source CATH 11/21/17 09:00 Urine Color YELLOW 11/21/17 09:00 Urine Clarity HAZY (CLEAR) 11/21/17 09:00 Urine pH 6.0 (4.6 - 8.0) 11/21/17 09:00 Ur Specific [place] 1.020 (1.005-1.030) 11/21/17 09:00 Urine Protein >=300 mg/dL (NEGATIVE) 11/21/17 09:00 Urine Glucose (UA) >=1000 mg/dL (NEGATIVE) H 11/21/17 09:00 Urine Ketones 15 mg/dL (NEGATIVE) H 11/21/17 09:00 Urine Blood LARGE (NEGATIVE) H 11/21/17 09:00 Urine Nitrate NEGATIVE (NEGATIVE) 11/21/17 09:00 Urine Bilirubin NEGATIVE (NEGATIVE) 11/21/17 09:00 Urine Urobilinogen 0.2 E.U./dL (0.2 - 1.0) 11/21/17 09:00 Ur Leukocyte Esterase MODERATE (NEGATIVE) H 11/21/17 09:00 Urine RBC 0-2 /hpf (0-5) H 11/21/17 09:00 Urine WBC 50-100 /hpf (0-5) H 11/21/17 09:00 Ur Epithelial Cells FEW /lpf (FEW) 11/21/17 09:00 Urine Bacteria MANY /hpf (NONE SEEN) H 11/21/17 09:00 HIV 1&2 Antibody Screen NEGATIVE (NEG) 11/22/17 05:40 Blood Type A POSITIVE 11/22/17 09:50 Antibody Screen NEGATIVE 11/22/17 09:50 Crossmatch See Detail 11/22/17 09:50 - Physical Exam Vitals and I&O: Vital Signs Temp 99.0 F 12/08/17 07:50 Pulse 71 12/08/17 07:50 Resp 18 12/08/17 07:50 BP 121/73 12/08/17 07:50 Pulse Ox 96 12/08/17 07:50 Intake & Output 12/07/17 12/08/17 12/08/17 18:59 06:59 18:59 Intake Total 950 1000 Output Total 1750 Balance -800 1000 Weight (lbs) 71.804 kg Intake: Intake, IV Amount 1000 D5-0.9NS w/KCL 20mEq 1, 1000 000 ml @ 50 mls/hr IV . Q20H [facility] Rx#:[id number] Oral 950 Output: Urine 1750 Other: # Bowel Movements 1 Stool Characteristics Soft Soft Brown Brown Weight Source Bedscale Active Medications: Current Medications Acetaminophen (Tylenol) 650 mg PO Q4H PRN PRN Reason: T=100 F Stop: 01/26/18 01:28 Last Admin: 12/04/17 12:40 Dose: 650 mg Glipizide (Glucotrol) 10 mg PO DAILY [facility] Stop: 01/20/18 08:59 Last Admin: 12/07/17 08:52 Dose: 10 mg Hydrochlorothiazide (Hctz) 25 mg PO DAILY [facility] Stop: 01/28/18 08:59 Last Admin: 12/07/17 08:53 Dose: 25 mg Potassium Chloride/Dextrose/Sod Cl (D5-0.9ns W/Kcl 20meq) 1,000 mls @ 50 mls/ hr IV .Q20H [facility] Stop: 01/30/18 00:00 Last Admin: 12/08/17 02:25 Dose: 50 mls/hr Ibuprofen (Motrin) 600 mg PO BID [facility] Stop: 01/21/18 08:59 Last Admin: 12/07/17 17:14 Dose: Not Given Insulin Aspart (Novolog Insulin Sliding Scale) 0 units SUBQ ACHS [facility]; Protocol Stop: 01/20/18 07:59 Last Admin: 12/08/17 07:38 Dose: 2 units Insulin Detemir (Levemir Insulin) 10 units SUBQ HS [facility]; Protocol Stop: 01/20/18 20:59 Last Admin: 12/07/17 20:58 Dose: 10 units Lactobacillus Rhamnosus (Culturelle 15b) 1 each PO DAILY [facility] Stop: 01/21/18 13:59 Last Admin: 12/07/17 08:52 Dose: 1 each Levofloxacin (Levaquin) 500 mg PO DAILY [facility] Stop: 01/31/18 08:59 Last Admin: 12/07/17 08:51 Dose: 500 mg Lisinopril (Zestril) 20 mg PO DAILY [facility] Stop: 01/26/18 08:59 Last Admin: 12/07/17 08:53 Dose: 20 mg Miscellaneous (Probiotic Screen) 1 ea MC PRN PRN PRN Reason: PROTOCOL Stop: 01/21/18 12:43 Nystatin (Mycostatin Cream) 1 appl TP DAILY PRN PRN Reason: Diaper Rash Stop: 01/20/18 08:59 Last Admin: 11/29/17 16:52 Dose: 1 appl Nystatin (Nystop) 100,000 units TP DAILY PRN PRN Reason: Diaper Rash Stop: 01/20/18 07:56 Pantoprazole Sodium (Protonix) 40 mg IVP DAILY [facility] Stop: 01/20/18 08:59 Last Admin: 12/07/17 08:51 Dose: 40 mg General: Alert, Oriented x3 HEENT: Atraumatic Neck: Supple Cardiovascular: Regular rate Lungs: Clear to auscultation Abdomen: Bowel sounds, Soft, no Tender, no Hepatomegaly, no Splenomegaly, no Distended, no Rebound, no Mass, no Guarding Extremities: no Clubbing, no Cyanosis, no Edema Assessment/Plan - Assessment Assessment: s/p fall homeless anemia -- s/p blood transfusion for GI workup hyponatremia -- improved hypokalemia -- improved diabetes mellitus --improved. hyperglycemia UTI/pyelonephritis -- continue IV antibiotics. ID consult tinea crurus. HTN --controlled continue with Lisinopril 20mg PO daily and HCTZ 25mg daily H/o CVA. H/o depression. 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 Neurogenic bladder. H/o Back surgery. Left forearm pain after a traumatic fall, acute fracture of ulna styloid. -- ortho consult ESBL klebsiella +blood +urine +wound ... change antibiotics per ID to Levaquin PO x 5 days. Depression ... will order psychiatric evaluation. For Discharge planning to Board and Care - Plan Plan: okay to discharge patient and to follow up with PMD in 3-5 days. Arranging for possible board and care. Nutritional Asmnt/Malnutr-PDOC - Dietary Evaluation Malnutrition Findings (Please click <Entered> for more info): Nutritional Asmnt/Malnutrition Start: 11/22/17 17: 38 Text: Status: Complete Freq: Protocol: Document 11/22/17 17:38 LCHENG (Rec: 11/22/17 17:57 LCCOLLINSG ANA [id number]) Nutritional Asmnt/Malnutrition Patient General Information Nutritional Screening High Risk Diagnosis electrolyte imbalance, anemia Pertinent Medical Hx/Surgical Hx HTN, Dm, CVA/TIA, back surgery , depression Subjective Information consult received for diabetic. Pt is Citizen Of [place] speaking. Per EMR, Pt consumded 50% of breakfast today. Not able to provide diabetic education d/t language barrier. Current Diet Order/ Nutrition Support diabetic diet Pertinent Medications glucotrol, novolog, levemir, culturelle, protonix, piperacillin, 0.9% ns w/20 meq kcl Pertinent Labs 11/21 Na 130, K 3.3, Cl 97, glucsoe 385 11/21-11/22 POC [id number] Nutritional Hx/Data Height 1.78 m Height (Calculated Centimeters) 177.8 Current Weight (lbs) 81.647 kg Weight (Calculated Kilograms) 81.6 Weight (Calculated Grams) 57366.6 [place] Body Weight 166 Body Mass Index (BMI) 25.8 Weight Status Overweight GI Symptoms GI Symptoms None Last BM none Difficult in: None Skin Integrity/Comment: pressure ulcer to sacrum Current %PO Fair (50-74%) Estimated Nutritional Goals BEE in Kcals: Using Current wt Calories/Kcals/Kg 25-30 Kcals Calculated 7667-1395 Protein: Using Current wt Protein g/k Protein Calculated 75 Fluid: ml 1875-2250ml (1ml/kcal) Nutritional Problem 1. Problem Problem increased nutrition needs Etiology increased metabolic needs for impaired skin integrity Signs/Symptoms: pressure ulcer to sacrum Malnutrition Alert Is there a minimum of two criteria No selected? Query Text:Check all the applicable criteria. A minimum of two criteria are recommended for diagnosis of either severe or non-severe malnutrition. Malnutrition Related to Morbid Obesity Malnutrition related to morbid obesity No Intervention/Recommendation Comments 1. Continue with diabetic diet diet as ordered. 2. Monitor PO intake, wt, labs and skin integrity 3. F/U as moderate risk in 3-5 days, 11/25-11/27, PO check Expected Outcomes/Goals Expected Outcomes/Goals 1. PO intake to meet at least 75% of nutritional needs. 2. Wt stability, skin to remain intact, labs to approach WNL.
[2017-12-08] MEDS: Insulin Detemir 100 units/mL 10mL Vial SUBQ SCH (21:41)
[2017-12-09] MEDS: D5-0.9NS w/KCL 20mEq 1,000 ML IV SCH (05:38)
[2017-12-09] MEDS: INSULIN ASPART SLIDING SCALE 100 UNITS/ML UNIT SUBQ SCH ×4 (06:50→23:06)
--- NOTE | 2017-12-09 07:59 | General Progress Note ---
Subjective - Review of Systems Service Date: 12/09/17 Subjective: Patient was seen and examined. Patient is resting comfortably in bed in no acute distress. +Klebsiella in urine, blood and wound. No new changes. Objective - Results Result Diagrams: 12/01/17 05:20 12/01/17 05:20 Recent Labs: Laboratory Last Values WBC 5.9 Th/cmm (4.8-10.8) 12/01/17 05:20 RBC 3.55 Mil/cmm (4.30-5.70) L 12/01/17 05:20 Hgb 10.2 gm/dL (12-16) L 12/01/17 05:20 Hct 30.6 % (41.0-60) L 12/01/17 05:20 MCV 86.1 fl (80-99) 12/01/17 05:20 MCH 28.7 pg (26.0-30.0) 12/01/17 05:20 MCHC Differential 33.3 pg (28.0-36.0) 12/01/17 05:20 RDW 13.2 % (11.5-20.0) 12/01/17 05:20 Plt Count 325 Th/cmm (150-400) 12/01/17 05:20 MPV 6.8 fl 12/01/17 05:20 Add Manual Diff YES 11/28/17 06:33 Neutrophils % 66.0 % (40.0-80.0) 12/01/17 05:20 Band Neutrophils % 2 % (0-10) 11/28/17 06:33 Lymphocytes % 25.0 % (20.0-50.0) 12/01/17 05:20 Monocytes % 6.4 % (2.0-10.0) 12/01/17 05:20 Eosinophils % 2.1 % (0.0-5.0) 12/01/17 05:20 Basophils % 0.5 % (0.0-2.0) 12/01/17 05:20 Neutrophils (Manual) 63 % (40-80) 11/28/17 06:33 Lymphocytes 26 % (20-50) 11/28/17 06:33 Monocytes 9 % (2-10) 11/28/17 06:33 Eosinophils 0 % (0-5) 11/28/17 06:33 Basophils 0 % (0-3) 11/28/17 06:33 Platelet Estimate ADEQUATE (NORMAL) 11/24/17 05:20 PT 10.5 SECONDS (9.5-11.5) 11/24/17 05:20 INR 1.01 (0.5-1.4) 11/24/17 05:20 PTT (Actin FS) 30.1 SECONDS (26.0-38.0) 11/20/17 14:50 Sodium 137 mEq/L (136-145) 12/01/17 05:20 Potassium 3.9 mEq/L (3.5-5.1) 12/01/17 05:20 Chloride 104 mEq/L (98-107) 12/01/17 05:20 Carbon Dioxide 28.0 mEq/L (21.0-31.0) 12/01/17 05:20 Anion Gap 8.9 (7.0-16.0) 12/01/17 05:20 BUN 24 mg/dL (7-25) 12/01/17 05:20 Creatinine 0.8 mg/dL (0.7-1.3) 12/01/17 05:20 Est GFR ( Amer) > 60.0 ml/min (>90) 12/01/17 05:20 Est GFR (Non-Af Amer) > 60.0 ml/min 12/01/17 05:20 BUN/Creatinine Ratio 30.0 12/01/17 05:20 Glucose 181 mg/dL (70-105) H 12/01/17 05:20 POC Glucose 98 MG/DL (70 - 105) 12/09/17 05:36 Calcium 8.9 mg/dL (8.6-10.3) 12/01/17 05:20 Iron 7 ug/dL (38-169) L 11/20/17 14:50 TIBC 161 ug/dL (250-450) L 11/20/17 14:50 Iron Saturation 4 % (15-55) L 11/20/17 14:50 Unsaturated IBC 154 ug/dL (111-343) 11/20/17 14:50 Total Bilirubin 0.3 mg/dL (0.3-1.0) 11/23/17 05:50 AST 11 U/L (13-39) L 11/23/17 05:50 ALT 8 U/L (7-52) 11/23/17 05:50 Alkaline Phosphatase 108 U/L (34-104) H 11/23/17 05:50 Troponin I 0.03 ng/mL (0.01-0.05) 11/20/17 14:50 B-Natriuretic Peptide 239.0 pg/mL (5.0-100.0) H 11/21/17 06:40 Total Protein 5.6 gm/dL (6.0-8.3) L 11/23/17 05:50 Albumin 2.6 gm/dL (4.2-5.5) L 11/23/17 05:50 Globulin 3.0 gm/dL 11/23/17 05:50 Albumin/Globulin Ratio 0.9 (1.0-1.8) L 11/23/17 05:50 Urine Source CATH 11/21/17 09:00 Urine Color YELLOW 11/21/17 09:00 Urine Clarity HAZY (CLEAR) 11/21/17 09:00 Urine pH 6.0 (4.6 - 8.0) 11/21/17 09:00 Ur Specific [place] 1.020 (1.005-1.030) 11/21/17 09:00 Urine Protein >=300 mg/dL (NEGATIVE) 11/21/17 09:00 Urine Glucose (UA) >=1000 mg/dL (NEGATIVE) H 11/21/17 09:00 Urine Ketones 15 mg/dL (NEGATIVE) H 11/21/17 09:00 Urine Blood LARGE (NEGATIVE) H 11/21/17 09:00 Urine Nitrate NEGATIVE (NEGATIVE) 11/21/17 09:00 Urine Bilirubin NEGATIVE (NEGATIVE) 11/21/17 09:00 Urine Urobilinogen 0.2 E.U./dL (0.2 - 1.0) 11/21/17 09:00 Ur Leukocyte Esterase MODERATE (NEGATIVE) H 11/21/17 09:00 Urine RBC 0-2 /hpf (0-5) H 11/21/17 09:00 Urine WBC 50-100 /hpf (0-5) H 11/21/17 09:00 Ur Epithelial Cells FEW /lpf (FEW) 11/21/17 09:00 Urine Bacteria MANY /hpf (NONE SEEN) H 11/21/17 09:00 HIV 1&2 Antibody Screen NEGATIVE (NEG) 11/22/17 05:40 Blood Type A POSITIVE 11/22/17 09:50 Antibody Screen NEGATIVE 11/22/17 09:50 Crossmatch See Detail 11/22/17 09:50 - Physical Exam Vitals and I&O: Vital Signs Temp 98.2 F 12/09/17 04:00 Pulse 75 12/09/17 04:00 Resp 20 12/09/17 04:00 BP 128/81 12/09/17 04:00 Pulse Ox 99 12/09/17 04:00 Intake & Output 12/08/17 12/09/17 12/09/17 18:59 06:59 18:59 Intake Total 600 1000 Output Total 1500 1200 Balance -900 -200 Weight (lbs) 71.668 kg 69.445 kg Intake: Intake, IV Amount 1000 D5-0.9NS w/KCL 20mEq 1, 1000 000 ml @ 50 mls/hr IV . Q20H [facility] Rx#:[id number] Oral 600 Output: Urine 1500 1200 Other: # Bowel Movements 1 1 Stool Characteristics Soft Soft Brown Brown Weight Source Bedscale Bedscale Active Medications: Current Medications Acetaminophen (Tylenol) 650 mg PO Q4H PRN PRN Reason: T=100 F Stop: 01/26/18 01:28 Last Admin: 12/04/17 12:40 Dose: 650 mg Glipizide (Glucotrol) 10 mg PO DAILY [facility] Stop: 01/20/18 08:59 Last Admin: 12/08/17 08:52 Dose: 10 mg Hydrochlorothiazide (Hctz) 25 mg PO DAILY [facility] Stop: 01/28/18 08:59 Last Admin: 12/08/17 08:51 Dose: 25 mg Potassium Chloride/Dextrose/Sod Cl (D5-0.9ns W/Kcl 20meq) 1,000 mls @ 50 mls/ hr IV .Q20H [facility] Stop: 01/30/18 00:00 Last Admin: 12/09/17 05:38 Dose: 50 mls/hr Ibuprofen (Motrin) 600 mg PO BID [facility] Stop: 01/21/18 08:59 Last Admin: 12/08/17 16:38 Dose: 600 mg Insulin Aspart (Novolog Insulin Sliding Scale) 0 units SUBQ ACHS [facility]; Protocol Stop: 01/20/18 07:59 Last Admin: 12/09/17 06:50 Dose: Not Given Insulin Detemir (Levemir Insulin) 10 units SUBQ HS [facility]; Protocol Stop: 01/20/18 20:59 Last Admin: 12/08/17 21:41 Dose: 10 units Lactobacillus Rhamnosus (Culturelle 15b) 1 each PO DAILY [facility] Stop: 01/21/18 13:59 Last Admin: 12/08/17 08:51 Dose: 1 each Levofloxacin (Levaquin) 500 mg PO DAILY [facility] Stop: 01/31/18 08:59 Last Admin: 12/08/17 08:53 Dose: 500 mg Lisinopril (Zestril) 20 mg PO DAILY [facility] Stop: 01/26/18 08:59 Last Admin: 12/08/17 08:51 Dose: 20 mg Miscellaneous (Probiotic Screen) 1 ea MC PRN PRN PRN Reason: PROTOCOL Stop: 01/21/18 12:43 Nystatin (Mycostatin Cream) 1 appl TP DAILY PRN PRN Reason: Diaper Rash Stop: 01/20/18 08:59 Last Admin: 11/29/17 16:52 Dose: 1 appl Nystatin (Nystop) 100,000 units TP DAILY PRN PRN Reason: Diaper Rash Stop: 01/20/18 07:56 Pantoprazole Sodium (Protonix) 40 mg IVP DAILY [facility] Stop: 01/20/18 08:59 Last Admin: 12/08/17 08:54 Dose: 40 mg General: Alert, Oriented x3 HEENT: Atraumatic Neck: Supple Cardiovascular: Regular rate Lungs: Clear to auscultation Abdomen: Bowel sounds, Soft, no Tender, no Hepatomegaly, no Splenomegaly, no Distended, no Rebound, no Mass, no Guarding Extremities: no Clubbing, no Cyanosis, no Edema Assessment/Plan - Assessment Assessment: s/p fall homeless anemia -- s/p blood transfusion for GI workup hyponatremia -- improved hypokalemia -- improved diabetes mellitus --improved. hyperglycemia UTI/pyelonephritis -- continue IV antibiotics. ID consult tinea crurus. HTN --controlled continue with Lisinopril 20mg PO daily and HCTZ 25mg daily H/o CVA. H/o depression. 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 Neurogenic bladder. H/o Back surgery. Left forearm pain after a traumatic fall, acute fracture of ulna styloid. -- ortho consult ESBL klebsiella +blood +urine +wound ... change antibiotics per ID to Levaquin PO x 5 days. Depression ... will order psychiatric evaluation. For Discharge planning to Board and Care - Plan Plan: okay to discharge patient and to follow up with PMD in 3-5 days. Arranging for possible board and care. Nutritional Asmnt/Malnutr-PDOC - Dietary Evaluation Malnutrition Findings (Please click <Entered> for more info): Nutritional Asmnt/Malnutrition Start: 11/22/17 17: 38 Text: Status: Complete Freq: Protocol: Document 11/22/17 17:38 LCHENG (Rec: 11/22/17 17:57 LCCOLLINSG ANA [id number]) Nutritional Asmnt/Malnutrition Patient General Information Nutritional Screening High Risk Diagnosis electrolyte imbalance, anemia Pertinent Medical Hx/Surgical Hx HTN, Dm, CVA/TIA, back surgery , depression Subjective Information consult received for diabetic. Pt is [place] speaking. Per EMR, Pt consumded 50% of breakfast today. Not able to provide diabetic education d/t language barrier. Current Diet Order/ Nutrition Support diabetic diet Pertinent Medications glucotrol, novolog, levemir, culturelle, protonix, piperacillin, 0.9% ns w/20 meq kcl Pertinent Labs 11/21 Na 130, K 3.3, Cl 97, glucsoe 385 11/21-11/22 POC 245-415 Nutritional Hx/Data Height 1.78 m Height (Calculated Centimeters) 177.8 Current Weight (lbs) 81.647 kg Weight (Calculated Kilograms) 81.6 Weight (Calculated Grams) 57057.6 [place] Body Weight 166 Body Mass Index (BMI) 25.8 Weight Status Overweight GI Symptoms GI Symptoms None Last BM none Difficult in: None Skin Integrity/Comment: pressure ulcer to sacrum Current %PO Fair (50-74%) Estimated Nutritional Goals BEE in Kcals: Using Current wt Calories/Kcals/Kg 25-30 Kcals Calculated 4531-0764 Protein: Using Current wt Protein g/k Protein Calculated 75 Fluid: ml 1875-2250ml (1ml/kcal) Nutritional Problem 1. Problem Problem increased nutrition needs Etiology increased metabolic needs for impaired skin integrity Signs/Symptoms: pressure ulcer to sacrum Malnutrition Alert Is there a minimum of two criteria No selected? Query Text:Check all the applicable criteria. A minimum of two criteria are recommended for diagnosis of either severe or non-severe malnutrition. Malnutrition Related to Morbid Obesity Malnutrition related to morbid obesity No Intervention/Recommendation Comments 1. Continue with diabetic diet diet as ordered. 2. Monitor PO intake, wt, labs and skin integrity 3. F/U as moderate risk in 3-5 days, 11/25-11/27, PO check Expected Outcomes/Goals Expected Outcomes/Goals 1. PO intake to meet at least 75% of nutritional needs. 2. Wt stability, skin to remain intact, labs to approach WNL.
[2017-12-09] MEDS: Lactobacillus Rhamnosus GG 15 Billion CFU CAP.SPRINK PO SCH (08:53)
[2017-12-09] MEDS: NYSTATIN 100000 UNITS/GM POWD TP PRN ×2 (10:24→17:36)
--- NOTE | 2017-12-09 12:43 | Infectious Disease Prog Note ---
Infectious Disease Subjective - Review of Systems Service Date: 12/09/17 Subjective: There is no new change, no fever. Infectious Disease Objective - Results Result Diagrams: 12/01/17 05:20 12/01/17 05:20 Recent Labs: Laboratory Last Values WBC 5.9 Th/cmm (4.8-10.8) 12/01/17 05:20 RBC 3.55 Mil/cmm (4.30-5.70) L 12/01/17 05:20 Hgb 10.2 gm/dL (12-16) L 12/01/17 05:20 Hct 30.6 % (41.0-60) L 12/01/17 05:20 MCV 86.1 fl (80-99) 12/01/17 05:20 MCH 28.7 pg (26.0-30.0) 12/01/17 05:20 MCHC Differential 33.3 pg (28.0-36.0) 12/01/17 05:20 RDW 13.2 % (11.5-20.0) 12/01/17 05:20 Plt Count 325 Th/cmm (150-400) 12/01/17 05:20 MPV 6.8 fl 12/01/17 05:20 Add Manual Diff YES 11/28/17 06:33 Neutrophils % 66.0 % (40.0-80.0) 12/01/17 05:20 Band Neutrophils % 2 % (0-10) 11/28/17 06:33 Lymphocytes % 25.0 % (20.0-50.0) 12/01/17 05:20 Monocytes % 6.4 % (2.0-10.0) 12/01/17 05:20 Eosinophils % 2.1 % (0.0-5.0) 12/01/17 05:20 Basophils % 0.5 % (0.0-2.0) 12/01/17 05:20 Neutrophils (Manual) 63 % (40-80) 11/28/17 06:33 Lymphocytes 26 % (20-50) 11/28/17 06:33 Monocytes 9 % (2-10) 11/28/17 06:33 Eosinophils 0 % (0-5) 11/28/17 06:33 Basophils 0 % (0-3) 11/28/17 06:33 Platelet Estimate ADEQUATE (NORMAL) 11/24/17 05:20 PT 10.5 SECONDS (9.5-11.5) 11/24/17 05:20 INR 1.01 (0.5-1.4) 11/24/17 05:20 PTT (Actin FS) 30.1 SECONDS (26.0-38.0) 11/20/17 14:50 Sodium 137 mEq/L (136-145) 12/01/17 05:20 Potassium 3.9 mEq/L (3.5-5.1) 12/01/17 05:20 Chloride 104 mEq/L (98-107) 12/01/17 05:20 Carbon Dioxide 28.0 mEq/L (21.0-31.0) 12/01/17 05:20 Anion Gap 8.9 (7.0-16.0) 12/01/17 05:20 BUN 24 mg/dL (7-25) 12/01/17 05:20 Creatinine 0.8 mg/dL (0.7-1.3) 12/01/17 05:20 Est GFR ( Amer) > 60.0 ml/min (>90) 12/01/17 05:20 Est GFR (Non-Af Amer) > 60.0 ml/min 12/01/17 05:20 BUN/Creatinine Ratio 30.0 12/01/17 05:20 Glucose 181 mg/dL (70-105) H 12/01/17 05:20 POC Glucose 190 MG/DL (70 - 105) H 12/09/17 11:33 Calcium 8.9 mg/dL (8.6-10.3) 12/01/17 05:20 Iron 7 ug/dL (38-169) L 11/20/17 14:50 TIBC 161 ug/dL (250-450) L 11/20/17 14:50 Iron Saturation 4 % (15-55) L 11/20/17 14:50 Unsaturated IBC 154 ug/dL (111-343) 11/20/17 14:50 Total Bilirubin 0.3 mg/dL (0.3-1.0) 11/23/17 05:50 AST 11 U/L (13-39) L 11/23/17 05:50 ALT 8 U/L (7-52) 11/23/17 05:50 Alkaline Phosphatase 108 U/L (34-104) H 11/23/17 05:50 Troponin I 0.03 ng/mL (0.01-0.05) 11/20/17 14:50 B-Natriuretic Peptide 239.0 pg/mL (5.0-100.0) H 11/21/17 06:40 Total Protein 5.6 gm/dL (6.0-8.3) L 11/23/17 05:50 Albumin 2.6 gm/dL (4.2-5.5) L 11/23/17 05:50 Globulin 3.0 gm/dL 11/23/17 05:50 Albumin/Globulin Ratio 0.9 (1.0-1.8) L 11/23/17 05:50 Urine Source CATH 11/21/17 09:00 Urine Color YELLOW 11/21/17 09:00 Urine Clarity HAZY (CLEAR) 11/21/17 09:00 Urine pH 6.0 (4.6 - 8.0) 11/21/17 09:00 Ur Specific [place] 1.020 (1.005-1.030) 11/21/17 09:00 Urine Protein >=300 mg/dL (NEGATIVE) 11/21/17 09:00 Urine Glucose (UA) >=1000 mg/dL (NEGATIVE) H 11/21/17 09:00 Urine Ketones 15 mg/dL (NEGATIVE) H 11/21/17 09:00 Urine Blood LARGE (NEGATIVE) H 11/21/17 09:00 Urine Nitrate NEGATIVE (NEGATIVE) 11/21/17 09:00 Urine Bilirubin NEGATIVE (NEGATIVE) 11/21/17 09:00 Urine Urobilinogen 0.2 E.U./dL (0.2 - 1.0) 11/21/17 09:00 Ur Leukocyte Esterase MODERATE (NEGATIVE) H 11/21/17 09:00 Urine RBC 0-2 /hpf (0-5) H 11/21/17 09:00 Urine WBC 50-100 /hpf (0-5) H 11/21/17 09:00 Ur Epithelial Cells FEW /lpf (FEW) 11/21/17 09:00 Urine Bacteria MANY /hpf (NONE SEEN) H 11/21/17 09:00 HIV 1&2 Antibody Screen NEGATIVE (NEG) 11/22/17 05:40 Blood Type A POSITIVE 11/22/17 09:50 Antibody Screen NEGATIVE 11/22/17 09:50 Crossmatch See Detail 11/22/17 09:50 - Physical Exam Vitals and I&O: Vital Signs Temp 98.4 F 12/09/17 11:39 Pulse 71 12/09/17 11:39 Resp 18 12/09/17 11:39 BP 128/78 12/09/17 11:39 Pulse Ox 99 12/09/17 11:39 Intake & Output 12/08/17 12/09/17 12/09/17 18:59 06:59 18:59 Intake Total 600 1000 Output Total 1500 1200 Balance -900 -200 Weight (lbs) 71.668 kg 69.445 kg 68.991 kg Intake: Intake, IV Amount 1000 D5-0.9NS w/KCL 20mEq 1, 1000 000 ml @ 50 mls/hr IV . Q20H [facility] Rx#:[id number] Oral 600 Output: Urine 1500 1200 Other: # Bowel Movements 1 1 Stool Characteristics Soft Soft Soft Brown Brown Brown Weight Source Bedscale Bedscale Bedscale Active Medications: Current Medications Acetaminophen (Tylenol) 650 mg PO Q4H PRN PRN Reason: T=100 F Stop: 01/26/18 01:28 Last Admin: 12/04/17 12:40 Dose: 650 mg Glipizide (Glucotrol) 10 mg PO DAILY [facility] Stop: 01/20/18 08:59 Last Admin: 12/09/17 08:53 Dose: 10 mg Hydrochlorothiazide (Hctz) 25 mg PO DAILY [facility] Stop: 01/28/18 08:59 Last Admin: 12/09/17 08:52 Dose: 25 mg Ibuprofen (Motrin) 600 mg PO BID [facility] Stop: 01/21/18 08:59 Last Admin: 12/09/17 08:52 Dose: 600 mg Insulin Aspart (Novolog Insulin Sliding Scale) 0 units SUBQ ACHS [facility]; Protocol Stop: 01/20/18 07:59 Last Admin: 12/09/17 12:14 Dose: 2 units Insulin Detemir (Levemir Insulin) 10 units SUBQ HS [facility]; Protocol Stop: 01/20/18 20:59 Last Admin: 12/08/17 21:41 Dose: 10 units Lactobacillus Rhamnosus (Culturelle 15b) 1 each PO DAILY [facility] Stop: 01/21/18 13:59 Last Admin: 12/09/17 08:53 Dose: 1 each Levofloxacin (Levaquin) 500 mg PO DAILY [facility] Stop: 01/31/18 08:59 Last Admin: 12/09/17 08:53 Dose: 500 mg Lisinopril (Zestril) 20 mg PO DAILY [facility] Stop: 01/26/18 08:59 Last Admin: 12/09/17 08:54 Dose: 20 mg Miscellaneous (Probiotic Screen) 1 ea MC PRN PRN PRN Reason: PROTOCOL Stop: 01/21/18 12:43 Nystatin (Mycostatin Cream) 1 appl TP DAILY PRN PRN Reason: Diaper Rash Stop: 01/20/18 08:59 Last Admin: 11/29/17 16:52 Dose: 1 appl Nystatin (Nystop) 100,000 units TP DAILY PRN PRN Reason: Diaper Rash Stop: 01/20/18 07:56 Last Admin: 12/09/17 10:24 Dose: 100,000 units Pantoprazole Sodium (Protonix) 40 mg PO DAILY [facility] Stop: 02/08/18 08:59 General: no acute distress, well developed, well nourished HEENT: atraumatic, normocephalic, PERRLA, EOMI, moist mucous membrane Neck: supple, no thyromegaly, no lymphadenopathy Cardiovascular: S1S2, regular Lungs: clear to auscultation bilaterally, clear to percussion Infectious Disease Assmt/Plan - Assessment Assessment: 1. ESBL klebsiella bacteremia. 2. UTI/pyelonephritis. hydronephrosis resolved. 3. Tinia crurus. 4. DM2 5. HTN. 6. H/o CVA. 7. H/o depression. 8. Gluteal wound. 9. 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 10. Neurogenic bladder. 11. H/o Back surgery. 12. Left forearm pain after a traumatic fall, acute fracture of ulna styloid. - Plan Plan: Continue meropenem, will change it to levaquin po for 5 more days ( end date ). I will s/o please call me as needed. SHEILA RN. Nutritional Asmnt/Malnutr-PDOC - Dietary Evaluation Malnutrition Findings (Please click <Entered> for more info): Nutritional Asmnt/Malnutrition Start: 11/22/17 17: 38 Text: Status: Complete Freq: Protocol: Document 11/22/17 17:38 LCHENG (Rec: 11/22/17 17:57 [facility] ANA [id number]) Nutritional Asmnt/Malnutrition Patient General Information Nutritional Screening High Risk Diagnosis electrolyte imbalance, anemia Pertinent Medical Hx/Surgical Hx HTN, Dm, CVA/TIA, back surgery , depression Subjective Information consult received for diabetic. Pt is Mauritian speaking. Per EMR, Pt consumded 50% of breakfast today. Not able to provide diabetic education d/t language barrier. Current Diet Order/ Nutrition Support diabetic diet Pertinent Medications glucotrol, novolog, levemir, culturelle, protonix, piperacillin, 0.9% ns w/20 meq kcl Pertinent Labs 11/21 Na 130, K 3.3, Cl 97, glucsoe 385 11/21-11/22 POC [id number] Nutritional Hx/Data Height 1.78 m Height (Calculated Centimeters) 177.8 Current Weight (lbs) 81.647 kg Weight (Calculated Kilograms) 81.6 Weight (Calculated Grams) 88099.6 [place] Body Weight 166 Body Mass Index (BMI) 25.8 Weight Status Overweight GI Symptoms GI Symptoms None Last BM none Difficult in: None Skin Integrity/Comment: pressure ulcer to sacrum Current %PO Fair (50-74%) Estimated Nutritional Goals BEE in Kcals: Using Current wt Calories/Kcals/Kg 25-30 Kcals Calculated 2954-2689 Protein: Using Current wt Protein g/k Protein Calculated 75 Fluid: ml 1875-2250ml (1ml/kcal) Nutritional Problem 1. Problem Problem increased nutrition needs Etiology increased metabolic needs for impaired skin integrity Signs/Symptoms: pressure ulcer to sacrum Malnutrition Alert Is there a minimum of two criteria No selected? Query Text:Check all the applicable criteria. A minimum of two criteria are recommended for diagnosis of either severe or non-severe malnutrition. Malnutrition Related to Morbid Obesity Malnutrition related to morbid obesity No Intervention/Recommendation Comments 1. Continue with diabetic diet diet as ordered. 2. Monitor PO intake, wt, labs and skin integrity 3. F/U as moderate risk in 3-5 days, 11/25-11/27, PO check Expected Outcomes/Goals Expected Outcomes/Goals 1. PO intake to meet at least 75% of nutritional needs. 2. Wt stability, skin to remain intact, labs to approach WNL.
--- NOTE | 2017-12-09 12:45 | Infectious Disease Prog Note ---
Infectious Disease Subjective - Review of Systems Service Date: 12/09/17 Subjective: There is no new change, no fever. Infectious Disease Objective - Results Result Diagrams: 12/01/17 05:20 12/01/17 05:20 Recent Labs: Laboratory Last Values WBC 5.9 Th/cmm (4.8-10.8) 12/01/17 05:20 RBC 3.55 Mil/cmm (4.30-5.70) L 12/01/17 05:20 Hgb 10.2 gm/dL (12-16) L 12/01/17 05:20 Hct 30.6 % (41.0-60) L 12/01/17 05:20 MCV 86.1 fl (80-99) 12/01/17 05:20 MCH 28.7 pg (26.0-30.0) 12/01/17 05:20 MCHC Differential 33.3 pg (28.0-36.0) 12/01/17 05:20 RDW 13.2 % (11.5-20.0) 12/01/17 05:20 Plt Count 325 Th/cmm (150-400) 12/01/17 05:20 MPV 6.8 fl 12/01/17 05:20 Add Manual Diff YES 11/28/17 06:33 Neutrophils % 66.0 % (40.0-80.0) 12/01/17 05:20 Band Neutrophils % 2 % (0-10) 11/28/17 06:33 Lymphocytes % 25.0 % (20.0-50.0) 12/01/17 05:20 Monocytes % 6.4 % (2.0-10.0) 12/01/17 05:20 Eosinophils % 2.1 % (0.0-5.0) 12/01/17 05:20 Basophils % 0.5 % (0.0-2.0) 12/01/17 05:20 Neutrophils (Manual) 63 % (40-80) 11/28/17 06:33 Lymphocytes 26 % (20-50) 11/28/17 06:33 Monocytes 9 % (2-10) 11/28/17 06:33 Eosinophils 0 % (0-5) 11/28/17 06:33 Basophils 0 % (0-3) 11/28/17 06:33 Platelet Estimate ADEQUATE (NORMAL) 11/24/17 05:20 PT 10.5 SECONDS (9.5-11.5) 11/24/17 05:20 INR 1.01 (0.5-1.4) 11/24/17 05:20 PTT (Actin FS) 30.1 SECONDS (26.0-38.0) 11/20/17 14:50 Sodium 137 mEq/L (136-145) 12/01/17 05:20 Potassium 3.9 mEq/L (3.5-5.1) 12/01/17 05:20 Chloride 104 mEq/L (98-107) 12/01/17 05:20 Carbon Dioxide 28.0 mEq/L (21.0-31.0) 12/01/17 05:20 Anion Gap 8.9 (7.0-16.0) 12/01/17 05:20 BUN 24 mg/dL (7-25) 12/01/17 05:20 Creatinine 0.8 mg/dL (0.7-1.3) 12/01/17 05:20 Est GFR ( Amer) > 60.0 ml/min (>90) 12/01/17 05:20 Est GFR (Non-Af Amer) > 60.0 ml/min 12/01/17 05:20 BUN/Creatinine Ratio 30.0 12/01/17 05:20 Glucose 181 mg/dL (70-105) H 12/01/17 05:20 POC Glucose 190 MG/DL (70 - 105) H 12/09/17 11:33 Calcium 8.9 mg/dL (8.6-10.3) 12/01/17 05:20 Iron 7 ug/dL (38-169) L 11/20/17 14:50 TIBC 161 ug/dL (250-450) L 11/20/17 14:50 Iron Saturation 4 % (15-55) L 11/20/17 14:50 Unsaturated IBC 154 ug/dL (111-343) 11/20/17 14:50 Total Bilirubin 0.3 mg/dL (0.3-1.0) 11/23/17 05:50 AST 11 U/L (13-39) L 11/23/17 05:50 ALT 8 U/L (7-52) 11/23/17 05:50 Alkaline Phosphatase 108 U/L (34-104) H 11/23/17 05:50 Troponin I 0.03 ng/mL (0.01-0.05) 11/20/17 14:50 B-Natriuretic Peptide 239.0 pg/mL (5.0-100.0) H 11/21/17 06:40 Total Protein 5.6 gm/dL (6.0-8.3) L 11/23/17 05:50 Albumin 2.6 gm/dL (4.2-5.5) L 11/23/17 05:50 Globulin 3.0 gm/dL 11/23/17 05:50 Albumin/Globulin Ratio 0.9 (1.0-1.8) L 11/23/17 05:50 Urine Source CATH 11/21/17 09:00 Urine Color YELLOW 11/21/17 09:00 Urine Clarity HAZY (CLEAR) 11/21/17 09:00 Urine pH 6.0 (4.6 - 8.0) 11/21/17 09:00 Ur Specific [place] 1.020 (1.005-1.030) 11/21/17 09:00 Urine Protein >=300 mg/dL (NEGATIVE) 11/21/17 09:00 Urine Glucose (UA) >=1000 mg/dL (NEGATIVE) H 11/21/17 09:00 Urine Ketones 15 mg/dL (NEGATIVE) H 11/21/17 09:00 Urine Blood LARGE (NEGATIVE) H 11/21/17 09:00 Urine Nitrate NEGATIVE (NEGATIVE) 11/21/17 09:00 Urine Bilirubin NEGATIVE (NEGATIVE) 11/21/17 09:00 Urine Urobilinogen 0.2 E.U./dL (0.2 - 1.0) 11/21/17 09:00 Ur Leukocyte Esterase MODERATE (NEGATIVE) H 11/21/17 09:00 Urine RBC 0-2 /hpf (0-5) H 11/21/17 09:00 Urine WBC 50-100 /hpf (0-5) H 11/21/17 09:00 Ur Epithelial Cells FEW /lpf (FEW) 11/21/17 09:00 Urine Bacteria MANY /hpf (NONE SEEN) H 11/21/17 09:00 HIV 1&2 Antibody Screen NEGATIVE (NEG) 11/22/17 05:40 Blood Type A POSITIVE 11/22/17 09:50 Antibody Screen NEGATIVE 11/22/17 09:50 Crossmatch See Detail 11/22/17 09:50 - Physical Exam Vitals and I&O: Vital Signs Temp 98.4 F 12/09/17 11:39 Pulse 71 12/09/17 11:39 Resp 18 12/09/17 11:39 BP 128/78 12/09/17 11:39 Pulse Ox 99 12/09/17 11:39 Intake & Output 12/08/17 12/09/17 12/09/17 18:59 06:59 18:59 Intake Total 600 1000 Output Total 1500 1200 Balance -900 -200 Weight (lbs) 71.668 kg 69.445 kg 68.991 kg Intake: Intake, IV Amount 1000 D5-0.9NS w/KCL 20mEq 1, 1000 000 ml @ 50 mls/hr IV . Q20H [facility] Rx#:[id number] Oral 600 Output: Urine 1500 1200 Other: # Bowel Movements 1 1 Stool Characteristics Soft Soft Soft Brown Brown Brown Weight Source Bedscale Bedscale Bedscale Active Medications: Current Medications Acetaminophen (Tylenol) 650 mg PO Q4H PRN PRN Reason: T=100 F Stop: 01/26/18 01:28 Last Admin: 12/04/17 12:40 Dose: 650 mg Glipizide (Glucotrol) 10 mg PO DAILY [facility] Stop: 01/20/18 08:59 Last Admin: 12/09/17 08:53 Dose: 10 mg Hydrochlorothiazide (Hctz) 25 mg PO DAILY [facility] Stop: 01/28/18 08:59 Last Admin: 12/09/17 08:52 Dose: 25 mg Ibuprofen (Motrin) 600 mg PO BID [facility] Stop: 01/21/18 08:59 Last Admin: 12/09/17 08:52 Dose: 600 mg Insulin Aspart (Novolog Insulin Sliding Scale) 0 units SUBQ ACHS [facility]; Protocol Stop: 01/20/18 07:59 Last Admin: 12/09/17 12:14 Dose: 2 units Insulin Detemir (Levemir Insulin) 10 units SUBQ HS [facility]; Protocol Stop: 01/20/18 20:59 Last Admin: 12/08/17 21:41 Dose: 10 units Lactobacillus Rhamnosus (Culturelle 15b) 1 each PO DAILY [facility] Stop: 01/21/18 13:59 Last Admin: 12/09/17 08:53 Dose: 1 each Levofloxacin (Levaquin) 500 mg PO DAILY [facility] Stop: 01/31/18 08:59 Last Admin: 12/09/17 08:53 Dose: 500 mg Lisinopril (Zestril) 20 mg PO DAILY [facility] Stop: 01/26/18 08:59 Last Admin: 12/09/17 08:54 Dose: 20 mg Miscellaneous (Probiotic Screen) 1 ea MC PRN PRN PRN Reason: PROTOCOL Stop: 01/21/18 12:43 Nystatin (Mycostatin Cream) 1 appl TP DAILY PRN PRN Reason: Diaper Rash Stop: 01/20/18 08:59 Last Admin: 11/29/17 16:52 Dose: 1 appl Nystatin (Nystop) 100,000 units TP DAILY PRN PRN Reason: Diaper Rash Stop: 01/20/18 07:56 Last Admin: 12/09/17 10:24 Dose: 100,000 units Pantoprazole Sodium (Protonix) 40 mg PO DAILY [facility] Stop: 02/08/18 08:59 General: no acute distress, well developed, well nourished HEENT: atraumatic, normocephalic, PERRLA Neck: supple, no thyromegaly Cardiovascular: S1S2, regular Lungs: clear to auscultation bilaterally, clear to percussion Abdomen: soft, no tender, no distended, no rebound Extremities: no cyanosis, no clubbing, no edema Neurological: awake, alert, oriented Skin: intact Infectious Disease Assmt/Plan - Assessment Assessment: 1. ESBL klebsiella bacteremia. 2. UTI/pyelonephritis. hydronephrosis resolved. 3. Tinia crurus. 4. DM2 5. HTN. 6. H/o CVA. 7. H/o depression. 8. Gluteal wound. 9. 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 10. Neurogenic bladder. 11. H/o Back surgery. 12. Left forearm pain after a traumatic fall, acute fracture of ulna styloid. - Plan Plan: DC antibiotics. Nutritional Asmnt/Malnutr-PDOC - Dietary Evaluation Malnutrition Findings (Please click <Entered> for more info): Nutritional Asmnt/Malnutrition Start: 11/22/17 17: 38 Text: Status: Complete Freq: Protocol: Document 11/22/17 17:38 LCHENG (Rec: 11/22/17 17:57 [facility] ANA [id number]) Nutritional Asmnt/Malnutrition Patient General Information Nutritional Screening High Risk Diagnosis electrolyte imbalance, anemia Pertinent Medical Hx/Surgical Hx HTN, Dm, CVA/TIA, back surgery , depression Subjective Information consult received for diabetic. Pt is Armenian speaking. Per EMR, Pt consumded 50% of breakfast today. Not able to provide diabetic education d/t language barrier. Current Diet Order/ Nutrition Support diabetic diet Pertinent Medications glucotrol, novolog, levemir, culturelle, protonix, piperacillin, 0.9% ns w/20 meq kcl Pertinent Labs 11/21 Na 130, K 3.3, Cl 97, glucsoe 385 11/21-11/22 POC 245-415 Nutritional Hx/Data Height 1.78 m Height (Calculated Centimeters) 177.8 Current Weight (lbs) 81.647 kg Weight (Calculated Kilograms) 81.6 Weight (Calculated Grams) 07085.6 [place] Body Weight 166 Body Mass Index (BMI) 25.8 Weight Status Overweight GI Symptoms GI Symptoms None Last BM none Difficult in: None Skin Integrity/Comment: pressure ulcer to sacrum Current %PO Fair (50-74%) Estimated Nutritional Goals BEE in Kcals: Using Current wt Calories/Kcals/Kg 25-30 Kcals Calculated 6438-2581 Protein: Using Current wt Protein g/k Protein Calculated 75 Fluid: ml 1875-2250ml (1ml/kcal) Nutritional Problem 1. Problem Problem increased nutrition needs Etiology increased metabolic needs for impaired skin integrity Signs/Symptoms: pressure ulcer to sacrum Malnutrition Alert Is there a minimum of two criteria No selected? Query Text:Check all the applicable criteria. A minimum of two criteria are recommended for diagnosis of either severe or non-severe malnutrition. Malnutrition Related to Morbid Obesity Malnutrition related to morbid obesity No Intervention/Recommendation Comments 1. Continue with diabetic diet diet as ordered. 2. Monitor PO intake, wt, labs and skin integrity 3. F/U as moderate risk in 3-5 days, 11/25-11/27, PO check Expected Outcomes/Goals Expected Outcomes/Goals 1. PO intake to meet at least 75% of nutritional needs. 2. Wt stability, skin to remain intact, labs to approach WNL.
--- NOTE | 2017-12-09 16:21 | Pathology Report ---
[id number] Collection Date: 12/01/2017 Surgeon: Dr. Pankaj Perez Specimen Description: Debrided tissue, left hip decubitus ulcer Gross Description: Received in formalin are two thin portions of collins-du[place], necrotic appearing skin showing softening and degeneration, measuring 0.4 and 1.5 cm in greatest dimension. Behavioral Interventionist sections are submitted in one cassette. Microscopic Description: The histologic sections show portions of ulcerated, necrotic tissue with areas of acute inflammation present, consisting of large collections of neutrophils. Diagnosis: Ulcerated, necrotic tissue consistent with debridement of decubitus ulcer (left hip area). [facility]# [id number]
[2017-12-09] MEDS: Insulin Detemir 100 units/mL 10mL Vial SUBQ SCH (23:08)
--- NOTE | 2017-12-10 04:46 | General Progress Note ---
Subjective - Review of Systems Service Date: 12/10/17 Subjective: Awake,alert,afebrile. no acute distress. Objective - Results Result Diagrams: 12/01/17 05:20 12/01/17 05:20 Recent Labs: Laboratory Last Values WBC 5.9 Th/cmm (4.8-10.8) 12/01/17 05:20 RBC 3.55 Mil/cmm (4.30-5.70) L 12/01/17 05:20 Hgb 10.2 gm/dL (12-16) L 12/01/17 05:20 Hct 30.6 % (41.0-60) L 12/01/17 05:20 MCV 86.1 fl (80-99) 12/01/17 05:20 MCH 28.7 pg (26.0-30.0) 12/01/17 05:20 MCHC Differential 33.3 pg (28.0-36.0) 12/01/17 05:20 RDW 13.2 % (11.5-20.0) 12/01/17 05:20 Plt Count 325 Th/cmm (150-400) 12/01/17 05:20 MPV 6.8 fl 12/01/17 05:20 Add Manual Diff YES 11/28/17 06:33 Neutrophils % 66.0 % (40.0-80.0) 12/01/17 05:20 Band Neutrophils % 2 % (0-10) 11/28/17 06:33 Lymphocytes % 25.0 % (20.0-50.0) 12/01/17 05:20 Monocytes % 6.4 % (2.0-10.0) 12/01/17 05:20 Eosinophils % 2.1 % (0.0-5.0) 12/01/17 05:20 Basophils % 0.5 % (0.0-2.0) 12/01/17 05:20 Neutrophils (Manual) 63 % (40-80) 11/28/17 06:33 Lymphocytes 26 % (20-50) 11/28/17 06:33 Monocytes 9 % (2-10) 11/28/17 06:33 Eosinophils 0 % (0-5) 11/28/17 06:33 Basophils 0 % (0-3) 11/28/17 06:33 Platelet Estimate ADEQUATE (NORMAL) 11/24/17 05:20 PT 10.5 SECONDS (9.5-11.5) 11/24/17 05:20 INR 1.01 (0.5-1.4) 11/24/17 05:20 PTT (Actin FS) 30.1 SECONDS (26.0-38.0) 11/20/17 14:50 Sodium 137 mEq/L (136-145) 12/01/17 05:20 Potassium 3.9 mEq/L (3.5-5.1) 12/01/17 05:20 Chloride 104 mEq/L (98-107) 12/01/17 05:20 Carbon Dioxide 28.0 mEq/L (21.0-31.0) 12/01/17 05:20 Anion Gap 8.9 (7.0-16.0) 12/01/17 05:20 BUN 24 mg/dL (7-25) 12/01/17 05:20 Creatinine 0.8 mg/dL (0.7-1.3) 12/01/17 05:20 Est GFR ( Amer) > 60.0 ml/min (>90) 12/01/17 05:20 Est GFR (Non-Af Amer) > 60.0 ml/min 12/01/17 05:20 BUN/Creatinine Ratio 30.0 12/01/17 05:20 Glucose 181 mg/dL (70-105) H 12/01/17 05:20 POC Glucose 202 MG/DL (70 - 105) H 12/09/17 22:58 Calcium 8.9 mg/dL (8.6-10.3) 12/01/17 05:20 Iron 7 ug/dL (38-169) L 11/20/17 14:50 TIBC 161 ug/dL (250-450) L 11/20/17 14:50 Iron Saturation 4 % (15-55) L 11/20/17 14:50 Unsaturated IBC 154 ug/dL (111-343) 11/20/17 14:50 Total Bilirubin 0.3 mg/dL (0.3-1.0) 11/23/17 05:50 AST 11 U/L (13-39) L 11/23/17 05:50 ALT 8 U/L (7-52) 11/23/17 05:50 Alkaline Phosphatase 108 U/L (34-104) H 11/23/17 05:50 Troponin I 0.03 ng/mL (0.01-0.05) 11/20/17 14:50 B-Natriuretic Peptide 239.0 pg/mL (5.0-100.0) H 11/21/17 06:40 Total Protein 5.6 gm/dL (6.0-8.3) L 11/23/17 05:50 Albumin 2.6 gm/dL (4.2-5.5) L 11/23/17 05:50 Globulin 3.0 gm/dL 11/23/17 05:50 Albumin/Globulin Ratio 0.9 (1.0-1.8) L 11/23/17 05:50 Urine Source CATH 11/21/17 09:00 Urine Color YELLOW 11/21/17 09:00 Urine Clarity HAZY (CLEAR) 11/21/17 09:00 Urine pH 6.0 (4.6 - 8.0) 11/21/17 09:00 Ur Specific [place] 1.020 (1.005-1.030) 11/21/17 09:00 Urine Protein >=300 mg/dL (NEGATIVE) 11/21/17 09:00 Urine Glucose (UA) >=1000 mg/dL (NEGATIVE) H 11/21/17 09:00 Urine Ketones 15 mg/dL (NEGATIVE) H 11/21/17 09:00 Urine Blood LARGE (NEGATIVE) H 11/21/17 09:00 Urine Nitrate NEGATIVE (NEGATIVE) 11/21/17 09:00 Urine Bilirubin NEGATIVE (NEGATIVE) 11/21/17 09:00 Urine Urobilinogen 0.2 E.U./dL (0.2 - 1.0) 11/21/17 09:00 Ur Leukocyte Esterase MODERATE (NEGATIVE) H 11/21/17 09:00 Urine RBC 0-2 /hpf (0-5) H 11/21/17 09:00 Urine WBC 50-100 /hpf (0-5) H 11/21/17 09:00 Ur Epithelial Cells FEW /lpf (FEW) 11/21/17 09:00 Urine Bacteria MANY /hpf (NONE SEEN) H 11/21/17 09:00 HIV 1&2 Antibody Screen NEGATIVE (NEG) 11/22/17 05:40 Blood Type A POSITIVE 11/22/17 09:50 Antibody Screen NEGATIVE 11/22/17 09:50 Crossmatch See Detail 11/22/17 09:50 - Physical Exam Vitals and I&O: Vital Signs Temp 98.9 F 12/09/17 23:00 Pulse 86 12/09/17 23:00 Resp 18 12/09/17 23:00 BP 106/60 12/09/17 23:00 Pulse Ox 100 12/09/17 23:00 Intake & Output 12/09/17 12/09/17 12/10/17 06:59 18:59 06:59 Intake Total 1000 Output Total 1200 Balance -200 Weight (lbs) 69.445 kg 68.991 kg Intake: Intake, IV Amount 1000 D5-0.9NS w/KCL 20mEq 1, 1000 000 ml @ 50 mls/hr IV . Q20H [facility] Rx#:[id number] Output: Urine 1200 Other: # Bowel Movements 1 Stool Characteristics Soft Soft Soft Brown Brown Brown Weight Source Bedscale Bedscale Active Medications: Current Medications Acetaminophen (Tylenol) 650 mg PO Q4H PRN PRN Reason: T=100 F Stop: 01/26/18 01:28 Last Admin: 12/04/17 12:40 Dose: 650 mg Glipizide (Glucotrol) 10 mg PO DAILY [facility] Stop: 01/20/18 08:59 Last Admin: 12/09/17 08:53 Dose: 10 mg Hydrochlorothiazide (Hctz) 25 mg PO DAILY [facility] Stop: 01/28/18 08:59 Last Admin: 12/09/17 08:52 Dose: 25 mg Ibuprofen (Motrin) 600 mg PO BID [facility] Stop: 01/21/18 08:59 Last Admin: 12/09/17 16:52 Dose: 600 mg Insulin Aspart (Novolog Insulin Sliding Scale) 0 units SUBQ ACHS [facility]; Protocol Stop: 01/20/18 07:59 Last Admin: 12/09/17 23:06 Dose: 4 units Insulin Detemir (Levemir Insulin) 10 units SUBQ HS [facility]; Protocol Stop: 01/20/18 20:59 Last Admin: 12/09/17 23:08 Dose: 10 units Lactobacillus Rhamnosus (Culturelle 15b) 1 each PO DAILY [facility] Stop: 01/21/18 13:59 Last Admin: 12/09/17 08:53 Dose: 1 each Lisinopril (Zestril) 20 mg PO DAILY [facility] Stop: 01/26/18 08:59 Last Admin: 12/09/17 08:54 Dose: 20 mg Miscellaneous (Probiotic Screen) 1 ea MC PRN PRN PRN Reason: PROTOCOL Stop: 01/21/18 12:43 Nystatin (Mycostatin Cream) 1 appl TP DAILY PRN PRN Reason: Diaper Rash Stop: 01/20/18 08:59 Last Admin: 11/29/17 16:52 Dose: 1 appl Nystatin (Nystop) 100,000 units TP DAILY PRN PRN Reason: Diaper Rash Stop: 01/20/18 07:56 Last Admin: 12/09/17 17:36 Dose: 100,000 units Pantoprazole Sodium (Protonix) 40 mg PO DAILY [facility] Stop: 02/08/18 08:59 General: Alert, Oriented x3 HEENT: Atraumatic Neck: Supple Cardiovascular: Regular rate Lungs: Clear to auscultation Abdomen: Bowel sounds, Soft, no Tender, no Hepatomegaly, no Splenomegaly, no Distended, no Rebound, no Mass, no Guarding Extremities: no Clubbing, no Cyanosis, no Edema Assessment/Plan - Assessment Assessment: s/p fall homeless anemia -- s/p blood transfusion for GI workup hyponatremia -- improved hypokalemia -- improved diabetes mellitus --improved. hyperglycemia UTI/pyelonephritis -- continue IV antibiotics. ID consult tanya lim. HTN --controlled continue with Lisinopril 20mg PO daily and HCTZ 25mg daily H/o CVA. H/o depression. 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 Neurogenic bladder. H/o Back surgery. Left forearm pain after a traumatic fall, acute fracture of ulna styloid. -- ortho consult ESBL klebsiella +blood +urine +wound ... change antibiotics per ID to Levaquin PO x 5 days. Depression ... will order psychiatric evaluation. For Discharge planning to Board and Care - Plan Plan: okay to discharge patient and to follow up with PMD in 3-5 days. Arranging for possible board and care. Nutritional Asmnt/Malnutr-PDOC - Dietary Evaluation Malnutrition Findings (Please click <Entered> for more info): Nutritional Asmnt/Malnutrition Start: 11/22/17 17: 38 Text: Status: Complete Freq: Protocol: Document 11/22/17 17:38 LCHENG (Rec: 11/22/17 17:57 LCCOLLINSG ANA [id number]) Nutritional Asmnt/Malnutrition Patient General Information Nutritional Screening High Risk Diagnosis electrolyte imbalance, anemia Pertinent Medical Hx/Surgical Hx HTN, Dm, CVA/TIA, back surgery , depression Subjective Information consult received for diabetic. Pt is English speaking. Per EMR, Pt consumded 50% of breakfast today. Not able to provide diabetic education d/t language barrier. Current Diet Order/ Nutrition Support diabetic diet Pertinent Medications glucotrol, novolog, levemir, culturelle, protonix, piperacillin, 0.9% ns w/20 meq kcl Pertinent Labs 11/21 Na 130, K 3.3, Cl 97, glucsoe 385 11/21-11/22 POC [id number] Nutritional Hx/Data Height 1.78 m Height (Calculated Centimeters) 177.8 Current Weight (lbs) 81.647 kg Weight (Calculated Kilograms) 81.6 Weight (Calculated Grams) 12039.6 [place] Body Weight 166 Body Mass Index (BMI) 25.8 Weight Status Overweight GI Symptoms GI Symptoms None Last BM none Difficult in: None Skin Integrity/Comment: pressure ulcer to sacrum Current %PO Fair (50-74%) Estimated Nutritional Goals BEE in Kcals: Using Current wt Calories/Kcals/Kg 25-30 Kcals Calculated 6427-3129 Protein: Using Current wt Protein g/k Protein Calculated 75 Fluid: ml 1875-2250ml (1ml/kcal) Nutritional Problem 1. Problem Problem increased nutrition needs Etiology increased metabolic needs for impaired skin integrity Signs/Symptoms: pressure ulcer to sacrum Malnutrition Alert Is there a minimum of two criteria No selected? Query Text:Check all the applicable criteria. A minimum of two criteria are recommended for diagnosis of either severe or non-severe malnutrition. Malnutrition Related to Morbid Obesity Malnutrition related to morbid obesity No Intervention/Recommendation Comments 1. Continue with diabetic diet diet as ordered. 2. Monitor PO intake, wt, labs and skin integrity 3. F/U as moderate risk in 3-5 days, 11/25-11/27, PO check Expected Outcomes/Goals Expected Outcomes/Goals 1. PO intake to meet at least 75% of nutritional needs. 2. Wt stability, skin to remain intact, labs to approach WNL.
[2017-12-10] MEDS: INSULIN ASPART SLIDING SCALE 100 UNITS/ML UNIT SUBQ SCH ×4 (07:36→21:00)
[2017-12-10] MEDS: Lactobacillus Rhamnosus GG 15 Billion CFU CAP.SPRINK PO SCH (08:42)
[2017-12-10] MEDS: Pantoprazole 40 mg EC Tab PO SCH (08:42)
[2017-12-10] MEDS: Insulin Detemir 100 units/mL 10mL Vial SUBQ SCH (20:59)
[2017-12-11] MEDS: INSULIN ASPART SLIDING SCALE 100 UNITS/ML UNIT SUBQ SCH ×4 (07:52→21:32)
[2017-12-11] MEDS: Pantoprazole 40 mg EC Tab PO SCH (08:25)
[2017-12-11] MEDS: Lactobacillus Rhamnosus GG 15 Billion CFU CAP.SPRINK PO SCH (08:25)
--- NOTE | 2017-12-11 17:28 | Progress Notes ---
DATE: SUBJECTIVE: Chart reviewed and the patient interviewed. Also discussed the patient's condition with the staff and reviewed records and labs. The patient seems to be slightly confused. The patient also is anxious and is having difficulty expressing himself and expressing his feelings. Otherwise, the patient has no major behavioral problems. ASSESSMENT: Continue monitoring his behavior and continue working on adjusting psychotropic medications and followup. JOB# [id number]
[2017-12-11] MEDS: Insulin Detemir 100 units/mL 10mL Vial SUBQ SCH (21:34)
--- NOTE | 2017-12-12 05:34 | General Progress Note ---
Subjective - Review of Systems Service Date: 12/11/17 Subjective: Awake,alert,afebrile. doing fine. Objective - Results Result Diagrams: 12/01/17 05:20 12/01/17 05:20 Recent Labs: Laboratory Last Values WBC 5.9 Th/cmm (4.8-10.8) 12/01/17 05:20 RBC 3.55 Mil/cmm (4.30-5.70) L 12/01/17 05:20 Hgb 10.2 gm/dL (12-16) L 12/01/17 05:20 Hct 30.6 % (41.0-60) L 12/01/17 05:20 MCV 86.1 fl (80-99) 12/01/17 05:20 MCH 28.7 pg (26.0-30.0) 12/01/17 05:20 MCHC Differential 33.3 pg (28.0-36.0) 12/01/17 05:20 RDW 13.2 % (11.5-20.0) 12/01/17 05:20 Plt Count 325 Th/cmm (150-400) 12/01/17 05:20 MPV 6.8 fl 12/01/17 05:20 Add Manual Diff YES 11/28/17 06:33 Neutrophils % 66.0 % (40.0-80.0) 12/01/17 05:20 Band Neutrophils % 2 % (0-10) 11/28/17 06:33 Lymphocytes % 25.0 % (20.0-50.0) 12/01/17 05:20 Monocytes % 6.4 % (2.0-10.0) 12/01/17 05:20 Eosinophils % 2.1 % (0.0-5.0) 12/01/17 05:20 Basophils % 0.5 % (0.0-2.0) 12/01/17 05:20 Neutrophils (Manual) 63 % (40-80) 11/28/17 06:33 Lymphocytes 26 % (20-50) 11/28/17 06:33 Monocytes 9 % (2-10) 11/28/17 06:33 Eosinophils 0 % (0-5) 11/28/17 06:33 Basophils 0 % (0-3) 11/28/17 06:33 Platelet Estimate ADEQUATE (NORMAL) 11/24/17 05:20 PT 10.5 SECONDS (9.5-11.5) 11/24/17 05:20 INR 1.01 (0.5-1.4) 11/24/17 05:20 PTT (Actin FS) 30.1 SECONDS (26.0-38.0) 11/20/17 14:50 Sodium 137 mEq/L (136-145) 12/01/17 05:20 Potassium 3.9 mEq/L (3.5-5.1) 12/01/17 05:20 Chloride 104 mEq/L (98-107) 12/01/17 05:20 Carbon Dioxide 28.0 mEq/L (21.0-31.0) 12/01/17 05:20 Anion Gap 8.9 (7.0-16.0) 12/01/17 05:20 BUN 24 mg/dL (7-25) 12/01/17 05:20 Creatinine 0.8 mg/dL (0.7-1.3) 12/01/17 05:20 Est GFR ( Amer) > 60.0 ml/min (>90) 12/01/17 05:20 Est GFR (Non-Af Amer) > 60.0 ml/min 12/01/17 05:20 BUN/Creatinine Ratio 30.0 12/01/17 05:20 Glucose 181 mg/dL (70-105) H 12/01/17 05:20 POC Glucose 244 MG/DL (70 - 105) H 12/11/17 21:28 Calcium 8.9 mg/dL (8.6-10.3) 12/01/17 05:20 Iron 7 ug/dL (38-169) L 11/20/17 14:50 TIBC 161 ug/dL (250-450) L 11/20/17 14:50 Iron Saturation 4 % (15-55) L 11/20/17 14:50 Unsaturated IBC 154 ug/dL (111-343) 11/20/17 14:50 Total Bilirubin 0.3 mg/dL (0.3-1.0) 11/23/17 05:50 AST 11 U/L (13-39) L 11/23/17 05:50 ALT 8 U/L (7-52) 11/23/17 05:50 Alkaline Phosphatase 108 U/L (34-104) H 11/23/17 05:50 Troponin I 0.03 ng/mL (0.01-0.05) 11/20/17 14:50 B-Natriuretic Peptide 239.0 pg/mL (5.0-100.0) H 11/21/17 06:40 Total Protein 5.6 gm/dL (6.0-8.3) L 11/23/17 05:50 Albumin 2.6 gm/dL (4.2-5.5) L 11/23/17 05:50 Globulin 3.0 gm/dL 11/23/17 05:50 Albumin/Globulin Ratio 0.9 (1.0-1.8) L 11/23/17 05:50 Urine Source CATH 11/21/17 09:00 Urine Color YELLOW 11/21/17 09:00 Urine Clarity HAZY (CLEAR) 11/21/17 09:00 Urine pH 6.0 (4.6 - 8.0) 11/21/17 09:00 Ur Specific [place] 1.020 (1.005-1.030) 11/21/17 09:00 Urine Protein >=300 mg/dL (NEGATIVE) 11/21/17 09:00 Urine Glucose (UA) >=1000 mg/dL (NEGATIVE) H 11/21/17 09:00 Urine Ketones 15 mg/dL (NEGATIVE) H 11/21/17 09:00 Urine Blood LARGE (NEGATIVE) H 11/21/17 09:00 Urine Nitrate NEGATIVE (NEGATIVE) 11/21/17 09:00 Urine Bilirubin NEGATIVE (NEGATIVE) 11/21/17 09:00 Urine Urobilinogen 0.2 E.U./dL (0.2 - 1.0) 11/21/17 09:00 Ur Leukocyte Esterase MODERATE (NEGATIVE) H 11/21/17 09:00 Urine RBC 0-2 /hpf (0-5) H 11/21/17 09:00 Urine WBC 50-100 /hpf (0-5) H 11/21/17 09:00 Ur Epithelial Cells FEW /lpf (FEW) 11/21/17 09:00 Urine Bacteria MANY /hpf (NONE SEEN) H 11/21/17 09:00 HIV 1&2 Antibody Screen NEGATIVE (NEG) 11/22/17 05:40 Blood Type A POSITIVE 11/22/17 09:50 Antibody Screen NEGATIVE 11/22/17 09:50 Crossmatch See Detail 11/22/17 09:50 - Physical Exam Vitals and I&O: Vital Signs Temp 97.9 F 12/12/17 04:00 Pulse 74 12/12/17 04:00 Resp 18 12/12/17 04:00 BP 108/57 12/12/17 04:00 Pulse Ox 97 12/12/17 04:00 Intake & Output 12/11/17 12/11/17 12/12/17 06:59 18:59 06:59 Intake Total 200 700 500 Output Total 1900 900 950 Balance -1700 -200 -450 Weight (lbs) 68.039 kg 68.039 kg 68.039 kg Intake: Oral 200 700 500 Output: Urine 1900 900 950 Other: # Bowel Movements 1 1 Stool Characteristics Soft Soft Brown Brown Weight Source Bedscale Bedscale Bedscale Active Medications: Current Medications Acetaminophen (Tylenol) 650 mg PO Q4H PRN PRN Reason: T=100 F Stop: 01/26/18 01:28 Last Admin: 12/04/17 12:40 Dose: 650 mg Glipizide (Glucotrol) 10 mg PO DAILY [facility] Stop: 01/20/18 08:59 Last Admin: 12/11/17 08:24 Dose: 10 mg Hydrochlorothiazide (Hctz) 25 mg PO DAILY [facility] Stop: 01/28/18 08:59 Last Admin: 12/11/17 08:25 Dose: 25 mg Ibuprofen (Motrin) 600 mg PO BID [facility] Stop: 01/21/18 08:59 Last Admin: 12/11/17 16:08 Dose: Not Given Insulin Aspart (Novolog Insulin Sliding Scale) 0 units SUBQ ACHS [facility]; Protocol Stop: 01/20/18 07:59 Last Admin: 12/11/17 21:32 Dose: 4 units Insulin Detemir (Levemir Insulin) 10 units SUBQ HS [facility]; Protocol Stop: 01/20/18 20:59 Last Admin: 12/11/17 21:34 Dose: 10 units Lactobacillus Rhamnosus (Culturelle 15b) 1 each PO DAILY [facility] Stop: 01/21/18 13:59 Last Admin: 12/11/17 08:25 Dose: 1 each Lisinopril (Zestril) 20 mg PO DAILY [facility] Stop: 01/26/18 08:59 Last Admin: 12/11/17 08:24 Dose: 20 mg Miscellaneous (Probiotic Screen) 1 ea MC PRN PRN PRN Reason: PROTOCOL Stop: 01/21/18 12:43 Nystatin (Mycostatin Cream) 1 appl TP DAILY PRN PRN Reason: Diaper Rash Stop: 01/20/18 08:59 Last Admin: 11/29/17 16:52 Dose: 1 appl Nystatin (Nystop) 100,000 units TP DAILY PRN PRN Reason: Diaper Rash Stop: 01/20/18 07:56 Last Admin: 12/09/17 17:36 Dose: 100,000 units Pantoprazole Sodium (Protonix) 40 mg PO DAILY [facility] Stop: 02/08/18 08:59 Last Admin: 12/11/17 08:25 Dose: 40 mg General: Alert, Oriented x3 HEENT: Atraumatic Neck: Supple Cardiovascular: Regular rate Lungs: Clear to auscultation Abdomen: Bowel sounds, Soft, no Tender, no Hepatomegaly, no Splenomegaly, no Distended, no Rebound, no Mass, no Guarding Extremities: no Clubbing, no Cyanosis, no Edema Assessment/Plan - Assessment Assessment: s/p fall homeless anemia -- s/p blood transfusion for GI workup hyponatremia -- improved hypokalemia -- improved diabetes mellitus --improved. hyperglycemia UTI/pyelonephritis -- continue IV antibiotics. ID consult tinhalie lim. HTN --controlled continue with Lisinopril 20mg PO daily and HCTZ 25mg daily H/o CVA. H/o depression. 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 Neurogenic bladder. H/o Back surgery. Left forearm pain after a traumatic fall, acute fracture of ulna styloid. -- ortho consult ESBL klebsiella +blood +urine +wound ... change antibiotics per ID to Levaquin PO x 5 days. Depression ... will order psychiatric evaluation. For Discharge planning to Board and Care - Plan Plan: okay to discharge patient and to follow up with PMD in 3-5 days. Arranging for possible board and care. Nutritional Asmnt/Malnutr-PDOC - Dietary Evaluation Malnutrition Findings (Please click <Entered> for more info): Nutritional Asmnt/Malnutrition Start: 11/22/17 17: 38 Text: Status: Complete Freq: Protocol: Document 11/22/17 17:38 LCHENG (Rec: 11/22/17 17:57 LCCOLLINSG ANA [id number]) Nutritional Asmnt/Malnutrition Patient General Information Nutritional Screening High Risk Diagnosis electrolyte imbalance, anemia Pertinent Medical Hx/Surgical Hx HTN, Dm, CVA/TIA, back surgery , depression Subjective Information consult received for diabetic. Pt is Mong[place]ian speaking. Per EMR, Pt consumded 50% of breakfast today. Not able to provide diabetic education d/t language barrier. Current Diet Order/ Nutrition Support diabetic diet Pertinent Medications glucotrol, novolog, levemir, culturelle, protonix, piperacillin, 0.9% ns w/20 meq kcl Pertinent Labs 11/21 Na 130, K 3.3, Cl 97, glucsoe 385 11/21-11/22 POC [id number] Nutritional Hx/Data Height 1.78 m Height (Calculated Centimeters) 177.8 Current Weight (lbs) 81.647 kg Weight (Calculated Kilograms) 81.6 Weight (Calculated Grams) 79225.6 [place] Body Weight 166 Body Mass Index (BMI) 25.8 Weight Status Overweight GI Symptoms GI Symptoms None Last BM none Difficult in: None Skin Integrity/Comment: pressure ulcer to sacrum Current %PO Fair (50-74%) Estimated Nutritional Goals BEE in Kcals: Using Current wt Calories/Kcals/Kg 25-30 Kcals Calculated 9977-0812 Protein: Using Current wt Protein g/k Protein Calculated 75 Fluid: ml 1875-2250ml (1ml/kcal) Nutritional Problem 1. Problem Problem increased nutrition needs Etiology increased metabolic needs for impaired skin integrity Signs/Symptoms: pressure ulcer to sacrum Malnutrition Alert Is there a minimum of two criteria No selected? Query Text:Check all the applicable criteria. A minimum of two criteria are recommended for diagnosis of either severe or non-severe malnutrition. Malnutrition Related to Morbid Obesity Malnutrition related to morbid obesity No Intervention/Recommendation Comments 1. Continue with diabetic diet diet as ordered. 2. Monitor PO intake, wt, labs and skin integrity 3. F/U as moderate risk in 3-5 days, 11/25-11/27, PO check Expected Outcomes/Goals Expected Outcomes/Goals 1. PO intake to meet at least 75% of nutritional needs. 2. Wt stability, skin to remain intact, labs to approach WNL.
--- NOTE | 2017-12-12 05:34 | General Progress Note ---
Subjective - Review of Systems Service Date: 12/12/17 Subjective: Awake,alert, afebrile. no new complaints Objective - Results Result Diagrams: 12/01/17 05:20 12/01/17 05:20 Recent Labs: Laboratory Last Values WBC 5.9 Th/cmm (4.8-10.8) 12/01/17 05:20 RBC 3.55 Mil/cmm (4.30-5.70) L 12/01/17 05:20 Hgb 10.2 gm/dL (12-16) L 12/01/17 05:20 Hct 30.6 % (41.0-60) L 12/01/17 05:20 MCV 86.1 fl (80-99) 12/01/17 05:20 MCH 28.7 pg (26.0-30.0) 12/01/17 05:20 MCHC Differential 33.3 pg (28.0-36.0) 12/01/17 05:20 RDW 13.2 % (11.5-20.0) 12/01/17 05:20 Plt Count 325 Th/cmm (150-400) 12/01/17 05:20 MPV 6.8 fl 12/01/17 05:20 Add Manual Diff YES 11/28/17 06:33 Neutrophils % 66.0 % (40.0-80.0) 12/01/17 05:20 Band Neutrophils % 2 % (0-10) 11/28/17 06:33 Lymphocytes % 25.0 % (20.0-50.0) 12/01/17 05:20 Monocytes % 6.4 % (2.0-10.0) 12/01/17 05:20 Eosinophils % 2.1 % (0.0-5.0) 12/01/17 05:20 Basophils % 0.5 % (0.0-2.0) 12/01/17 05:20 Neutrophils (Manual) 63 % (40-80) 11/28/17 06:33 Lymphocytes 26 % (20-50) 11/28/17 06:33 Monocytes 9 % (2-10) 11/28/17 06:33 Eosinophils 0 % (0-5) 11/28/17 06:33 Basophils 0 % (0-3) 11/28/17 06:33 Platelet Estimate ADEQUATE (NORMAL) 11/24/17 05:20 PT 10.5 SECONDS (9.5-11.5) 11/24/17 05:20 INR 1.01 (0.5-1.4) 11/24/17 05:20 PTT (Actin FS) 30.1 SECONDS (26.0-38.0) 11/20/17 14:50 Sodium 137 mEq/L (136-145) 12/01/17 05:20 Potassium 3.9 mEq/L (3.5-5.1) 12/01/17 05:20 Chloride 104 mEq/L (98-107) 12/01/17 05:20 Carbon Dioxide 28.0 mEq/L (21.0-31.0) 12/01/17 05:20 Anion Gap 8.9 (7.0-16.0) 12/01/17 05:20 BUN 24 mg/dL (7-25) 12/01/17 05:20 Creatinine 0.8 mg/dL (0.7-1.3) 12/01/17 05:20 Est GFR ( Amer) > 60.0 ml/min (>90) 12/01/17 05:20 Est GFR (Non-Af Amer) > 60.0 ml/min 12/01/17 05:20 BUN/Creatinine Ratio 30.0 12/01/17 05:20 Glucose 181 mg/dL (70-105) H 12/01/17 05:20 POC Glucose 244 MG/DL (70 - 105) H 12/11/17 21:28 Calcium 8.9 mg/dL (8.6-10.3) 12/01/17 05:20 Iron 7 ug/dL (38-169) L 11/20/17 14:50 TIBC 161 ug/dL (250-450) L 11/20/17 14:50 Iron Saturation 4 % (15-55) L 11/20/17 14:50 Unsaturated IBC 154 ug/dL (111-343) 11/20/17 14:50 Total Bilirubin 0.3 mg/dL (0.3-1.0) 11/23/17 05:50 AST 11 U/L (13-39) L 11/23/17 05:50 ALT 8 U/L (7-52) 11/23/17 05:50 Alkaline Phosphatase 108 U/L (34-104) H 11/23/17 05:50 Troponin I 0.03 ng/mL (0.01-0.05) 11/20/17 14:50 B-Natriuretic Peptide 239.0 pg/mL (5.0-100.0) H 11/21/17 06:40 Total Protein 5.6 gm/dL (6.0-8.3) L 11/23/17 05:50 Albumin 2.6 gm/dL (4.2-5.5) L 11/23/17 05:50 Globulin 3.0 gm/dL 11/23/17 05:50 Albumin/Globulin Ratio 0.9 (1.0-1.8) L 11/23/17 05:50 Urine Source CATH 11/21/17 09:00 Urine Color YELLOW 11/21/17 09:00 Urine Clarity HAZY (CLEAR) 11/21/17 09:00 Urine pH 6.0 (4.6 - 8.0) 11/21/17 09:00 Ur Specific [place] 1.020 (1.005-1.030) 11/21/17 09:00 Urine Protein >=300 mg/dL (NEGATIVE) 11/21/17 09:00 Urine Glucose (UA) >=1000 mg/dL (NEGATIVE) H 11/21/17 09:00 Urine Ketones 15 mg/dL (NEGATIVE) H 11/21/17 09:00 Urine Blood LARGE (NEGATIVE) H 11/21/17 09:00 Urine Nitrate NEGATIVE (NEGATIVE) 11/21/17 09:00 Urine Bilirubin NEGATIVE (NEGATIVE) 11/21/17 09:00 Urine Urobilinogen 0.2 E.U./dL (0.2 - 1.0) 11/21/17 09:00 Ur Leukocyte Esterase MODERATE (NEGATIVE) H 11/21/17 09:00 Urine RBC 0-2 /hpf (0-5) H 11/21/17 09:00 Urine WBC 50-100 /hpf (0-5) H 11/21/17 09:00 Ur Epithelial Cells FEW /lpf (FEW) 11/21/17 09:00 Urine Bacteria MANY /hpf (NONE SEEN) H 11/21/17 09:00 HIV 1&2 Antibody Screen NEGATIVE (NEG) 11/22/17 05:40 Blood Type A POSITIVE 11/22/17 09:50 Antibody Screen NEGATIVE 11/22/17 09:50 Crossmatch See Detail 11/22/17 09:50 - Physical Exam Vitals and I&O: Vital Signs Temp 97.9 F 12/12/17 04:00 Pulse 74 12/12/17 04:00 Resp 18 12/12/17 04:00 BP 108/57 12/12/17 04:00 Pulse Ox 97 12/12/17 04:00 Intake & Output 12/11/17 12/11/17 12/12/17 06:59 18:59 06:59 Intake Total 200 700 500 Output Total 1900 900 950 Balance -1700 -200 -450 Weight (lbs) 68.039 kg 68.039 kg 68.039 kg Intake: Oral 200 700 500 Output: Urine 1900 900 950 Other: # Bowel Movements 1 1 Stool Characteristics Soft Soft Brown Brown Weight Source Bedscale Bedscale Bedscale Active Medications: Current Medications Acetaminophen (Tylenol) 650 mg PO Q4H PRN PRN Reason: T=100 F Stop: 01/26/18 01:28 Last Admin: 12/04/17 12:40 Dose: 650 mg Glipizide (Glucotrol) 10 mg PO DAILY [facility] Stop: 01/20/18 08:59 Last Admin: 12/11/17 08:24 Dose: 10 mg Hydrochlorothiazide (Hctz) 25 mg PO DAILY [facility] Stop: 01/28/18 08:59 Last Admin: 12/11/17 08:25 Dose: 25 mg Ibuprofen (Motrin) 600 mg PO BID [facility] Stop: 01/21/18 08:59 Last Admin: 12/11/17 16:08 Dose: Not Given Insulin Aspart (Novolog Insulin Sliding Scale) 0 units SUBQ ACHS [facility]; Protocol Stop: 01/20/18 07:59 Last Admin: 12/11/17 21:32 Dose: 4 units Insulin Detemir (Levemir Insulin) 10 units SUBQ HS [facility]; Protocol Stop: 01/20/18 20:59 Last Admin: 12/11/17 21:34 Dose: 10 units Lactobacillus Rhamnosus (Culturelle 15b) 1 each PO DAILY [facility] Stop: 01/21/18 13:59 Last Admin: 12/11/17 08:25 Dose: 1 each Lisinopril (Zestril) 20 mg PO DAILY [facility] Stop: 01/26/18 08:59 Last Admin: 12/11/17 08:24 Dose: 20 mg Miscellaneous (Probiotic Screen) 1 ea MC PRN PRN PRN Reason: PROTOCOL Stop: 01/21/18 12:43 Nystatin (Mycostatin Cream) 1 appl TP DAILY PRN PRN Reason: Diaper Rash Stop: 01/20/18 08:59 Last Admin: 11/29/17 16:52 Dose: 1 appl Nystatin (Nystop) 100,000 units TP DAILY PRN PRN Reason: Diaper Rash Stop: 01/20/18 07:56 Last Admin: 12/09/17 17:36 Dose: 100,000 units Pantoprazole Sodium (Protonix) 40 mg PO DAILY [facility] Stop: 02/08/18 08:59 Last Admin: 12/11/17 08:25 Dose: 40 mg General: Alert, Oriented x3 HEENT: Atraumatic Neck: Supple Cardiovascular: Regular rate Lungs: Clear to auscultation Abdomen: Bowel sounds, Soft, no Tender, no Hepatomegaly, no Splenomegaly, no Distended, no Rebound, no Mass, no Guarding Extremities: no Clubbing, no Cyanosis, no Edema Assessment/Plan - Assessment Assessment: s/p fall homeless anemia -- s/p blood transfusion for GI workup hyponatremia -- improved hypokalemia -- improved diabetes mellitus --improved. hyperglycemia UTI/pyelonephritis -- continue IV antibiotics. ID consult tinhalie lim. HTN --controlled continue with Lisinopril 20mg PO daily and HCTZ 25mg daily H/o CVA. H/o depression. 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 Neurogenic bladder. H/o Back surgery. Left forearm pain after a traumatic fall, acute fracture of ulna styloid. -- ortho consult ESBL klebsiella +blood +urine +wound ... change antibiotics per ID to Levaquin PO x 5 days. Depression ... will order psychiatric evaluation. For Discharge planning to Board and Care - Plan Plan: okay to discharge patient and to follow up with PMD in 3-5 days. Arranging for possible board and care. Nutritional Asmnt/Malnutr-PDOC - Dietary Evaluation Malnutrition Findings (Please click <Entered> for more info): Nutritional Asmnt/Malnutrition Start: 11/22/17 17: 38 Text: Status: Complete Freq: Protocol: Document 11/22/17 17:38 LCHENG (Rec: 11/22/17 17:57 LCCOLLINSG ANA [id number]) Nutritional Asmnt/Malnutrition Patient General Information Nutritional Screening High Risk Diagnosis electrolyte imbalance, anemia Pertinent Medical Hx/Surgical Hx HTN, Dm, CVA/TIA, back surgery , depression Subjective Information consult received for diabetic. Pt is [place] speaking. Per EMR, Pt consumded 50% of breakfast today. Not able to provide diabetic education d/t language barrier. Current Diet Order/ Nutrition Support diabetic diet Pertinent Medications glucotrol, novolog, levemir, culturelle, protonix, piperacillin, 0.9% ns w/20 meq kcl Pertinent Labs 11/21 Na 130, K 3.3, Cl 97, glucsoe 385 11/21-11/22 POC [id number] Nutritional Hx/Data Height 1.78 m Height (Calculated Centimeters) 177.8 Current Weight (lbs) 81.647 kg Weight (Calculated Kilograms) 81.6 Weight (Calculated Grams) 15768.6 [place] Body Weight 166 Body Mass Index (BMI) 25.8 Weight Status Overweight GI Symptoms GI Symptoms None Last BM none Difficult in: None Skin Integrity/Comment: pressure ulcer to sacrum Current %PO Fair (50-74%) Estimated Nutritional Goals BEE in Kcals: Using Current wt Calories/Kcals/Kg 25-30 Kcals Calculated 3362-2533 Protein: Using Current wt Protein g/k Protein Calculated 75 Fluid: ml 1875-2250ml (1ml/kcal) Nutritional Problem 1. Problem Problem increased nutrition needs Etiology increased metabolic needs for impaired skin integrity Signs/Symptoms: pressure ulcer to sacrum Malnutrition Alert Is there a minimum of two criteria No selected? Query Text:Check all the applicable criteria. A minimum of two criteria are recommended for diagnosis of either severe or non-severe malnutrition. Malnutrition Related to Morbid Obesity Malnutrition related to morbid obesity No Intervention/Recommendation Comments 1. Continue with diabetic diet diet as ordered. 2. Monitor PO intake, wt, labs and skin integrity 3. F/U as moderate risk in 3-5 days, 11/25-11/27, PO check Expected Outcomes/Goals Expected Outcomes/Goals 1. PO intake to meet at least 75% of nutritional needs. 2. Wt stability, skin to remain intact, labs to approach WNL.
[2017-12-12] MEDS: INSULIN ASPART SLIDING SCALE 100 UNITS/ML UNIT SUBQ SCH ×4 (06:30→20:46)
[2017-12-12] MEDS: Lactobacillus Rhamnosus GG 15 Billion CFU CAP.SPRINK PO SCH (10:22)
[2017-12-12] MEDS: Pantoprazole 40 mg EC Tab PO SCH (10:23)
[2017-12-12] MEDS: Insulin Detemir 100 units/mL 10mL Vial SUBQ SCH (20:47)
--- NOTE | 2017-12-13 08:10 | General Progress Note ---
Subjective - Review of Systems Service Date: 12/13/17 Subjective: Awake,alert, afebrile. no new complaints. BS slightly elevated. Objective - Results Result Diagrams: 12/01/17 05:20 12/01/17 05:20 Recent Labs: Laboratory Last Values WBC 5.9 Th/cmm (4.8-10.8) 12/01/17 05:20 RBC 3.55 Mil/cmm (4.30-5.70) L 12/01/17 05:20 Hgb 10.2 gm/dL (12-16) L 12/01/17 05:20 Hct 30.6 % (41.0-60) L 12/01/17 05:20 MCV 86.1 fl (80-99) 12/01/17 05:20 MCH 28.7 pg (26.0-30.0) 12/01/17 05:20 MCHC Differential 33.3 pg (28.0-36.0) 12/01/17 05:20 RDW 13.2 % (11.5-20.0) 12/01/17 05:20 Plt Count 325 Th/cmm (150-400) 12/01/17 05:20 MPV 6.8 fl 12/01/17 05:20 Add Manual Diff YES 11/28/17 06:33 Neutrophils % 66.0 % (40.0-80.0) 12/01/17 05:20 Band Neutrophils % 2 % (0-10) 11/28/17 06:33 Lymphocytes % 25.0 % (20.0-50.0) 12/01/17 05:20 Monocytes % 6.4 % (2.0-10.0) 12/01/17 05:20 Eosinophils % 2.1 % (0.0-5.0) 12/01/17 05:20 Basophils % 0.5 % (0.0-2.0) 12/01/17 05:20 Neutrophils (Manual) 63 % (40-80) 11/28/17 06:33 Lymphocytes 26 % (20-50) 11/28/17 06:33 Monocytes 9 % (2-10) 11/28/17 06:33 Eosinophils 0 % (0-5) 11/28/17 06:33 Basophils 0 % (0-3) 11/28/17 06:33 Platelet Estimate ADEQUATE (NORMAL) 11/24/17 05:20 PT 10.5 SECONDS (9.5-11.5) 11/24/17 05:20 INR 1.01 (0.5-1.4) 11/24/17 05:20 PTT (Actin FS) 30.1 SECONDS (26.0-38.0) 11/20/17 14:50 Sodium 137 mEq/L (136-145) 12/01/17 05:20 Potassium 3.9 mEq/L (3.5-5.1) 12/01/17 05:20 Chloride 104 mEq/L (98-107) 12/01/17 05:20 Carbon Dioxide 28.0 mEq/L (21.0-31.0) 12/01/17 05:20 Anion Gap 8.9 (7.0-16.0) 12/01/17 05:20 BUN 24 mg/dL (7-25) 12/01/17 05:20 Creatinine 0.8 mg/dL (0.7-1.3) 12/01/17 05:20 Est GFR ( Amer) > 60.0 ml/min (>90) 12/01/17 05:20 Est GFR (Non-Af Amer) > 60.0 ml/min 12/01/17 05:20 BUN/Creatinine Ratio 30.0 12/01/17 05:20 Glucose 181 mg/dL (70-105) H 12/01/17 05:20 POC Glucose 276 MG/DL (70 - 105) H 12/13/17 06:13 Calcium 8.9 mg/dL (8.6-10.3) 12/01/17 05:20 Iron 7 ug/dL (38-169) L 11/20/17 14:50 TIBC 161 ug/dL (250-450) L 11/20/17 14:50 Iron Saturation 4 % (15-55) L 11/20/17 14:50 Unsaturated IBC 154 ug/dL (111-343) 11/20/17 14:50 Total Bilirubin 0.3 mg/dL (0.3-1.0) 11/23/17 05:50 AST 11 U/L (13-39) L 11/23/17 05:50 ALT 8 U/L (7-52) 11/23/17 05:50 Alkaline Phosphatase 108 U/L (34-104) H 11/23/17 05:50 Troponin I 0.03 ng/mL (0.01-0.05) 11/20/17 14:50 B-Natriuretic Peptide 239.0 pg/mL (5.0-100.0) H 11/21/17 06:40 Total Protein 5.6 gm/dL (6.0-8.3) L 11/23/17 05:50 Albumin 2.6 gm/dL (4.2-5.5) L 11/23/17 05:50 Globulin 3.0 gm/dL 11/23/17 05:50 Albumin/Globulin Ratio 0.9 (1.0-1.8) L 11/23/17 05:50 Urine Source CATH 11/21/17 09:00 Urine Color YELLOW 11/21/17 09:00 Urine Clarity HAZY (CLEAR) 11/21/17 09:00 Urine pH 6.0 (4.6 - 8.0) 11/21/17 09:00 Ur Specific [place] 1.020 (1.005-1.030) 11/21/17 09:00 Urine Protein >=300 mg/dL (NEGATIVE) 11/21/17 09:00 Urine Glucose (UA) >=1000 mg/dL (NEGATIVE) H 11/21/17 09:00 Urine Ketones 15 mg/dL (NEGATIVE) H 11/21/17 09:00 Urine Blood LARGE (NEGATIVE) H 11/21/17 09:00 Urine Nitrate NEGATIVE (NEGATIVE) 11/21/17 09:00 Urine Bilirubin NEGATIVE (NEGATIVE) 11/21/17 09:00 Urine Urobilinogen 0.2 E.U./dL (0.2 - 1.0) 11/21/17 09:00 Ur Leukocyte Esterase MODERATE (NEGATIVE) H 11/21/17 09:00 Urine RBC 0-2 /hpf (0-5) H 11/21/17 09:00 Urine WBC 50-100 /hpf (0-5) H 11/21/17 09:00 Ur Epithelial Cells FEW /lpf (FEW) 11/21/17 09:00 Urine Bacteria MANY /hpf (NONE SEEN) H 11/21/17 09:00 HIV 1&2 Antibody Screen NEGATIVE (NEG) 11/22/17 05:40 Blood Type A POSITIVE 11/22/17 09:50 Antibody Screen NEGATIVE 11/22/17 09:50 Crossmatch See Detail 11/22/17 09:50 - Physical Exam Vitals and I&O: Vital Signs Temp 97.6 F 12/13/17 08:06 Pulse 74 12/13/17 08:06 Resp 18 12/13/17 08:06 BP 149/83 12/13/17 08:06 Pulse Ox 96 12/13/17 08:06 Intake & Output 12/12/17 12/13/17 12/13/17 18:59 06:59 18:59 Intake Total 650 400 Output Total 800 1100 Balance -150 -700 Weight (lbs) 68.039 kg 68.039 kg Intake: Oral 650 400 Output: Urine 800 1100 Other: # Bowel Movements 0 2 Stool Characteristics Soft Soft Brown Brown Weight Source Bedscale Bedscale Active Medications: Current Medications Acetaminophen (Tylenol) 650 mg PO Q4H PRN PRN Reason: T=100 F Stop: 01/26/18 01:28 Last Admin: 12/04/17 12:40 Dose: 650 mg Glipizide (Glucotrol) 10 mg PO DAILY [facility] Stop: 01/20/18 08:59 Last Admin: 12/12/17 10:23 Dose: 10 mg Hydrochlorothiazide (Hctz) 25 mg PO DAILY [facility] Stop: 01/28/18 08:59 Last Admin: 12/12/17 10:23 Dose: 25 mg Ibuprofen (Motrin) 600 mg PO BID [facility] Stop: 01/21/18 08:59 Last Admin: 12/12/17 17:13 Dose: 600 mg Insulin Aspart (Novolog Insulin Sliding Scale) 0 units SUBQ ACHS [facility]; Protocol Stop: 01/20/18 07:59 Last Admin: 12/12/17 20:46 Dose: 4 units Insulin Detemir (Levemir Insulin) 10 units SUBQ HS [facility]; Protocol Stop: 01/20/18 20:59 Last Admin: 12/12/17 20:47 Dose: 10 units Lactobacillus Rhamnosus (Culturelle 15b) 1 each PO DAILY [facility] Stop: 01/21/18 13:59 Last Admin: 12/12/17 10:22 Dose: 1 each Lisinopril (Zestril) 20 mg PO DAILY [facility] Stop: 01/26/18 08:59 Last Admin: 12/12/17 10:22 Dose: 20 mg Miscellaneous (Probiotic Screen) 1 ea MC PRN PRN PRN Reason: PROTOCOL Stop: 01/21/18 12:43 Nystatin (Mycostatin Cream) 1 appl TP DAILY PRN PRN Reason: Diaper Rash Stop: 01/20/18 08:59 Last Admin: 11/29/17 16:52 Dose: 1 appl Nystatin (Nystop) 100,000 units TP DAILY PRN PRN Reason: Diaper Rash Stop: 01/20/18 07:56 Last Admin: 12/09/17 17:36 Dose: 100,000 units Pantoprazole Sodium (Protonix) 40 mg PO DAILY [facility] Stop: 02/08/18 08:59 Last Admin: 12/12/17 10:23 Dose: 40 mg General: Alert, Oriented x3 HEENT: Atraumatic Neck: Supple Cardiovascular: Regular rate Lungs: Clear to auscultation Abdomen: Bowel sounds, Soft, no Tender, no Hepatomegaly, no Splenomegaly, no Distended, no Rebound, no Mass, no Guarding Extremities: no Clubbing, no Cyanosis, no Edema Assessment/Plan - Assessment Assessment: s/p fall homeless anemia -- s/p blood transfusion for GI workup hyponatremia -- improved hypokalemia -- improved diabetes mellitus --improved. hyperglycemia ... will adjust PO meds. UTI/pyelonephritis -- continue IV antibiotics. ID consult tanya lim. HTN --controlled continue with Lisinopril 20mg PO daily and HCTZ 25mg daily H/o CVA. H/o depression. 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 Neurogenic bladder. H/o Back surgery. Left forearm pain after a traumatic fall, acute fracture of ulna styloid. -- ortho consult ESBL klebsiella +blood +urine +wound ... change antibiotics per ID to Levaquin PO x 5 days. Depression ... will order psychiatric evaluation. For Discharge planning to Board and Care - Plan Plan: okay to discharge patient and to follow up with PMD in 3-5 days. Arranging for possible board and care. add metformin 500mg PO daily. Nutritional Asmnt/Malnutr-PDOC - Dietary Evaluation Malnutrition Findings (Please click <Entered> for more info): Nutritional Asmnt/Malnutrition Start: 11/22/17 17: 38 Text: Status: Complete Freq: Protocol: Document 11/22/17 17:38 LCHENG (Rec: 11/22/17 17:57 LCCOLLINSG ANA [id number]) Nutritional Asmnt/Malnutrition Patient General Information Nutritional Screening High Risk Diagnosis electrolyte imbalance, anemia Pertinent Medical Hx/Surgical Hx HTN, Dm, CVA/TIA, back surgery , depression Subjective Information consult received for diabetic. Pt is [place]ian speaking. Per EMR, Pt consumded 50% of breakfast today. Not able to provide diabetic education d/t language barrier. Current Diet Order/ Nutrition Support diabetic diet Pertinent Medications glucotrol, novolog, levemir, culturelle, protonix, piperacillin, 0.9% ns w/20 meq kcl Pertinent Labs 11/21 Na 130, K 3.3, Cl 97, glucsoe 385 11/21-11/22 POC [id number] Nutritional Hx/Data Height 1.78 m Height (Calculated Centimeters) 177.8 Current Weight (lbs) 81.647 kg Weight (Calculated Kilograms) 81.6 Weight (Calculated Grams) 38033.6 [place] Body Weight 166 Body Mass Index (BMI) 25.8 Weight Status Overweight GI Symptoms GI Symptoms None Last BM none Difficult in: None Skin Integrity/Comment: pressure ulcer to sacrum Current %PO Fair (50-74%) Estimated Nutritional Goals BEE in Kcals: Using Current wt Calories/Kcals/Kg 25-30 Kcals Calculated 9017-7623 Protein: Using Current wt Protein g/k Protein Calculated 75 Fluid: ml 1875-2250ml (1ml/kcal) Nutritional Problem 1. Problem Problem increased nutrition needs Etiology increased metabolic needs for impaired skin integrity Signs/Symptoms: pressure ulcer to sacrum Malnutrition Alert Is there a minimum of two criteria No selected? Query Text:Check all the applicable criteria. A minimum of two criteria are recommended for diagnosis of either severe or non-severe malnutrition. Malnutrition Related to Morbid Obesity Malnutrition related to morbid obesity No Intervention/Recommendation Comments 1. Continue with diabetic diet diet as ordered. 2. Monitor PO intake, wt, labs and skin integrity 3. F/U as moderate risk in 3-5 days, 11/25-11/27, PO check Expected Outcomes/Goals Expected Outcomes/Goals 1. PO intake to meet at least 75% of nutritional needs. 2. Wt stability, skin to remain intact, labs to approach WNL.
[2017-12-13] MEDS: Pantoprazole 40 mg EC Tab PO SCH (08:58)
[2017-12-13] MEDS: Lactobacillus Rhamnosus GG 15 Billion CFU CAP.SPRINK PO SCH (08:58)
[2017-12-13] MEDS: INSULIN ASPART SLIDING SCALE 100 UNITS/ML UNIT SUBQ SCH ×4 (09:02→21:54)
[2017-12-13] MEDS: Insulin Detemir 100 units/mL 10mL Vial SUBQ SCH (21:53)
--- NOTE | 2017-12-14 08:16 | General Progress Note ---
Subjective - Review of Systems Service Date: 12/14/17 Subjective: Awake,alert, afebrile. no new complaints. BS slowly improving. Objective - Results Result Diagrams: 12/01/17 05:20 12/01/17 05:20 Recent Labs: Laboratory Last Values WBC 5.9 Th/cmm (4.8-10.8) 12/01/17 05:20 RBC 3.55 Mil/cmm (4.30-5.70) L 12/01/17 05:20 Hgb 10.2 gm/dL (12-16) L 12/01/17 05:20 Hct 30.6 % (41.0-60) L 12/01/17 05:20 MCV 86.1 fl (80-99) 12/01/17 05:20 MCH 28.7 pg (26.0-30.0) 12/01/17 05:20 MCHC Differential 33.3 pg (28.0-36.0) 12/01/17 05:20 RDW 13.2 % (11.5-20.0) 12/01/17 05:20 Plt Count 325 Th/cmm (150-400) 12/01/17 05:20 MPV 6.8 fl 12/01/17 05:20 Add Manual Diff YES 11/28/17 06:33 Neutrophils % 66.0 % (40.0-80.0) 12/01/17 05:20 Band Neutrophils % 2 % (0-10) 11/28/17 06:33 Lymphocytes % 25.0 % (20.0-50.0) 12/01/17 05:20 Monocytes % 6.4 % (2.0-10.0) 12/01/17 05:20 Eosinophils % 2.1 % (0.0-5.0) 12/01/17 05:20 Basophils % 0.5 % (0.0-2.0) 12/01/17 05:20 Neutrophils (Manual) 63 % (40-80) 11/28/17 06:33 Lymphocytes 26 % (20-50) 11/28/17 06:33 Monocytes 9 % (2-10) 11/28/17 06:33 Eosinophils 0 % (0-5) 11/28/17 06:33 Basophils 0 % (0-3) 11/28/17 06:33 Platelet Estimate ADEQUATE (NORMAL) 11/24/17 05:20 PT 10.5 SECONDS (9.5-11.5) 11/24/17 05:20 INR 1.01 (0.5-1.4) 11/24/17 05:20 PTT (Actin FS) 30.1 SECONDS (26.0-38.0) 11/20/17 14:50 Sodium 137 mEq/L (136-145) 12/01/17 05:20 Potassium 3.9 mEq/L (3.5-5.1) 12/01/17 05:20 Chloride 104 mEq/L (98-107) 12/01/17 05:20 Carbon Dioxide 28.0 mEq/L (21.0-31.0) 12/01/17 05:20 Anion Gap 8.9 (7.0-16.0) 12/01/17 05:20 BUN 24 mg/dL (7-25) 12/01/17 05:20 Creatinine 0.8 mg/dL (0.7-1.3) 12/01/17 05:20 Est GFR ( Amer) > 60.0 ml/min (>90) 12/01/17 05:20 Est GFR (Non-Af Amer) > 60.0 ml/min 12/01/17 05:20 BUN/Creatinine Ratio 30.0 12/01/17 05:20 Glucose 181 mg/dL (70-105) H 12/01/17 05:20 POC Glucose 167 MG/DL (70 - 105) H 12/14/17 05:49 Calcium 8.9 mg/dL (8.6-10.3) 12/01/17 05:20 Iron 7 ug/dL (38-169) L 11/20/17 14:50 TIBC 161 ug/dL (250-450) L 11/20/17 14:50 Iron Saturation 4 % (15-55) L 11/20/17 14:50 Unsaturated IBC 154 ug/dL (111-343) 11/20/17 14:50 Total Bilirubin 0.3 mg/dL (0.3-1.0) 11/23/17 05:50 AST 11 U/L (13-39) L 11/23/17 05:50 ALT 8 U/L (7-52) 11/23/17 05:50 Alkaline Phosphatase 108 U/L (34-104) H 11/23/17 05:50 Troponin I 0.03 ng/mL (0.01-0.05) 11/20/17 14:50 B-Natriuretic Peptide 239.0 pg/mL (5.0-100.0) H 11/21/17 06:40 Total Protein 5.6 gm/dL (6.0-8.3) L 11/23/17 05:50 Albumin 2.6 gm/dL (4.2-5.5) L 11/23/17 05:50 Globulin 3.0 gm/dL 11/23/17 05:50 Albumin/Globulin Ratio 0.9 (1.0-1.8) L 11/23/17 05:50 Urine Source CATH 11/21/17 09:00 Urine Color YELLOW 11/21/17 09:00 Urine Clarity HAZY (CLEAR) 11/21/17 09:00 Urine pH 6.0 (4.6 - 8.0) 11/21/17 09:00 Ur Specific Reading 1.020 (1.005-1.030) 11/21/17 09:00 Urine Protein >=300 mg/dL (NEGATIVE) 11/21/17 09:00 Urine Glucose (UA) >=1000 mg/dL (NEGATIVE) H 11/21/17 09:00 Urine Ketones 15 mg/dL (NEGATIVE) H 11/21/17 09:00 Urine Blood LARGE (NEGATIVE) H 11/21/17 09:00 Urine Nitrate NEGATIVE (NEGATIVE) 11/21/17 09:00 Urine Bilirubin NEGATIVE (NEGATIVE) 11/21/17 09:00 Urine Urobilinogen 0.2 E.U./dL (0.2 - 1.0) 11/21/17 09:00 Ur Leukocyte Esterase MODERATE (NEGATIVE) H 11/21/17 09:00 Urine RBC 0-2 /hpf (0-5) H 11/21/17 09:00 Urine WBC 50-100 /hpf (0-5) H 11/21/17 09:00 Ur Epithelial Cells FEW /lpf (FEW) 11/21/17 09:00 Urine Bacteria MANY /hpf (NONE SEEN) H 11/21/17 09:00 HIV 1&2 Antibody Screen NEGATIVE (NEG) 11/22/17 05:40 Blood Type A POSITIVE 11/22/17 09:50 Antibody Screen NEGATIVE 11/22/17 09:50 Crossmatch See Detail 11/22/17 09:50 - Physical Exam Vitals and I&O: Vital Signs Temp 96.9 F 12/14/17 07:48 Pulse 86 12/14/17 07:48 Resp 17 12/14/17 07:48 BP 121/69 12/14/17 07:48 Pulse Ox 98 12/14/17 07:48 Intake & Output 12/13/17 12/14/17 12/14/17 18:59 06:59 18:59 Intake Total 360 220 Output Total 950 Balance 360 -730 Weight (lbs) 68.039 kg 68.039 kg Intake: Oral 360 220 Output: Urine 950 Other: # Voids 3 # Bowel Movements 2 Stool Characteristics Soft Soft Brown Brown Weight Source Bedscale Bedscale Active Medications: Current Medications Acetaminophen (Tylenol) 650 mg PO Q4H PRN PRN Reason: T=100 F Stop: 01/26/18 01:28 Last Admin: 12/04/17 12:40 Dose: 650 mg Glipizide (Glucotrol) 10 mg PO DAILY [facility] Stop: 01/20/18 08:59 Last Admin: 12/13/17 08:57 Dose: 10 mg Hydrochlorothiazide (Hctz) 25 mg PO DAILY [facility] Stop: 01/28/18 08:59 Last Admin: 12/13/17 08:58 Dose: 25 mg Ibuprofen (Motrin) 600 mg PO BID [facility] Stop: 01/21/18 08:59 Last Admin: 12/13/17 18:40 Dose: 600 mg Insulin Aspart (Novolog Insulin Sliding Scale) 0 units SUBQ ACHS [facility]; Protocol Stop: 01/20/18 07:59 Last Admin: 12/13/17 21:54 Dose: 4 units Insulin Detemir (Levemir Insulin) 10 units SUBQ HS [facility]; Protocol Stop: 01/20/18 20:59 Last Admin: 12/13/17 21:53 Dose: 10 units Lactobacillus Rhamnosus (Culturelle 15b) 1 each PO DAILY [facility] Stop: 01/21/18 13:59 Last Admin: 12/13/17 08:58 Dose: 1 each Lisinopril (Zestril) 20 mg PO DAILY [facility] Stop: 01/26/18 08:59 Last Admin: 12/13/17 08:57 Dose: 20 mg Metformin HCl (Glucophage) 500 mg PO DAILY [facility] Stop: 02/11/18 08:59 Last Admin: 12/13/17 08:58 Dose: 500 mg Miscellaneous (Probiotic Screen) 1 ea MC PRN PRN PRN Reason: PROTOCOL Stop: 01/21/18 12:43 Nystatin (Mycostatin Cream) 1 appl TP DAILY PRN PRN Reason: Diaper Rash Stop: 01/20/18 08:59 Last Admin: 11/29/17 16:52 Dose: 1 appl Nystatin (Nystop) 100,000 units TP DAILY PRN PRN Reason: Diaper Rash Stop: 01/20/18 07:56 Last Admin: 12/09/17 17:36 Dose: 100,000 units Pantoprazole Sodium (Protonix) 40 mg PO DAILY [facility] Stop: 02/08/18 08:59 Last Admin: 12/13/17 08:58 Dose: 40 mg General: Alert, Oriented x3 HEENT: Atraumatic Neck: Supple Cardiovascular: Regular rate Lungs: Clear to auscultation Abdomen: Bowel sounds, Soft, no Tender, no Hepatomegaly, no Splenomegaly, no Distended, no Rebound, no Mass, no Guarding Extremities: no Clubbing, no Cyanosis, no Edema Assessment/Plan - Assessment Assessment: s/p fall homeless anemia -- s/p blood transfusion for GI workup hyponatremia -- improved hypokalemia -- improved diabetes mellitus --improved. hyperglycemia ... will adjust PO meds. UTI/pyelonephritis -- continue IV antibiotics. ID consult tinea crurus. HTN --controlled continue with Lisinopril 20mg PO daily and HCTZ 25mg daily H/o CVA. H/o depression. 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 Neurogenic bladder. H/o Back surgery. Left forearm pain after a traumatic fall, acute fracture of ulna styloid. -- ortho consult ESBL klebsiella +blood +urine +wound ... change antibiotics per ID to Levaquin PO x 5 days. Depression ... will order psychiatric evaluation. For Discharge planning to Board and Care - Plan Plan: okay to discharge patient and to follow up with PMD in 3-5 days. Arranging for possible board and care. add metformin 500mg PO daily. Nutritional Asmnt/Malnutr-PDOC - Dietary Evaluation Malnutrition Findings (Please click <Entered> for more info): Nutritional Asmnt/Malnutrition Start: 11/22/17 17: 38 Text: Status: Complete Freq: Protocol: Document 11/22/17 17:38 SATNAMDEXTER (Rec: 11/22/17 17:57 [email or web address]) Nutritional Asmnt/Malnutrition Patient General Information Nutritional Screening High Risk Diagnosis electrolyte imbalance, anemia Pertinent Medical Hx/Surgical Hx HTN, Dm, CVA/TIA, back surgery , depression Subjective Information consult received for diabetic. Pt is Bengali speaking. Per EMR, Pt consumded 50% of breakfast today. Not able to provide diabetic education d/t language barrier. Current Diet Order/ Nutrition Support diabetic diet Pertinent Medications glucotrol, novolog, levemir, culturelle, protonix, piperacillin, 0.9% ns w/20 meq kcl Pertinent Labs 11/21 Na 130, K 3.3, Cl 97, glucsoe 385 11/21-11/22 POC [id number] Nutritional Hx/Data Height 1.78 m Height (Calculated Centimeters) 177.8 Current Weight (lbs) 81.647 kg Weight (Calculated Kilograms) 81.6 Weight (Calculated Grams) 43265.6 [place] Body Weight 166 Body Mass Index (BMI) 25.8 Weight Status Overweight GI Symptoms GI Symptoms None Last BM none Difficult in: None Skin Integrity/Comment: pressure ulcer to sacrum Current %PO Fair (50-74%) Estimated Nutritional Goals BEE in Kcals: Using Current wt Calories/Kcals/Kg 25-30 Kcals Calculated 1596-9941 Protein: Using Current wt Protein g/k Protein Calculated 75 Fluid: ml 1875-2250ml (1ml/kcal) Nutritional Problem 1. Problem Problem increased nutrition needs Etiology increased metabolic needs for impaired skin integrity Signs/Symptoms: pressure ulcer to sacrum Malnutrition Alert Is there a minimum of two criteria No selected? Query Text:Check all the applicable criteria. A minimum of two criteria are recommended for diagnosis of either severe or non-severe malnutrition. Malnutrition Related to Morbid Obesity Malnutrition related to morbid obesity No Intervention/Recommendation Comments 1. Continue with diabetic diet diet as ordered. 2. Monitor PO intake, wt, labs and skin integrity 3. F/U as moderate risk in 3-5 days, 11/25-11/27, PO check Expected Outcomes/Goals Expected Outcomes/Goals 1. PO intake to meet at least 75% of nutritional needs. 2. Wt stability, skin to remain intact, labs to approach WNL.
[2017-12-14] MEDS: Pantoprazole 40 mg EC Tab PO SCH (10:32)
[2017-12-14] MEDS: Lactobacillus Rhamnosus GG 15 Billion CFU CAP.SPRINK PO SCH (10:33)
[2017-12-14] MEDS: INSULIN ASPART SLIDING SCALE 100 UNITS/ML UNIT SUBQ SCH ×4 (10:33→22:22)
[2017-12-14] MEDS: Insulin Detemir 100 units/mL 10mL Vial SUBQ SCH (22:21)
[2017-12-15] MEDS: INSULIN ASPART SLIDING SCALE 100 UNITS/ML UNIT SUBQ SCH ×5 (07:58→20:52)
--- NOTE | 2017-12-15 08:11 | General Progress Note ---
Subjective - Review of Systems Service Date: 12/15/17 Subjective: Awake,alert, afebrile. no new complaints. BS slowly improving. Patient doing fine. Objective - Results Result Diagrams: 12/01/17 05:20 12/01/17 05:20 Recent Labs: Laboratory Last Values WBC 5.9 Th/cmm (4.8-10.8) 12/01/17 05:20 RBC 3.55 Mil/cmm (4.30-5.70) L 12/01/17 05:20 Hgb 10.2 gm/dL (12-16) L 12/01/17 05:20 Hct 30.6 % (41.0-60) L 12/01/17 05:20 MCV 86.1 fl (80-99) 12/01/17 05:20 MCH 28.7 pg (26.0-30.0) 12/01/17 05:20 MCHC Differential 33.3 pg (28.0-36.0) 12/01/17 05:20 RDW 13.2 % (11.5-20.0) 12/01/17 05:20 Plt Count 325 Th/cmm (150-400) 12/01/17 05:20 MPV 6.8 fl 12/01/17 05:20 Add Manual Diff YES 11/28/17 06:33 Neutrophils % 66.0 % (40.0-80.0) 12/01/17 05:20 Band Neutrophils % 2 % (0-10) 11/28/17 06:33 Lymphocytes % 25.0 % (20.0-50.0) 12/01/17 05:20 Monocytes % 6.4 % (2.0-10.0) 12/01/17 05:20 Eosinophils % 2.1 % (0.0-5.0) 12/01/17 05:20 Basophils % 0.5 % (0.0-2.0) 12/01/17 05:20 Neutrophils (Manual) 63 % (40-80) 11/28/17 06:33 Lymphocytes 26 % (20-50) 11/28/17 06:33 Monocytes 9 % (2-10) 11/28/17 06:33 Eosinophils 0 % (0-5) 11/28/17 06:33 Basophils 0 % (0-3) 11/28/17 06:33 Platelet Estimate ADEQUATE (NORMAL) 11/24/17 05:20 PT 10.5 SECONDS (9.5-11.5) 11/24/17 05:20 INR 1.01 (0.5-1.4) 11/24/17 05:20 PTT (Actin FS) 30.1 SECONDS (26.0-38.0) 11/20/17 14:50 Sodium 137 mEq/L (136-145) 12/01/17 05:20 Potassium 3.9 mEq/L (3.5-5.1) 12/01/17 05:20 Chloride 104 mEq/L (98-107) 12/01/17 05:20 Carbon Dioxide 28.0 mEq/L (21.0-31.0) 12/01/17 05:20 Anion Gap 8.9 (7.0-16.0) 12/01/17 05:20 BUN 24 mg/dL (7-25) 12/01/17 05:20 Creatinine 0.8 mg/dL (0.7-1.3) 12/01/17 05:20 Est GFR ( Amer) > 60.0 ml/min (>90) 12/01/17 05:20 Est GFR (Non-Af Amer) > 60.0 ml/min 12/01/17 05:20 BUN/Creatinine Ratio 30.0 12/01/17 05:20 Glucose 181 mg/dL (70-105) H 12/01/17 05:20 POC Glucose 241 MG/DL (70 - 105) H 12/15/17 06:13 Calcium 8.9 mg/dL (8.6-10.3) 12/01/17 05:20 Iron 7 ug/dL (38-169) L 11/20/17 14:50 TIBC 161 ug/dL (250-450) L 11/20/17 14:50 Iron Saturation 4 % (15-55) L 11/20/17 14:50 Unsaturated IBC 154 ug/dL (111-343) 11/20/17 14:50 Total Bilirubin 0.3 mg/dL (0.3-1.0) 11/23/17 05:50 AST 11 U/L (13-39) L 11/23/17 05:50 ALT 8 U/L (7-52) 11/23/17 05:50 Alkaline Phosphatase 108 U/L (34-104) H 11/23/17 05:50 Troponin I 0.03 ng/mL (0.01-0.05) 11/20/17 14:50 B-Natriuretic Peptide 239.0 pg/mL (5.0-100.0) H 11/21/17 06:40 Total Protein 5.6 gm/dL (6.0-8.3) L 11/23/17 05:50 Albumin 2.6 gm/dL (4.2-5.5) L 11/23/17 05:50 Globulin 3.0 gm/dL 11/23/17 05:50 Albumin/Globulin Ratio 0.9 (1.0-1.8) L 11/23/17 05:50 Urine Source CATH 11/21/17 09:00 Urine Color YELLOW 11/21/17 09:00 Urine Clarity HAZY (CLEAR) 11/21/17 09:00 Urine pH 6.0 (4.6 - 8.0) 11/21/17 09:00 Ur Specific Nikolai 1.020 (1.005-1.030) 11/21/17 09:00 Urine Protein >=300 mg/dL (NEGATIVE) 11/21/17 09:00 Urine Glucose (UA) >=1000 mg/dL (NEGATIVE) H 11/21/17 09:00 Urine Ketones 15 mg/dL (NEGATIVE) H 11/21/17 09:00 Urine Blood LARGE (NEGATIVE) H 11/21/17 09:00 Urine Nitrate NEGATIVE (NEGATIVE) 11/21/17 09:00 Urine Bilirubin NEGATIVE (NEGATIVE) 11/21/17 09:00 Urine Urobilinogen 0.2 E.U./dL (0.2 - 1.0) 11/21/17 09:00 Ur Leukocyte Esterase MODERATE (NEGATIVE) H 11/21/17 09:00 Urine RBC 0-2 /hpf (0-5) H 11/21/17 09:00 Urine WBC 50-100 /hpf (0-5) H 11/21/17 09:00 Ur Epithelial Cells FEW /lpf (FEW) 11/21/17 09:00 Urine Bacteria MANY /hpf (NONE SEEN) H 11/21/17 09:00 HIV 1&2 Antibody Screen NEGATIVE (NEG) 11/22/17 05:40 Blood Type A POSITIVE 11/22/17 09:50 Antibody Screen NEGATIVE 11/22/17 09:50 Crossmatch See Detail 11/22/17 09:50 - Physical Exam Vitals and I&O: Vital Signs Temp 97.9 F 12/15/17 07:49 Pulse 71 12/15/17 07:49 Resp 18 12/15/17 07:49 BP 116/64 12/15/17 07:49 Pulse Ox 98 12/15/17 07:49 Intake & Output 12/14/17 12/15/17 12/15/17 18:59 06:59 18:59 Intake Total 840 Output Total 1650 Balance -810 Weight (lbs) 68.492 kg Intake: Oral 840 Output: Urine 1650 Other: # Bowel Movements 1 Stool Characteristics Soft Brown Weight Source Bedscale Active Medications: Current Medications Acetaminophen (Tylenol) 650 mg PO Q4H PRN PRN Reason: T=100 F Stop: 01/26/18 01:28 Last Admin: 12/04/17 12:40 Dose: 650 mg Glipizide (Glucotrol) 10 mg PO DAILY [facility] Stop: 01/20/18 08:59 Last Admin: 12/14/17 10:30 Dose: 10 mg Hydrochlorothiazide (Hctz) 25 mg PO DAILY [facility] Stop: 01/28/18 08:59 Last Admin: 12/14/17 10:32 Dose: 25 mg Ibuprofen (Motrin) 600 mg PO BID [facility] Stop: 01/21/18 08:59 Last Admin: 12/14/17 17:55 Dose: 600 mg Insulin Aspart (Novolog Insulin Sliding Scale) 0 units SUBQ ACHS [facility]; Protocol Stop: 01/20/18 07:59 Last Admin: 12/15/17 08:00 Dose: 4 units Insulin Detemir (Levemir Insulin) 10 units SUBQ HS [facility]; Protocol Stop: 01/20/18 20:59 Last Admin: 12/14/17 22:21 Dose: 10 units Lactobacillus Rhamnosus (Culturelle 15b) 1 each PO DAILY [facility] Stop: 01/21/18 13:59 Last Admin: 12/14/17 10:33 Dose: 1 each Lisinopril (Zestril) 20 mg PO DAILY [facility] Stop: 01/26/18 08:59 Last Admin: 12/14/17 10:32 Dose: 20 mg Metformin HCl (Glucophage) 500 mg PO DAILY [facility] Stop: 02/11/18 08:59 Last Admin: 12/14/17 10:32 Dose: 500 mg Miscellaneous (Probiotic Screen) 1 ea MC PRN PRN PRN Reason: PROTOCOL Stop: 01/21/18 12:43 Nystatin (Mycostatin Cream) 1 appl TP DAILY PRN PRN Reason: Diaper Rash Stop: 01/20/18 08:59 Last Admin: 11/29/17 16:52 Dose: 1 appl Nystatin (Nystop) 100,000 units TP DAILY PRN PRN Reason: Diaper Rash Stop: 01/20/18 07:56 Last Admin: 12/09/17 17:36 Dose: 100,000 units Pantoprazole Sodium (Protonix) 40 mg PO DAILY [facility] Stop: 02/08/18 08:59 Last Admin: 12/14/17 10:32 Dose: 40 mg General: Alert, Oriented x3 HEENT: Atraumatic Neck: Supple Cardiovascular: Regular rate Lungs: Clear to auscultation Abdomen: Bowel sounds, Soft, no Tender, no Hepatomegaly, no Splenomegaly, no Distended, no Rebound, no Mass, no Guarding Extremities: no Clubbing, no Cyanosis, no Edema Assessment/Plan - Assessment Assessment: s/p fall homeless anemia -- s/p blood transfusion for GI workup hyponatremia -- improved hypokalemia -- improved diabetes mellitus --improved. hyperglycemia ... will adjust PO meds. UTI/pyelonephritis -- continue IV antibiotics. ID consult tanya lim. HTN --controlled continue with Lisinopril 20mg PO daily and HCTZ 25mg daily H/o CVA. H/o depression. 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 Neurogenic bladder. H/o Back surgery. Left forearm pain after a traumatic fall, acute fracture of ulna styloid. -- ortho consult ESBL klebsiella +blood +urine +wound ... change antibiotics per ID to Levaquin PO x 5 days. Depression ... will order psychiatric evaluation. For Discharge planning to Board and Care - Plan Plan: okay to discharge patient and to follow up with PMD in 3-5 days. Arranging for possible board and care. add metformin 500mg PO daily. Nutritional Asmnt/Malnutr-PDOC - Dietary Evaluation Malnutrition Findings (Please click <Entered> for more info): Nutritional Asmnt/Malnutrition Start: 11/22/17 17: 38 Text: Status: Complete Freq: Protocol: Document 11/22/17 17:38 RAMSEY (Rec: 11/22/17 17:57 [email or web address] [email or web address]) Nutritional Asmnt/Malnutrition Patient General Information Nutritional Screening High Risk Diagnosis electrolyte imbalance, anemia Pertinent Medical Hx/Surgical Hx HTN, Dm, CVA/TIA, back surgery , depression Subjective Information consult received for diabetic. Pt is Cuban speaking. Per EMR, Pt consumded 50% of breakfast today. Not able to provide diabetic education d/t language barrier. Current Diet Order/ Nutrition Support diabetic diet Pertinent Medications glucotrol, novolog, levemir, culturelle, protonix, piperacillin, 0.9% ns w/20 meq kcl Pertinent Labs 11/21 Na 130, K 3.3, Cl 97, glucsoe 385 11/21-11/22 POC 245-415 Nutritional Hx/Data Height 1.78 m Height (Calculated Centimeters) 177.8 Current Weight (lbs) 81.647 kg Weight (Calculated Kilograms) 81.6 Weight (Calculated Grams) 19242.6 [place] Body Weight 166 Body Mass Index (BMI) 25.8 Weight Status Overweight GI Symptoms GI Symptoms None Last BM none Difficult in: None Skin Integrity/Comment: pressure ulcer to sacrum Current %PO Fair (50-74%) Estimated Nutritional Goals BEE in Kcals: Using Current wt Calories/Kcals/Kg 25-30 Kcals Calculated 6215-6112 Protein: Using Current wt Protein g/k Protein Calculated 75 Fluid: ml 1875-2250ml (1ml/kcal) Nutritional Problem 1. Problem Problem increased nutrition needs Etiology increased metabolic needs for impaired skin integrity Signs/Symptoms: pressure ulcer to sacrum Malnutrition Alert Is there a minimum of two criteria No selected? Query Text:Check all the applicable criteria. A minimum of two criteria are recommended for diagnosis of either severe or non-severe malnutrition. Malnutrition Related to Morbid Obesity Malnutrition related to morbid obesity No Intervention/Recommendation Comments 1. Continue with diabetic diet diet as ordered. 2. Monitor PO intake, wt, labs and skin integrity 3. F/U as moderate risk in 3-5 days, 11/25-11/27, PO check Expected Outcomes/Goals Expected Outcomes/Goals 1. PO intake to meet at least 75% of nutritional needs. 2. Wt stability, skin to remain intact, labs to approach WNL.
--- NOTE | 2017-12-15 08:49 | Progress Notes ---
DATE: 12/15/2017 SUBJECTIVE: Chart reviewed and the patient interviewed. Also discussed the patient's condition with the staff and reviewed records and labs. The patient is calmer and easier to redirect him. The patient also is interacting more. The patient denies any craving to use any drugs or alcohol. He is also compliant with taking his medications with no side effects of medications. ASSESSMENT: The patient is calm and cooperative. TREATMENT PLAN: Continue monitoring his behavior and continue to work on his ineffective coping and continue to follow up. The patient is not suicidal or homicidal and he can continue his treatment as an outpatient. JOB# [id number]
[2017-12-15] MEDS: Lactobacillus Rhamnosus GG 15 Billion CFU CAP.SPRINK PO SCH (09:04)
[2017-12-15] MEDS: Pantoprazole 40 mg EC Tab PO SCH (09:04)
[2017-12-15] MEDS ORDERED: Menthol/Zinc Oxide Oint 113gm Tube TP PRN (17:08)
[2017-12-15] MEDS: Insulin Detemir 100 units/mL 10mL Vial SUBQ SCH (20:53)
--- NOTE | 2017-12-16 08:08 | General Progress Note ---
Subjective - Review of Systems Service Date: 12/16/17 Subjective: Awake,alert, afebrile. no new complaints. Patient doing fine. no new changes. waiting for placement. Objective - Results Result Diagrams: 12/01/17 05:20 12/01/17 05:20 Recent Labs: Laboratory Last Values WBC 5.9 Th/cmm (4.8-10.8) 12/01/17 05:20 RBC 3.55 Mil/cmm (4.30-5.70) L 12/01/17 05:20 Hgb 10.2 gm/dL (12-16) L 12/01/17 05:20 Hct 30.6 % (41.0-60) L 12/01/17 05:20 MCV 86.1 fl (80-99) 12/01/17 05:20 MCH 28.7 pg (26.0-30.0) 12/01/17 05:20 MCHC Differential 33.3 pg (28.0-36.0) 12/01/17 05:20 RDW 13.2 % (11.5-20.0) 12/01/17 05:20 Plt Count 325 Th/cmm (150-400) 12/01/17 05:20 MPV 6.8 fl 12/01/17 05:20 Add Manual Diff YES 11/28/17 06:33 Neutrophils % 66.0 % (40.0-80.0) 12/01/17 05:20 Band Neutrophils % 2 % (0-10) 11/28/17 06:33 Lymphocytes % 25.0 % (20.0-50.0) 12/01/17 05:20 Monocytes % 6.4 % (2.0-10.0) 12/01/17 05:20 Eosinophils % 2.1 % (0.0-5.0) 12/01/17 05:20 Basophils % 0.5 % (0.0-2.0) 12/01/17 05:20 Neutrophils (Manual) 63 % (40-80) 11/28/17 06:33 Lymphocytes 26 % (20-50) 11/28/17 06:33 Monocytes 9 % (2-10) 11/28/17 06:33 Eosinophils 0 % (0-5) 11/28/17 06:33 Basophils 0 % (0-3) 11/28/17 06:33 Platelet Estimate ADEQUATE (NORMAL) 11/24/17 05:20 PT 10.5 SECONDS (9.5-11.5) 11/24/17 05:20 INR 1.01 (0.5-1.4) 11/24/17 05:20 PTT (Actin FS) 30.1 SECONDS (26.0-38.0) 11/20/17 14:50 Sodium 137 mEq/L (136-145) 12/01/17 05:20 Potassium 3.9 mEq/L (3.5-5.1) 12/01/17 05:20 Chloride 104 mEq/L (98-107) 12/01/17 05:20 Carbon Dioxide 28.0 mEq/L (21.0-31.0) 12/01/17 05:20 Anion Gap 8.9 (7.0-16.0) 12/01/17 05:20 BUN 24 mg/dL (7-25) 12/01/17 05:20 Creatinine 0.8 mg/dL (0.7-1.3) 12/01/17 05:20 Est GFR ( Amer) > 60.0 ml/min (>90) 12/01/17 05:20 Est GFR (Non-Af Amer) > 60.0 ml/min 12/01/17 05:20 BUN/Creatinine Ratio 30.0 12/01/17 05:20 Glucose 181 mg/dL (70-105) H 12/01/17 05:20 POC Glucose 161 MG/DL (70 - 105) H 12/16/17 06:25 Calcium 8.9 mg/dL (8.6-10.3) 12/01/17 05:20 Iron 7 ug/dL (38-169) L 11/20/17 14:50 TIBC 161 ug/dL (250-450) L 11/20/17 14:50 Iron Saturation 4 % (15-55) L 11/20/17 14:50 Unsaturated IBC 154 ug/dL (111-343) 11/20/17 14:50 Total Bilirubin 0.3 mg/dL (0.3-1.0) 11/23/17 05:50 AST 11 U/L (13-39) L 11/23/17 05:50 ALT 8 U/L (7-52) 11/23/17 05:50 Alkaline Phosphatase 108 U/L (34-104) H 11/23/17 05:50 Troponin I 0.03 ng/mL (0.01-0.05) 11/20/17 14:50 B-Natriuretic Peptide 239.0 pg/mL (5.0-100.0) H 11/21/17 06:40 Total Protein 5.6 gm/dL (6.0-8.3) L 11/23/17 05:50 Albumin 2.6 gm/dL (4.2-5.5) L 11/23/17 05:50 Globulin 3.0 gm/dL 11/23/17 05:50 Albumin/Globulin Ratio 0.9 (1.0-1.8) L 11/23/17 05:50 Urine Source CATH 11/21/17 09:00 Urine Color YELLOW 11/21/17 09:00 Urine Clarity HAZY (CLEAR) 11/21/17 09:00 Urine pH 6.0 (4.6 - 8.0) 11/21/17 09:00 Ur Specific [place] 1.020 (1.005-1.030) 11/21/17 09:00 Urine Protein >=300 mg/dL (NEGATIVE) 11/21/17 09:00 Urine Glucose (UA) >=1000 mg/dL (NEGATIVE) H 11/21/17 09:00 Urine Ketones 15 mg/dL (NEGATIVE) H 11/21/17 09:00 Urine Blood LARGE (NEGATIVE) H 11/21/17 09:00 Urine Nitrate NEGATIVE (NEGATIVE) 11/21/17 09:00 Urine Bilirubin NEGATIVE (NEGATIVE) 11/21/17 09:00 Urine Urobilinogen 0.2 E.U./dL (0.2 - 1.0) 11/21/17 09:00 Ur Leukocyte Esterase MODERATE (NEGATIVE) H 11/21/17 09:00 Urine RBC 0-2 /hpf (0-5) H 11/21/17 09:00 Urine WBC 50-100 /hpf (0-5) H 11/21/17 09:00 Ur Epithelial Cells FEW /lpf (FEW) 11/21/17 09:00 Urine Bacteria MANY /hpf (NONE SEEN) H 11/21/17 09:00 HIV 1&2 Antibody Screen NEGATIVE (NEG) 11/22/17 05:40 Blood Type A POSITIVE 11/22/17 09:50 Antibody Screen NEGATIVE 11/22/17 09:50 Crossmatch See Detail 11/22/17 09:50 - Physical Exam Vitals and I&O: Vital Signs Temp 98.5 F 12/16/17 04:00 Pulse 90 12/16/17 04:00 Resp 20 12/16/17 04:00 BP 105/64 12/16/17 04:00 Pulse Ox 97 12/16/17 04:00 Intake & Output 12/15/17 12/16/17 12/16/17 18:59 06:59 18:59 Intake Total 1200 480 Output Total 1300 1250 Balance -100 -770 Weight (lbs) 70.307 kg 70.171 kg Intake: Oral 1200 480 Output: Urine 1300 1250 Other: # Bowel Movements 1 2 Stool Characteristics Soft Formed Brown Weight Source Bedscale Bedscale Active Medications: Current Medications Acetaminophen (Tylenol) 650 mg PO Q4H PRN PRN Reason: T=100 F Stop: 01/26/18 01:28 Last Admin: 12/04/17 12:40 Dose: 650 mg Calamine/Phenol (Calmoseptine) 1 appl TP QID PRN PRN Reason: Skin Irritation Stop: 02/13/18 17:07 [place] Oil/[place] Balsam/Trypsin (Venelex) 1 appl TP DAILY [facility] Stop: 02/14/18 08:59 Glipizide (Glucotrol) 10 mg PO DAILY [facility] Stop: 01/20/18 08:59 Last Admin: 12/15/17 09:03 Dose: 10 mg Hydrochlorothiazide (Hctz) 25 mg PO DAILY [facility] Stop: 01/28/18 08:59 Last Admin: 12/15/17 09:04 Dose: 25 mg Ibuprofen (Motrin) 600 mg PO BID [facility] Stop: 01/21/18 08:59 Last Admin: 12/15/17 16:38 Dose: Not Given Insulin Aspart (Novolog Insulin Sliding Scale) 0 units SUBQ ACHS [facility]; Protocol Stop: 01/20/18 07:59 Last Admin: 12/15/17 20:52 Dose: 2 units Insulin Detemir (Levemir Insulin) 10 units SUBQ HS [facility]; Protocol Stop: 01/20/18 20:59 Last Admin: 12/15/17 20:53 Dose: 10 units Lactobacillus Rhamnosus (Culturelle 15b) 1 each PO DAILY [facility] Stop: 01/21/18 13:59 Last Admin: 12/15/17 09:04 Dose: 1 each Lisinopril (Zestril) 20 mg PO DAILY [facility] Stop: 01/26/18 08:59 Last Admin: 12/15/17 09:03 Dose: 20 mg Metformin HCl (Glucophage) 500 mg PO DAILY [facility] Stop: 02/11/18 08:59 Last Admin: 12/15/17 09:04 Dose: 500 mg Miscellaneous (Probiotic Screen) 1 ea MC PRN PRN PRN Reason: PROTOCOL Stop: 01/21/18 12:43 Nystatin (Mycostatin Cream) 1 appl TP DAILY PRN PRN Reason: Diaper Rash Stop: 01/20/18 08:59 Last Admin: 11/29/17 16:52 Dose: 1 appl Nystatin (Nystop) 100,000 units TP DAILY PRN PRN Reason: Diaper Rash Stop: 01/20/18 07:56 Last Admin: 12/09/17 17:36 Dose: 100,000 units Pantoprazole Sodium (Protonix) 40 mg PO DAILY [facility] Stop: 02/08/18 08:59 Last Admin: 12/15/17 09:04 Dose: 40 mg General: Alert, Oriented x3 HEENT: Atraumatic Neck: Supple Cardiovascular: Regular rate Lungs: Clear to auscultation Abdomen: Bowel sounds, Soft, no Tender, no Hepatomegaly, no Splenomegaly, no Distended, no Rebound, no Mass, no Guarding Extremities: no Clubbing, no Cyanosis, no Edema Assessment/Plan - Assessment Assessment: s/p fall homeless anemia -- s/p blood transfusion for GI workup hyponatremia -- improved hypokalemia -- improved diabetes mellitus --improved. hyperglycemia ... will adjust PO meds. UTI/pyelonephritis -- continue IV antibiotics. ID consult tinea crurus. HTN --controlled continue with Lisinopril 20mg PO daily and HCTZ 25mg daily H/o CVA. H/o depression. 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 Neurogenic bladder. H/o Back surgery. Left forearm pain after a traumatic fall, acute fracture of ulna styloid. -- ortho consult ESBL klebsiella +blood +urine +wound ... change antibiotics per ID to Levaquin PO x 5 days. Depression ... will order psychiatric evaluation. For Discharge planning to Board and Care - Plan Plan: okay to discharge patient and to follow up with PMD in 3-5 days. Arranging for possible board and care. add metformin 500mg PO daily. Nutritional Asmnt/Malnutr-PDOC - Dietary Evaluation Malnutrition Findings (Please click <Entered> for more info): Nutritional Asmnt/Malnutrition Start: 11/22/17 17: 38 Text: Status: Complete Freq: Protocol: Document 11/22/17 17:38 LCHENG (Rec: 11/22/17 17:57 LCHENG [email or web address]) Nutritional Asmnt/Malnutrition Patient General Information Nutritional Screening High Risk Diagnosis electrolyte imbalance, anemia Pertinent Medical Hx/Surgical Hx HTN, Dm, CVA/TIA, back surgery , depression Subjective Information consult received for diabetic. Pt is [place] speaking. Per EMR, Pt consumded 50% of breakfast today. Not able to provide diabetic education d/t language barrier. Current Diet Order/ Nutrition Support diabetic diet Pertinent Medications glucotrol, novolog, levemir, culturelle, protonix, piperacillin, 0.9% ns w/20 meq kcl Pertinent Labs 11/21 Na 130, K 3.3, Cl 97, glucsoe 385 11/21-11/22 POC 245-415 Nutritional Hx/Data Height 1.78 m Height (Calculated Centimeters) 177.8 Current Weight (lbs) 81.647 kg Weight (Calculated Kilograms) 81.6 Weight (Calculated Grams) 48176.6 [place] Body Weight 166 Body Mass Index (BMI) 25.8 Weight Status Overweight GI Symptoms GI Symptoms None Last BM none Difficult in: None Skin Integrity/Comment: pressure ulcer to sacrum Current %PO Fair (50-74%) Estimated Nutritional Goals BEE in Kcals: Using Current wt Calories/Kcals/Kg 25-30 Kcals Calculated 4273-7408 Protein: Using Current wt Protein g/k Protein Calculated 75 Fluid: ml 1875-2250ml (1ml/kcal) Nutritional Problem 1. Problem Problem increased nutrition needs Etiology increased metabolic needs for impaired skin integrity Signs/Symptoms: pressure ulcer to sacrum Malnutrition Alert Is there a minimum of two criteria No selected? Query Text:Check all the applicable criteria. A minimum of two criteria are recommended for diagnosis of either severe or non-severe malnutrition. Malnutrition Related to Morbid Obesity Malnutrition related to morbid obesity No Intervention/Recommendation Comments 1. Continue with diabetic diet diet as ordered. 2. Monitor PO intake, wt, labs and skin integrity 3. F/U as moderate risk in 3-5 days, 11/25-11/27, PO check Expected Outcomes/Goals Expected Outcomes/Goals 1. PO intake to meet at least 75% of nutritional needs. 2. Wt stability, skin to remain intact, labs to approach WNL.
[2017-12-16] MEDS: INSULIN ASPART SLIDING SCALE 100 UNITS/ML UNIT SUBQ SCH ×5 (08:29→21:06)
[2017-12-16] MEDS: Lactobacillus Rhamnosus GG 15 Billion CFU CAP.SPRINK PO SCH (08:30)
[2017-12-16] MEDS: Pantoprazole 40 mg EC Tab PO SCH (08:30)
[2017-12-16] MEDS: Venelex 60gm Tube TP SCH (08:33)
[2017-12-16] MEDS: Insulin Detemir 100 units/mL 10mL Vial SUBQ SCH (21:07)
--- NOTE | 2017-12-17 07:07 | Progress Notes ---
DATE: SUBJECTIVE: Chart reviewed and the patient interviewed. Also discussed the patient's condition with the staff and reviewed records and labs. The patient's affect is brighter. The patient is cooperative and he is compliant with treatment. The patient also is not agitated and he is interacting more. The patient also denies any suicidal or homicidal ideations. ASSESSMENT: The patient is not suicidal or homicidal, and he can be transferred to lower level of care when appropriate. [facility]# [id number]
--- NOTE | 2017-12-17 08:12 | General Progress Note ---
Subjective - Review of Systems Service Date: 12/17/17 Subjective: Awake,alert, afebrile. no new complaints. Patient has no new changes. waiting for placement. Objective - Results Result Diagrams: 12/01/17 05:20 12/01/17 05:20 Recent Labs: Laboratory Last Values WBC 5.9 Th/cmm (4.8-10.8) 12/01/17 05:20 RBC 3.55 Mil/cmm (4.30-5.70) L 12/01/17 05:20 Hgb 10.2 gm/dL (12-16) L 12/01/17 05:20 Hct 30.6 % (41.0-60) L 12/01/17 05:20 MCV 86.1 fl (80-99) 12/01/17 05:20 MCH 28.7 pg (26.0-30.0) 12/01/17 05:20 MCHC Differential 33.3 pg (28.0-36.0) 12/01/17 05:20 RDW 13.2 % (11.5-20.0) 12/01/17 05:20 Plt Count 325 Th/cmm (150-400) 12/01/17 05:20 MPV 6.8 fl 12/01/17 05:20 Add Manual Diff YES 11/28/17 06:33 Neutrophils % 66.0 % (40.0-80.0) 12/01/17 05:20 Band Neutrophils % 2 % (0-10) 11/28/17 06:33 Lymphocytes % 25.0 % (20.0-50.0) 12/01/17 05:20 Monocytes % 6.4 % (2.0-10.0) 12/01/17 05:20 Eosinophils % 2.1 % (0.0-5.0) 12/01/17 05:20 Basophils % 0.5 % (0.0-2.0) 12/01/17 05:20 Neutrophils (Manual) 63 % (40-80) 11/28/17 06:33 Lymphocytes 26 % (20-50) 11/28/17 06:33 Monocytes 9 % (2-10) 11/28/17 06:33 Eosinophils 0 % (0-5) 11/28/17 06:33 Basophils 0 % (0-3) 11/28/17 06:33 Platelet Estimate ADEQUATE (NORMAL) 11/24/17 05:20 PT 10.5 SECONDS (9.5-11.5) 11/24/17 05:20 INR 1.01 (0.5-1.4) 11/24/17 05:20 PTT (Actin FS) 30.1 SECONDS (26.0-38.0) 11/20/17 14:50 Sodium 137 mEq/L (136-145) 12/01/17 05:20 Potassium 3.9 mEq/L (3.5-5.1) 12/01/17 05:20 Chloride 104 mEq/L (98-107) 12/01/17 05:20 Carbon Dioxide 28.0 mEq/L (21.0-31.0) 12/01/17 05:20 Anion Gap 8.9 (7.0-16.0) 12/01/17 05:20 BUN 24 mg/dL (7-25) 12/01/17 05:20 Creatinine 0.8 mg/dL (0.7-1.3) 12/01/17 05:20 Est GFR ( Amer) > 60.0 ml/min (>90) 12/01/17 05:20 Est GFR (Non-Af Amer) > 60.0 ml/min 12/01/17 05:20 BUN/Creatinine Ratio 30.0 12/01/17 05:20 Glucose 181 mg/dL (70-105) H 12/01/17 05:20 POC Glucose 88 MG/DL (70 - 105) 12/17/17 06:07 Calcium 8.9 mg/dL (8.6-10.3) 12/01/17 05:20 Iron 7 ug/dL (38-169) L 11/20/17 14:50 TIBC 161 ug/dL (250-450) L 11/20/17 14:50 Iron Saturation 4 % (15-55) L 11/20/17 14:50 Unsaturated IBC 154 ug/dL (111-343) 11/20/17 14:50 Total Bilirubin 0.3 mg/dL (0.3-1.0) 11/23/17 05:50 AST 11 U/L (13-39) L 11/23/17 05:50 ALT 8 U/L (7-52) 11/23/17 05:50 Alkaline Phosphatase 108 U/L (34-104) H 11/23/17 05:50 Troponin I 0.03 ng/mL (0.01-0.05) 11/20/17 14:50 B-Natriuretic Peptide 239.0 pg/mL (5.0-100.0) H 11/21/17 06:40 Total Protein 5.6 gm/dL (6.0-8.3) L 11/23/17 05:50 Albumin 2.6 gm/dL (4.2-5.5) L 11/23/17 05:50 Globulin 3.0 gm/dL 11/23/17 05:50 Albumin/Globulin Ratio 0.9 (1.0-1.8) L 11/23/17 05:50 Urine Source CATH 11/21/17 09:00 Urine Color YELLOW 11/21/17 09:00 Urine Clarity HAZY (CLEAR) 11/21/17 09:00 Urine pH 6.0 (4.6 - 8.0) 11/21/17 09:00 Ur Specific [place] 1.020 (1.005-1.030) 11/21/17 09:00 Urine Protein >=300 mg/dL (NEGATIVE) 11/21/17 09:00 Urine Glucose (UA) >=1000 mg/dL (NEGATIVE) H 11/21/17 09:00 Urine Ketones 15 mg/dL (NEGATIVE) H 11/21/17 09:00 Urine Blood LARGE (NEGATIVE) H 11/21/17 09:00 Urine Nitrate NEGATIVE (NEGATIVE) 11/21/17 09:00 Urine Bilirubin NEGATIVE (NEGATIVE) 11/21/17 09:00 Urine Urobilinogen 0.2 E.U./dL (0.2 - 1.0) 11/21/17 09:00 Ur Leukocyte Esterase MODERATE (NEGATIVE) H 11/21/17 09:00 Urine RBC 0-2 /hpf (0-5) H 11/21/17 09:00 Urine WBC 50-100 /hpf (0-5) H 11/21/17 09:00 Ur Epithelial Cells FEW /lpf (FEW) 11/21/17 09:00 Urine Bacteria MANY /hpf (NONE SEEN) H 11/21/17 09:00 Stool Occult Blood NEGATIVE (NEGATIVE) 12/16/17 11:05 HIV 1&2 Antibody Screen NEGATIVE (NEG) 11/22/17 05:40 Blood Type A POSITIVE 11/22/17 09:50 Antibody Screen NEGATIVE 11/22/17 09:50 Crossmatch See Detail 11/22/17 09:50 - Physical Exam Vitals and I&O: Vital Signs Temp 98.3 F 12/17/17 08:00 Pulse 84 12/17/17 08:00 Resp 16 12/17/17 08:00 BP 110/65 12/17/17 08:00 Pulse Ox 100 12/17/17 08:00 Intake & Output 12/16/17 12/17/17 12/17/17 18:59 06:59 18:59 Intake Total 800 240 Output Total 800 500 Balance 0 -260 Weight (lbs) 69.853 kg 69.853 kg Intake: Oral 800 240 Output: Urine 800 500 Other: # Bowel Movements 2 0 Stool Characteristics Soft Formed Brown Weight Source Bedscale Bedscale Active Medications: Current Medications Acetaminophen (Tylenol) 650 mg PO Q4H PRN PRN Reason: T=100 F Stop: 01/26/18 01:28 Last Admin: 12/04/17 12:40 Dose: 650 mg Calamine/Phenol (Calmoseptine) 1 appl TP QID PRN PRN Reason: Skin Irritation Stop: 02/13/18 17:07 [place] Oil/[place] Balsam/Trypsin (Venelex) 1 appl TP DAILY [facility] Stop: 02/14/18 08:59 Last Admin: 12/16/17 08:33 Dose: 1 appl Glipizide (Glucotrol) 10 mg PO DAILY [facility] Stop: 01/20/18 08:59 Last Admin: 12/16/17 08:30 Dose: 10 mg Hydrochlorothiazide (Hctz) 25 mg PO DAILY [facility] Stop: 01/28/18 08:59 Last Admin: 12/16/17 08:31 Dose: Not Given Ibuprofen (Motrin) 600 mg PO BID [facility] Stop: 01/21/18 08:59 Last Admin: 12/16/17 16:51 Dose: Not Given Insulin Aspart (Novolog Insulin Sliding Scale) 0 units SUBQ ACHS [facility]; Protocol Stop: 01/20/18 07:59 Last Admin: 12/16/17 21:06 Dose: 4 units Insulin Detemir (Levemir Insulin) 10 units SUBQ HS [facility]; Protocol Stop: 01/20/18 20:59 Last Admin: 12/16/17 21:07 Dose: 10 units Lactobacillus Rhamnosus (Culturelle 15b) 1 each PO DAILY [facility] Stop: 01/21/18 13:59 Last Admin: 12/16/17 08:30 Dose: 1 each Lisinopril (Zestril) 20 mg PO DAILY [facility] Stop: 01/26/18 08:59 Last Admin: 12/16/17 08:31 Dose: Not Given Metformin HCl (Glucophage) 500 mg PO DAILY [facility] Stop: 02/11/18 08:59 Last Admin: 12/16/17 08:30 Dose: 500 mg Miscellaneous (Probiotic Screen) 1 ea MC PRN PRN PRN Reason: PROTOCOL Stop: 01/21/18 12:43 Nystatin (Mycostatin Cream) 1 appl TP DAILY PRN PRN Reason: Diaper Rash Stop: 01/20/18 08:59 Last Admin: 11/29/17 16:52 Dose: 1 appl Nystatin (Nystop) 100,000 units TP DAILY PRN PRN Reason: Diaper Rash Stop: 01/20/18 07:56 Last Admin: 12/09/17 17:36 Dose: 100,000 units Pantoprazole Sodium (Protonix) 40 mg PO DAILY [facility] Stop: 02/08/18 08:59 Last Admin: 12/16/17 08:30 Dose: 40 mg General: Alert, Oriented x3 HEENT: Atraumatic Neck: Supple Cardiovascular: Regular rate Lungs: Clear to auscultation Abdomen: Bowel sounds, Soft, no Tender, no Hepatomegaly, no Splenomegaly, no Distended, no Rebound, no Mass, no Guarding Extremities: no Clubbing, no Cyanosis, no Edema Assessment/Plan - Assessment Assessment: s/p fall homeless anemia -- s/p blood transfusion for GI workup hyponatremia -- improved hypokalemia -- improved diabetes mellitus --improved. hyperglycemia ... will adjust PO meds. UTI/pyelonephritis -- continue IV antibiotics. ID consult tinea crurus. HTN --controlled continue with Lisinopril 20mg PO daily and HCTZ 25mg daily H/o CVA. H/o depression. 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 Neurogenic bladder. H/o Back surgery. Left forearm pain after a traumatic fall, acute fracture of ulna styloid. -- ortho consult ESBL klebsiella +blood +urine +wound ... change antibiotics per ID to Levaquin PO x 5 days. Depression ... will order psychiatric evaluation. For Discharge planning to Board and Care - Plan Plan: okay to discharge patient and to follow up with PMD in 3-5 days. Arranging forplacement. add metformin 500mg PO daily. Nutritional Asmnt/Malnutr-PDOC - Dietary Evaluation Malnutrition Findings (Please click <Entered> for more info): Nutritional Asmnt/Malnutrition Start: 11/22/17 17: 38 Text: Status: Complete Freq: Protocol: Document 11/22/17 17:38 RAMSEY (Rec: 11/22/17 17:57 RAMSEY [email or web address]) Nutritional Asmnt/Malnutrition Patient General Information Nutritional Screening High Risk Diagnosis electrolyte imbalance, anemia Pertinent Medical Hx/Surgical Hx HTN, Dm, CVA/TIA, back surgery , depression Subjective Information consult received for diabetic. Pt is [place] speaking. Per EMR, Pt consumded 50% of breakfast today. Not able to provide diabetic education d/t language barrier. Current Diet Order/ Nutrition Support diabetic diet Pertinent Medications glucotrol, novolog, levemir, culturelle, protonix, piperacillin, 0.9% ns w/20 meq kcl Pertinent Labs 11/21 Na 130, K 3.3, Cl 97, glucsoe 385 11/21-11/22 POC 245-415 Nutritional Hx/Data Height 1.78 m Height (Calculated Centimeters) 177.8 Current Weight (lbs) 81.647 kg Weight (Calculated Kilograms) 81.6 Weight (Calculated Grams) 39156.6 [place] Body Weight 166 Body Mass Index (BMI) 25.8 Weight Status Overweight GI Symptoms GI Symptoms None Last BM none Difficult in: None Skin Integrity/Comment: pressure ulcer to sacrum Current %PO Fair (50-74%) Estimated Nutritional Goals BEE in Kcals: Using Current wt Calories/Kcals/Kg 25-30 Kcals Calculated 4886-5998 Protein: Using Current wt Protein g/k Protein Calculated 75 Fluid: ml 1875-2250ml (1ml/kcal) Nutritional Problem 1. Problem Problem increased nutrition needs Etiology increased metabolic needs for impaired skin integrity Signs/Symptoms: pressure ulcer to sacrum Malnutrition Alert Is there a minimum of two criteria No selected? Query Text:Check all the applicable criteria. A minimum of two criteria are recommended for diagnosis of either severe or non-severe malnutrition. Malnutrition Related to Morbid Obesity Malnutrition related to morbid obesity No Intervention/Recommendation Comments 1. Continue with diabetic diet diet as ordered. 2. Monitor PO intake, wt, labs and skin integrity 3. F/U as moderate risk in 3-5 days, 11/25-11/27, PO check Expected Outcomes/Goals Expected Outcomes/Goals 1. PO intake to meet at least 75% of nutritional needs. 2. Wt stability, skin to remain intact, labs to approach WNL.
[2017-12-17] MEDS: INSULIN ASPART SLIDING SCALE 100 UNITS/ML UNIT SUBQ SCH ×2 (08:27→12:32)
[2017-12-17] MEDS: Venelex 60gm Tube TP SCH (08:38)
[2017-12-17] MEDS: Lactobacillus Rhamnosus GG 15 Billion CFU CAP.SPRINK PO SCH (08:38)
[2017-12-17] MEDS: Pantoprazole 40 mg EC Tab PO SCH (08:38)
--- NOTE | 2017-12-22 19:39 | Discharge Summary ---
DATE OF DISCHARGE: 12/17/2017 PRELIMINARY DIAGNOSES: 1. Status post fall. 2. Homelessness 3. Anemia. 4. Hyponatremia. 5. Hypokalemia. 6. Diabetes mellitus. 7. Hyperglycemia. DISCHARGE DIAGNOSES: 1. Anemia, status post blood transfusion. 2. Hyponatremia, now resolved. 3. Hypokalemia, now resolved. 4. Diabetes mellitus, well controlled. 5. Hyperglycemia, resolved. 6. Urinary tract infection, positive for Klebsiella and ESBL, now resolved. 7. Pyelonephritis. 8. Tinea cruris. 9. Hypertension, now controlled on lisinopril and hydrochlorothiazide. 10. History of cerebrovascular accident. 11. History of depression. 12. Gluteal wound, status post wound debridement. 13. Paraplegia secondary to back surgery. 14. Neurogenic bladder. 15. History of back surgery. 16. Left forearm pain after a traumatic fall, acute fracture of the styloid ulna. 17. ESBL Klebsiella, both in the blood, urine and wound. BRIEF HISTORY OF PRESENT ILLNESS: This is a 42-year-old paraplegic homeless man who presents to [facility] ER for left arm pain status post fall. The patient was brought in for evaluation of the left arm due to a fall. However, x-rays of the left arm were negative for fracture. The patient had initial lab work done, which revealed a white count of 8.9; hemoglobin of 8.0; hematocrit of 23.2; platelets 165,000. His sodium was noted to be 131 with potassium of 3.1, BUN and creatinine was 14 and 1.2. Glucose was extremely high in the 400s. This patient has history of paraplegia secondary to a failed back surgery, also history of diabetes, hypertension, CVA, and depression. The patient was found to have a substantial sacral wound and was subsequently admitted for IV antibiotic treatment and correction of his electrolytes. HOSPITAL COURSE: The patient did improve during his hospital stay, was given blood transfusion during his hospital stay due to hemoglobin being low. GI workup was done during his hospital stay. See dictated report. Sodium and also potassium were also low flow. The patient was given supplements and both potassium and sodium improved. Urine culture and wound culture all came back positive for ESBL Klebsiella. ID consult was ordered. Please see dictated report. The patient was initially given IV antibiotics. During his hospital stay, the patient was seen by General Surgery for wound debridement of the gluteal wound, which healed nicely. The patient was subsequently discharged in stable condition to [facility] facility to be continued with current medications. JOB# [id number]
== END 2017-12-17 15:15 | DRG 380 ==
LOC: ER 13:52 → MSI 17:50
PROVIDERS: ADMIT Family Medicine; ATTEND Family Medicine
PROC: 30233N1 Transfusion of Nonautologous Red Blood Cells into Peripheral Vein, Percutaneous Approach (ICD-10-PCS; 2017-11-22)
PROC: 0JB70ZZ Excision of Back Subcutaneous Tissue and Fascia, Open Approach (ICD-10-PCS; principal; 2017-12-01)
DX: L89.152 Pressure ulcer of sacral region, stage 2 (principal); E11.00 Type 2 diabetes mellitus with hyperosmolarity without nonketotic hyperglycemic-hyperosmolar coma (NKHHC); E43 Unspecified severe protein-calorie malnutrition; L89.322 Pressure ulcer of left buttock, stage 2; R78.81 Bacteremia; G82.20 Paraplegia, unspecified; E87.1 Hypo-osmolality and hyponatremia; N12 Tubulo-interstitial nephritis, not specified as acute or chronic; I69.359 Hemiplegia and hemiparesis following cerebral infarction affecting unspecified side; E11.65 Type 2 diabetes mellitus with hyperglycemia; N13.6 Pyonephrosis; S52.612A Displaced fracture of left ulna styloid process, initial encounter for closed fracture; B35.6 Tinea cruris; N31.9 Neuromuscular dysfunction of bladder, unspecified; D64.9 Anemia, unspecified; E87.6 Hypokalemia; I10 Essential (primary) hypertension; F32.9 Major depressive disorder, single episode, unspecified; W18.30XA Fall on same level, unspecified, initial encounter; Y93.89 Activity, other specified; Y92.89 Other specified places as the place of occurrence of the external cause; Y99.8 Other external cause status; B96.1 Klebsiella pneumoniae [K. pneumoniae] as the cause of diseases classified elsewhere; Z59.0 Homelessness; Z16.12 Extended spectrum beta lactamase (ESBL) resistance; Z79.4 Long term (current) use of insulin; Z79.84 Long term (current) use of oral hypoglycemic drugs
CPT/HCPCS: 36415-UA; 71045-TC; 73080-TC-LT; 73090-TC-LT; 73110-TC-LT; 76770-TC; 80048-TC; 80053-TC; 81001-TC; 82270-TC; 82948-90; 83036-90; 83540-90; 83550-90; 83880-TC; 84484-TC; 85007-TC; 85025-TC; 85610-TC; 85730-TC; 86703-TC; 86850-TC; 86900-TC; 86901-TC; 86922-TC; 87070-90; 87086-90; 93005; 93971-TC-LT; A4217; C9113; J1815; J1885; J2001; J2185; J2270; J2543; J2704; J3010; J3480; P9016; Z7610

== ENCOUNTER 2018-01-11 15:48 | Inpatient (IN) | payer MEDICAID ==
[2018-01-11] MEDS ORDERED: Sodium Chloride 0.9% 1,000 ML IV ONE (15:58)
--- NOTE | 2018-01-11 16:03 | ED Physician Chart ---
ED Chief Complaint/HPI - Patient Information Date Seen:: 01/11/18 Time Seen:: 15:45 Chief Complaint:: Abdominal Pain History of Present Illness:: onset x 2 days of intermittent, diffuse, crampy abdominal pain, N/V/D; no report of trauma, H/As, S/T, neck pain, C/P, SOB, A/C, fever, chills, or urinary s/s Allergies:: Allergies Allergy/AdvReac Type Severity Reaction Status Date / Time No Known Allergies Allergy Verified 11/20/17 14:00 Historian:: Patient, EMS Review:: Nurse's Note Reviewed, Old Chart Reviewed, EMS run form Reviewed ED Review of Systems - Review of Systems General/Constitutional: No fever, No chills, No weight loss, No weakness, No diaphoresis, No edema, No loss of appetite Skin: No skin lesions, No rash, No bruising Head: No headache, No light-headedness Eyes: No loss of vision, No pain, No diplopia ENT: No earache, No nasal drainage, No sore throat, No tinnitus Neck: No neck pain, No swelling, No thyromegaly, No stiffness, No mass noted Cardio Vascular: No chest pain, No palpitations, No PND, No orthopnea, No edema Pulmonary: No SOB, No cough, No sputum, No wheezing GI: Nausea, Vomiting, Diarrhea, Pain, No melena, No hematochezia, No constipation, No hematemesis G/U: No dysuria, No frequency, No hematuria, No nacturia Musculoskeletal: No bone or joint pain, No back pain, No muscle pain Endocrine: No polyuria, No polydipsia Psychiatric: No prior psych history, No depression, No anxiety, No suicidal ideation, No homicidal ideation, No auditory hallucination, No visual hallucination Hematopoietic: No bruising, No lymphadenopathy Allergic/Immuno: No urticaria, No angioedema Neurological: No syncope, No focal symptoms, No weakness, No paresthesia, No headache, No seizure, No dizziness, No confusion, No vertigo ED Past Medical History - Past Medical History Obtainable: Yes Past Medical History: HTN, DM, PUD/GERD Family History: Diabetes Melitus, HTN Social History: Non Smoker, No Alcohol, No Drug Use, Single, Care Facility Surgical History: None Psychiatricy History: Bipolar Medication: Reviewed Family Medical History - Family Member Mother History Unknown: Yes Ethnicity: Living Status: Unknown Hx Family Cancer: No Hx Family Coronary Artery Disease: No Hx Family Congestive Heart Failure: No Hx Family Hypertension: No Hx Family Stroke: No Hx Family Diabetes: No Hx Family Seizures: No Hx Family Dementia: No Hx Family AIDS: No Hx Family HIV: No Hx Family COPD: No Hx Family Hepatitis: No Hx Family Psychiatric Problems: No Hx Family Tuberculosis: No ED Physical Exam - Physical Examination General/Constitutional: Awake, Well-developed, well-nourished, Alert, No distress, GCS 15, Non-toxic appearing, Ambulatory Head: Atraumatic Eyes: Lids, conjuctiva normal, PERRL, EOMI Skin: Nl inspection, No rash, No skin lesions, No ecchymosis, Well hydrated, No lymphadenopathy ENMT: External ears, nose nl, TM canals nl, Nasal exam nl, Lips, teeth, gums nl , Oropharynx nl, Tonsils nl Neck: Nontender, Full ROM w/o pain, No JVD, No nuchal rigidity, No bruit, No mass, No stridor Respiratory: Nl effort/Exclusion, Clear to Auscultation, No Wheeze/Rhonchi/Rales Cardio Vascular: RRR, No murmur, gallop, rubs, NL S1 S2, Carotid/Femoral/Distal pulses equal bilaterally GI: No tenderness/rebounding/guarding, No organomegaly, No hernia, Normal BS's, Nondistended, No mass/bruits, No McBurney tenderness, Rectum exam nl : No CVA tenderness Extremities: No tenderness or effusion, Full ROM, normal strength in all extremities, No edema, Normal digits & nails Neuro/Psych: Alert/oriented, DTR's symmetric, Normal sensory exam, Normal motor strength, Judgement/insight normal, Mood normal, Normal gait, No focal deficits Misc: Normal back, No paraspinal tenderness ED Labs/Radiology/EKG Results - Lab Results Comments:: Reviewed - Radiology Results Comments:: CXR: NAD; CAT Scan: Bilateral Hydronephrosis with Mariaelena-Nephric Inflammatory Changes; Copious Stool - EKG Interpretations EKG Time:: 16:10 Rate & Rhythm: 97; NSR Comments:: non-specific st-t changes ED Septic Shock - . Is Septic Shock (SBP<90, OR Lactate>4 mmol\L) present?: No ED Reassessment (Disposition) - Reassessment Reassessment Condition:: Improved - Diagnosis Diagnosis:: Abdominal Pain; N/V/D;; AGE; Leukocytosis; UTI; Pyelonephritis; Anemia; Dehydration - Aftercare/Follow up Instructions Aftercare/Follow-Up Instructions:: Counseled pt regarding lab results/diagnosis & need follow up, Counseled pt & family regarding lab results/diagnosis & need follow up - Patient Disposition Discharge/Transfer:: Acute Care w/in this hosp Accepting Physician:: Dr. Sawant Time Called:: 1753 Time Responded:: 17:30 Admitted to:: Telemetry Spoke to:: Dr. Sawant Admitting Medical Physician:: Dr. Sawant Condition at Disposition:: Stable, Improved
[2018-01-11 16:22] LABS: MEAN PLATELET VOLUME 6.5 fl
[2018-01-11 16:25] LABS: HEMATOCRIT 34.7 % (41.0-60); HEMOGLOBIN 11.6 gm/dL (12-16); MEAN CELL VOLUME 86.6 fl (80-99); MEAN CORPUSCULAR HGB CONC 33.4 pg (28.0-36.0); PLATELET COUNT 318 Th/cmm (150-400); RED BLOOD COUNT 4.01 Mil/cmm (4.30-5.70); RED CELL DISTRIBUTION WIDTH 14.7 % (11.5-20.0)
[2018-01-11 16:27] LABS: WHITE BLOOD COUNT 17.7 Th/cmm (4.8-10.8)
[2018-01-11 16:29] LABS: URINE BILIRUBIN NEGATIVE (NEGATIVE); URINE BLOOD NEGATIVE (NEGATIVE); URINE GLUCOSE (UA) NEGATIVE (NEGATIVE); URINE KETONE NEGATIVE (NEGATIVE); URINE LEUKOCYTE ESTERASE LARGE (NEGATIVE); URINE NITRATE NEGATIVE (NEGATIVE); URINE PH 8.5 (4.6 - 8.0); URINE PROTEIN >=300 mg/dL (NEGATIVE); URINE SOURCE FOLEY PORT; URINE UROBILINOGEN 0.2 E.U./dL (0.2 - 1.0)
[2018-01-11 16:31] LABS: INR 0.95 (0.5-1.4); PROTHROMBIN TIME (TEST) 9.9 SECONDS (9.5-11.5)
[2018-01-11 16:36] LABS: URINE COLOR YELLOW
[2018-01-11 16:37] LABS: URINE CLARITY HAZY (CLEAR); URINE MICROSCOPIC INDICATED? YES
[2018-01-11 16:38] LABS: URINE BACTERIA 2+ /hpf (NONE SEEN); URINE EPITHELIAL CELLS FEW /lpf (FEW); URINE RBC 0-2 /hpf (0-5); URINE TRIPLE PHOSPHATE CRYSTAL MODERATE /hpf (FEW)
[2018-01-11 16:48] LABS: ALBUMIN 3.1 gm/dL (4.2-5.5); ALKALINE PHOSPHATASE 72 U/L (34-104); AMYLASE SERUM 58 U/L (29-103); ANION GAP 13.1 (7.0-16.0); BILIRUBIN,TOTAL 0.3 mg/dL (0.3-1.0); BUN - UREA NITROGEN 27 mg/dL (7-25); CALCIUM SERUM 8.8 mg/dL (8.6-10.3); CARBON DIOXIDE 25.8 mEq/L (21.0-31.0); CHLORIDE 105 mEq/L (98-107); CHOLESTEROL 243 mg/dL (<200); CREATININE - SERUM 1.3 mg/dL (0.7-1.3); CREATININE KINASE 73 U/L (30-223); GFR AFRICAN-AMERICAN > 60.0 ml/min (>90); GFR NON AFRICAN-AMERICAN > 60.0 ml/min; GLUCOSE 285 mg/dL (70-105); HDL -HIGH DENSITY LIPOPROTEIN 35 mg/dL (23-92); LIPASE 14 U/L (11-82); POTASSIUM SERUM 3.9 mEq/L (3.5-5.1); SGOT 10 U/L (13-39); SGPT/ALT 5 U/L (7-52); SODIUM SERUM 140 mEq/L (136-145); TOTAL PROTEIN,SERUM 6.1 gm/dL (6.0-8.3); TRIGLYCERIDES 123 mg/dL (<150)
[2018-01-11] MEDS ORDERED: cefTRIAXone 1 GM in Sodium Chloride 0.9% 50 ML IV ONE (16:55)
[2018-01-11] MEDS ORDERED: INSULIN HUMAN REGULAR 100 UNITS/ML UNIT SUBQ ONE (16:57)
[2018-01-11 17:04] LABS: DDIMER QUANT 2210 ng/mL (100-400)
[2018-01-11 17:15] LABS: BAND NEUTROPHILE 8 % (0-10); EOSINOPHIL 1 % (0-5); LYMPHOCYTE 5 % (20-50); MONOCYTE 1 % (2-10); NEUTROPHILS 85 % (40-80)
[2018-01-11] MEDS ORDERED: INSULIN HUMAN REGULAR 100 UNITS/ML UNIT ONE (17:16)
[2018-01-11] MEDS ORDERED: cefTRIAXone 1 GM in Sodium Chloride 0.9% 50 ML IV SCH (20:32)
[2018-01-11] MEDS ORDERED: INSULIN ASPART SLIDING SCALE 100 UNITS/ML UNIT SUBQ SCH (21:00)
[2018-01-11] MEDS: INSULIN ASPART SLIDING SCALE 100 UNITS/ML UNIT SUBQ SCH (22:29)
[2018-01-11] MEDS: cefTRIAXone 1 GM in Sodium Chloride 0.9% 50 ML IV SCH (22:34)
[2018-01-11 23:21] VITALS: BP 137/85
[2018-01-12] MEDS ORDERED: INSULIN ASPART SLIDING SCALE 100 UNITS/ML UNIT SUBQ SCH ×2 (07:30→11:30)
[2018-01-12] MEDS: INSULIN ASPART SLIDING SCALE 100 UNITS/ML UNIT SUBQ SCH ×4 (08:12→20:32)
--- NOTE | 2018-01-12 08:35 | Diagnostic Imaging Report ---
CHEST X-RAY: AP view INDICATION: pain COMPARISON: 11/20/2017 FINDINGS: There is no focal consolidation or pleural effusions The heart is normal in size. The osseous structures demonstrate no acute abnormalities. IMPRESSION: No focal airspace consolidation identified.
--- NOTE | 2018-01-12 08:58 | Diagnostic Imaging Report ---
CT abdomen and pelvis without intravenous contrast Indication: Abdominal pain Comparison: CT abdomen and pelvis on 11/22/2017, Technique: Axial images were obtained from the lung bases to the bilateral proximal femurs without IV contrast. Coronal reconstructions were made. total DLP: 503, CTDI9.6 FINDINGS: Hypoventilatory atelectatic changes of the lung bases are noted. Assessment of the solid organs is limited due to lack of IV contrast. No evidence of focal hepatic lesions. No focal splenic lesions. No focal pancreatic or adrenal lesions. There are diffuse perinephric inflammatory changes with perinephric fluid tracking inferiorly. There is moderate bilateral hydronephrosis. No radiopaque stones identified. There is marked distention of the urinary bladder with urinary bladder wall thickening and surrounding fluid extending to the surrounding fat planes including the perirectal and presacral region. Boles catheter is seen with balloon along the anterior-inferior aspect of the urinary bladder. There is mild thickening of the rectal wall. Copious stool is noted. No evidence of bowel obstruction. No appendicitis. No evidence of free air. Seminal vesicle calcifications are noted. Mild atherosclerosis is noted an IVC filter is seen at the L1/L2 level. There is evidence of previous fusion at L4/L5 with. A disc spacer is also seen at this level. There is mild edema seen along the subcutaneous soft tissues of the posterior sacral region. No erosions identified. There is a small fat-containing left inguinal hernia. IMPRESSION: Severe distention of the urinary bladder with severe urinary bladder wall thickening and surrounding inflammatory change and free fluid along the pelvic fat planes. A Boles catheter is seen within the urinary bladder. Please correlate clinically for possible infectious inflammatory process or chronic outlet obstruction. There is also moderate bilateral hydronephrosis with surrounding perinephric inflammatory changes and fluid likely related patient's distended urinary bladder. No radiopaque stones identified Mild rectal wall thickening which is nonspecific and may be reactive. IVC filter. Small fat-containing left inguinal hernia Post surgical changes of lumbosacral spine. Mild edema along the subcutis tissues of the posterior sacral region.
[2018-01-12] MEDS ORDERED: [UNRECOGNIZED DRUG - OTHER] TP SCH (09:00)
[2018-01-12] MEDS ORDERED: TALC TP SCH (09:00)
--- NOTE | 2018-01-12 09:02 | History and Physical ---
History of Present Illness - HPI Chief Complaint: Abdominal Pain HPI: 42 y/o male who presents to [facility] ER for 2 day history of abdominal pain, nausea, vomiting, diarrhea and intermittent crampy abdominal pain. Patient was recently discharge from [facility] 2 months ago for UTI + Klebsiella and ESBL. Patient returns with similar complains of fever, chills, and urinary symptoms. While in the Er patient had initial labwork done ... WBC 17.7 H/H 11.6/34.7 platelets 318K Na 140 K 3.9 Bun/Cr 27/1.3 glucose 285 UA Leukoesterase +large Bacteria +2 CT abd ... B/l hydronephrosis with Perinephric Inflammatory changes. patient to be admitted to med/surg for further evaluation and treatment. Vital Signs: Last Vital Signs Temp 98.2 F 01/12/18 08:00 Pulse 102 01/12/18 08:00 Resp 18 01/12/18 08:00 BP 101/58 01/12/18 08:00 Pulse Ox 95 01/12/18 08:00 Past Medical History Cardiovascular: Report: HTN Pulmonary: Report: No Pertinent Hx SNELLER HAND: Report: Other GI: Report: GERD Psych: Report: Bipolar Musculoskeletal: Report: No Pertinent Hx Rheumatologic: Report: No pertinent Hx Infectious Disease: Report: No Pertinent Hx Renal/: Report: No Pertinent Hx Endocrine: Report: Diabetes Dermatology: Report: No Pertinent Hx - Past Surgical History Past Surgical History: Other (previous back surgery) Family Medical History - Family Member Mother History Unknown: Yes Ethnicity: Living Status: Unknown Hx Family Cancer: No Hx Family Coronary Artery Disease: No Hx Family Congestive Heart Failure: No Hx Family Hypertension: No Hx Family Stroke: No Hx Family Diabetes: No Hx Family Seizures: No Hx Family Dementia: No Hx Family AIDS: No Hx Family HIV: No Hx Family COPD: No Hx Family Hepatitis: No Hx Family Psychiatric Problems: No Hx Family Tuberculosis: No Social History Smoke: No Alcohol: None Drugs: None Lives: Alone - Medications Home Medications: Home Medication Medication Instructions Recorded Type Glipizide [Glucotrol] 10 mg PO DAILY tab 12/17/17 Rx Hydrochlorothiazide [Hctz*] 25 mg PO DAILY tab 12/17/17 Rx Ibuprofen [Motrin*] 600 mg PO BID tab 12/17/17 Rx Insulin Detemir [Levemir Insulin] 10 units SUBQ HS vial 12/17/17 Rx Lactobacillus Rhamnosus GG 15B 1 each PO DAILY cap.sprink 12/17/17 Rx [Culturelle 15B] Lisinopril [Zestril*] 20 mg PO DAILY tab 12/17/17 Rx Pantoprazole [Protonix] 40 mg PO DAILY ect 12/17/17 Rx metFORMIN [Glucophage] 500 mg PO DAILY tab 12/17/17 Rx Acetaminophen [Tylenol] 650 mg PO Q4H PRN 01/11/18 History Clotrimazole 1% Cream [Lotrimin 1% 1 appl TP BID 01/11/18 History Cream] Ferrous Sulfate 325 mg PO DAILY 01/11/18 History Insulin Aspart Sliding Scale See Protocol SUBQ ACHS 01/11/18 History [NovoLOG INSULIN SLIDING SCALE] Talc/Cellulos/Chloroxy/Aldioxa 1 pow TP BID 01/11/18 History [Zeasorb] cloNIDine HCl [Catapres] 0.1 mg PO Q6HR PRN 01/11/18 History - Allergies Allergies/Adverse Reactions: Allergies Allergy/AdvReac Type Severity Reaction Status Date / Time No Known Allergies Allergy Verified 11/20/17 14:00 Review of Systems - Review of Systems Constitutional: Report: No Significant Eyes: Report: No Significant ENT: Report: No Significant Respiratory: Report: No Significant Cardiovascular: Report: No Significant Gastrointestinal: Report: Nausea, Vomiting, Abdominal Pain, Diarrhea Genitourinary: Report: Dysuria, Incontinence Musculoskeletal: Report: No Significant Skin: Report: No Significant Neurological: Report: No Significant Physical Exam - Physical Exam HEENT: Report: Ears Nose Throat within normal limits, Pharnyx within normal limits Neck: Report: Within normal limits Cardiovascular Systems: Report: +s1/s2 noted, Regular, Rate and Rhythm Respiratory: Report: Breath Sounds are within normal limits, Clear to Auscultation of lung dover Abdomen: Report: Non-tender to palpation Extremities: Report: Non-tender to palpation. Skin: Report: Color of skin is within normal limits - Lab Results All Lab Results last 24 hours: Laboratory Results - last 24 hr 01/11/18 01/11/18 01/11/18 16:10 16:16 16:16 WBC 17.7 H RBC 4.01 L Hgb 11.6 L Hct 34.7 L MCV 86.6 MCH 29.0 MCHC Differential 33.4 RDW 14.7 Plt Count 318 MPV 6.5 Add Manual Diff YES Neutrophils % [employer] TRA[employer]ER Band Neutrophils % 8 Lymphocytes % [employer] TRA[employer]ER Monocytes % Not Reportable Eosinophils % Not Reportable Basophils % Not Reportable Neutrophils (Manual) 85 H Lymphocytes 5 L Monocytes 1 L Eosinophils 1 PT 9.9 INR 0.95 D-Dimer Sodium Potassium Chloride Carbon Dioxide Anion Gap BUN Creatinine Est GFR ( Amer) Est GFR (Non-Af Amer) BUN/Creatinine Ratio Glucose POC Glucose Whole Bld Lactic Acid Calcium Total Bilirubin AST ALT Alkaline Phosphatase Creatine Kinase Troponin I B-Natriuretic Peptide Total Protein Albumin Globulin Albumin/Globulin Ratio Triglycerides Cholesterol LDL Cholesterol Direct HDL Cholesterol Amylase Lipase Urine Source [place] Urine Color YELLOW Urine Clarity HAZY Urine pH 8.5 Ur Specific [place] <= 1.005 Urine Protein >=300 Urine Glucose (UA) NEGATIVE Urine Ketones NEGATIVE Urine Blood NEGATIVE Urine Nitrate NEGATIVE Urine Bilirubin NEGATIVE Urine Urobilinogen 0.2 Ur Leukocyte Esterase LARGE H Urine RBC 0-2 H Urine WBC 6-10 Ur Epithelial Cells FEW Triple Phos Crystals MODERATE Urine Bacteria 2+ H 01/11/18 01/11/18 01/11/18 16:16 16:16 16:16 WBC RBC Hgb Hct MCV MCH MCHC Differential RDW Plt Count MPV Add Manual Diff Neutrophils % Band Neutrophils % Lymphocytes % Monocytes % Eosinophils % Basophils % Neutrophils (Manual) Lymphocytes Monocytes Eosinophils PT INR D-Dimer 2210 H Sodium 140 Potassium 3.9 Chloride 105 Carbon Dioxide 25.8 Anion Gap 13.1 BUN 27 H Creatinine 1.3 Est GFR ( Amer) > 60.0 Est GFR (Non-Af Amer) > 60.0 BUN/Creatinine Ratio 20.8 Glucose 285 H POC Glucose Whole Bld Lactic Acid Calcium 8.8 Total Bilirubin 0.3 AST 10 L ALT 5 L Alkaline Phosphatase 72 Creatine Kinase 73 Troponin I 0.01 B-Natriuretic Peptide 62.1 Total Protein 6.1 Albumin 3.1 L Globulin 3.0 Albumin/Globulin Ratio 1.0 Triglycerides 123 Cholesterol 243 H LDL Cholesterol Direct 185 HDL Cholesterol 35 Amylase 58 Lipase 14 Urine Source Urine Color Urine Clarity Urine pH Ur Specific [place] Urine Protein Urine Glucose (UA) Urine Ketones Urine Blood Urine Nitrate Urine Bilirubin Urine Urobilinogen Ur Leukocyte Esterase Urine RBC Urine WBC Ur Epithelial Cells Triple Phos Crystals Urine Bacteria 01/11/18 01/11/1801/12/18 16:32 21:14 06:29 WBC RBC Hgb Hct MCV MCH MCHC Differential RDW Plt Count MPV Add Manual Diff Neutrophils % Band Neutrophils % Lymphocytes % Monocytes % Eosinophils % Basophils % Neutrophils (Manual) Lymphocytes Monocytes Eosinophils PT INR D-Dimer Sodium Potassium Chloride Carbon Dioxide Anion Gap BUN Creatinine Est GFR ( Amer) Est GFR (Non-Af Amer) BUN/Creatinine Ratio Glucose POC Glucose 223 H 181 H Whole Bld Lactic Acid 1.65 Calcium Total Bilirubin AST ALT Alkaline Phosphatase Creatine Kinase Troponin I B-Natriuretic Peptide Total Protein Albumin Globulin Albumin/Globulin Ratio Triglycerides Cholesterol LDL Cholesterol Direct HDL Cholesterol Amylase Lipase Urine Source Urine Color Urine Clarity Urine pH Ur Specific [place] Urine Protein Urine Glucose (UA) Urine Ketones Urine Blood Urine Nitrate Urine Bilirubin Urine Urobilinogen Ur Leukocyte Esterase Urine RBC Urine WBC Ur Epithelial Cells Triple Phos Crystals Urine Bacteria - Assessment Assessment: Current Active Problems Problem Status Onset ABDOMINAL PAIN WITH N/V Acute abdominal pain nausea/vomiting leukocytosis UTI Pyelonephritis Anemia Dehydration sepsis vs urosepsis - Plan Plan: see orders
[2018-01-12] MEDS: Pantoprazole 40 mg EC Tab PO SCH (09:52)
[2018-01-12] MEDS: Lactobacillus Rhamnosus GG 15 Billion CFU CAP.SPRINK PO SCH (09:52)
[2018-01-12] MEDS: Ferrous Sulfate 325 MG TAB PO SCH (09:53)
[2018-01-12] MEDS: Levofloxacin 500mg/100mL 500 MG/100 ML BAG IV SCH (09:53)
[2018-01-12 09:56] LABS: MEAN CORPUSCULAR HGB CONC 33.7 pg (28.0-36.0); MEAN PLATELET VOLUME 7.1 fl; RED CELL DISTRIBUTION WIDTH 14.6 % (11.5-20.0)
[2018-01-12 09:59] LABS: MEAN CELL VOLUME 86.5 fl (80-99); MEAN CORPUSCULAR HEMOGLOBIN 29.2 pg (26.0-30.0); RED BLOOD COUNT 3.07 Mil/cmm (4.30-5.70)
[2018-01-12 10:02] LABS: HEMATOCRIT 26.6 % (41.0-60); PLATELET COUNT 226 Th/cmm (150-400)
[2018-01-12 10:38] LABS: BAND NEUTROPHILE 0 % (0-10); EOSINOPHIL 1 % (0-5); LYMPHOCYTE 8 % (20-50); MONOCYTE 4 % (2-10); NEUTROPHILS 87 % (40-80)
[2018-01-12] MEDS ORDERED: Influenza Vaccine (5 yr & older) 0.5 ml Syr IM ONE (11:00)
[2018-01-12] MEDS ORDERED: Probiotic Screen MC PRN (11:28)
--- NOTE | 2018-01-12 14:07 | Consultation ---
Consult Note - Consult Note Service Date: 01/12/18 Referring Physician: Evelio Davis Consult Note: PHYSICIAN Consultation Note: Date of Admission: 01/11/18 Purpose of Consultation: Chief Complaint: Patient NEEMA AGEE was admitted to [facility] with ABDOMINAL PAIN, UTI, LEUKOCYTOSIS. History of Present Illness: 42 year old male admitted 2 months ago for left arm pain after a fall. He was diagnosed to have ESBL E coli sepsis and UTI, and it was treated by antibiotics including meropenem. He was discharged on stable condition. Now, he had ppresented to the hospital for nausea, vomitining and abdominal pain. He had also complained of diarrhea. Past Medical History: DM2, HTN, CVA and depression. Past Medical History: Diagnoses SEPSIS, UNSPECIFIED ORGANISM (01/11/18) ANEMIA, UNSPECIFIED (01/11/18) ELEVATED WHITE BLOOD CELL COUNT, UNSPECIFIED (01/11/18) DEHYDRATION (01/11/18) ACUTE PYELONEPHRITIS (01/11/18) URINARY TRACT INFECTION, SITE NOT SPECIFIED (01/11/18) WEAKNESS (01/11/18) Allergies Allergy/AdvReac Type Severity Reaction Status Date / Time No Known Allergies Allergy Verified 11/20/17 14:00 Vital Signs Temp 98.3 F 01/12/18 11:38 Pulse 98 01/12/18 11:38 Resp 18 01/12/18 11:38 BP 98/62 01/12/18 11:38 Pulse Ox 96 01/12/18 11:38 Intake & Output 01/11/18 01/12/18 01/12/18 18:59 06:59 18:59 Intake Total 800 Output Total 100 Balance 700 Weight (lbs) 69.853 kg 73.482 kg Intake: Oral 800 Output: Urine 100 Other: # Bowel Movements 1 Stool Characteristics Soft Soft Formed Formed Brown Brown Weight Source Estimated Bedscale Laboratory Results - last 24 hr 01/11/18 01/11/18 01/11/18 16:10 16:16 16:16 WBC 17.7 H RBC 4.01 L Hgb 11.6 L Hct 34.7 L MCV 86.6 MCH 29.0 MCHC Differential 33.4 RDW 14.7 Plt Count 318 MPV 6.5 Add Manual Diff YES Neutrophils % HYPNOTHERAPIST Band Neutrophils % 8 Lymphocytes % HYPNOTHERAPIST Monocytes % Not Reportable Eosinophils % Not Reportable Basophils % Not Reportable Neutrophils (Manual) 85 H Lymphocytes 5 L Monocytes 1 L Eosinophils 1 PT 9.9 INR 0.95 D-Dimer Sodium Potassium Chloride Carbon Dioxide Anion Gap BUN Creatinine Est GFR ( Amer) Est GFR (Non-Af Amer) BUN/Creatinine Ratio Glucose POC Glucose Whole Bld Lactic Acid Calcium Total Bilirubin AST ALT Alkaline Phosphatase Creatine Kinase Troponin I B-Natriuretic Peptide Total Protein Albumin Globulin Albumin/Globulin Ratio Triglycerides Cholesterol LDL Cholesterol Direct HDL Cholesterol Amylase Lipase Urine Source [place] Urine Color YELLOW Urine Clarity HAZY Urine pH 8.5 Ur Specific Justice <= 1.005 Urine Protein >=300 Urine Glucose (UA) NEGATIVE Urine Ketones NEGATIVE Urine Blood NEGATIVE Urine Nitrate NEGATIVE Urine Bilirubin NEGATIVE Urine Urobilinogen 0.2 Ur Leukocyte Esterase LARGE H Urine RBC 0-2 H Urine WBC 6-10 Ur Epithelial Cells FEW Triple Phos Crystals MODERATE Urine Bacteria 2+ H 01/11/18 01/11/18 01/11/18 16:16 16:16 16:16 WBC RBC Hgb Hct MCV MCH MCHC Differential RDW Plt Count MPV Add Manual Diff Neutrophils % Band Neutrophils % Lymphocytes % Monocytes % Eosinophils % Basophils % Neutrophils (Manual) Lymphocytes Monocytes Eosinophils PT INR D-Dimer 2210 H Sodium 140 Potassium 3.9 Chloride 105 Carbon Dioxide 25.8 Anion Gap 13.1 BUN 27 H Creatinine 1.3 Est GFR ( Amer) > 60.0 Est GFR (Non-Af Amer) > 60.0 BUN/Creatinine Ratio 20.8 Glucose 285 H POC Glucose Whole Bld Lactic Acid Calcium 8.8 Total Bilirubin 0.3 AST 10 L ALT 5 L Alkaline Phosphatase 72 Creatine Kinase 73 Troponin I 0.01 B-Natriuretic Peptide 62.1 Total Protein 6.1 Albumin 3.1 L Globulin 3.0 Albumin/Globulin Ratio 1.0 Triglycerides 123 Cholesterol 243 H LDL Cholesterol Direct 185 HDL Cholesterol 35 Amylase 58 Lipase 14 Urine Source Urine Color Urine Clarity Urine pH Ur Specific Justice Urine Protein Urine Glucose (UA) Urine Ketones Urine Blood Urine Nitrate Urine Bilirubin Urine Urobilinogen Ur Leukocyte Esterase Urine RBC Urine WBC Ur Epithelial Cells Triple Phos Crystals Urine Bacteria 01/11/18 01/11/18 01/12/18 16:32 21:14 06:29 WBC RBC Hgb Hct MCV MCH MCHC Differential RDW Plt Count MPV Add Manual Diff Neutrophils % Band Neutrophils % Lymphocytes % Monocytes % Eosinophils % Basophils % Neutrophils (Manual) Lymphocytes Monocytes Eosinophils PT INR D-Dimer Sodium Potassium Chloride Carbon Dioxide Anion Gap BUN Creatinine Est GFR ( Amer) Est GFR (Non-Af Amer) BUN/Creatinine Ratio Glucose POC Glucose 223 H 181 H Whole Bld Lactic Acid 1.65 Calcium Total Bilirubin AST ALT Alkaline Phosphatase Creatine Kinase Troponin I B-Natriuretic Peptide Total Protein Albumin Globulin Albumin/Globulin Ratio Triglycerides Cholesterol LDL Cholesterol Direct HDL Cholesterol Amylase Lipase Urine Source Urine Color Urine Clarity Urine pH Ur Specific Justice Urine Protein Urine Glucose (UA) Urine Ketones Urine Blood Urine Nitrate Urine Bilirubin Urine Urobilinogen Ur Leukocyte Esterase Urine RBC Urine WBC Ur Epithelial Cells Triple Phos Crystals Urine Bacteria 01/12/18 01/12/18 09:00 12:05 WBC 16.0 H RBC 3.07 L Hgb 9.0 L Hct 26.6 L D MCV 86.5 MCH 29.2 MCHC Differential 33.7 RDW 14.6 Plt Count 226 D MPV 7.1 Add Manual Diff YES Neutrophils % Band Neutrophils % 0 Lymphocytes % Monocytes % Eosinophils % Basophils % Neutrophils (Manual) 87 H Lymphocytes 8 L Monocytes 4 Eosinophils 1 PT INR D-Dimer Sodium Potassium Chloride Carbon Dioxide Anion Gap BUN Creatinine Est GFR ( Amer) Est GFR (Non-Af Amer) BUN/Creatinine Ratio Glucose POC Glucose 179 H Whole Bld Lactic Acid Calcium Total Bilirubin AST ALT Alkaline Phosphatase Creatine Kinase Troponin I B-Natriuretic Peptide Total Protein Albumin Globulin Albumin/Globulin Ratio Triglycerides Cholesterol LDL Cholesterol Direct HDL Cholesterol Amylase Lipase Urine Source Urine Color Urine Clarity Urine pH Ur Specific Justice Urine Protein Urine Glucose (UA) Urine Ketones Urine Blood Urine Nitrate Urine Bilirubin Urine Urobilinogen Ur Leukocyte Esterase Urine RBC Urine WBC Ur Epithelial Cells Triple Phos Crystals Urine Bacteria Home Medication Medication Instructions Recorded Type Glipizide [Glucotrol] 10 mg PO DAILY tab 12/17/17 Rx Hydrochlorothiazide [Hctz*] 25 mg PO DAILY tab 12/17/17 Rx Ibuprofen [Motrin*] 600 mg PO BID tab 12/17/17 Rx Insulin Detemir [Levemir Insulin] 10 units SUBQ HS vial 12/17/17 Rx Lactobacillus Rhamnosus GG 15B 1 each PO DAILY cap.[email or web address] 12/17/17 Rx [Culturelle 15B] Lisinopril [Zestril*] 20 mg PO DAILY tab 12/17/17 Rx Pantoprazole [Protonix] 40 mg PO DAILY ect 12/17/17 Rx metFORMIN [Glucophage] 500 mg PO DAILY tab 12/17/17 Rx Acetaminophen [Tylenol] 650 mg PO Q4H PRN 01/11/18 History Clotrimazole 1% Cream [Lotrimin 1% 1 appl TP BID 01/11/18 History Cream] Ferrous Sulfate 325 mg PO DAILY 01/11/18 History Insulin Aspart Sliding Scale See Protocol SUBQ ACHS 01/11/18 History [NovoLOG INSULIN SLIDING SCALE] Talc/Cellulos/Chloroxy/Aldioxa 1 pow TP BID 01/11/18 History [Zeasorb] cloNIDine HCl [Catapres] 0.1 mg PO Q6HR PRN 01/11/18 History Current Medications Generic Name Dose Route Start Last Admin Trade Name Fre PRN Reason Stop Dose Admin Acetaminophen 650 mg 01/12/18 08:52 Tylenol PO 03/13/18 08:51 Q4H PRN MILD PAIN OR TEMP >100 Clotrimazole 1 appl 01/12/18 09:00 01/12/18 09:53 Lotrimin 1% Cream TP 03/13/18 08:59 1 appl BID CLARICE Administration Ferrous Sulfate 325 mg 01/12/18 09:00 01/12/18 09:53 Iron PO 03/13/18 08:59 325 mg DAILY CLARICE Administration Glipizide 10 mg 01/12/18 09:00 01/12/18 09:52 Glucotrol PO 03/13/18 08:59 10 mg DAILY CLARICE Administration Hydrochlorothiazide 25 mg 01/12/18 09:00 01/12/18 09:52 Hctz PO 03/13/18 08:59 25 mg DAILY CLARICE Administration Ceftriaxone Sodium 1 gm/ 50 mls @ 100 mls/hr 01/11/18 21:00 01/11/18 22:34 Sodium Chloride IV 03/12/18 20:31 Not Given Q24HR CLARICE Levofloxacin 500 mg in 100 mls @ 100 mls/hr 01/12/18 10:00 01/12/18 09:53 Levaquin Pb IV 03/13/18 09:59 100 mls/hr Q24H CLARICE Administration Ibuprofen 600 mg 01/12/18 09:30 01/12/18 09:55 Motrin PO 03/13/18 09:29 600 mg BIDWM CLARICE Administration Insulin Aspart 0 units 01/12/18 11:30 01/12/18 13:06 Novolog Insulin Sliding Scale SUBQ 03/13/18 11:29 2 units ACHS CLARICE Administration Protocol Insulin Detemir 10 units 01/12/18 21:00 Levemir Insulin SUBQ 03/13/18 20:59 HS CLARICE Protocol Lactobacillus Rhamnosus 1 each 01/12/18 09:00 01/12/18 09:52 Culturelle 15b PO 03/13/18 08:59 1 each DAILY CLARICE Administration Lisinopril 20 mg 01/12/18 09:00 01/12/18 09:52 Zestril PO 03/13/18 08:59 20 mg DAILY CLARICE Administration Metformin HCl 500 mg 01/12/18 09:00 01/12/18 09:52 Glucophage PO 03/13/18 08:59 500 mg DAILY CLARICE Administration Miscellaneous 1 ea 01/12/18 11:28 Probiotic Screen MC 03/13/18 11:27 PRN PRN PROTOCOL Ondansetron HCl 4 mg 01/12/18 03:58 01/12/18 06:37 Zofran IV 03/13/18 03:57 4 mg Q6H PRN Administration Nausea / Vomiting Pantoprazole Sodium 40 mg 01/12/18 09:00 01/12/18 09:52 Protonix PO 03/13/18 08:59 40 mg DAILY CLARICE Administration Review of Systems: A 12 point ROS was reviewed with the pertinent positive and negatives noted in the HPI. General/Constitutional: No fever, No chills, Weight loss, Weakness, No diaphoresis, No edema, No loss of appetite Skin: No skin lesions, No rash, No bruising Head: No headache, No light-headedness Eyes: No loss of vision, No pain, No diplopia ENT: No earache, No nasal drainage, No sore throat, No tinnitus Neck: No neck pain, No swelling, No thyromegaly, No stiffness, No mass noted Cardio Vascular: No chest pain, No palpitations, No PND, No orthopnea, No edema Pulmonary: No SOB, No cough, No sputum, No wheezing GI: No nausea, No vomiting, No diarrhea, No pain, No melena, No hematochezia, No constipation, No hematemesis. had abdominal pain, resolved. G/U: has indwelling Andrea catheter for his neurogenic bladder. Hematuria. Musculoskeletal: Bone or joint pain, No back pain, Muscle pain Endocrine: No polyuria, No polydipsia Psychiatric: No prior psych history, No depression, No anxiety, No suicidal ideation Hematopoietic: No bruising, No lymphadenopathy Allergic/Immuno: No urticaria, No angioedema Neurological: No syncope, , No headache, No seizure, No dizziness, No confusion , No vertigo. He has paraparesis and neurogenic bladder. Social History Homeless. Smoking Status Light Tobacco Smoker Drug Use No Alcohol Use No Family Medical History Unknown. Physical Exam: General: Comfortable, not in any acute distress. HEENT: HEAD: normocephalic, atraumatic. Oral Cavity is moist, pink tongue. Pupil PERRLA. EOMI. Neck: Supple, no JVD. no carotid bruit. Cardio: S1 and S2 WNL. Respiratory: Vesicular breath sounds. Abdominal: Soft NT ND BS. Genital/Urinary: Extremities: NCCE Neurological: AAO x3. Paraplegia. SKIN: L inner buttock decubitus 4 cm x 2 cm---grade II well defined border, no surrounding erythema. redness in groins. 1. Leukocytosis. 2. UTI . h/o ESBL E coli. 3. Tinia cruris. 4. DM2 5. HTN. 6. H/o CVA. 7. H/o depression. 8. Gluteal wound. 9. 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 10. Neurogenic bladder. 11. H/o Back surgery. 12. Left forearm pain after a traumatic fall. Plan: Lotrimin. change ceftriaxone to meropenem. Thank you Dr Davis for involving me in taking care of this patient. Garry, Cyrus Muhammad M.D. [phone]
--- NOTE | 2018-01-12 14:19 | Consultation ---
Consult Note - Consult Note Service Date: 01/12/18 Referring Physician: Evelio Davis Consult Note: PHYSICIAN Consultation Note: Date of Admission: 01/11/18 Purpose of Consultation: Chief Complaint: Patient NEEMA AGEE was admitted to [facility] with ABDOMINAL PAIN, UTI, LEUKOCYTOSIS. History of Present Illness: 42 year old male admitted 2 months ago for left arm pain after a fall. He was diagnosed to have ESBL Klebsiella pneumoniae sepsis and UTI, and it was treated by antibiotics including meropenem. He was discharged on stable condition. Now, he had presented to the hospital for nausea, vomitining and abdominal pain. His symptoms are improved now. Past Medical History: DM2, HTN, CVA and depression. Diagnoses SEPSIS, UNSPECIFIED ORGANISM (01/11/18) ANEMIA, UNSPECIFIED (01/11/18) ELEVATED WHITE BLOOD CELL COUNT, UNSPECIFIED (01/11/18) DEHYDRATION (01/11/18) ACUTE PYELONEPHRITIS (01/11/18) URINARY TRACT INFECTION, SITE NOT SPECIFIED (01/11/18) WEAKNESS (01/11/18) Allergies Allergy/AdvReac Type Severity Reaction Status Date / Time No Known Allergies Allergy Verified 11/20/17 14:00 Vital Signs Temp 98.3 F 01/12/18 11:38 Pulse 98 01/12/18 11:38 Resp 18 01/12/18 11:38 BP 98/62 01/12/18 11:38 Pulse Ox 96 01/12/18 11:38 Intake & Output 01/11/18 01/12/18 01/12/18 18:59 06:59 18:59 Intake Total 800 Output Total 100 Balance 700 Weight (lbs) 69.853 kg 73.482 kg Intake: Oral 800 Output: Urine 100 Other: # Bowel Movements 1 Stool Characteristics Soft Soft Formed Formed Brown Brown Weight Source Estimated Bedscale Laboratory Results - last 24 hr 01/11/18 01/11/18 01/11/18 16:10 16:16 16:16 WBC 17.7 H RBC 4.01 L Hgb 11.6 L Hct 34.7 L MCV 86.6 MCH 29.0 MCHC Differential 33.4 RDW 14.7 Plt Count 318 MPV 6.5 Add Manual Diff YES Neutrophils % CLINICAL DATA RESEARCH Band Neutrophils % 8 Lymphocytes % CLINICAL DATA RESEARCH Monocytes % Not Reportable Eosinophils % Not Reportable Basophils % Not Reportable Neutrophils (Manual) 85 H Lymphocytes 5 L Monocytes 1 L Eosinophils 1 PT 9.9 INR 0.95 D-Dimer Sodium Potassium Chloride Carbon Dioxide Anion Gap BUN Creatinine Est GFR ( Amer) Est GFR (Non-Af Amer) BUN/Creatinine Ratio Glucose POC Glucose Whole Bld Lactic Acid Calcium Total Bilirubin AST ALT Alkaline Phosphatase Creatine Kinase Troponin I B-Natriuretic Peptide Total Protein Albumin Globulin Albumin/Globulin Ratio Triglycerides Cholesterol LDL Cholesterol Direct HDL Cholesterol Amylase Lipase Urine Source [place] Urine Color YELLOW Urine Clarity HAZY Urine pH 8.5 Ur Specific [place] <= 1.005 Urine Protein >=300 Urine Glucose (UA) NEGATIVE Urine Ketones NEGATIVE Urine Blood NEGATIVE Urine Nitrate NEGATIVE Urine Bilirubin NEGATIVE Urine Urobilinogen 0.2 Ur Leukocyte Esterase LARGE H Urine RBC 0-2 H Urine WBC 6-10 Ur Epithelial Cells FEW Triple Phos Crystals MODERATE Urine Bacteria 2+ H 01/11/18 01/11/18 01/11/18 16:16 16:16 16:16 WBC RBC Hgb Hct MCV MCH MCHC Differential RDW Plt Count MPV Add Manual Diff Neutrophils % Band Neutrophils % Lymphocytes % Monocytes % Eosinophils % Basophils % Neutrophils (Manual) Lymphocytes Monocytes Eosinophils PT INR D-Dimer 2210 H Sodium 140 Potassium 3.9 Chloride 105 Carbon Dioxide 25.8 Anion Gap 13.1 BUN 27 H Creatinine 1.3 Est GFR ( Amer) > 60.0 Est GFR (Non-Af Amer) > 60.0 BUN/Creatinine Ratio 20.8 Glucose 285 H POC Glucose Whole Bld Lactic Acid Calcium 8.8 Total Bilirubin 0.3 AST 10 L ALT 5 L Alkaline Phosphatase 72 Creatine Kinase 73 Troponin I 0.01 B-Natriuretic Peptide 62.1 Total Protein 6.1 Albumin 3.1 L Globulin 3.0 Albumin/Globulin Ratio 1.0 Triglycerides 123 Cholesterol 243 H LDL Cholesterol Direct 185 HDL Cholesterol 35 Amylase 58 Lipase 14 Urine Source Urine Color Urine Clarity Urine pH Ur Specific [place] Urine Protein Urine Glucose (UA) Urine Ketones Urine Blood Urine Nitrate Urine Bilirubin Urine Urobilinogen Ur Leukocyte Esterase Urine RBC Urine WBC Ur Epithelial Cells Triple Phos Crystals Urine Bacteria 01/11/18 01/11/18 01/12/18 16:32 21:14 06:29 WBC RBC Hgb Hct MCV MCH MCHC Differential RDW Plt Count MPV Add Manual Diff Neutrophils % Band Neutrophils % Lymphocytes % Monocytes % Eosinophils % Basophils % Neutrophils (Manual) Lymphocytes Monocytes Eosinophils PT INR D-Dimer Sodium Potassium Chloride Carbon Dioxide Anion Gap BUN Creatinine Est GFR ( Amer) Est GFR (Non-Af Amer) BUN/Creatinine Ratio Glucose POC Glucose 223 H 181 H Whole Bld Lactic Acid 1.65 Calcium Total Bilirubin AST ALT Alkaline Phosphatase Creatine Kinase Troponin I B-Natriuretic Peptide Total Protein Albumin Globulin Albumin/Globulin Ratio Triglycerides Cholesterol LDL Cholesterol Direct HDL Cholesterol Amylase Lipase Urine Source Urine Color Urine Clarity Urine pH Ur Specific [place] Urine Protein Urine Glucose (UA) Urine Ketones Urine Blood Urine Nitrate Urine Bilirubin Urine Urobilinogen Ur Leukocyte Esterase Urine RBC Urine WBC Ur Epithelial Cells Triple Phos Crystals Urine Bacteria 01/12/18 01/12/18 09:00 12:05 WBC 16.0 H RBC 3.07 L Hgb 9.0 L Hct 26.6 L D MCV 86.5 MCH 29.2 MCHC Differential 33.7 RDW 14.6 Plt Count 226 D MPV 7.1 Add Manual Diff YES Neutrophils % Band Neutrophils % 0 Lymphocytes % Monocytes % Eosinophils % Basophils % Neutrophils (Manual) 87 H Lymphocytes 8 L Monocytes 4 Eosinophils 1 PT INR D-Dimer Sodium Potassium Chloride Carbon Dioxide Anion Gap BUN Creatinine Est GFR ( Amer) Est GFR (Non-Af Amer) BUN/Creatinine Ratio Glucose POC Glucose 179 H Whole Bld Lactic Acid Calcium Total Bilirubin AST ALT Alkaline Phosphatase Creatine Kinase Troponin I B-Natriuretic Peptide Total Protein Albumin Globulin Albumin/Globulin Ratio Triglycerides Cholesterol LDL Cholesterol Direct HDL Cholesterol Amylase Lipase Urine Source Urine Color Urine Clarity Urine pH Ur Specific [place] Urine Protein Urine Glucose (UA) Urine Ketones Urine Blood Urine Nitrate Urine Bilirubin Urine Urobilinogen Ur Leukocyte Esterase Urine RBC Urine WBC Ur Epithelial Cells Triple Phos Crystals Urine Bacteria Home Medication Medication Instructions Recorded Type Glipizide [Glucotrol] 10 mg PO DAILY tab 12/17/17 Rx Hydrochlorothiazide [Hctz*] 25 mg PO DAILY tab 12/17/17 Rx Ibuprofen [Motrin*] 600 mg PO BID tab 12/17/17 Rx Insulin Detemir [Levemir Insulin] 10 units SUBQ HS vial 12/17/17 Rx Lactobacillus Rhamnosus GG 15B 1 each PO DAILY cap.sprink 12/17/17 Rx [Culturelle 15B] Lisinopril [Zestril*] 20 mg PO DAILY tab 12/17/17 Rx Pantoprazole [Protonix] 40 mg PO DAILY ect 12/17/17 Rx metFORMIN [Glucophage] 500 mg PO DAILY tab 12/17/17 Rx Acetaminophen [Tylenol] 650 mg PO Q4H PRN 01/11/18 History Clotrimazole 1% Cream [Lotrimin 1% 1 appl TP BID 01/11/18 History Cream] Ferrous Sulfate 325 mg PO DAILY 01/11/18 History Insulin Aspart Sliding Scale See Protocol SUBQ ACHS 01/11/18 History [NovoLOG INSULIN SLIDING SCALE] Talc/Cellulos/Chloroxy/Aldioxa 1 pow TP BID 01/11/18 History [Zeasorb] cloNIDine HCl [Catapres] 0.1 mg PO Q6HR PRN 01/11/18 History Current Medications Generic Name Dose Route Start Last Admin Trade Name Freq PRN Reason Stop Dose Admin Acetaminophen 650 mg 01/12/18 08:52 Tylenol PO 03/13/18 08:51 Q4H PRN MILD PAIN OR TEMP >100 Clotrimazole 1 appl 01/12/18 09:00 01/12/18 09:53 Lotrimin 1% Cream TP 03/13/18 08:59 1 appl BID CLARICE Administration Ferrous Sulfate 325 mg 01/12/18 09:00 01/12/18 09:53 Iron PO 03/13/18 08:59 325 mg DAILY CLARICE Administration Glipizide 10 mg 01/12/18 09:00 01/12/18 09:52 Glucotrol PO 03/13/18 08:59 10 mg DAILY CLARICE Administration Hydrochlorothiazide 25 mg 01/12/18 09:00 01/12/18 09:52 Hctz PO 03/13/18 08:59 25 mg DAILY CLARICE Administration Ceftriaxone Sodium 1 gm/ 50 mls @ 100 mls/hr 01/11/18 21:00 01/11/18 22:34 Sodium Chloride IV 03/12/18 20:31 Not Given Q24HR CLARICE Levofloxacin 500 mg in 100 mls @ 100 mls/hr 01/12/18 10:00 01/12/18 09:53 Levaquin Pb IV 03/13/18 09:59 100 mls/hr Q24H CLARICE Administration Meropenem 500 mg/ Sodium 100 mls @ 100 mls/hr 01/12/18 14:18 Chloride IV 03/13/18 14:17 Q8H CLARICE Ibuprofen 600 mg 01/12/18 09:30 01/12/18 09:55 Motrin PO 03/13/18 09:29 600 mg BIDWM CLARICE Administration Insulin Aspart 0 units 01/12/18 11:30 01/12/18 13:06 Novolog Insulin Sliding Scale SUBQ 03/13/18 11:29 2 units ACHS CLARICE Administration Protocol Insulin Detemir 10 units 01/12/18 21:00 Levemir Insulin SUBQ 03/13/18 20:59 HS CLARICE Protocol Lactobacillus Rhamnosus 1 each 01/12/18 09:00 01/12/18 09:52 Culturelle 15b PO 03/13/18 08:59 1 each DAILY CLARICE Administration Lisinopril 20 mg 01/12/18 09:00 01/12/18 09:52 Zestril PO 03/13/18 08:59 20 mg DAILY CLARICE Administration Metformin HCl 500 mg 01/12/18 09:00 01/12/18 09:52 Glucophage PO 03/13/18 08:59 500 mg DAILY CLARICE Administration Miscellaneous 1 ea 01/12/18 11:28 Probiotic Screen MC 03/13/18 11:27 PRN PRN PROTOCOL Ondansetron HCl 4 mg 01/12/18 03:58 01/12/18 06:37 Zofran IV 03/13/18 03:57 4 mg Q6H PRN Administration Nausea / Vomiting Pantoprazole Sodium 40 mg 01/12/18 09:00 01/12/18 09:52 Protonix PO 03/13/18 08:59 40 mg DAILY CLARICE Administration Review of Systems: A 12 point ROS was reviewed with the pertinent positive and negatives noted in the HPI. General/Constitutional: No fever, No chills, Weight loss, Weakness, No diaphoresis, No edema, No loss of appetite Skin: No skin lesions, No rash, No bruising Head: No headache, No light-headedness Eyes: No loss of vision, No pain, No diplopia ENT: No earache, No nasal drainage, No sore throat, No tinnitus Neck: No neck pain, No swelling, No thyromegaly, No stiffness, No mass noted Cardio Vascular: No chest pain, No palpitations, No PND, No orthopnea, No edema Pulmonary: No SOB, No cough, No sputum, No wheezing GI: No nausea, No vomiting, No diarrhea, No pain, No melena, No hematochezia, No constipation, No hematemesis. had abdominal pain, resolved. G/U: has indwelling Andrea catheter for his neurogenic bladder. Hematuria. Musculoskeletal: Bone or joint pain, No back pain, Muscle pain Endocrine: No polyuria, No polydipsia Psychiatric: No prior psych history, No depression, No anxiety, No suicidal ideation Hematopoietic: No bruising, No lymphadenopathy Allergic/Immuno: No urticaria, No angioedema Neurological: No syncope, , No headache, No seizure, No dizziness, No confusion , No vertigo. He has paraparesis and neurogenic bladder. Social History Homeless. Smoking Status Light Tobacco Smoker Drug Use No Alcohol Use No Family Medical History Unknown. Physical Exam: General: Comfortable, not in any acute distress. HEENT: HEAD: normocephalic, atraumatic. Oral Cavity is moist, pink tongue. Pupil PERRLA. EOMI. Neck: Supple, no JVD. no carotid bruit. Cardio: S1 and S2 WNL. Respiratory: Vesicular breath sounds. Abdominal: Soft NT ND BS. Genital/Urinary: Extremities: NCCE Neurological: AAO x3. Paraplegia. SKIN: L inner buttock decubitus 4 cm x 2 cm---grade II well defined border, no surrounding erythema. redness in groins. Assessment: 1. Leukocytosis. 2. UTI . h/o ESBL Klebsiella. 3. Tinia cruris. 4. DM2 5. HTN. 6. H/o CVA. 7. H/o depression. 8. Gluteal wound. 9. 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 10. Neurogenic bladder. 11. H/o Back surgery. 12. Left forearm pain after a traumatic fall. Plan: Lotrimin. change ceftriaxone to meropenem. Thank you Dr Davis for involving me in taking care of this patient. Signed, Cyrus Muhammad M.D. [id number]
[2018-01-12] MEDS ORDERED: Menthol/Zinc Oxide Oint 113gm Tube TP PRN (15:06)
[2018-01-12] MEDS: Meropenem 500 MG in Sodium Chloride 0.9% 100 ML IV SCH ×2 (15:33→23:06)
[2018-01-12] MEDS ORDERED: cefTRIAXone 1 GM in Sodium Chloride 0.9% 50 ML IV SCH ×2 (17:00→21:00)
[2018-01-12] MEDS: Sodium Chloride 0.9% 1,000 ML IV SCH (17:19)
--- NOTE | 2018-01-12 19:21 | Consultation ---
DATE OF CONSULTATION: UROLOGY CONSULTATION REASON FOR CONSULTATION: Seen for sepsis and retention. INDICATIONS: The patient is a 42-year-old admitted here from the Emergency Room with abdominal pain, nausea, vomiting, and diarrhea of few days' duration. He was recently discharged from here after being treated for UTI with an ESBL organism. He returns with similar problems once again. It is not clear if the Boles was placed in the Emergency Room or was already present when he showed up here. The CT scan showed the Boles in the bladder, but the bladder is fully distended with urine and severe bilateral hydronephrosis with perinephric stranding as most likely source of his sepsis. The patient is unable to provide any history about his Boles catheter duration, reason, etc. PAST MEDICAL HISTORY: Significant for hypertension, GERD, bipolar disorder, diabetes, DVT, IVC filter, history of stroke, gluteal wound, paraplegia, back surgery, and neurogenic bladder. HOME MEDICATIONS: Include Catapres, Tylenol, iron sulfate, sliding scale insulin, glipizide, hydrochlorothiazide, ibuprofen, insulin, lactobacillus, lisinopril, metformin, and Protonix. ALLERGIES: None. REVIEW OF SYSTEMS: Fever documented in one place, but not in another. Abdominal pain, vomiting, and diarrhea recorded. No chest pain, coughing, or shortness of breath. No definite history about neurogenic bladder, Boles catheter duration, etc. He did have a recent ESBL infection within the last 2 months. PHYSICAL EXAMINATION: GENERAL: He is awake, but is not communicative, barely answers any question, almost aphasic at least to me. VITAL SIGNS: Temperature 98.3, heart rate 98, and blood pressure 98/62. ABDOMEN: Soft. Bladder seems to be partially distended in spite of the Boles being changed earlier at my instruction and irrigated, but not irrigated correctly. The nurses used the side port to inject a few mL and aspirate which is certainly not the way to irrigate the catheter. There is a lot of sediment in the catheter, which is probably preventing proper drainage of the catheter. The abdomen is otherwise unremarkable. Penis is uncircumcised. There is mild phimosis. No scrotal masses. EXTREMITIES: Paraplegia. No lymphadenopathy. HEART AND LUNG: Sounds normal. No foreign sounds. HEAD AND NECK: Normocephalic. Trachea central. Pupils equal and reactive. No jaundice. Thyroid and lymph nodes not palpable. Carotid bruit absent. CHEST: Symmetrical. LUNGS: Clear. LABORATORY DATA: White count 17.7 today, down to 16,000; hemoglobin 11.6 down to 9 grams; and platelets are normal. Left shift is noted in the differential. PT/INR is normal. Electrolytes are normal. BUN is 27, creatinine 1.3, glucose numbers 285, 223, 181, and 179. Lactic acid 2.5. Liver functions are normal. Urine through the Boles shows large amount of leukocyte esterase and bacteria. Culture shows gram-negative organisms growing in the urine. CT scan shows bilateral [id number] hydronephrosis, perinephric stranding, and distended bladder in spite of the Boles and some bowel thickening as well. IMPRESSION: Urinary retention probably secondary to malfunctioning Boles. Recommend change to a larger catheter, irrigate correctly and properly to ensure catheter drainage and maintain Boles catheter cleanliness to avoid further contamination and infection. Parenteral antibiotics may or may not be effective in the presence of the Boles catheter and the role is controversial. Multiple other medical problems including diabetes, hypertension, stroke, paraplegia and homelessness are significant risk factors and comorbidities. [facility]# [id number]
[2018-01-12] MEDS: cefTRIAXone 1 GM in Sodium Chloride 0.9% 50 ML IV SCH (20:27)
[2018-01-12] MEDS: Insulin Detemir 100 units/mL 10mL Vial SUBQ SCH (20:34)
[2018-01-13] MEDS: Sodium Chloride 0.9% 1,000 ML IV SCH ×2 (05:36→20:08)
[2018-01-13 05:45] LABS: ANION GAP 12.3 (7.0-16.0); CALCIUM SERUM 7.8 mg/dL (8.6-10.3); CARBON DIOXIDE 22.8 mEq/L (21.0-31.0); CREATININE - SERUM 2.1 mg/dL (0.7-1.3); GFR AFRICAN-AMERICAN 44.6 ml/min (>90); GFR NON AFRICAN-AMERICAN 36.8 ml/min; POTASSIUM SERUM 4.1 mEq/L (3.5-5.1)
[2018-01-13] MEDS: Meropenem 500 MG in Sodium Chloride 0.9% 100 ML IV SCH ×3 (05:56→22:29)
[2018-01-13] MEDS: INSULIN ASPART SLIDING SCALE 100 UNITS/ML UNIT SUBQ SCH ×4 (06:44→21:22)
[2018-01-13] MEDS: Ferrous Sulfate 325 MG TAB PO SCH (08:30)
[2018-01-13] MEDS: Lactobacillus Rhamnosus GG 15 Billion CFU CAP.SPRINK PO SCH (08:31)
[2018-01-13] MEDS: Pantoprazole 40 mg EC Tab PO SCH (08:35)
--- NOTE | 2018-01-13 08:54 | General Progress Note ---
Subjective - Review of Systems Service Date: 01/13/18 Subjective: Patient is doing better after sorenson catheter has been changed. Patient urinating well. Blood sugars improved. Lactic Acid improved. Objective - Results Result Diagrams: 01/12/18 09:00 01/12/18 09:00 Recent Labs: Laboratory Last Values WBC 16.0 Th/cmm (4.8-10.8) H 01/12/18 09:00 RBC 3.07 Mil/cmm (4.30-5.70) L 01/12/18 09:00 Hgb 9.0 gm/dL (12-16) L 01/12/18 09:00 Hct 26.6 % (41.0-60) L D 01/12/18 09:00 MCV 86.5 fl (80-99) 01/12/18 09:00 MCH 29.2 pg (26.0-30.0) 01/12/18 09:00 MCHC Differential 33.7 pg (28.0-36.0) 01/12/18 09:00 RDW 14.6 % (11.5-20.0) 01/12/18 09:00 Plt Count 226 Th/cmm (150-400) D 01/12/18 09:00 MPV 7.1 fl 01/12/18 09:00 Add Manual Diff YES 01/12/18 09:00 Neutrophils % CONTROL SYSTEMS TECHNICIAN 01/11/18 16:16 Band Neutrophils % 0 % (0-10) 01/12/18 09:00 Lymphocytes % CONTROL SYSTEMS TECHNICIAN 01/11/18 16:16 Monocytes % Not Reportable 01/11/18 16:16 Eosinophils % Not Reportable 01/11/18 16:16 Basophils % Not Reportable 01/11/18 16:16 Neutrophils (Manual) 87 % (40-80) H 01/12/18 09:00 Lymphocytes 8 % (20-50) L 01/12/18 09:00 Monocytes 4 % (2-10) 01/12/18 09:00 Eosinophils 1 % (0-5) 01/12/18 09:00 PT 9.9 SECONDS (9.5-11.5) 01/11/18 16:16 INR 0.95 (0.5-1.4) 01/11/18 16:16 D-Dimer 2210 ng/mL (100-400) H 01/11/18 16:16 Sodium 137 mEq/L (136-145) 01/12/18 09:00 Potassium 4.1 mEq/L (3.5-5.1) 01/12/18 09:00 Chloride 106 mEq/L (98-107) 01/12/18 09:00 Carbon Dioxide 22.8 mEq/L (21.0-31.0) 01/12/18 09:00 Anion Gap 12.3 (7.0-16.0) 01/12/18 09:00 BUN 43 mg/dL (7-25) H 01/12/18 09:00 Creatinine 2.1 mg/dL (0.7-1.3) H 01/12/18 09:00 Est GFR ( Amer) 44.6 ml/min (>90) 01/12/18 09:00 Est GFR (Non-Af Amer) 36.8 ml/min 01/12/18 09:00 BUN/Creatinine Ratio 20.5 01/12/18 09:00 Glucose 81 mg/dL (70-105) D 01/12/18 09:00 POC Glucose 96 MG/DL (70 - 105) 01/13/18 05:55 Whole Bld Lactic Acid 0.69 mmol/L (0.60-1.99) 01/13/18 05:15 Calcium 7.8 mg/dL (8.6-10.3) L 01/12/18 09:00 Total Bilirubin 0.3 mg/dL (0.3-1.0) 01/11/18 16:16 AST 10 U/L (13-39) L 01/11/18 16:16 ALT 5 U/L (7-52) L 01/11/18 16:16 Alkaline Phosphatase 72 U/L (34-104) 01/11/18 16:16 Creatine Kinase 73 U/L (30-223) 01/11/18 16:16 Troponin I 0.01 ng/mL (0.01-0.05) 01/11/18 16:16 B-Natriuretic Peptide 62.1 pg/mL (5.0-100.0) 01/11/18 16:16 Total Protein 6.1 gm/dL (6.0-8.3) 01/11/18 16:16 Albumin 3.1 gm/dL (4.2-5.5) L 01/11/18 16:16 Globulin 3.0 gm/dL 01/11/18 16:16 Albumin/Globulin Ratio 1.0 (1.0-1.8) 01/11/18 16:16 Triglycerides 123 mg/dL (<150) 01/11/18 16:16 Cholesterol 243 mg/dL (<200) H 01/11/18 16:16 LDL Cholesterol Direct 185 mg/dL (75-193) 01/11/18 16:16 HDL Cholesterol 35 mg/dL (23-92) 01/11/18 16:16 Amylase 58 U/L (29-103) 01/11/18 16:16 Lipase 14 U/L (11-82) 01/11/18 16:16 Urine Source [place] 01/11/18 16:10 Urine Color YELLOW 01/11/18 16:10 Urine Clarity HAZY (CLEAR) 01/11/18 16:10 Urine pH 8.5 (4.6 - 8.0) 01/11/18 16:10 Ur Specific Norris <= 1.005 (1.005-1.030) 01/11/18 16:10 Urine Protein >=300 mg/dL (NEGATIVE) 01/11/18 16:10 Urine Glucose (UA) NEGATIVE mg/dL (NEGATIVE) 01/11/18 16:10 Urine Ketones NEGATIVE mg/dL (NEGATIVE) 01/11/18 16:10 Urine Blood NEGATIVE (NEGATIVE) 01/11/18 16:10 Urine Nitrate NEGATIVE (NEGATIVE) 01/11/18 16:10 Urine Bilirubin NEGATIVE (NEGATIVE) 01/11/18 16:10 Urine Urobilinogen 0.2 E.U./dL (0.2 - 1.0) 01/11/18 16:10 Ur Leukocyte Esterase LARGE (NEGATIVE) H 01/11/18 16:10 Urine RBC 0-2 /hpf (0-5) H 01/11/18 16:10 Urine WBC 6-10 /hpf (0-5) 01/11/18 16:10 Ur Epithelial Cells FEW /lpf (FEW) 01/11/18 16:10 Triple Phos Crystals MODERATE /hpf (FEW) 01/11/18 16:10 Urine Bacteria 2+ /hpf (NONE SEEN) H 01/11/18 16:10 - Physical Exam Vitals and I&O: Vital Signs Temp 97.9 F 01/13/18 08:51 Pulse 86 01/13/18 08:51 Resp 17 01/13/18 08:51 BP 115/63 01/13/18 08:51 Pulse Ox 96 01/13/18 08:51 Intake & Output 01/12/18 01/13/18 01/13/18 18:59 06:59 18:59 Intake Total 3400.000 Output Total 2725 Balance 675.000 Weight (lbs) 74.503 kg Intake: Intake, IV Amount 1300.000 Levofloxacin 500mg/100mL 100 500 mg In 100 ml @ 100 mls/hr IV Q24H [facility] Rx#: [id number] Meropenem 500 mg In 200 Sodium Chloride 0.9% 100 ml @ 100 mls/hr IV Q8H [facility] Rx#:[id number] Sodium Chloride 0.9% 1, 1000.000 000 ml @ 100 mls/hr IV . Q10H [facility] Rx#:[id number] Oral 2100 Output: Urine 2725 Other: # Bowel Movements 1 Stool Characteristics Soft Formed Brown Weight Source Bedscale Active Medications: Current Medications Acetaminophen (Tylenol) 650 mg PO Q4H PRN PRN Reason: MILD PAIN OR TEMP >100 Stop: 03/13/18 08:51 Last Admin: 01/13/18 06:24 Dose: 650 mg Calamine/Phenol (Calmoseptine) 1 appl TP QID PRN PRN Reason: Skin Irritation Stop: 03/13/18 15:05 Clotrimazole (Lotrimin 1% Cream) 1 appl TP BID [facility] Stop: 03/13/18 08:59 Last Admin: 01/12/18 17:19 Dose: 1 appl Ferrous Sulfate (Iron) 325 mg PO DAILY [facility] Stop: 03/13/18 08:59 Last Admin: 01/13/18 08:30 Dose: 325 mg Glipizide (Glucotrol) 10 mg PO DAILY [facility] Stop: 03/13/18 08:59 Last Admin: 01/13/18 08:30 Dose: Not Given Hydrochlorothiazide (Hctz) 25 mg PO DAILY [facility] Stop: 03/13/18 08:59 Last Admin: 01/13/18 08:31 Dose: 25 mg Ceftriaxone Sodium 1 gm/ (Sodium Chloride) 50 mls @ 100 mls/hr IV Q24HR [facility] Stop: 03/12/18 20:31 Last Admin: 01/12/18 20:27 Dose: 100 mls/hr Levofloxacin (Levaquin Pb) 500 mg in 100 mls @ 100 mls/hr IV Q24H [facility] Stop: 03/13/18 09:59 Last Infusion: 01/12/18 19:42 Dose: Infused Meropenem 500 mg/ Sodium (Chloride) 100 mls @ 100 mls/hr IV Q8H [facility] Stop: 03/13/18 13:59 Last Admin: 01/13/18 05:56 Dose: 100 mls/hr Sodium Chloride (Nacl 0.9%) 1,000 mls @ 100 mls/hr IV .Q10H [facility] Stop: 03/13/18 16:04 Last Admin: 01/13/18 05:36 Dose: 100 mls/hr Ibuprofen (Motrin) 600 mg PO BIDWM [facility] Stop: 03/13/18 09:29 Last Admin: 01/13/18 08:29 Dose: 600 mg Insulin Aspart (Novolog Insulin Sliding Scale) 0 units SUBQ ACHS [facility]; Protocol Stop: 03/13/18 11:29 Last Admin: 01/13/18 06:44 Dose: Not Given Insulin Detemir (Levemir Insulin) 10 units SUBQ HS [facility]; Protocol Stop: 03/13/18 20:59 Last Admin: 01/12/18 20:34 Dose: Not Given Lactobacillus Rhamnosus (Culturelle 15b) 1 each PO DAILY [facility] Stop: 03/13/18 08:59 Last Admin: 01/13/18 08:31 Dose: 1 each Lisinopril (Zestril) 20 mg PO DAILY [facility] Stop: 03/13/18 08:59 Last Admin: 01/13/18 08:31 Dose: Not Given Metformin HCl (Glucophage) 500 mg PO DAILY [facility] Stop: 03/13/18 08:59 Last Admin: 01/13/18 08:32 Dose: Not Given Miscellaneous (Probiotic Screen) 1 ea MC PRN PRN PRN Reason: PROTOCOL Stop: 03/13/18 11:27 Ondansetron HCl (Zofran) 4 mg IV Q6H PRN PRN Reason: Nausea / Vomiting Stop: 03/13/18 03:57 Last Admin: 01/12/18 06:37 Dose: 4 mg Pantoprazole Sodium (Protonix) 40 mg PO DAILY [facility] Stop: 03/13/18 08:59 Last Admin: 01/13/18 08:35 Dose: Not Given General: Alert, Oriented x3, No acute distress HEENT: Atraumatic, PERRLA, EOMI Neck: Supple, no JVD Cardiovascular: Regular rate, Normal S1, Normal S2 Lungs: Clear to auscultation Abdomen: Bowel sounds - Procedures Procedures: Procedures Procedure Code Date EXCISION OF BACK SUBCU/FASCIA, OPEN APPROACH [id number] 11/20/17 TRANSFUSE NONAUT RED BLOOD CELLS IN PERIPH VEIN, PERC 03223O3 11/20/17 Assessment/Plan - Problem List Patient Problems: All Active Problems ABDOMINAL PAIN WITH N/V (Acute) - Assessment Assessment: Current Active Problems Problem Status Onset ABDOMINAL PAIN WITH N/V Acute abdominal pain nausea/vomiting leukocytosis UTI Pyelonephritis Anemia Dehydration sepsis vs urosepsis - Plan Plan: continue current order. Nutritional Asmnt/Malnutr-PDOC - Dietary Evaluation Malnutrition Findings (Please click <Entered> for more info): Nutritional Asmnt/Malnutrition Start: 01/12/18 15: 07 Text: Status: Active Freq: Protocol: Document 01/12/18 15:07 LCHENG (Rec: 01/12/18 15:26 LCHENG ANA [id number]) Nutritional Asmnt/Malnutrition Patient General Information Nutritional Screening High Risk Diagnosis abd pain, UTI, leukocytosis Pertinent Medical Hx/Surgical Hx HTN, DM, PUD/GERD, bipolar Subjective Information Consult received for vidhi score 12 and wounds. glucose 285 at admission noted. Pt seen lying in bed at time of visit, weak and sleepy. Pt denied N/V this morning, stated no appetite and does not want food at this time. Offered supplements but pt stated only want water. Per EMR, breakfast consumed 50% today. Current Diet Order/ Nutrition Support [facility] soft ground, CCHO 60gm Pertinent Medications Iron, glucotrol, novolog, levemir, culturelle, levaquin, glucophage, protonix, zofran Pertinent Labs 01/12 POC 179-181 01/11 BUN 27, glucose 285, POC 223, alb 3.1, chol 243 Nutritional Hx/Data Height 1.78 m Height (Calculated Centimeters) 177.8 Current Weight (lbs) 73.482 kg Weight (Calculated Kilograms) 73.5 Weight (Calculated Grams) 93045.0 Gould Body Weight 166 Body Mass Index (BMI) 23.2 Weight Status Approriate GI Symptoms GI Symptoms None Last BM 01/12 Difficult in: None Skin Integrity/Comment: DTI to left lower foot, pressure ulcer to sacrum Current %PO Fair (50-74%) Estimated Nutritional Goals BEE in Kcals: Using Current wt Calories/Kcals/Kg 30-35 Kcals Calculated 6920-8142 Protein: Using Current wt Protein g/k.2-1.4 Protein Calculated 87-102 Fluid: ml 2190-2555ml (1ml/kcal) Nutritional Problem 2. Problem Problem inadequate food intake Etiology no appetite Signs/Symptoms: PO intake <=50% 1. Problem Problem altered nutrition related labs Etiology hx of DM Signs/Symptoms: glucose 285POC 179-223 Malnutrition Alert Is there a minimum of two criteria No selected? Query Text:Check all the applicable criteria. A minimum of two criteria are recommended for diagnosis of either severe or non-severe malnutrition. Malnutrition Related to Morbid Obesity Malnutrition related to morbid obesity No Intervention/Recommendation Comments 1. Continue with [facility] soft ground CCHO 60gm diet as ordered. Will offer Ensure when pt appetite improved 2. Add Deonte BID to help wound healing. 3. Monitor PO intake, wt, GI sympton, labs and skin integrity 4. F/U as high risk in 2-3 days, 01/14-01/15 Expected Outcomes/Goals Expected Outcomes/Goals 1. PO intake to improve, meet at least 75% of nutritional needs. 2. Wt stability, skin integrity to improve, labs to approach WNL.
[2018-01-13] MEDS: Levofloxacin 500mg/100mL 500 MG/100 ML BAG IV SCH (10:27)
--- NOTE | 2018-01-13 19:35 | Progress Notes ---
DATE: UROLOGY FOLLOWUP SUBJECTIVE: The patient seems to be doing better. He has poor appetite and does not like the hospital food, but overall has improved. He is awake and alert and apparently communicates in Mongolian. PHYSICAL EXAMINATION: VITAL SIGNS: Temperature 98.4, heart rate 83, and blood pressure 139/73. He has not had a fever in 24 hours. ABDOMEN: Soft, nontender, nondistended. Bladder is well decompressed. Boles catheter now draining better and clear urine. EXTREMITIES: No edema. LABORATORY DATA: Glucose 153, 148, and 96 today and lactic acid came down to 0.69 from a baseline of 2.16. CBC and chemistries were not done today. The urine from the Boles is growing Proteus and this is sensitive to most antibiotics except Cipro and Levaquin. He is also resistant to Bactrim. The patient is getting Rocephin. IMPRESSION: 1. Urinary tract infection, most likely from a malfunctioning poorly draining Boles catheter that is now corrected and draining well. This is the main effective treatment and I believe it is better than the parenteral antibiotics to treat a bladder infection in the presence of a Boles catheter. 2. Neurovesical dysfunction, neurogenic bladder, creating retention, apparently requires Boles catheter. 3. Diabetes, now better controlled. 4. Sepsis, improved lactic acid. 5. Paraplegia, no change. 6. History of deep venous thrombosis and IVC filter, no recurrence. JOB# [id number]
[2018-01-13] MEDS: cefTRIAXone 1 GM in Sodium Chloride 0.9% 50 ML IV SCH (21:17)
[2018-01-13] MEDS: Insulin Detemir 100 units/mL 10mL Vial SUBQ SCH (21:22)
[2018-01-14 05:38] LABS: % BASOPHILS 0.2 % (0.0-2.0); % EOSINOPHILS 0.9 % (0.0-5.0); % LYMPHOCYTES 11.9 % (20.0-50.0); % MONOCYTES 6.7 % (2.0-10.0); % NEUTROPHILS 80.3 % (40.0-80.0); EOSINOPHILE ABSOLUTE 0.1 Th/cmm (0.1-0.4); HEMATOCRIT 24.3 % (41.0-60); HEMOGLOBIN 8.3 gm/dL (12-16); MEAN CELL VOLUME 85.4 fl (80-99); MEAN CORPUSCULAR HEMOGLOBIN 29.3 pg (26.0-30.0); MEAN CORPUSCULAR HGB CONC 34.2 pg (28.0-36.0); MONOCYTE ABSOLUTE 0.5 Th/cmm (0.3-1.0); NEUTROPHILE ABSOLUTE 6.6 Th/cmm (1.8-8.0); PLATELET COUNT 235 Th/cmm (150-400); RED BLOOD COUNT 2.84 Mil/cmm (4.30-5.70); RED CELL DISTRIBUTION WIDTH 14.6 % (11.5-20.0); WHITE BLOOD COUNT 8.2 Th/cmm (4.8-10.8)
[2018-01-14 05:46] LABS: ANION GAP 10.2 (7.0-16.0); BUN - UREA NITROGEN 20 mg/dL (7-25); CARBON DIOXIDE 24.3 mEq/L (21.0-31.0); CHLORIDE 106 mEq/L (98-107); GFR AFRICAN-AMERICAN > 60.0 ml/min (>90); GFR NON AFRICAN-AMERICAN > 60.0 ml/min; GLUCOSE 131 mg/dL (70-105); POTASSIUM SERUM 3.5 mEq/L (3.5-5.1); SODIUM SERUM 137 mEq/L (136-145)
[2018-01-14] MEDS: Meropenem 500 MG in Sodium Chloride 0.9% 100 ML IV SCH ×2 (06:19→15:51)
[2018-01-14] MEDS: INSULIN ASPART SLIDING SCALE 100 UNITS/ML UNIT SUBQ SCH ×3 (06:55→17:18)
--- NOTE | 2018-01-14 08:29 | General Progress Note ---
Subjective - Review of Systems Service Date: 01/14/18 Subjective: Patient is doing better after sorenson catheter has been changed. Patient urinating well. Blood sugars improved. Lactic Acid improved. WBC's normal. Urine +Proteus Mirabilis....will dc rocephin and dc levofloxacin. Objective - Results Result Diagrams: 01/14/18 05:05 01/14/18 05:05 Recent Labs: Laboratory Last Values WBC 8.2 Th/cmm (4.8-10.8) 01/14/18 05:05 RBC 2.84 Mil/cmm (4.30-5.70) L 01/14/18 05:05 Hgb 8.3 gm/dL (12-16) L 01/14/18 05:05 Hct 24.3 % (41.0-60) L 01/14/18 05:05 MCV 85.4 fl (80-99) 01/14/18 05:05 MCH 29.3 pg (26.0-30.0) 01/14/18 05:05 MCHC Differential 34.2 pg (28.0-36.0) 01/14/18 05:05 RDW 14.6 % (11.5-20.0) 01/14/18 05:05 Plt Count 235 Th/cmm (150-400) 01/14/18 05:05 MPV 7.0 fl 01/14/18 05:05 Add Manual Diff YES 01/12/18 09:00 Neutrophils % 80.3 % (40.0-80.0) H 01/14/18 05:05 Band Neutrophils % 0 % (0-10) 01/12/18 09:00 Lymphocytes % 11.9 % (20.0-50.0) L 01/14/18 05:05 Monocytes % 6.7 % (2.0-10.0) 01/14/18 05:05 Eosinophils % 0.9 % (0.0-5.0) 01/14/18 05:05 Basophils % 0.2 % (0.0-2.0) 01/14/18 05:05 Neutrophils (Manual) 87 % (40-80) H 01/12/18 09:00 Lymphocytes 8 % (20-50) L 01/12/18 09:00 Monocytes 4 % (2-10) 01/12/18 09:00 Eosinophils 1 % (0-5) 01/12/18 09:00 PT 9.9 SECONDS (9.5-11.5) 01/11/18 16:16 INR 0.95 (0.5-1.4) 01/11/18 16:16 D-Dimer 2210 ng/mL (100-400) H 01/11/18 16:16 Sodium 137 mEq/L (136-145) 01/14/18 05:05 Potassium 3.5 mEq/L (3.5-5.1) 01/14/18 05:05 Chloride 106 mEq/L (98-107) 01/14/18 05:05 Carbon Dioxide 24.3 mEq/L (21.0-31.0) 01/14/18 05:05 Anion Gap 10.2 (7.0-16.0) 01/14/18 05:05 BUN 20 mg/dL (7-25) 01/14/18 05:05 Creatinine 1.0 mg/dL (0.7-1.3) 01/14/18 05:05 Est GFR ( Amer) > 60.0 ml/min (>90) 01/14/18 05:05 Est GFR (Non-Af Amer) > 60.0 ml/min 01/14/18 05:05 BUN/Creatinine Ratio 20.0 01/14/18 05:05 Glucose 131 mg/dL (70-105) H 01/14/18 05:05 POC Glucose 123 MG/DL (70 - 105) H 01/14/18 06:54 Whole Bld Lactic Acid 0.69 mmol/L (0.60-1.99) 01/13/18 05:15 Calcium 8.0 mg/dL (8.6-10.3) L 01/14/18 05:05 Total Bilirubin 0.3 mg/dL (0.3-1.0) 01/11/18 16:16 AST 10 U/L (13-39) L 01/11/18 16:16 ALT 5 U/L (7-52) L 01/11/18 16:16 Alkaline Phosphatase 72 U/L (34-104) 01/11/18 16:16 Creatine Kinase 73 U/L (30-223) 01/11/18 16:16 Troponin I 0.01 ng/mL (0.01-0.05) 01/11/18 16:16 B-Natriuretic Peptide 62.1 pg/mL (5.0-100.0) 01/11/18 16:16 Total Protein 6.1 gm/dL (6.0-8.3) 01/11/18 16:16 Albumin 3.1 gm/dL (4.2-5.5) L 01/11/18 16:16 Globulin 3.0 gm/dL 01/11/18 16:16 Albumin/Globulin Ratio 1.0 (1.0-1.8) 01/11/18 16:16 Triglycerides 123 mg/dL (<150) 01/11/18 16:16 Cholesterol 243 mg/dL (<200) H 01/11/18 16:16 LDL Cholesterol Direct 185 mg/dL (75-193) 01/11/18 16:16 HDL Cholesterol 35 mg/dL (23-92) 01/11/18 16:16 Amylase 58 U/L (29-103) 01/11/18 16:16 Lipase 14 U/L (11-82) 01/11/18 16:16 Urine Source [place] 01/11/18 16:10 Urine Color YELLOW 01/11/18 16:10 Urine Clarity HAZY (CLEAR) 01/11/18 16:10 Urine pH 8.5 (4.6 - 8.0) 01/11/18 16:10 Ur Specific [place] <= 1.005 (1.005-1.030) 01/11/18 16:10 Urine Protein >=300 mg/dL (NEGATIVE) 01/11/18 16:10 Urine Glucose (UA) NEGATIVE mg/dL (NEGATIVE) 01/11/18 16:10 Urine Ketones NEGATIVE mg/dL (NEGATIVE) 01/11/18 16:10 Urine Blood NEGATIVE (NEGATIVE) 01/11/18 16:10 Urine Nitrate NEGATIVE (NEGATIVE) 01/11/18 16:10 Urine Bilirubin NEGATIVE (NEGATIVE) 01/11/18 16:10 Urine Urobilinogen 0.2 E.U./dL (0.2 - 1.0) 01/11/18 16:10 Ur Leukocyte Esterase LARGE (NEGATIVE) H 01/11/18 16:10 Urine RBC 0-2 /hpf (0-5) H 01/11/18 16:10 Urine WBC 6-10 /hpf (0-5) 01/11/18 16:10 Ur Epithelial Cells FEW /lpf (FEW) 01/11/18 16:10 Triple Phos Crystals MODERATE /hpf (FEW) 01/11/18 16:10 Urine Bacteria 2+ /hpf (NONE SEEN) H 01/11/18 16:10 - Physical Exam Vitals and I&O: Vital Signs Temp 99.8 F 01/14/18 01:00 Pulse 82 01/14/18 01:00 Resp 18 01/14/18 01:00 BP 136/69 01/14/18 01:00 Pulse Ox 97 01/14/18 01:00 Intake & Output 01/13/18 01/14/18 01/14/18 18:59 06:59 18:59 Intake Total 2100 958.333 Output Total 1050 2100 Balance 1050 -1141.667 Weight (lbs) 74.503 kg 74.389 kg Intake: Intake, IV Amount 1200 608.333 Levofloxacin 500mg/100mL 100 500 mg In 100 ml @ 100 mls/hr IV Q24H [facility] Rx#: [id number] Meropenem 500 mg In 100 100 Sodium Chloride 0.9% 100 ml @ 100 mls/hr IV Q8H [facility] Rx#:[id number] Sodium Chloride 0.9% 1, 1000 508.333 000 ml @ 100 mls/hr IV . Q10H [facility] Rx#:[id number] Oral 900 350 Output: Urine 1050 2100 Other: # Bowel Movements 0 1 Weight Source Bedscale Bedscale Active Medications: Current Medications Acetaminophen (Tylenol) 650 mg PO Q4H PRN PRN Reason: MILD PAIN OR TEMP >100 Stop: 03/13/18 08:51 Last Admin: 01/13/18 06:24 Dose: 650 mg Calamine/Phenol (Calmoseptine) 1 appl TP QID PRN PRN Reason: Skin Irritation Stop: 03/13/18 15:05 Clotrimazole (Lotrimin 1% Cream) 1 appl TP BID [facility] Stop: 03/13/18 08:59 Last Admin: 01/13/18 16:45 Dose: 1 appl Ferrous Sulfate (Iron) 325 mg PO DAILY [facility] Stop: 03/13/18 08:59 Last Admin: 01/13/18 08:30 Dose: 325 mg Glipizide (Glucotrol) 10 mg PO DAILY [facility] Stop: 03/13/18 08:59 Last Admin: 01/13/18 08:30 Dose: Not Given Hydrochlorothiazide (Hctz) 25 mg PO DAILY [facility] Stop: 03/13/18 08:59 Last Admin: 01/13/18 08:31 Dose: 25 mg Ceftriaxone Sodium 1 gm/ (Sodium Chloride) 50 mls @ 100 mls/hr IV Q24HR [facility] Stop: 03/12/18 20:31 Last Admin: 01/13/18 21:17 Dose: 100 mls/hr Levofloxacin (Levaquin Pb) 500 mg in 100 mls @ 100 mls/hr IV Q24H [facility] Stop: 03/13/18 09:59 Last Infusion: 01/13/18 11:27 Dose: Infused Meropenem 500 mg/ Sodium (Chloride) 100 mls @ 100 mls/hr IV Q8H [facility] Stop: 03/13/18 13:59 Last Admin: 01/14/18 06:19 Dose: Not Given Sodium Chloride (Nacl 0.9%) 1,000 mls @ 100 mls/hr IV .Q10H [facility] Stop: 03/13/18 16:04 Last Infusion: 01/14/18 01:13 Dose: 0 mls/hr Ibuprofen (Motrin) 600 mg PO BIDWM [facility] Stop: 03/13/18 09:29 Last Admin: 01/13/18 17:43 Dose: Not Given Insulin Aspart (Novolog Insulin Sliding Scale) 0 units SUBQ ACHS [facility]; Protocol Stop: 03/13/18 11:29 Last Admin: 01/14/18 06:55 Dose: Not Given Insulin Detemir (Levemir Insulin) 10 units SUBQ HS [facility]; Protocol Stop: 03/13/18 20:59 Last Admin: 01/13/18 21:22 Dose: 10 units Lactobacillus Rhamnosus (Culturelle 15b) 1 each PO DAILY [facility] Stop: 03/13/18 08:59 Last Admin: 01/13/18 08:31 Dose: 1 each Lisinopril (Zestril) 20 mg PO DAILY [facility] Stop: 03/13/18 08:59 Last Admin: 01/13/18 08:31 Dose: Not Given Metformin HCl (Glucophage) 500 mg PO DAILY [facility] Stop: 03/13/18 08:59 Last Admin: 01/13/18 08:32 Dose: Not Given Miscellaneous (Probiotic Screen) 1 ea MC PRN PRN PRN Reason: PROTOCOL Stop: 03/13/18 11:27 Mupirocin (Bactroban Oint) 1 appl NS BID [facility] Stop: 01/18/18 17:01 Ondansetron HCl (Zofran) 4 mg IV Q6H PRN PRN Reason: Nausea / Vomiting Stop: 03/13/18 03:57 Last Admin: 01/12/18 06:37 Dose: 4 mg Pantoprazole Sodium (Protonix) 40 mg PO DAILY [facility] Stop: 03/13/18 08:59 Last Admin: 01/13/18 08:35 Dose: Not Given General: Alert, Oriented x3, No acute distress HEENT: Atraumatic, PERRLA, EOMI Neck: Supple, no JVD Cardiovascular: Regular rate, Normal S1, Normal S2 Lungs: Clear to auscultation Abdomen: Bowel sounds - Procedures Procedures: Procedures Procedure Code Date EXCISION OF BACK SUBCU/FASCIA, OPEN APPROACH 3ZA45IA 11/20/17 TRANSFUSE NONAUT RED BLOOD CELLS IN PERIPH VEIN, PERC 03987M9 11/20/17 Assessment/Plan - Problem List Patient Problems: All Active Problems ABDOMINAL PAIN WITH N/V (Acute) - Assessment Assessment: Current Active Problems Problem Status Onset ABDOMINAL PAIN WITH N/V Acute abdominal pain nausea/vomiting leukocytosis UTI +Proteus Mirabilis Pyelonephritis Anemia Dehydration sepsis vs urosepsis - Plan Plan: continue current order. will dc rocephin and dc levofloxacin Nutritional Asmnt/Malnutr-PDOC - Dietary Evaluation Malnutrition Findings (Please click <Entered> for more info): Nutritional Asmnt/Malnutrition Start: 01/12/18 15: 07 Text: Status: Active Freq: Protocol: Document 01/12/18 15:07 RAMSEY (Rec: 01/12/18 15:26 MERYLG ANA [id number]) Nutritional Asmnt/Malnutrition Patient General Information Nutritional Screening High Risk Diagnosis abd pain, UTI, leukocytosis Pertinent Medical Hx/Surgical Hx HTN, DM, PUD/GERD, bipolar Subjective Information Consult received for vidhi score 12 and wounds. glucose 285 at admission noted. Pt seen lying in bed at time of visit, weak and sleepy. Pt denied N/V this morning, stated no appetite and does not want food at this time. Offered supplements but pt stated only want water. Per EMR, breakfast consumed 50% today. Current Diet Order/ Nutrition Support [facility] soft ground, CCHO 60gm Pertinent Medications Iron, glucotrol, novolog, levemir, culturelle, levaquin, glucophage, protonix, zofran Pertinent Labs 01/12 POC 179-181 01/11 BUN 27, glucose 285, POC 223, alb 3.1, chol 243 Nutritional Hx/Data Height 1.78 m Height (Calculated Centimeters) 177.8 Current Weight (lbs) 73.482 kg Weight (Calculated Kilograms) 73.5 Weight (Calculated Grams) 90043.0 [place] Body Weight 166 Body Mass Index (BMI) 23.2 Weight Status Approriate GI Symptoms GI Symptoms None Last BM 01/12 Difficult in: None Skin Integrity/Comment: DTI to left lower foot, pressure ulcer to sacrum Current %PO Fair (50-74%) Estimated Nutritional Goals BEE in Kcals: Using Current wt Calories/Kcals/Kg 30-35 Kcals Calculated 5395-2663 Protein: Using Current wt Protein g/k.2-1.4 Protein Calculated 87-102 Fluid: ml 2190-2555ml (1ml/kcal) Nutritional Problem 2. Problem Problem inadequate food intake Etiology no appetite Signs/Symptoms: PO intake <=50% 1. Problem Problem altered nutrition related labs Etiology hx of DM Signs/Symptoms: glucose 285POC 179-223 Malnutrition Alert Is there a minimum of two criteria No selected? Query Text:Check all the applicable criteria. A minimum of two criteria are recommended for diagnosis of either severe or non-severe malnutrition. Malnutrition Related to Morbid Obesity Malnutrition related to morbid obesity No Intervention/Recommendation Comments 1. Continue with [facility] soft ground CCHO 60gm diet as ordered. Will offer Ensure when pt appetite improved 2. Add [place] BID to help wound healing. 3. Monitor PO intake, wt, GI sympton, labs and skin integrity 4. F/U as high risk in 2-3 days, 01/14-01/15 Expected Outcomes/Goals Expected Outcomes/Goals 1. PO intake to improve, meet at least 75% of nutritional needs. 2. Wt stability, skin integrity to improve, labs to approach WNL.
[2018-01-14] MEDS: Lactobacillus Rhamnosus GG 15 Billion CFU CAP.SPRINK PO SCH (08:43)
[2018-01-14] MEDS: Ferrous Sulfate 325 MG TAB PO SCH (08:43)
[2018-01-14] MEDS: Pantoprazole 40 mg EC Tab PO SCH (08:43)
--- NOTE | 2018-01-17 15:53 | Discharge Summary ---
DATE OF DISCHARGE: 01/14/2018 PRELIMINARY DIAGNOSES: 1. Abdominal pain. 2. Nausea and vomiting. 3. Leukocytosis. 4. Urinary tract infection. 5. Pyelonephritis. 6. Anemia. 7. Dehydration. 8. Sepsis versus urosepsis. DISCHARGE DIAGNOSES: 1. Urine positive for Proteus mirabilis. 2. Leukocytosis. 3. Pyelonephritis. 4. Anemia. 5. Dehydration. 6. Abdominal pain. HOSPITAL COURSE: This is a 42-year-old male who presents to [facility] ER for today with history of abdominal pain, nausea and vomiting, diarrhea and intermittent, crampy abdominal pain. The patient was recently discharged from [place] 2 months prior for a positive UTI with Klebsiella and ESBL. The patient returns with similar complaints of fever, chills or urinary symptoms. While in the ER, the patient had initial lab work done, which revealed a white count of 17.7; hemoglobin 11.6; hematocrit 34.2; platelets 318,000. Sodium was 140, potassium 3.9, BUN 27, creatinine 1.3, glucose 285. UA showed large leukocyte esterase, +[address] of the abdomen revealed bilateral hydronephrosis with perinephric inflammatory changes. The patient was subsequently admitted to Med/Surg further evaluation and treatment. HOSPITAL COURSE: The patient improved during his hospital stay. The patient was seen and evaluated by Urology for bilateral pyelonephritis noted on CT. The patient has indwelling Boles catheter in place. The patient was subsequently required replacement of Boles catheter for possible malfunction. Please see dictated report from the urologist. The patient also was found to have positive Proteus mirabilis in his urine, was initially started on IV meropenem, which was then changed to p.o. Cipro. Repeat lab work revealed white count initially of 17.7, which was repeated the following day and had reduced to 16.0 and upon day of discharge, white count had dropped to 8.2. The patient also initially had a lactic acidosis at 2.1, which was then subsequently repeated and had gone down to normal at 0.69. The patient subsequently discharged in stable condition back to his snf facility, was to continue Cipro 500 mg twice a day for at least 10 days. [facility]# [id number]
== END 2018-01-14 15:55 | DRG 720 ==
LOC: ER 15:48 → MSI 18:56 → ER 20:49 → TELE 01-12 03:52
PROVIDERS: ADMIT Family Medicine; ATTEND Family Medicine
DX: A41.9 Sepsis, unspecified organism (principal); E11.00 Type 2 diabetes mellitus with hyperosmolarity without nonketotic hyperglycemic-hyperosmolar coma (NKHHC); L89.322 Pressure ulcer of left buttock, stage 2; G82.20 Paraplegia, unspecified; N31.9 Neuromuscular dysfunction of bladder, unspecified; B35.6 Tinea cruris; E86.0 Dehydration; D64.9 Anemia, unspecified; E11.9 Type 2 diabetes mellitus without complications; N39.0 Urinary tract infection, site not specified; I10 Essential (primary) hypertension; K21.9 Gastro-esophageal reflux disease without esophagitis; K52.9 Noninfective gastroenteritis and colitis, unspecified; N13.6 Pyonephrosis; M79.632 Pain in left forearm; W18.30XA Fall on same level, unspecified, initial encounter; Y93.89 Activity, other specified; Y92.89 Other specified places as the place of occurrence of the external cause; Y99.8 Other external cause status; Z86.718 Personal history of other venous thrombosis and embolism; R33.9 Retention of urine, unspecified; Z83.3 Family history of diabetes mellitus; Z82.49 Family history of ischemic heart disease and other diseases of the circulatory system; Z79.4 Long term (current) use of insulin
CPT/HCPCS: 36415-UA; 71045-TC; 80048-TC; 80053-TC; 80061-TC; 81001-TC; 82150-TC; 82550-TC; 82948-90; 83036-90; 83605; 83690-TC; 83880-TC; 84484-TC; 85007-TC; 85025-TC; 85379-TC; 85610-TC; 87086-90; 93005; 94760; 96375; J0696; J1815; J1885; J1956; J2185; J2405; J7030; X7704; Z7610

== ENCOUNTER 2018-05-27 19:21 | Inpatient (IN) | payer MEDICAID ==
--- NOTE | 2018-05-27 21:09 | ED Physician Chart ---
ED Chief Complaint/HPI - Patient Information Date Seen:: 05/27/18 Time Seen:: 21:05 Chief Complaint:: increased agitation History of Present Illness:: 42 yr old male here with agitation with hx of dm htn ahd psychosis dementia anxiety depression schizophrenia Allergies:: Allergies Allergy/AdvReac Type Severity Reaction Status Date / Time No Known Allergies Allergy Verified 11/20/17 14:00 Vitals:: Vital Signs - 8 hr 05/27/18 19:24 Temp 98.0 F HR 70 RR 20 BP 151/85 O2 Sat % 96 ED Review of Systems - Review of Systems General/Constitutional: No fever Skin: Skin lesions Eyes: Other (lt eye changes) ENT: No earache Neck: No neck pain Cardio Vascular: No chest pain GI: No nausea G/U: Dysuria Endocrine: No polyuria Psychiatric: Prior psych history Neurological: No syncope ED Past Medical History - Past Medical History Obtainable: No Family Medical History - Family Member Mother History Unknown: Yes Ethnicity: Living Status: Unknown Hx Family Cancer: No Hx Family Coronary Artery Disease: No Hx Family Congestive Heart Failure: No Hx Family Hypertension: No Hx Family Stroke: No Hx Family Diabetes: No Hx Family Seizures: No Hx Family Dementia: No Hx Family AIDS: No Hx Family HIV: No Hx Family COPD: No Hx Family Hepatitis: No Hx Family Psychiatric Problems: No Hx Family Tuberculosis: No ED Physical Exam - Physical Examination General/Constitutional: Alert Head: Atraumatic Other Eyes comments:: lt eye deformity ENMT: External ears, nose nl Neck: Nontender Respiratory: Nl effort/Exclusion GI: No organomegaly Extremities: No tenderness or effusion Other Neuro/Psych comments:: alert oriented to self ED Assessment - Assessment General Assessment: agitation psychosis ED Septic Shock - . Is Septic Shock (SBP<90, OR Lactate>4 mmol\L) present?: No - <6hrs of presentation: Vital Signs: Vital Signs - 8 hr 05/27/18 19:24 Temp 98.0 F HR 70 RR 20 BP 151/85 O2 Sat % 96 ED Reassessment (Disposition) - Reassessment Reassessment:: agitation Reassessment Condition:: Improved - Patient Disposition Discharge/Transfer:: Acute Care w/in this hosp Admitted to:: Med/Surg Condition at Disposition:: Stable
[2018-05-27 22:33] LABS: RED BLOOD COUNT 2.53 Mil/cmm (4.30-5.70)
[2018-05-27 22:38] LABS: MEAN CELL VOLUME 85.5 fl (80-99); MEAN CORPUSCULAR HEMOGLOBIN 28.2 pg (26.0-30.0); MEAN PLATELET VOLUME 6.5 fl; PLATELET COUNT 389 Th/cmm (150-400); RED CELL DISTRIBUTION WIDTH 13.4 % (11.5-20.0); WHITE BLOOD COUNT 8.3 Th/cmm (4.8-10.8)
[2018-05-27 22:46] LABS: ALB/GLOB RATIO 0.7 (1.0-1.8); ALBUMIN 2.9 gm/dL (4.2-5.5); ALKALINE PHOSPHATASE 69 U/L (34-104); ANION GAP 12.6 (7.0-16.0); BILIRUBIN,TOTAL 0.1 mg/dL (0.3-1.0); BUN - UREA NITROGEN 42 mg/dL (7-25); CALCIUM SERUM 8.5 mg/dL (8.6-10.3); CARBON DIOXIDE 22.2 mEq/L (21.0-31.0); CHLORIDE 105 mEq/L (98-107); CREATININE - SERUM 1.4 mg/dL (0.7-1.3); GFR AFRICAN-AMERICAN > 60.0 ml/min (>90); GFR NON AFRICAN-AMERICAN 58.8 ml/min; GLUCOSE 287 mg/dL (70-105); POTASSIUM SERUM 4.8 mEq/L (3.5-5.1); SGOT 9 U/L (13-39); SGPT/ALT 9 U/L (7-52); SODIUM SERUM 135 mEq/L (136-145); TOTAL PROTEIN,SERUM 6.8 gm/dL (6.0-8.3)
[2018-05-27 23:13] LABS: HEMATOCRIT 21.6 % (41.0-60); HEMOGLOBIN 7.1 gm/dL (12-16)
[2018-05-27] MEDS ORDERED: Piperacillin Sodium/Tazobact 3.375 gm Vial IV ONE (23:25)
[2018-05-28 00:04] LABS: URINE SOURCE CLEAN C
[2018-05-28 00:07] LABS: URINE BILIRUBIN NEGATIVE (NEGATIVE); URINE BLOOD MODERATE (NEGATIVE); URINE GLUCOSE (UA) 100 mg/dL (NEGATIVE); URINE KETONE TRACE mg/dL (NEGATIVE); URINE LEUKOCYTE ESTERASE TRACE (NEGATIVE); URINE MICROSCOPIC INDICATED? YES; URINE NITRATE NEGATIVE (NEGATIVE); URINE PROTEIN >=300 mg/dL (NEGATIVE); URINE UROBILINOGEN 0.2 E.U./dL (0.2 - 1.0)
[2018-05-28 01:16] LABS: URINE CLARITY CLOUDY (CLEAR); URINE COLOR YELLOW
[2018-05-28 01:17] LABS: URINE WBC 50-100 /hpf (0-5)
[2018-05-28 01:18] LABS: URINE BACTERIA MANY /hpf (NONE SEEN); URINE EPITHELIAL CELLS NONE SEEN /lpf (FEW)
[2018-05-28] MEDS ORDERED: Piperacillin Sodium/Tazobact 3.375 gm Vial IV ONE (05:20)
[2018-05-28 05:30] LABS: BAND NEUTROPHILE 0 % (0-10); BASOPHIL 0 % (0-3); EOSINOPHIL 1 % (0-5); LYMPHOCYTE 21 % (20-50); MONOCYTE 7 % (2-10); NEUTROPHILS 71 % (40-80)
[2018-05-28] MEDS: D5-0.45NS 1,000 ML IV SCH (05:44)
[2018-05-28 07:58] LABS: % BASOPHILS 0.4 % (0.0-2.0); % EOSINOPHILS 1.7 % (0.0-5.0); % LYMPHOCYTES 12.3 % (20.0-50.0); % MONOCYTES 5.9 % (2.0-10.0); % NEUTROPHILS 79.7 % (40.0-80.0); EOSINOPHILE ABSOLUTE 0.2 Th/cmm (0.1-0.4); LYMPHOCYTE ABSOLUTE 1.3 Th/cmm (1.5-3.0); MEAN CELL VOLUME 84.7 fl (80-99); MEAN CORPUSCULAR HEMOGLOBIN 27.9 pg (26.0-30.0); MEAN PLATELET VOLUME 6.8 fl; MONOCYTE ABSOLUTE 0.6 Th/cmm (0.3-1.0); NEUTROPHILE ABSOLUTE 8.1 Th/cmm (1.8-8.0); PLATELET COUNT 345 Th/cmm (150-400); RED BLOOD COUNT 2.74 Mil/cmm (4.30-5.70); RED CELL DISTRIBUTION WIDTH 13.4 % (11.5-20.0); WHITE BLOOD COUNT 10.2 Th/cmm (4.8-10.8)
[2018-05-28 08:05] LABS: ALB/GLOB RATIO 0.8 (1.0-1.8); ALBUMIN 2.7 gm/dL (4.2-5.5); ALKALINE PHOSPHATASE 61 U/L (34-104); ANION GAP 10.6 (7.0-16.0); BILIRUBIN,TOTAL 0.3 mg/dL (0.3-1.0); BUN - UREA NITROGEN 40 mg/dL (7-25); CALCIUM SERUM 8.5 mg/dL (8.6-10.3); CARBON DIOXIDE 23.1 mEq/L (21.0-31.0); CHLORIDE 107 mEq/L (98-107); CREATININE - SERUM 1.2 mg/dL (0.7-1.3); GFR AFRICAN-AMERICAN > 60.0 ml/min (>90); GFR NON AFRICAN-AMERICAN > 60.0 ml/min; GLUCOSE 282 mg/dL (70-105); POTASSIUM SERUM 4.7 mEq/L (3.5-5.1); SGOT 8 U/L (13-39); SGPT/ALT 8 U/L (7-52); SODIUM SERUM 136 mEq/L (136-145); TOTAL PROTEIN,SERUM 6.1 gm/dL (6.0-8.3)
[2018-05-28] MEDS ORDERED: Morphine Sulfate 2 mg/mL 1mL Syr IVP PRN (08:11)
[2018-05-28] MEDS ORDERED: GLUCAGON HCl 1 MG KIT IM PRN (08:14)
[2018-05-28] MEDS ORDERED: Dextrose 50% 50 mL Abboject IVP PRN (08:14)
[2018-05-28 08:21] LABS: HEMATOCRIT 23.2 % (41.0-60); HEMOGLOBIN 7.6 gm/dL (12-16)
--- NOTE | 2018-05-28 08:30 | History and Physical ---
History of Present Illness - HPI Chief Complaint: Sacral Wound Decubitus Ulcer nonhealing wound HPI: 42 y/o male who presents to [facility] ER from SNF for evaluation of a non healing sacral decubitus ulcer. Patient has a previous history of paraplegia due to failed back surgery, hypertension, GERD, Diabetes mellitus, Anemia, muscle weakness, depression. Patient has routine labwork revealed the following WBC 8.3 H/H 7.1/21.6 platelets 389K Na 136 K 4.7 Bun/Cr 40/1.2 glu 282 Patient was given one unit of packed RBC's in the ER. Patient was started on Zosyn IV and was subsequently admitted for further evaluation and treatment. Vital Signs: Last Vital Signs Temp 98.2 F 05/28/18 04:00 Pulse 66 05/28/18 04:00 Resp 18 05/28/18 04:00 BP 160/76 05/28/18 02:10 Pulse Ox 97 05/28/18 04:00 Past Medical History Cardiovascular: Report: HTN Pulmonary: Report: No Pertinent Hx [employer]: Report: No Pertinent Hx GI: Report: GERD Psych: Report: Depression Musculoskeletal: Report: Weakness Rheumatologic: Report: No pertinent Hx Infectious Disease: Report: No Pertinent Hx Renal/: Report: Urinary Incontinence Endocrine: Report: Diabetes Dermatology: Report: Other (sacral decubitus ulcer.) Other History: anemia, paraplegia, Family Medical History - Family Member Mother History Unknown: Yes Ethnicity: Living Status: Unknown Hx Family Cancer: No Hx Family Coronary Artery Disease: No Hx Family Congestive Heart Failure: No Hx Family Hypertension: No Hx Family Stroke: No Hx Family Diabetes: No Hx Family Seizures: No Hx Family Dementia: No Hx Family AIDS: No Hx Family HIV: No Hx Family COPD: No Hx Family Hepatitis: No Hx Family Psychiatric Problems: No Hx Family Tuberculosis: No Social History Smoke: No Alcohol: None Drugs: None Lives: [facility]pc - Medications Home Medications: Home Medication Medication Instructions Recorded Type Glipizide [Glucotrol] 10 mg PO DAILY tab 12/17/17 Rx Hydrochlorothiazide [Hctz*] 25 mg PO DAILY tab 12/17/17 Rx Ibuprofen [Motrin*] 600 mg PO BID tab 12/17/17 Rx Lactobacillus Rhamnosus GG 15B 1 each PO DAILY cap.sprink 12/17/17 Rx [Culturelle 15B] Lisinopril [Zestril*] 20 mg PO DAILY tab 12/17/17 Rx Pantoprazole [Protonix] 40 mg PO DAILY ect 12/17/17 Rx Acetaminophen [Tylenol] 650 mg PO Q4H PRN 01/11/18 History Ferrous Sulfate 325 mg PO DAILY 01/11/18 History Insulin Aspart Sliding Scale See Protocol SUBQ ACHS 01/11/18 History [NovoLOG INSULIN SLIDING SCALE] cloNIDine HCl [Catapres] 0.1 mg PO Q6HR PRN 01/11/18 History Amino Acids/Protein Hydrolys 30 ml PO BID 05/27/18 History [Pro-Stat Sugar Free 887 ml] Arginine/Ascorbate Sod/Colin AC 1 each PO BID 05/27/18 History [Arginaid Powder] Ascorbic Acid 500 mg PO BID 05/27/18 History Atenolol 50 mg PO HS 05/27/18 History Cholecalciferol (Vit D3) [Vitamin 1,000 iu PO DAILY 05/27/18 History D3] Gabapentin 300 mg PO BID 05/27/18 History Glipizide [Glucotrol] 10 mg PO DAILY 05/27/18 History Insulin Detemir [Levemir Insulin] 25 units SUBQ HS 05/27/18 History Multivitamin with Minerals 1 tab PO DAILY 05/27/18 History [Nature's Blend Multiple Vitamin with Minerals] Zinc Sulfate [Zinc Sulfate 111 1 tab PO DAILY 05/27/18 History mg-50 mg] metFORMIN [Glucophage] 1,000 mg PO DAILY 05/27/18 History - Allergies Allergies/Adverse Reactions: Allergies Allergy/AdvReac Type Severity Reaction Status Date / Time No Known Allergies Allergy Verified 11/20/17 14:00 Review of Systems - Review of Systems Constitutional: Report: No Significant Eyes: Report: No Significant ENT: Report: No Significant Respiratory: Report: No Significant Cardiovascular: Report: No Significant Gastrointestinal: Report: No Significant Genitourinary: Report: No Significant Musculoskeletal: Report: No Significant Skin: Report: No Significant Neurological: Report: Weakness Physical Exam - Physical Exam HEENT: Report: Ears Nose Throat within normal limits, Pharnyx within normal limits Neck: Report: Within normal limits Cardiovascular Systems: Report: +s1/s2 noted, Regular, Rate and Rhythm Respiratory: Report: Breath Sounds are within normal limits Abdomen: Report: Non-tender to palpation Back: Report: Inspection of back is within normal limits. Extremities: Report: Non-tender to palpation. Skin: Report: Other (sacral decubitus ulcer) - Lab Results All Lab Results last 24 hours: Laboratory Results - last 24 hr 05/27/18 05/27/18 05/27/18 22:20 22:20 23:20 WBC 8.3 RBC 2.53 L Hgb 7.1 L* Hct 21.6 L MCV 85.5 MCH 28.2 MCHC Differential 33.0 RDW 13.4 Plt Count 389 MPV 6.5 Add Manual Diff YES Band Neutrophils % 0 Neutrophils (Manual) 71 Lymphocytes 21 Monocytes 7 Eosinophils 1 Basophils 0 Sodium 135 L Potassium 4.8 Chloride 105 Carbon Dioxide 22.2 Anion Gap 12.6 BUN 42 H Creatinine 1.4 H Est GFR ( Amer) > 60.0 Est GFR (Non-Af Amer) 58.8 BUN/Creatinine Ratio 30.0 Glucose 287 H Calcium 8.5 L Total Bilirubin 0.1 L AST 9 L ALT 9 Alkaline Phosphatase 69 Total Protein 6.8 Albumin 2.9 L Globulin 3.9 Albumin/Globulin Ratio 0.7 L Urine Source CLEAN C Urine Color YELLOW Urine Clarity CLOUDY Urine pH 6.0 Ur Specific [place] 1.025 Urine Protein >=300 Urine Glucose (UA) 100 H Urine Ketones TRACE Urine Blood MODERATE H Urine Nitrate NEGATIVE Urine Bilirubin NEGATIVE Urine Urobilinogen 0.2 Ur Leukocyte Esterase TRACE H Urine RBC 2-5 H Urine WBC 50-100 H Ur Epithelial Cells NONE SEEN Urine Bacteria MANY H Blood Type Antibody Screen Crossmatch 05/27/18 05/28/18 23:30 07:29 WBC RBC Hgb Hct MCV MCH MCHC Differential RDW Plt Count MPV Add Manual Diff Band Neutrophils % Neutrophils (Manual) Lymphocytes Monocytes Eosinophils Basophils Sodium 136 Potassium 4.7 Chloride 107 Carbon Dioxide 23.1 Anion Gap 10.6 BUN 40 H Creatinine 1.2 Est GFR ( Amer) > 60.0 Est GFR (Non-Af Amer) > 60.0 BUN/Creatinine Ratio 33.3 Glucose 282 H Calcium 8.5 L Total Bilirubin 0.3 AST 8 L ALT 8 Alkaline Phosphatase 61 Total Protein 6.1 Albumin 2.7 L Globulin 3.4 Albumin/Globulin Ratio 0.8 L Urine Source Urine Color Urine Clarity Urine pH Ur Specific [place] Urine Protein Urine Glucose (UA) Urine Ketones Urine Blood Urine Nitrate Urine Bilirubin Urine Urobilinogen Ur Leukocyte Esterase Urine RBC Urine WBC Ur Epithelial Cells Urine Bacteria Blood Type A POSITIVE Antibody Screen NEGATIVE Crossmatch See Detail - Assessment Assessment: Sacral Decubitus Ulcer Paraplegia HTN GERD muscle weakness diabetes mellitus type 2 UTI Anemia S/p blood transfusion incontinence failed back surgery - Plan Plan: ID consult Surgical consult transfuse two units packed RBC's repeat CBC,CMP continue home meds IV protonix IV zosyn blood cultures wound cultures stool occult
[2018-05-28] MEDS ORDERED: Non-Formulary Item 1 EA (Amino Acids/Protein Hydrolys [Pro-Stat Sugar Free Liquid] 30 ML) PO SCH (09:00)
[2018-05-28] MEDS ORDERED: Non-Formulary Item 1 EA (Arginine/Ascorbate Sod/Vite Ac [Arginaid Powder] 1 EACH) PO SCH (09:00)
[2018-05-28] MEDS ORDERED: Non-Formulary Item 1 EA (Zinc Sulfate [Zinc Sulfate] 1 TAB) PO SCH (09:00)
[2018-05-28] MEDS ORDERED: Non-Formulary Item 1 EA (Glipizide [Glucotrol] 10 MG) PO SCH (09:00)
[2018-05-28] MEDS: Ferrous Sulfate 325 MG TAB PO SCH (10:07)
[2018-05-28] MEDS: Pantoprazole 40 mg EC Tab PO SCH (10:08)
[2018-05-28] MEDS: Multivitamin w/ Minerals Tab PO SCH (10:08)
[2018-05-28] MEDS: Lactobacillus Rhamnosus GG 15 Billion CFU CAP.SPRINK PO SCH (10:08)
[2018-05-28] MEDS: INSULIN LISPRO SLIDING SCALE 100 UNITS/ML UNIT SUBQ SCH ×3 (11:39→20:38)
[2018-05-28] MEDS: Therahoney Gel 42.5gm Tube TP SCH (18:36)
[2018-05-28] MEDS ORDERED: Insulin Detemir 100 units/mL 10mL Vial SUBQ SCH (21:00)
[2018-05-28] MEDS ORDERED: Non-Formulary Item 1 EA (Atenolol [Atenolol] 50 MG) PO SCH (21:00)
[2018-05-28] MEDS ORDERED: INSULIN DETEMIR 25 UNIT SUBQ SCH (21:00)
[2018-05-28 21:03] LABS: % BASOPHILS 0.3 % (0.0-2.0); % EOSINOPHILS 1.4 % (0.0-5.0); % LYMPHOCYTES 12.4 % (20.0-50.0); % MONOCYTES 5.2 % (2.0-10.0); % NEUTROPHILS 80.7 % (40.0-80.0); EOSINOPHILE ABSOLUTE 0.1 Th/cmm (0.1-0.4); LYMPHOCYTE ABSOLUTE 1.3 Th/cmm (1.5-3.0); MEAN CELL VOLUME 84.2 fl (80-99); MEAN CORPUSCULAR HEMOGLOBIN 28.4 pg (26.0-30.0); MEAN CORPUSCULAR HGB CONC 33.7 pg (28.0-36.0); MONOCYTE ABSOLUTE 0.5 Th/cmm (0.3-1.0); NEUTROPHILE ABSOLUTE 8.5 Th/cmm (1.8-8.0); PLATELET COUNT 328 Th/cmm (150-400); RED CELL DISTRIBUTION WIDTH 13.4 % (11.5-20.0); WHITE BLOOD COUNT 10.4 Th/cmm (4.8-10.8)
[2018-05-28 21:28] LABS: HEMATOCRIT 23.6 % (41.0-60)
--- NOTE | 2018-05-29 03:45 | Consultation ---
DATE OF CONSULTATION: 05/28/2018 INFECTIOUS DISEASE CONSULTATION REFERRING PHYSICIAN: Dr. Evelio Davis. REASON FOR CONSULTATION: Sacral wound, stage 4 decubitus ulcer, nonhealing wound, other lower extremity decubiti. HISTORY OF PRESENT ILLNESS: This is a 42-year-old male with a past medical history of paraplegia secondary to failed back surgery, hypertension, GERD, diabetes mellitus type 2, anemia, generalized muscle weakness, depression, had developed a nonhealing sacral decubitus ulcer, stage 4. So, he was brought to the ER for further evaluation and management. On initial evaluation, the patient also was found to have and unstageable DTI of right hip on the left ankle. On initial evaluation, WBC count 8300, hemoglobin 7.1. The patient received 1 unit of PRBC transfusion. ID consult was called for further antibiotic management. Meanwhile, the patient was started on Zosyn. PAST MEDICAL HISTORY: 1. As mentioned above, paraplegia secondary to failed back surgery. 2. Gastroesophageal reflux disease. 3. Hypertension. PAST MEDICAL HISTORY: Includes possibly secondary to failed back surgery, hypertension, GERD, diabetes mellitus type 2, anemia, muscle weakness, and depression and multiple decubitus ulcers. FAMILY HISTORY: Not available. SOCIAL HISTORY: The patient lives at nursing facility [facility]. No history of smoking, alcohol or drug use. FAMILY HISTORY: Noncontributory. REVIEW OF SYSTEMS: GENERAL: The patient has no fever, no chills. HEENT: No diplopia. No photophobia, no sore throat. RESPIRATORY: No cough, no shortness of breath. CARDIOVASCULAR SYSTEM: No chest pain, or palpitation. GASTROINTESTINAL: No nausea, no vomiting, no diarrhea, no constipation. GENITOURINARY: No dysuria. NEUROLOGIC: No headache, no dizziness. The patient has bilateral lower extremity weakness. SKIN: The patient has sacral decubitus ulcer stage 4. No significant discharge, no surrounding erythema, well defined border. Probe test is positive. Right heel ulcer and DTI and left ankle ulcer. PHYSICAL EXAMINATION: VITAL SIGNS: Shows temperature is 98.2, pulse 66, respirations 18, blood pressure is 160/76. GENERAL: The patient is comfortable lying in the bed, not in acute distress. HEENT: Head is normocephalic, atraumatic. Oral cavity moist, pink tongue. Eyes: Pallor is present, no icterus. PERRLA, EOMI. NECK: Supple, no JVD, no carotid bruits. Trachea in midline. CHEST: Bilateral breath sounds. No crackles or wheezing. HEART: S1, S2 within normal limit. Regular rhythm. No murmur, no gallop. ABDOMEN: Soft, nontender, nondistended. Bowel sounds are present. EXTREMITIES: No cyanosis, no clubbing, no edema. The patient has right ankle ulcer laterally and left heel ulcers unstageable. SKIN: The patient has stage IV decubitus ulcer. IMPRESSION: 1. Sacral decubitus ulcer, the probe test positive. No significant infection at this time. 2. Right ankle ulcer. 3. Left heel ulcer. 4. Paraplegia secondary to failed back surgery. 5. Depression. 6. Anemia. 7. Diabetes mellitus type 2. 8. Gastroesophageal reflux disease. 9. Hypertension. RECOMMENDATIONS: Discontinue antibiotic and continue wound care. No further intervention at this time. Radiological study make gram positive falsely positive. So we will hold radiological study at this time. In future, if patient developed some sign of infection, fever, leukocytosis or drainage from the wounds may workup for osteomyelitis. Thank you, Dr. Davis for involving me in taking over this patient. JOB# [id number] KATH
[2018-05-29] MEDS: D5-0.45NS 1,000 ML IV SCH ×3 (04:25→18:07)
[2018-05-29 04:54] LABS: % BASOPHILS 0.7 % (0.0-2.0); % EOSINOPHILS 2.3 % (0.0-5.0); % LYMPHOCYTES 14.2 % (20.0-50.0); % MONOCYTES 4.4 % (2.0-10.0); % NEUTROPHILS 78.4 % (40.0-80.0); BASOPHILE ABSOLUTE 0.1 Th/cumm (0-0.2); EOSINOPHILE ABSOLUTE 0.2 Th/cmm (0.1-0.4); HEMATOCRIT 26.7 % (41.0-60); HEMOGLOBIN 8.7 gm/dL (12-16); LYMPHOCYTE ABSOLUTE 1.4 Th/cmm (1.5-3.0); MEAN CELL VOLUME 85.3 fl (80-99); MEAN CORPUSCULAR HEMOGLOBIN 27.7 pg (26.0-30.0); MEAN CORPUSCULAR HGB CONC 32.5 pg (28.0-36.0); MEAN PLATELET VOLUME 6.3 fl; MONOCYTE ABSOLUTE 0.4 Th/cmm (0.3-1.0); NEUTROPHILE ABSOLUTE 7.5 Th/cmm (1.8-8.0); PLATELET COUNT 367 Th/cmm (150-400); RED BLOOD COUNT 3.13 Mil/cmm (4.30-5.70); RED CELL DISTRIBUTION WIDTH 13.7 % (11.5-20.0); WHITE BLOOD COUNT 9.6 Th/cmm (4.8-10.8)
--- NOTE | 2018-05-29 05:36 | General Progress Note ---
Subjective - Review of Systems Service Date: 05/29/18 Subjective: Patient resting comfortably in bed. no acute distress. Awake, alert. depressed. s/p blood transfusion. Objective - Results Result Diagrams: 05/29/18 04:44 05/28/18 07:29 Recent Labs: Laboratory Last Values WBC 9.6 Th/cmm (4.8-10.8) 05/29/18 04:44 RBC 3.13 Mil/cmm (4.30-5.70) L 05/29/18 04:44 Hgb 8.7 gm/dL (12-16) L 05/29/18 04:44 Hct 26.7 % (41.0-60) L 05/29/18 04:44 MCV 85.3 fl (80-99) 05/29/18 04:44 MCH 27.7 pg (26.0-30.0) 05/29/18 04:44 MCHC Differential 32.5 pg (28.0-36.0) 05/29/18 04:44 RDW 13.7 % (11.5-20.0) 05/29/18 04:44 Plt Count 367 Th/cmm (150-400) 05/29/18 04:44 MPV 6.3 fl 05/29/18 04:44 Add Manual Diff YES 05/27/18 22:20 Neutrophils % 78.4 % (40.0-80.0) 05/29/18 04:44 Band Neutrophils % 0 % (0-10) 05/27/18 22:20 Lymphocytes % 14.2 % (20.0-50.0) L 05/29/18 04:44 Monocytes % 4.4 % (2.0-10.0) 05/29/18 04:44 Eosinophils % 2.3 % (0.0-5.0) 05/29/18 04:44 Basophils % 0.7 % (0.0-2.0) 05/29/18 04:44 Neutrophils (Manual) 71 % (40-80) 05/27/18 22:20 Lymphocytes 21 % (20-50) 05/27/18 22:20 Monocytes 7 % (2-10) 05/27/18 22:20 Eosinophils 1 % (0-5) 05/27/18 22:20 Basophils 0 % (0-3) 05/27/18 22:20 Sodium 136 mEq/L (136-145) 05/28/18 07:29 Potassium 4.7 mEq/L (3.5-5.1) 05/28/18 07:29 Chloride 107 mEq/L (98-107) 05/28/18 07:29 Carbon Dioxide 23.1 mEq/L (21.0-31.0) 05/28/18 07:29 Anion Gap 10.6 (7.0-16.0) 05/28/18 07:29 BUN 40 mg/dL (7-25) H 05/28/18 07:29 Creatinine 1.2 mg/dL (0.7-1.3) 05/28/18 07:29 Est GFR ( Amer) > 60.0 ml/min (>90) 05/28/18 07:29 Est GFR (Non-Af Amer) > 60.0 ml/min 05/28/18 07:29 BUN/Creatinine Ratio 33.3 05/28/18 07:29 Glucose 282 mg/dL (70-105) H 05/28/18 07:29 POC Glucose 172 MG/DL (70 - 105) H 05/28/18 20:34 Calcium 8.5 mg/dL (8.6-10.3) L 05/28/18 07:29 Total Bilirubin 0.3 mg/dL (0.3-1.0) 05/28/18 07:29 AST 8 U/L (13-39) L 05/28/18 07:29 ALT 8 U/L (7-52) 05/28/18 07:29 Alkaline Phosphatase 61 U/L (34-104) 05/28/18 07:29 Total Protein 6.1 gm/dL (6.0-8.3) 05/28/18 07:29 Albumin 2.7 gm/dL (4.2-5.5) L 05/28/18 07:29 Globulin 3.4 gm/dL 05/28/18 07:29 Albumin/Globulin Ratio 0.8 (1.0-1.8) L 05/28/18 07:29 Urine Source CLEAN C 05/27/18 23:20 Urine Color YELLOW 05/27/18 23:20 Urine Clarity CLOUDY (CLEAR) 05/27/18 23:20 Urine pH 6.0 (4.6 - 8.0) 05/27/18 23:20 Ur Specific [place] 1.025 (1.005-1.030) 05/27/18 23:20 Urine Protein >=300 mg/dL (NEGATIVE) 05/27/18 23:20 Urine Glucose (UA) 100 mg/dL (NEGATIVE) H 05/27/18 23:20 Urine Ketones TRACE mg/dL (NEGATIVE) 05/27/18 23:20 Urine Blood MODERATE (NEGATIVE) H 05/27/18 23:20 Urine Nitrate NEGATIVE (NEGATIVE) 05/27/18 23:20 Urine Bilirubin NEGATIVE (NEGATIVE) 05/27/18 23:20 Urine Urobilinogen 0.2 E.U./dL (0.2 - 1.0) 05/27/18 23:20 Ur Leukocyte Esterase TRACE (NEGATIVE) H 05/27/18 23:20 Urine RBC 2-5 /hpf (0-5) H 05/27/18 23:20 Urine WBC 50-100 /hpf (0-5) H 05/27/18 23:20 Ur Epithelial Cells NONE SEEN /lpf (FEW) 05/27/18 23:20 Urine Bacteria MANY /hpf (NONE SEEN) H 05/27/18 23:20 Blood Type A POSITIVE 05/27/18 23:30 Antibody Screen NEGATIVE 05/27/18 23:30 Crossmatch See Detail 05/27/18 23:30 - Physical Exam Vitals and I&O: Vital Signs Temp 97.6 F 05/29/18 00:00 Pulse 62 05/29/18 00:00 Resp 20 05/29/18 00:00 BP 125/70 05/29/18 00:00 Pulse Ox 98 05/29/18 00:00 Intake & Output 05/28/18 05/28/18 05/29/18 06:59 18:59 06:59 Intake Total 100 1050 Output Total 1400 Balance -7560 870 8606 Weight (lbs) 85.275 kg Intake: Intake, IV Amount 100 1050 D5-0.45NS 1,000 ml @ 60 1000 mls/hr IV .[id number] [facility] Rx #:[id number] Piperacillin Sodium/ 100 50 Tazobact 3.375 gm In Sodium Chloride 0.9% 50 ml @ 12.5 mls/hr IV Q8HR [facility] Rx#:[id number] Output: Urine 1400 Other: # Voids 1 Weight Source Bedscale Active Medications: Current Medications Acetaminophen (Tylenol) 650 mg PO Q4H PRN PRN Reason: MILD PAIN OR TEMP >100 Stop: 07/27/18 08:10 Last Admin: 05/28/18 13:42 Dose: 650 mg Ascorbic Acid (Vitamin C) 500 mg PO BID [facility] Stop: 07/27/18 08:59 Last Admin: 05/28/18 18:35 Dose: 500 mg Atenolol (Tenormin) 50 mg PO HS [facility] Stop: 07/27/18 20:59 Last Admin: 05/28/18 20:35 Dose: 50 mg Cholecalciferol (Vitamin D3) 1,000 iu PO DAILY [facility] Stop: 07/27/18 08:59 Last Admin: 05/28/18 10:07 Dose: Not Given Dextrose (D50w) 50 ml IVP PRN PRN PRN Reason: Blood Glucose less than 70 Stop: 07/27/18 08:13 Dextrose (Glutose 40%) 18.75 gm PO PRN PRN PRN Reason: Blood Glucose less than 70 Stop: 07/27/18 08:13 Ferrous Sulfate (Iron) 325 mg PO DAILY [facility] Stop: 07/27/18 08:59 Last Admin: 05/28/18 10:07 Dose: Not Given Gabapentin (Neurontin) 300 mg PO BID [facility] Stop: 07/27/18 08:59 Last Admin: 05/28/18 18:35 Dose: 300 mg Glipizide (Glucotrol) 10 mg PO DAILY [facility] Stop: 07/27/18 08:59 Last Admin: 05/28/18 10:07 Dose: Not Given Glucagon (Glucagen) 1 mg IM PRN PRN PRN Reason: Blood Glucose less than 70 Stop: 07/27/18 08:13 Hydrochlorothiazide (Hctz) 25 mg PO DAILY [facility] Stop: 07/27/18 08:59 Last Admin: 05/28/18 10:07 Dose: Not Given Dextrose/Sodium Chloride (D5-0.45ns) 1,000 mls @ 60 mls/hr IV .[id number] [facility] Stop: 07/26/18 23:44 Last Admin: 05/29/18 04:25 Dose: 60 mls/hr Piperacillin Sod/Tazobactam (Sod 3.375 gm/ Sodium Chloride) 50 mls @ 12.5 mls/ hr IV Q8HR [facility] Stop: 07/27/18 04:59 Last Admin: 05/29/18 04:25 Dose: 12.5 mls/hr Ibuprofen (Motrin) 600 mg PO BID [facility] Stop: 07/27/18 08:59 Last Admin: 05/28/18 18:35 Dose: 600 mg Insulin Detemir (Levemir Insulin) 25 units SUBQ HS [facility] Stop: 07/27/18 20:59 Last Admin: 05/28/18 20:45 Dose: 25 units Insulin Human Lispro (Humalog Insulin Sliding Scale) 0 units SUBQ ACHS [facility]; Protocol Stop: 07/27/18 11:29 Last Admin: 05/28/18 20:38 Dose: 2 units Lactobacillus Rhamnosus (Culturelle 15b) 1 each PO DAILY [facility] Stop: 07/27/18 08:59 Last Admin: 05/28/18 10:08 Dose: Not Given Lisinopril (Zestril) 20 mg PO DAILY [facility] Stop: 07/27/18 08:59 Last Admin: 05/28/18 10:08 Dose: Not Given Metformin HCl (Glucophage) 1,000 mg PO DAILY [facility] Stop: 07/27/18 08:59 Last Admin: 05/28/18 10:08 Dose: Not Given Morphine Sulfate (Morphine) 1 mg IVP Q4HR PRN PRN Reason: Pain (Moderate) Stop: 07/27/18 08:10 Pantoprazole Sodium (Protonix) 40 mg PO DAILY [facility] Stop: 07/27/18 08:59 Last Admin: 05/28/18 10:08 Dose: Not Given Wound Care/Dressing Products (Therahoney) 1 appl TP DAILY [facility] Stop: 07/27/18 14:44 Last Admin: 05/28/18 18:36 Dose: 1 appl Zinc Sulfate (Zinc Sulfate) 220 mg PO DAILY [facility] Stop: 07/27/18 09:09 Last Admin: 05/28/18 10:08 Dose: Not Given General: Alert, Oriented x3, No acute distress HEENT: Atraumatic, PERRLA, EOMI Neck: Supple Cardiovascular: Regular rate, Normal S1, Normal S2 Lungs: Clear to auscultation Abdomen: Bowel sounds Extremities: no Clubbing, no Cyanosis, no Edema Neurological: Normal gait, Normal speech - Procedures Procedures: Procedures Procedure Code Date EXCISION OF BACK SUBCU/FASCIA, OPEN APPROACH [id number] 11/20/17 TRANSFUSE NONAUT RED BLOOD CELLS IN PERIPH VEIN, PERC 95136H2 11/20/17 Assessment/Plan - Assessment Assessment: Sacral Decubitus Ulcer Paraplegia HTN GERD muscle weakness diabetes mellitus type 2 UTI Anemia S/p blood transfusion incontinence failed back surgery - Plan Plan: ID consult Surgical consult transfuse two units packed RBC's repeat CBC,CMP continue home meds IV protonix IV zosyn blood cultures x2 wound cultures x2 stool occult Nutritional Asmnt/Malnutr-PDOC - Dietary Evaluation Malnutrition Findings (Please click <Entered> for more info): Nutritional Asmnt/Malnutrition Start: 05/28/18 14: 14 Text: Status: Complete Freq: Protocol: Document 05/28/18 14:14 MMULHERN (Rec: 05/28/18 14:28 MMULHERN ANA M- [id number]) Nutritional Asmnt/Malnutrition Patient General Information Nutritional Screening Consult Diagnosis non-healing wounds/anemia Pertinent Medical Hx/Surgical Hx paraplegia, HTN, GERD, DM, anemia, muscle weakness, depression Subjective Information Consult: active wounds. patient asleep at time of visit. Spoke with nurse Marya who states patient has only eaten one meal, did not eat much (<50%). Current Diet Order/ [facility] / S[facility] Not Indicated Pertinent Medications vitamin C, vitamin D, D50W, D5 -0.45NS, iron, Glipizide, Glucagon, Levemir, humalog, culturelle, Metformin, protonix, zinc sulfate Pertinent Labs (05/28) BUN 40, Glucose 242-287 , Albumin 2.7 (decreased) Nutritional Hx/Data Height 1.75 m Height (Calculated Centimeters) 175.3 Current Weight (lbs) 85.275 kg Weight (Calculated Kilograms) 85.3 Weight (Calculated Grams) 06918.4 [place] Body Weight 160 % [place] Body Weight 117 Body Mass Index (BMI) 27.7 Recent Weight Change No Weight Status Overweight GI Symptoms GI Symptoms None Last BM none noted since admission Difficult in: None Food Allergies No Cultural/Ethnic/Mormon Belief none indicated Usual diet at home unknown Skin Integrity/Comment: Jass 12, 3+ pitting edema, non-healing wounds to sacral area the size 2.5 inch x 2. 5inh hole that extens to an area the size of an orange Current %PO Fair (50-74%) Estimated Nutritional Goals BEE in Kcals: Using Current wt Calories/Kcals/Kg 85.4kg CBW 25-30 kcal/kg Kcals Calculated ~4527-1613 kcal/day Protein: Using Current wt Protein g/k.1-1.3gm/kg (wounds) Protein Calculated ~95-110 gm/day Fluid: ml ~2724-0103 ml/day (1 ml/kcal) Nutritional Problem 2. Problem Problem Inadequate oral intake related to Etiology current diet order/poor appetite aeb Signs/Symptoms: meeting <50% of nutrient needs 1. Problem Problem Increased nutrient needs related to Etiology impaired skin integrity aeb Signs/Symptoms: non-healing wounds to sacral area the size 2.5 inch x 2. 5inh hole that extens to an area the size of an orange Intervention/Recommendation Comments 1. Increase diet to 60gm CCHO, low sodium to better meet nutrient needs. 2. MD to adjust insulin regimen as needed 3. Consider adding MVI in addition to current vitamin C for optimal wound healing. 4. WIll provide Glucerna with each meal to increase calorie/ protein goals. Expected Outcomes/Goals Expected Outcomes/Goals Improved skin integrity, oral intake >75% of meals, diet progresses F/U MR 05/31-
[2018-05-29] MEDS: INSULIN LISPRO SLIDING SCALE 100 UNITS/ML UNIT SUBQ SCH ×4 (06:35→20:31)
--- NOTE | 2018-05-29 07:24 | Consultation ---
DATE OF CONSULTATION: 05/29/2018 HISTORY OF PRESENT ILLNESS: A 42-year-old male coming into the hospital, nonhealing sacral decubitus ulcer, history of paraplegia due to failed back surgery, hypertension, GERD, diabetes, anemia, also weakness. On [id number], the patient notes depression "sometimes" notes that he occasionally has low appetite, alludes to poor sleep in the hospital, sometimes feels hopeless about the same time notes that when he hopes to somehow walk 1 day with therapy. He states that the best thing for him to do "work is my medication, work is my way of depression." The patient denies any overt melancholy, states he wants to get better. PAST PSYCHIATRIC HISTORY: Depression in the past. No suicide history. He has never thought about suicide. FAMILY HISTORY: Noncontributory. SOCIAL HISTORY: Born in [place]. Not , no kids. Family in [place], is nonfocal, with them in 8 years. No drugs, no alcohol, no tobacco. Living in a longterm. MENTAL STATUS EXAMINATION: Stated age, fair eye contact. Speech within normal limits. Mood "so-so up and down." Affect constricted. Thought processes were linear. No SI, no HI, no intent, no plan. No overt psychotic symptoms. Insight and judgment questionable. PROVISIONAL DIAGNOSIS: Major depression, recurrent, moderate, no psychosis. Under medical please see full H and P. RECOMMENDATIONS AND PLAN: The patient does not want to start medications at this time, he would like to get better. He would like to see his condition improved. Risks, benefits, alternatives discussed. He rejects any recommendation for antidepressant medications. No 5150 criteria. [facility]# [id number]
[2018-05-29] MEDS: Lactobacillus Rhamnosus GG 15 Billion CFU CAP.SPRINK PO SCH (09:07)
[2018-05-29] MEDS: Pantoprazole 40 mg EC Tab PO SCH (09:07)
[2018-05-29] MEDS: Multivitamin w/ Minerals Tab PO SCH (09:07)
[2018-05-29] MEDS: Ferrous Sulfate 325 MG TAB PO SCH (09:07)
[2018-05-29] MEDS: Therahoney Gel 42.5gm Tube TP SCH (15:13)
[2018-05-29] MEDS ORDERED: Insulin Glargine 100 units/ml 10ml Vial SUBQ SCH (21:00)
[2018-05-30] MEDS: INSULIN LISPRO SLIDING SCALE 100 UNITS/ML UNIT SUBQ SCH ×4 (06:44→21:08)
--- NOTE | 2018-05-30 08:22 | General Progress Note ---
Subjective - Review of Systems Service Date: 05/30/18 Subjective: Patient resting comfortably in bed. no acute distress. Awake, alert. depressed. s/p blood transfusion. Objective - Results Result Diagrams: 05/29/18 04:44 05/28/18 07:29 Recent Labs: Laboratory Last Values WBC 9.6 Th/cmm (4.8-10.8) 05/29/18 04:44 RBC 3.13 Mil/cmm (4.30-5.70) L 05/29/18 04:44 Hgb 8.7 gm/dL (12-16) L 05/29/18 04:44 Hct 26.7 % (41.0-60) L 05/29/18 04:44 MCV 85.3 fl (80-99) 05/29/18 04:44 MCH 27.7 pg (26.0-30.0) 05/29/18 04:44 MCHC Differential 32.5 pg (28.0-36.0) 05/29/18 04:44 RDW 13.7 % (11.5-20.0) 05/29/18 04:44 Plt Count 367 Th/cmm (150-400) 05/29/18 04:44 MPV 6.3 fl 05/29/18 04:44 Add Manual Diff YES 05/27/18 22:20 Neutrophils % 78.4 % (40.0-80.0) 05/29/18 04:44 Band Neutrophils % 0 % (0-10) 05/27/18 22:20 Lymphocytes % 14.2 % (20.0-50.0) L 05/29/18 04:44 Monocytes % 4.4 % (2.0-10.0) 05/29/18 04:44 Eosinophils % 2.3 % (0.0-5.0) 05/29/18 04:44 Basophils % 0.7 % (0.0-2.0) 05/29/18 04:44 Neutrophils (Manual) 71 % (40-80) 05/27/18 22:20 Lymphocytes 21 % (20-50) 05/27/18 22:20 Monocytes 7 % (2-10) 05/27/18 22:20 Eosinophils 1 % (0-5) 05/27/18 22:20 Basophils 0 % (0-3) 05/27/18 22:20 Sodium 136 mEq/L (136-145) 05/28/18 07:29 Potassium 4.7 mEq/L (3.5-5.1) 05/28/18 07:29 Chloride 107 mEq/L (98-107) 05/28/18 07:29 Carbon Dioxide 23.1 mEq/L (21.0-31.0) 05/28/18 07:29 Anion Gap 10.6 (7.0-16.0) 05/28/18 07:29 BUN 40 mg/dL (7-25) H 05/28/18 07:29 Creatinine 1.2 mg/dL (0.7-1.3) 05/28/18 07:29 Est GFR ( Amer) > 60.0 ml/min (>90) 05/28/18 07:29 Est GFR (Non-Af Amer) > 60.0 ml/min 05/28/18 07:29 BUN/Creatinine Ratio 33.3 05/28/18 07:29 Glucose 282 mg/dL (70-105) H 05/28/18 07:29 POC Glucose 74 MG/DL (70 - 105) 05/30/18 06:28 Calcium 8.5 mg/dL (8.6-10.3) L 05/28/18 07:29 Total Bilirubin 0.3 mg/dL (0.3-1.0) 05/28/18 07:29 AST 8 U/L (13-39) L 05/28/18 07:29 ALT 8 U/L (7-52) 05/28/18 07:29 Alkaline Phosphatase 61 U/L (34-104) 05/28/18 07:29 Total Protein 6.1 gm/dL (6.0-8.3) 05/28/18 07:29 Albumin 2.7 gm/dL (4.2-5.5) L 05/28/18 07:29 Globulin 3.4 gm/dL 05/28/18 07:29 Albumin/Globulin Ratio 0.8 (1.0-1.8) L 05/28/18 07:29 Urine Source CLEAN C 05/27/18 23:20 Urine Color YELLOW 05/27/18 23:20 Urine Clarity CLOUDY (CLEAR) 05/27/18 23:20 Urine pH 6.0 (4.6 - 8.0) 05/27/18 23:20 Ur Specific [place] 1.025 (1.005-1.030) 05/27/18 23:20 Urine Protein >=300 mg/dL (NEGATIVE) 05/27/18 23:20 Urine Glucose (UA) 100 mg/dL (NEGATIVE) H 05/27/18 23:20 Urine Ketones TRACE mg/dL (NEGATIVE) 05/27/18 23:20 Urine Blood MODERATE (NEGATIVE) H 05/27/18 23:20 Urine Nitrate NEGATIVE (NEGATIVE) 05/27/18 23:20 Urine Bilirubin NEGATIVE (NEGATIVE) 05/27/18 23:20 Urine Urobilinogen 0.2 E.U./dL (0.2 - 1.0) 05/27/18 23:20 Ur Leukocyte Esterase TRACE (NEGATIVE) H 05/27/18 23:20 Urine RBC 2-5 /hpf (0-5) H 05/27/18 23:20 Urine WBC 50-100 /hpf (0-5) H 05/27/18 23:20 Ur Epithelial Cells NONE SEEN /lpf (FEW) 05/27/18 23:20 Urine Bacteria MANY /hpf (NONE SEEN) H 05/27/18 23:20 Blood Type A POSITIVE 05/27/18 23:30 Antibody Screen NEGATIVE 05/27/18 23:30 Crossmatch See Detail 05/27/18 23:30 - Physical Exam Vitals and I&O: Vital Signs Temp 97.6 F 05/30/18 05:00 Pulse 61 05/30/18 05:00 Resp 20 05/30/18 05:00 BP 154/81 05/30/18 05:00 Pulse Ox 99 05/30/18 05:00 Intake & Output 05/29/18 05/30/18 05/30/18 18:59 06:59 18:59 Intake Total 100 50 Output Total 850 Balance 100 -800 Weight (lbs) 83.915 kg Intake: Intake, IV Amount 100 50 Piperacillin Sodium/ 100 50 Tazobact 3.375 gm In Sodium Chloride 0.9% 50 ml @ 12.5 mls/hr IV Q8HR [facility] Rx#:[id number] Output: Urine 850 Other: Stool Characteristics Soft Soft Formed Formed Weight Source Bedscale Active Medications: Current Medications Acetaminophen (Tylenol) 650 mg PO Q4H PRN PRN Reason: MILD PAIN OR TEMP >100 Stop: 07/27/18 08:10 Last Admin: 05/28/18 13:42 Dose: 650 mg Ascorbic Acid (Vitamin C) 500 mg PO BID [facility] Stop: 07/27/18 08:59 Last Admin: 05/29/18 18:01 Dose: 500 mg Atenolol (Tenormin) 50 mg PO HS [facility] Stop: 07/27/18 20:59 Last Admin: 05/29/18 20:32 Dose: 50 mg Cholecalciferol (Vitamin D3) 1,000 iu PO DAILY [facility] Stop: 07/27/18 08:59 Last Admin: 05/29/18 09:07 Dose: 1,000 iu Dextrose (D50w) 50 ml IVP PRN PRN PRN Reason: Blood Glucose less than 70 Stop: 07/27/18 08:13 Dextrose (Glutose 40%) 18.75 gm PO PRN PRN PRN Reason: Blood Glucose less than 70 Stop: 07/27/18 08:13 Ferrous Sulfate (Iron) 325 mg PO DAILY [facility] Stop: 07/27/18 08:59 Last Admin: 05/29/18 09:07 Dose: 325 mg Gabapentin (Neurontin) 300 mg PO BID [facility] Stop: 07/27/18 08:59 Last Admin: 05/29/18 18:01 Dose: 300 mg Glipizide (Glucotrol) 10 mg PO DAILY [facility] Stop: 07/27/18 08:59 Last Admin: 05/29/18 09:06 Dose: 10 mg Glucagon (Glucagen) 1 mg IM PRN PRN PRN Reason: Blood Glucose less than 70 Stop: 07/27/18 08:13 Hydrochlorothiazide (Hctz) 25 mg PO DAILY [facility] Stop: 07/27/18 08:59 Last Admin: 05/29/18 09:06 Dose: 25 mg Dextrose/Sodium Chloride (D5-0.45ns) 1,000 mls @ 60 mls/hr IV .[id number] [facility] Stop: 07/26/18 23:44 Last Admin: 05/29/18 18:07 Dose: Not Given Piperacillin Sod/Tazobactam (Sod 3.375 gm/ Sodium Chloride) 50 mls @ 12.5 mls/ hr IV Q8HR [facility] Stop: 07/27/18 04:59 Last Admin: 05/30/18 04:44 Dose: 12.5 mls/hr Ibuprofen (Motrin) 600 mg PO BID [facility] Stop: 07/27/18 08:59 Last Admin: 05/29/18 18:01 Dose: 600 mg Insulin Glargine (Lantus Insulin) 25 units SUBQ HS [facility] Stop: 07/28/18 20:59 Last Admin: 05/29/18 20:30 Dose: 25 units Insulin Human Lispro (Humalog Insulin Sliding Scale) 0 units SUBQ ACHS [facility]; Protocol Stop: 07/27/18 11:29 Last Admin: 05/30/18 06:44 Dose: Not Given Lactobacillus Rhamnosus (Culturelle 15b) 1 each PO DAILY [facility] Stop: 07/27/18 08:59 Last Admin: 05/29/18 09:07 Dose: 1 each Lisinopril (Zestril) 20 mg PO DAILY [facility] Stop: 07/27/18 08:59 Last Admin: 05/29/18 09:08 Dose: 20 mg Metformin HCl (Glucophage) 1,000 mg PO DAILY [facility] Stop: 07/27/18 08:59 Last Admin: 05/29/18 09:07 Dose: 1,000 mg Morphine Sulfate (Morphine) 1 mg IVP Q4HR PRN PRN Reason: Pain (Moderate) Stop: 07/27/18 08:10 Mupirocin (Bactroban Oint) 1 appl NS BID [facility] Stop: 06/03/18 17:01 Pantoprazole Sodium (Protonix) 40 mg PO DAILY [facility] Stop: 07/27/18 08:59 Last Admin: 05/29/18 09:07 Dose: 40 mg Wound Care/Dressing Products (Therahoney) 1 appl TP DAILY [facility] Stop: 07/27/18 14:44 Last Admin: 05/29/18 15:13 Dose: 1 appl Zinc Sulfate (Zinc Sulfate) 220 mg PO DAILY [facility] Stop: 07/27/18 09:09 Last Admin: 05/29/18 09:07 Dose: 220 mg General: Alert, Oriented x3, No acute distress HEENT: Atraumatic, PERRLA, EOMI Neck: Supple Cardiovascular: Regular rate, Normal S1, Normal S2 Lungs: Clear to auscultation Abdomen: Bowel sounds Extremities: no Clubbing, no Cyanosis, no Edema Neurological: Normal gait, Normal speech - Procedures Procedures: Procedures Procedure Code Date EXCISION OF BACK SUBCU/FASCIA, OPEN APPROACH [id number] 11/20/17 TRANSFUSE NONAUT RED BLOOD CELLS IN PERIPH VEIN, PERC 91843Q1 11/20/17 Assessment/Plan - Assessment Assessment: Sacral Decubitus Ulcer Paraplegia HTN GERD muscle weakness diabetes mellitus type 2 UTI Anemia S/p blood transfusion incontinence failed back surgery - Plan Plan: ID consult Surgical consult transfuse two units packed RBC's repeat CBC,CMP continue home meds IV protonix IV zosyn blood cultures x2 wound cultures x2 stool occult Nutritional Asmnt/Malnutr-PDOC - Dietary Evaluation Malnutrition Findings (Please click <Entered> for more info): Nutritional Asmnt/Malnutrition Start: 05/28/18 14: 14 Text: Status: Complete Freq: Protocol: Document 05/28/18 14:14 MMULHERN (Rec: 05/28/18 14:28 MMULHERN ANA M- FNS1) Nutritional Asmnt/Malnutrition Patient General Information Nutritional Screening Consult Diagnosis non-healing wounds/anemia Pertinent Medical Hx/Surgical Hx paraplegia, HTN, GERD, DM, anemia, muscle weakness, depression Subjective Information Consult: active wounds. patient asleep at time of visit. Spoke with nurse Marya who states patient has only eaten one meal, did not eat much (<50%). Current Diet Order/ Nutrition [facility] / S.O Not Indicated Pertinent Medications vitamin C, vitamin D, D50W, D5 -0.45NS, iron, Glipizide, Glucagon, Levemir, humalog, culturelle, Metformin, protonix, zinc sulfate Pertinent Labs (05/28) BUN 40, Glucose 242-287 , Albumin 2.7 (decreased) Nutritional Hx/Data Height 1.75 m Height (Calculated Centimeters) 175.3 Current Weight (lbs) 85.275 kg Weight (Calculated Kilograms) 85.3 Weight (Calculated Grams) 87435.4 [place] Body Weight 160 % [place] Body Weight 117 Body Mass Index (BMI) 27.7 Recent Weight Change No Weight Status Overweight GI Symptoms GI Symptoms None Last BM none noted since admission Difficult in: None Food Allergies No Cultural/Ethnic/Evangelical Belief none indicated Usual diet at home unknown Skin Integrity/Comment: Jass 12, 3+ pitting edema, non-healing wounds to sacral area the size 2.5 inch x 2. 5inh hole that extens to an area the size of an orange Current %PO Fair (50-74%) Estimated Nutritional Goals BEE in Kcals: Using Current wt Calories/Kcals/Kg 85.4kg CBW 25-30 kcal/kg Kcals Calculated ~3337-4422 kcal/day Protein: Using Current wt Protein g/k.1-1.3gm/kg (wounds) Protein Calculated ~95-110 gm/day Fluid: ml ~2092-3738 ml/day (1 ml/kcal) Nutritional Problem 2. Problem Problem Inadequate oral intake related to Etiology current diet order/poor appetite aeb Signs/Symptoms: meeting <50% of nutrient needs 1. Problem Problem Increased nutrient needs related to Etiology impaired skin integrity aeb Signs/Symptoms: non-healing wounds to sacral area the size 2.5 inch x 2. 5inh hole that extens to an area the size of an orange Intervention/Recommendation Comments 1. Increase diet to 60gm CCHO, low sodium to better meet nutrient needs. 2. MD to adjust insulin regimen as needed 3. Consider adding MVI in addition to current vitamin C for optimal wound healing. 4. WIll provide Glucerna with each meal to increase calorie/ protein goals. Expected Outcomes/Goals Expected Outcomes/Goals Improved skin integrity, oral intake >75% of meals, diet progresses F/U MR 05/31-
[2018-05-30 08:49] LABS: % BASOPHILS 0.5 % (0.0-2.0); % EOSINOPHILS 4.2 % (0.0-5.0); % MONOCYTES 5.3 % (2.0-10.0); EOSINOPHILE ABSOLUTE 0.3 Th/cmm (0.1-0.4); HEMATOCRIT 26.1 % (41.0-60); HEMOGLOBIN 8.6 gm/dL (12-16); LYMPHOCYTE ABSOLUTE 1.3 Th/cmm (1.5-3.0); MEAN CELL VOLUME 85.5 fl (80-99); MEAN CORPUSCULAR HEMOGLOBIN 28.2 pg (26.0-30.0); MEAN PLATELET VOLUME 5.9 fl; MONOCYTE ABSOLUTE 0.4 Th/cmm (0.3-1.0); NEUTROPHILE ABSOLUTE 4.9 Th/cmm (1.8-8.0); PLATELET COUNT 374 Th/cmm (150-400); RED BLOOD COUNT 3.05 Mil/cmm (4.30-5.70); RED CELL DISTRIBUTION WIDTH 13.6 % (11.5-20.0); WHITE BLOOD COUNT 6.9 Th/cmm (4.8-10.8)
--- NOTE | 2018-05-30 08:54 | Infectious Disease Prog Note ---
Infectious Disease Subjective - Review of Systems Service Date: 05/30/18 Subjective: There is no new change, no fever/ Infectious Disease Objective - Results Result Diagrams: 05/30/18 08:35 05/28/18 07:29 Recent Labs: Laboratory Last Values WBC 6.9 Th/cmm (4.8-10.8) 05/30/18 08:35 RBC 3.05 Mil/cmm (4.30-5.70) L 05/30/18 08:35 Hgb 8.6 gm/dL (12-16) L 05/30/18 08:35 Hct 26.1 % (41.0-60) L 05/30/18 08:35 MCV 85.5 fl (80-99) 05/30/18 08:35 MCH 28.2 pg (26.0-30.0) 05/30/18 08:35 MCHC Differential 33.0 pg (28.0-36.0) 05/30/18 08:35 RDW 13.6 % (11.5-20.0) 05/30/18 08:35 Plt Count 374 Th/cmm (150-400) 05/30/18 08:35 MPV 5.9 fl 05/30/18 08:35 Add Manual Diff YES 05/27/18 22:20 Neutrophils % 71.0 % (40.0-80.0) 05/30/18 08:35 Band Neutrophils % 0 % (0-10) 05/27/18 22:20 Lymphocytes % 19.0 % (20.0-50.0) L 05/30/18 08:35 Monocytes % 5.3 % (2.0-10.0) 05/30/18 08:35 Eosinophils % 4.2 % (0.0-5.0) 05/30/18 08:35 Basophils % 0.5 % (0.0-2.0) 05/30/18 08:35 Neutrophils (Manual) 71 % (40-80) 05/27/18 22:20 Lymphocytes 21 % (20-50) 05/27/18 22:20 Monocytes 7 % (2-10) 05/27/18 22:20 Eosinophils 1 % (0-5) 05/27/18 22:20 Basophils 0 % (0-3) 05/27/18 22:20 Sodium 136 mEq/L (136-145) 05/28/18 07:29 Potassium 4.7 mEq/L (3.5-5.1) 05/28/18 07:29 Chloride 107 mEq/L (98-107) 05/28/18 07:29 Carbon Dioxide 23.1 mEq/L (21.0-31.0) 05/28/18 07:29 Anion Gap 10.6 (7.0-16.0) 05/28/18 07:29 BUN 40 mg/dL (7-25) H 05/28/18 07:29 Creatinine 1.2 mg/dL (0.7-1.3) 05/28/18 07:29 Est GFR ( Amer) > 60.0 ml/min (>90) 05/28/18 07:29 Est GFR (Non-Af Amer) > 60.0 ml/min 05/28/18 07:29 BUN/Creatinine Ratio 33.3 05/28/18 07:29 Glucose 282 mg/dL (70-105) H 05/28/18 07:29 POC Glucose 74 MG/DL (70 - 105) 05/30/18 06:28 Calcium 8.5 mg/dL (8.6-10.3) L 05/28/18 07:29 Total Bilirubin 0.3 mg/dL (0.3-1.0) 05/28/18 07:29 AST 8 U/L (13-39) L 05/28/18 07:29 ALT 8 U/L (7-52) 05/28/18 07:29 Alkaline Phosphatase 61 U/L (34-104) 05/28/18 07:29 Total Protein 6.1 gm/dL (6.0-8.3) 05/28/18 07:29 Albumin 2.7 gm/dL (4.2-5.5) L 05/28/18 07:29 Globulin 3.4 gm/dL 05/28/18 07:29 Albumin/Globulin Ratio 0.8 (1.0-1.8) L 05/28/18 07:29 Urine Source CLEAN C 05/27/18 23:20 Urine Color YELLOW 05/27/18 23:20 Urine Clarity CLOUDY (CLEAR) 05/27/18 23:20 Urine pH 6.0 (4.6 - 8.0) 05/27/18 23:20 Ur Specific [place] 1.025 (1.005-1.030) 05/27/18 23:20 Urine Protein >=300 mg/dL (NEGATIVE) 05/27/18 23:20 Urine Glucose (UA) 100 mg/dL (NEGATIVE) H 05/27/18 23:20 Urine Ketones TRACE mg/dL (NEGATIVE) 05/27/18 23:20 Urine Blood MODERATE (NEGATIVE) H 05/27/18 23:20 Urine Nitrate NEGATIVE (NEGATIVE) 05/27/18 23:20 Urine Bilirubin NEGATIVE (NEGATIVE) 05/27/18 23:20 Urine Urobilinogen 0.2 E.U./dL (0.2 - 1.0) 05/27/18 23:20 Ur Leukocyte Esterase TRACE (NEGATIVE) H 05/27/18 23:20 Urine RBC 2-5 /hpf (0-5) H 05/27/18 23:20 Urine WBC 50-100 /hpf (0-5) H 05/27/18 23:20 Ur Epithelial Cells NONE SEEN /lpf (FEW) 05/27/18 23:20 Urine Bacteria MANY /hpf (NONE SEEN) H 05/27/18 23:20 Blood Type A POSITIVE 05/27/18 23:30 Antibody Screen NEGATIVE 05/27/18 23:30 Crossmatch See Detail 05/27/18 23:30 - Physical Exam Vitals and I&O: Vital Signs Temp 97.5 F 05/30/18 08:00 Pulse 99 05/30/18 08:00 Resp 18 05/30/18 08:00 BP 170/77 05/30/18 08:00 Pulse Ox 61 05/30/18 08:00 Intake & Output 05/29/18 05/30/18 05/30/18 18:59 06:59 18:59 Intake Total 100 50 Output Total 850 Balance 100 -800 Weight (lbs) 83.915 kg Intake: Intake, IV Amount 100 50 Piperacillin Sodium/ 100 50 Tazobact 3.375 gm In Sodium Chloride 0.9% 50 ml @ 12.5 mls/hr IV Q8HR [facility] Rx#:[id number] Output: Urine 850 Other: Stool Characteristics Soft Soft Formed Formed Weight Source Bedscale Active Medications: Current Medications Acetaminophen (Tylenol) 650 mg PO Q4H PRN PRN Reason: MILD PAIN OR TEMP >100 Stop: 07/27/18 08:10 Last Admin: 05/28/18 13:42 Dose: 650 mg Ascorbic Acid (Vitamin C) 500 mg PO BID [facility] Stop: 07/27/18 08:59 Last Admin: 05/29/18 18:01 Dose: 500 mg Atenolol (Tenormin) 50 mg PO HS [facility] Stop: 07/27/18 20:59 Last Admin: 05/29/18 20:32 Dose: 50 mg Cholecalciferol (Vitamin D3) 1,000 iu PO DAILY [facility] Stop: 07/27/18 08:59 Last Admin: 05/29/18 09:07 Dose: 1,000 iu Dextrose (D50w) 50 ml IVP PRN PRN PRN Reason: Blood Glucose less than 70 Stop: 07/27/18 08:13 Dextrose (Glutose 40%) 18.75 gm PO PRN PRN PRN Reason: Blood Glucose less than 70 Stop: 07/27/18 08:13 Ferrous Sulfate (Iron) 325 mg PO DAILY [facility] Stop: 07/27/18 08:59 Last Admin: 05/29/18 09:07 Dose: 325 mg Gabapentin (Neurontin) 300 mg PO BID [facility] Stop: 07/27/18 08:59 Last Admin: 05/29/18 18:01 Dose: 300 mg Glipizide (Glucotrol) 10 mg PO DAILY [facility] Stop: 07/27/18 08:59 Last Admin: 05/29/18 09:06 Dose: 10 mg Glucagon (Glucagen) 1 mg IM PRN PRN PRN Reason: Blood Glucose less than 70 Stop: 07/27/18 08:13 Hydrochlorothiazide (Hctz) 25 mg PO DAILY [facility] Stop: 07/27/18 08:59 Last Admin: 05/29/18 09:06 Dose: 25 mg Dextrose/Sodium Chloride (D5-0.45ns) 1,000 mls @ 60 mls/hr IV .[id number] [facility] Stop: 07/26/18 23:44 Last Admin: 05/29/18 18:07 Dose: Not Given Piperacillin Sod/Tazobactam (Sod 3.375 gm/ Sodium Chloride) 50 mls @ 12.5 mls/ hr IV Q8HR [facility] Stop: 07/27/18 04:59 Last Admin: 05/30/18 04:44 Dose: 12.5 mls/hr Ibuprofen (Motrin) 600 mg PO BID [facility] Stop: 07/27/18 08:59 Last Admin: 05/29/18 18:01 Dose: 600 mg Insulin Glargine (Lantus Insulin) 20 units SUBQ HS [facility] Stop: 07/29/18 20:59 Insulin Human Lispro (Humalog Insulin Sliding Scale) 0 units SUBQ ACHS [facility]; Protocol Stop: 07/27/18 11:29 Last Admin: 05/30/18 06:44 Dose: Not Given Lactobacillus Rhamnosus (Culturelle 15b) 1 each PO DAILY [facility] Stop: 07/27/18 08:59 Last Admin: 05/29/18 09:07 Dose: 1 each Lisinopril (Zestril) 20 mg PO DAILY [facility] Stop: 07/27/18 08:59 Last Admin: 05/29/18 09:08 Dose: 20 mg Metformin HCl (Glucophage) 1,000 mg PO DAILY [facility] Stop: 07/27/18 08:59 Last Admin: 05/29/18 09:07 Dose: 1,000 mg Morphine Sulfate (Morphine) 1 mg IVP Q4HR PRN PRN Reason: Pain (Moderate) Stop: 07/27/18 08:10 Mupirocin (Bactroban Oint) 1 appl NS BID [facility] Stop: 06/03/18 17:01 Pantoprazole Sodium (Protonix) 40 mg PO DAILY [facility] Stop: 07/27/18 08:59 Last Admin: 05/29/18 09:07 Dose: 40 mg Wound Care/Dressing Products (Therahoney) 1 appl TP DAILY [facility] Stop: 07/27/18 14:44 Last Admin: 05/29/18 15:13 Dose: 1 appl Zinc Sulfate (Zinc Sulfate) 220 mg PO DAILY [facility] Stop: 07/27/18 09:09 Last Admin: 05/29/18 09:07 Dose: 220 mg General: no acute distress, well developed, well nourished HEENT: atraumatic, normocephalic, PERRLA, EOMI Neck: supple, no thyromegaly Cardiovascular: S1S2, regular Lungs: clear to auscultation bilaterally, clear to percussion Abdomen: soft, no tender, no distended, no hepatomegaly Extremities: no cyanosis, no clubbing Neurological: awake, alert, oriented Skin: other (sacral ulcer stage 4. no draiage. left heel dti, right ankle wound. ) - Procedures Procedures: Procedures Procedure Code Date EXCISION OF BACK SUBCU/FASCIA, OPEN APPROACH [id number] 11/20/17 TRANSFUSE NONAUT RED BLOOD CELLS IN PERIPH VEIN, PERC 31622V1 05/28/18 Nutritional Asmnt/Malnutr-PDOC - Dietary Evaluation Malnutrition Findings (Please click <Entered> for more info): Nutritional Asmnt/Malnutrition Start: 05/28/18 14: 14 Text: Status: Complete Freq: Protocol: Document 05/28/18 14:14 MMULHERN (Rec: 05/28/18 14:28 MMULHERN ANA M- FNS1) Nutritional Asmnt/Malnutrition Patient General Information Nutritional Screening Consult Diagnosis non-healing wounds/anemia Pertinent Medical Hx/Surgical Hx paraplegia, HTN, GERD, DM, anemia, muscle weakness, depression Subjective Information Consult: active wounds. patient asleep at time of visit. Spoke with nurse Marya who states patient has only eaten one meal, did not eat much (<50%). Current Diet Order/ Nutrition [facility] Patient / S.O Not Indicated Pertinent Medications vitamin C, vitamin D, D50W, D5 -0.45NS, iron, Glipizide, Glucagon, Levemir, humalog, culturelle, Metformin, protonix, zinc sulfate Pertinent Labs (05/28) BUN 40, Glucose 242-287 , Albumin 2.7 (decreased) Nutritional Hx/Data Height 1.75 m Height (Calculated Centimeters) 175.3 Current Weight (lbs) 85.275 kg Weight (Calculated Kilograms) 85.3 Weight (Calculated Grams) 37065.4 [place] Body Weight 160 % [place] Body Weight 117 Body Mass Index (BMI) 27.7 Recent Weight Change No Weight Status Overweight GI Symptoms GI Symptoms None Last BM none noted since admission Difficult in: None Food Allergies No Cultural/Ethnic/Yazidism Belief none indicated Usual diet at home unknown Skin Integrity/Comment: Jass 12, 3+ pitting edema, non-healing wounds to sacral area the size 2.5 inch x 2. 5inh hole that extens to an area the size of an orange Current %PO Fair (50-74%) Estimated Nutritional Goals BEE in Kcals: Using Current wt Calories/Kcals/Kg 85.4kg CBW 25-30 kcal/kg Kcals Calculated ~5516-7895 kcal/day Protein: Using Current wt Protein g/k.1-1.3gm/kg (wounds) Protein Calculated ~95-110 gm/day Fluid: ml ~8115-8314 ml/day (1 ml/kcal) Nutritional Problem 2. Problem Problem Inadequate oral intake related to Etiology current diet order/poor appetite aeb Signs/Symptoms: meeting <50% of nutrient needs 1. Problem Problem Increased nutrient needs related to Etiology impaired skin integrity aeb Signs/Symptoms: non-healing wounds to sacral area the size 2.5 inch x 2. 5inh hole that extens to an area the size of an orange Intervention/Recommendation Comments 1. Increase diet to 60gm CCHO, low sodium to better meet nutrient needs. 2. MD to adjust insulin regimen as needed 3. Consider adding MVI in addition to current vitamin C for optimal wound healing. 4. WIll provide Glucerna with each meal to increase calorie/ protein goals. Expected Outcomes/Goals Expected Outcomes/Goals Improved skin integrity, oral intake >75% of meals, diet progresses F/U MR
[2018-05-30 09:05] LABS: ANION GAP 11.3 (7.0-16.0); BUN - UREA NITROGEN 29 mg/dL (7-25); CALCIUM SERUM 8.3 mg/dL (8.6-10.3); CARBON DIOXIDE 23.5 mEq/L (21.0-31.0); CHLORIDE 108 mEq/L (98-107); CREATININE - SERUM 1.3 mg/dL (0.7-1.3); GFR AFRICAN-AMERICAN > 60.0 ml/min (>90); GFR NON AFRICAN-AMERICAN > 60.0 ml/min; GLUCOSE 118 mg/dL (70-105); POTASSIUM SERUM 3.8 mEq/L (3.5-5.1); SODIUM SERUM 139 mEq/L (136-145)
[2018-05-30] MEDS: Ferrous Sulfate 325 MG TAB PO SCH (09:30)
[2018-05-30] MEDS: Multivitamin w/ Minerals Tab PO SCH (09:30)
[2018-05-30] MEDS: Lactobacillus Rhamnosus GG 15 Billion CFU CAP.SPRINK PO SCH (09:30)
[2018-05-30] MEDS: Pantoprazole 40 mg EC Tab PO SCH (09:30)
[2018-05-30] MEDS: Therahoney Gel 42.5gm Tube TP SCH (09:38)
[2018-05-30] MEDS: Venelex 60gm Tube TP SCH (11:55)
[2018-05-30] MEDS: D5-0.45NS 1,000 ML IV SCH ×2 (13:04→18:46)
[2018-05-30] MEDS: Insulin Glargine 100 units/ml 10ml Vial SUBQ SCH (21:18)
--- NOTE | 2018-05-31 04:06 | Progress Notes ---
DATE: 05/30/2018 SUBJECTIVE: Covering for Dr. Chinchilla. Case was discussed with staff of the patient, reviewed records. A 42-year-old male who came into the hospital because of nonhealing sacral decubitus, with history of paraplegia due to failed back surgery, with hypertension, GERD, diabetes, anemia, and weakness. The patient appeared to be depressed, low appetite, poor sleep in the hospital, sometimes feels hopeless about the same time notes that when he hopes to somehow walk 1 day with therapy. He states that the best thing for him is to do work, it is his way of dealing with depression. He wants to get better with a history of depression in the past. No prior suicide attempt. The patient, though he is depressed, he is refusing to be on any medication; however, he promised that he will think about it and he denies any current intent to harm himself or anybody. He denies any auditory hallucinations and if the patient changes his mind, we will reevaluate and I will check with him also. Thank you very much for allowing me to participate in the care of this most interesting gentleman. JOB# [id number]
[2018-05-31] MEDS: INSULIN LISPRO SLIDING SCALE 100 UNITS/ML UNIT SUBQ SCH ×4 (06:43→21:23)
--- NOTE | 2018-05-31 08:04 | General Progress Note ---
Subjective - Review of Systems Service Date: 05/31/18 Subjective: Patient resting comfortably in bed. no acute distress. Awake, alert. depressed. s/p blood transfusion. Objective - Results Result Diagrams: 05/30/18 08:35 05/30/18 08:35 Recent Labs: Laboratory Last Values WBC 6.9 Th/cmm (4.8-10.8) 05/30/18 08:35 RBC 3.05 Mil/cmm (4.30-5.70) L 05/30/18 08:35 Hgb 8.6 gm/dL (12-16) L 05/30/18 08:35 Hct 26.1 % (41.0-60) L 05/30/18 08:35 MCV 85.5 fl (80-99) 05/30/18 08:35 MCH 28.2 pg (26.0-30.0) 05/30/18 08:35 MCHC Differential 33.0 pg (28.0-36.0) 05/30/18 08:35 RDW 13.6 % (11.5-20.0) 05/30/18 08:35 Plt Count 374 Th/cmm (150-400) 05/30/18 08:35 MPV 5.9 fl 05/30/18 08:35 Add Manual Diff YES 05/27/18 22:20 Neutrophils % 71.0 % (40.0-80.0) 05/30/18 08:35 Band Neutrophils % 0 % (0-10) 05/27/18 22:20 Lymphocytes % 19.0 % (20.0-50.0) L 05/30/18 08:35 Monocytes % 5.3 % (2.0-10.0) 05/30/18 08:35 Eosinophils % 4.2 % (0.0-5.0) 05/30/18 08:35 Basophils % 0.5 % (0.0-2.0) 05/30/18 08:35 Neutrophils (Manual) 71 % (40-80) 05/27/18 22:20 Lymphocytes 21 % (20-50) 05/27/18 22:20 Monocytes 7 % (2-10) 05/27/18 22:20 Eosinophils 1 % (0-5) 05/27/18 22:20 Basophils 0 % (0-3) 05/27/18 22:20 Sodium 139 mEq/L (136-145) 05/30/18 08:35 Potassium 3.8 mEq/L (3.5-5.1) 05/30/18 08:35 Chloride 108 mEq/L (98-107) H 05/30/18 08:35 Carbon Dioxide 23.5 mEq/L (21.0-31.0) 05/30/18 08:35 Anion Gap 11.3 (7.0-16.0) 05/30/18 08:35 BUN 29 mg/dL (7-25) H 05/30/18 08:35 Creatinine 1.3 mg/dL (0.7-1.3) 05/30/18 08:35 Est GFR ( Amer) > 60.0 ml/min (>90) 05/30/18 08:35 Est GFR (Non-Af Amer) > 60.0 ml/min 05/30/18 08:35 BUN/Creatinine Ratio 22.3 05/30/18 08:35 Glucose 118 mg/dL (70-105) H 05/30/18 08:35 POC Glucose 106 MG/DL (70 - 105) H 05/31/18 06:37 Calcium 8.3 mg/dL (8.6-10.3) L 05/30/18 08:35 Total Bilirubin 0.3 mg/dL (0.3-1.0) 05/28/18 07:29 AST 8 U/L (13-39) L 05/28/18 07:29 ALT 8 U/L (7-52) 05/28/18 07:29 Alkaline Phosphatase 61 U/L (34-104) 05/28/18 07:29 Total Protein 6.1 gm/dL (6.0-8.3) 05/28/18 07:29 Albumin 2.7 gm/dL (4.2-5.5) L 05/28/18 07:29 Globulin 3.4 gm/dL 05/28/18 07:29 Albumin/Globulin Ratio 0.8 (1.0-1.8) L 05/28/18 07:29 Urine Source CLEAN C 05/27/18 23:20 Urine Color YELLOW 05/27/18 23:20 Urine Clarity CLOUDY (CLEAR) 05/27/18 23:20 Urine pH 6.0 (4.6 - 8.0) 05/27/18 23:20 Ur Specific [place] 1.025 (1.005-1.030) 05/27/18 23:20 Urine Protein >=300 mg/dL (NEGATIVE) 05/27/18 23:20 Urine Glucose (UA) 100 mg/dL (NEGATIVE) H 05/27/18 23:20 Urine Ketones TRACE mg/dL (NEGATIVE) 05/27/18 23:20 Urine Blood MODERATE (NEGATIVE) H 05/27/18 23:20 Urine Nitrate NEGATIVE (NEGATIVE) 05/27/18 23:20 Urine Bilirubin NEGATIVE (NEGATIVE) 05/27/18 23:20 Urine Urobilinogen 0.2 E.U./dL (0.2 - 1.0) 05/27/18 23:20 Ur Leukocyte Esterase TRACE (NEGATIVE) H 05/27/18 23:20 Urine RBC 2-5 /hpf (0-5) H 05/27/18 23:20 Urine WBC 50-100 /hpf (0-5) H 05/27/18 23:20 Ur Epithelial Cells NONE SEEN /lpf (FEW) 05/27/18 23:20 Urine Bacteria MANY /hpf (NONE SEEN) H 05/27/18 23:20 Blood Type A POSITIVE 05/27/18 23:30 Antibody Screen NEGATIVE 05/27/18 23:30 Crossmatch See Detail 05/27/18 23:30 - Physical Exam Vitals and I&O: Vital Signs Temp 98.9 F 05/31/18 04:00 Pulse 69 05/31/18 04:00 Resp 17 05/31/18 04:00 BP 131/73 05/31/18 04:00 Pulse Ox 93 05/31/18 04:00 Intake & Output 05/30/18 05/31/18 05/31/18 18:59 06:59 18:59 Intake Total 100 50 Balance 100 50 Intake: Intake, IV Amount 100 50 Piperacillin Sodium/ 100 50 Tazobact 3.375 gm In Sodium Chloride 0.9% 50 ml @ 12.5 mls/hr IV Q8HR [facility] Rx#:[id number] Other: Stool Characteristics Soft Soft Formed Formed Active Medications: Current Medications Acetaminophen (Tylenol) 650 mg PO Q4H PRN PRN Reason: MILD PAIN OR TEMP >100 Stop: 07/27/18 08:10 Last Admin: 05/28/18 13:42 Dose: 650 mg Ascorbic Acid (Vitamin C) 500 mg PO BID [facility] Stop: 07/27/18 08:59 Last Admin: 05/30/18 18:45 Dose: 500 mg Atenolol (Tenormin) 50 mg PO HS [facility] Stop: 07/27/18 20:59 Last Admin: 05/30/18 21:17 Dose: 50 mg [place] Oil/[place] Balsam/Trypsin (Venelex) 1 appl TP Q72H [facility] Stop: 07/29/18 10:59 Last Admin: 05/30/18 11:55 Dose: 1 appl Cholecalciferol (Vitamin D3) 1,000 iu PO DAILY [facility] Stop: 07/27/18 08:59 Last Admin: 05/30/18 09:29 Dose: 1,000 iu Dextrose (D50w) 50 ml IVP PRN PRN PRN Reason: Blood Glucose less than 70 Stop: 07/27/18 08:13 Dextrose (Glutose 40%) 18.75 gm PO PRN PRN PRN Reason: Blood Glucose less than 70 Stop: 07/27/18 08:13 Ferrous Sulfate (Iron) 325 mg PO DAILY [facility] Stop: 07/27/18 08:59 Last Admin: 05/30/18 09:30 Dose: 325 mg Gabapentin (Neurontin) 300 mg PO BID [facility] Stop: 07/27/18 08:59 Last Admin: 05/30/18 18:44 Dose: 300 mg Glipizide (Glucotrol) 10 mg PO DAILY [facility] Stop: 07/27/18 08:59 Last Admin: 05/30/18 09:30 Dose: 10 mg Glucagon (Glucagen) 1 mg IM PRN PRN PRN Reason: Blood Glucose less than 70 Stop: 07/27/18 08:13 Hydrochlorothiazide (Hctz) 25 mg PO DAILY [facility] Stop: 07/27/18 08:59 Last Admin: 05/30/18 09:31 Dose: 25 mg Dextrose/Sodium Chloride (D5-0.45ns) 1,000 mls @ 60 mls/hr IV .[id number] [facility] Stop: 07/26/18 23:44 Last Admin: 05/30/18 18:46 Dose: Not Given Piperacillin Sod/Tazobactam (Sod 3.375 gm/ Sodium Chloride) 50 mls @ 12.5 mls/ hr IV Q8HR [facility] Stop: 07/27/18 04:59 Last Admin: 05/31/18 05:17 Dose: 12.5 mls/hr Ibuprofen (Motrin) 600 mg PO BID [facility] Stop: 07/27/18 08:59 Last Admin: 05/30/18 18:45 Dose: Not Given Insulin Glargine (Lantus Insulin) 20 units SUBQ HS [facility] Stop: 07/29/18 20:59 Last Admin: 05/30/18 21:18 Dose: 20 units Insulin Human Lispro (Humalog Insulin Sliding Scale) 0 units SUBQ [facility]; Protocol Stop: 07/27/18 11:29 Last Admin: 05/31/18 06:43 Dose: Not Given Lactobacillus Rhamnosus (Culturelle 15b) 1 each PO DAILY [facility] Stop: 07/27/18 08:59 Last Admin: 05/30/18 09:30 Dose: 1 each Lisinopril (Zestril) 20 mg PO DAILY [facility] Stop: 07/27/18 08:59 Last Admin: 05/30/18 09:31 Dose: 20 mg Metformin HCl (Glucophage) 1,000 mg PO DAILY [facility] Stop: 07/27/18 08:59 Last Admin: 05/30/18 09:30 Dose: 1,000 mg Morphine Sulfate (Morphine) 1 mg IVP Q4HR PRN PRN Reason: Pain (Moderate) Stop: 07/27/18 08:10 Mupirocin (Bactroban Oint) 1 appl NS BID [facility] Stop: 06/03/18 17:01 Last Admin: 05/30/18 18:44 Dose: 1 appl Pantoprazole Sodium (Protonix) 40 mg PO DAILY [facility] Stop: 07/27/18 08:59 Last Admin: 05/30/18 09:30 Dose: 40 mg Zinc Sulfate (Zinc Sulfate) 220 mg PO DAILY [facility] Stop: 07/27/18 09:09 Last Admin: 05/30/18 09:25 Dose: 220 mg General: Alert, Oriented x3, No acute distress HEENT: Atraumatic, PERRLA, EOMI Neck: Supple Cardiovascular: Regular rate, Normal S1, Normal S2 Lungs: Clear to auscultation Abdomen: Bowel sounds Extremities: no Clubbing, no Cyanosis, no Edema Neurological: Normal gait, Normal speech - Procedures Procedures: Procedures Procedure Code Date EXCISION OF BACK SUBCU/FASCIA, OPEN APPROACH [id number] 11/20/17 TRANSFUSE NONAUT RED BLOOD CELLS IN PERIPH VEIN, [facility] [id number] 05/28/18 Assessment/Plan - Assessment Assessment: Sacral Decubitus Ulcer +ESBL +Klebsiella Paraplegia HTN GERD muscle weakness diabetes mellitus type 2 UTI +ESBL +Klebsiella Anemia S/p blood transfusion incontinence failed back surgery - Plan Plan: continue IV antibiotics wound vac continue current treatment. Nutritional Asmnt/Malnutr-PDOC - Dietary Evaluation Malnutrition Findings (Please click <Entered> for more info): Nutritional Asmnt/Malnutrition Start: 05/28/18 14: 14 Text: Status: Complete Freq: Protocol: Document 05/28/18 14:14 [email or web address] (Rec: 05/28/18 14:28 [email or web address] VIRAMONTES- FN) Nutritional Asmnt/Malnutrition Patient General Information Nutritional Screening Consult Diagnosis non-healing wounds/anemia Pertinent Medical Hx/Surgical Hx paraplegia, HTN, GERD, DM, anemia, muscle weakness, depression Subjective Information Consult: active wounds. patient asleep at time of visit. Spoke with nurse Marya who states patient has only eaten one meal, did not eat much (<50%). Current Diet Order/ Nutrition Support 45gm CCHO Patient / S.O Not Indicated Pertinent Medications vitamin C, vitamin D, D50W, D5 -0.45NS, iron, Glipizide, Glucagon, Levemir, humalog, culturelle, Metformin, protonix, zinc sulfate Pertinent Labs (05/28) BUN 40, Glucose 242-287 , Albumin 2.7 (decreased) Nutritional Hx/Data Height 1.75 m Height (Calculated Centimeters) 175.3 Current Weight (lbs) 85.275 kg Weight (Calculated Kilograms) 85.3 Weight (Calculated Grams) 02331.4 [place] Body Weight 160 % [place] Body Weight 117 Body Mass Index (BMI) 27.7 Recent Weight Change No Weight Status Overweight GI Symptoms GI Symptoms None Last BM none noted since admission Difficult in: None Food Allergies No Cultural/Ethnic/Protestant Belief none indicated Usual diet at home unknown Skin Integrity/Comment: Jass 12, 3+ pitting edema, non-healing wounds to sacral area the size 2.5 inch x 2. 5inh hole that extens to an area the size of an orange Current %PO Fair (50-74%) Estimated Nutritional Goals BEE in Kcals: Using Current wt Calories/Kcals/Kg 85.4kg CBW 25-30 kcal/kg Kcals Calculated ~1360-0901 kcal/day Protein: Using Current wt Protein g/k.1-1.3gm/kg (wounds) Protein Calculated ~95-110 gm/day Fluid: ml ~2320-1712 ml/day (1 ml/kcal) Nutritional Problem 2. Problem Problem Inadequate oral intake related to Etiology current diet order/poor appetite aeb Signs/Symptoms: meeting <50% of nutrient needs 1. Problem Problem Increased nutrient needs related to Etiology impaired skin integrity aeb Signs/Symptoms: non-healing wounds to sacral area the size 2.5 inch x 2. 5inh hole that extens to an area the size of an orange Intervention/Recommendation Comments 1. Increase diet to 60gm CCHO, low sodium to better meet nutrient needs. 2. MD to adjust insulin regimen as needed 3. Consider adding MVI in addition to current vitamin C for optimal wound healing. 4. WIll provide Glucerna with each meal to increase calorie/ protein goals. Expected Outcomes/Goals Expected Outcomes/Goals Improved skin integrity, oral intake >75% of meals, diet progresses F/U MR
[2018-05-31] MEDS ORDERED: Probiotic Screen MC PRN (10:00)
[2018-05-31] MEDS: Multivitamin w/ Minerals Tab PO SCH (10:33)
[2018-05-31] MEDS: Pantoprazole 40 mg EC Tab PO SCH (10:33)
[2018-05-31] MEDS: Lactobacillus Rhamnosus GG 15 Billion CFU CAP.SPRINK PO SCH (10:34)
[2018-05-31] MEDS: Ferrous Sulfate 325 MG TAB PO SCH (10:35)
[2018-05-31 11:17] LABS: % BASOPHILS 0.6 % (0.0-2.0); % EOSINOPHILS 3.1 % (0.0-5.0); % MONOCYTES 5.1 % (2.0-10.0); % NEUTROPHILS 72.2 % (40.0-80.0); BASOPHILE ABSOLUTE 0.1 Th/cumm (0-0.2); EOSINOPHILE ABSOLUTE 0.3 Th/cmm (0.1-0.4); HEMATOCRIT 27.3 % (41.0-60); LYMPHOCYTE ABSOLUTE 1.7 Th/cmm (1.5-3.0); MEAN CELL VOLUME 85.3 fl (80-99); MEAN CORPUSCULAR HEMOGLOBIN 28.1 pg (26.0-30.0); MEAN CORPUSCULAR HGB CONC 32.9 pg (28.0-36.0); MONOCYTE ABSOLUTE 0.5 Th/cmm (0.3-1.0); NEUTROPHILE ABSOLUTE 6.3 Th/cmm (1.8-8.0); PLATELET COUNT 369 Th/cmm (150-400); RED BLOOD COUNT 3.19 Mil/cmm (4.30-5.70); RED CELL DISTRIBUTION WIDTH 13.4 % (11.5-20.0); WHITE BLOOD COUNT 8.9 Th/cmm (4.8-10.8)
[2018-05-31 11:21] LABS: ABSOLUTE RETICULOCYTE 191.4 Th/cmm; CORRECTED RETICULOCYTE COUNT 3.6 % (0.5-1.5); HEMATOCRIT 27.3 % (33.0-45.0); RBC RETICULOCYTE COUNT 3.19 Mil/cmm
[2018-05-31] MEDS: Insulin Glargine 100 units/ml 10ml Vial SUBQ SCH ×2 (21:24→21:54)
[2018-05-31] MEDS: D5-0.45NS 1,000 ML IV SCH (23:56)
--- NOTE | 2018-06-01 | Infectious Disease Prog Note ---
Infectious Disease Subjective - Review of Systems Service Date: 05/30/18 Subjective: There is no new change, no fever/ Infectious Disease Objective - Results Result Diagrams: 05/31/18 08:55 05/30/18 08:35 Recent Labs: Laboratory Last Values WBC 8.9 Th/cmm (4.8-10.8) 05/31/18 08:55 RBC 3.19 Mil/cmm (4.30-5.70) L 05/31/18 08:55 Hgb 9.0 gm/dL (12-16) L 05/31/18 08:55 Hct 27.3 % (33.0-45.0) L 05/31/18 08:55 MCV 85.3 fl (80-99) 05/31/18 08:55 MCH 28.1 pg (26.0-30.0) 05/31/18 08:55 MCHC Differential 32.9 pg (28.0-36.0) 05/31/18 08:55 RDW 13.4 % (11.5-20.0) 05/31/18 08:55 Plt Count 369 Th/cmm (150-400) 05/31/18 08:55 MPV 7.0 fl 05/31/18 08:55 Add Manual Diff YES 05/27/18 22:20 Neutrophils % 72.2 % (40.0-80.0) 05/31/18 08:55 Band Neutrophils % 0 % (0-10) 05/27/18 22:20 Lymphocytes % 19.0 % (20.0-50.0) L 05/31/18 08:55 Monocytes % 5.1 % (2.0-10.0) 05/31/18 08:55 Eosinophils % 3.1 % (0.0-5.0) 05/31/18 08:55 Basophils % 0.6 % (0.0-2.0) 05/31/18 08:55 Neutrophils (Manual) 71 % (40-80) 05/27/18 22:20 Lymphocytes 21 % (20-50) 05/27/18 22:20 Monocytes 7 % (2-10) 05/27/18 22:20 Eosinophils 1 % (0-5) 05/27/18 22:20 Basophils 0 % (0-3) 05/27/18 22:20 Total Retics Counted 6.0 % (0.5-1.5) H 05/31/18 08:55 Absolute Retic 191.4 Th/cmm 05/31/18 08:55 Corrected Retic Count 3.6 % (0.5-1.5) H 05/31/18 08:55 Sodium 139 mEq/L (136-145) 05/30/18 08:35 Potassium 3.8 mEq/L (3.5-5.1) 05/30/18 08:35 Chloride 108 mEq/L (98-107) H 05/30/18 08:35 Carbon Dioxide 23.5 mEq/L (21.0-31.0) 05/30/18 08:35 Anion Gap 11.3 (7.0-16.0) 05/30/18 08:35 BUN 29 mg/dL (7-25) H 05/30/18 08:35 Creatinine 1.3 mg/dL (0.7-1.3) 05/30/18 08:35 Est GFR ( Amer) > 60.0 ml/min (>90) 05/30/18 08:35 Est GFR (Non-Af Amer) > 60.0 ml/min 05/30/18 08:35 BUN/Creatinine Ratio 22.3 05/30/18 08:35 Glucose 118 mg/dL (70-105) H 05/30/18 08:35 POC Glucose 125 MG/DL (70 - 105) H 05/31/18 21:24 Calcium 8.3 mg/dL (8.6-10.3) L 05/30/18 08:35 Total Bilirubin 0.3 mg/dL (0.3-1.0) 05/28/18 07:29 AST 8 U/L (13-39) L 05/28/18 07:29 ALT 8 U/L (7-52) 05/28/18 07:29 Alkaline Phosphatase 61 U/L (34-104) 05/28/18 07:29 Total Protein 6.1 gm/dL (6.0-8.3) 05/28/18 07:29 Albumin 2.7 gm/dL (4.2-5.5) L 05/28/18 07:29 Globulin 3.4 gm/dL 05/28/18 07:29 Albumin/Globulin Ratio 0.8 (1.0-1.8) L 05/28/18 07:29 TSH 2.75 uIU/ml (0.34-5.60) 05/31/18 08:55 Urine Source CLEAN C 05/27/18 23:20 Urine Color YELLOW 05/27/18 23:20 Urine Clarity CLOUDY (CLEAR) 05/27/18 23:20 Urine pH 6.0 (4.6 - 8.0) 05/27/18 23:20 Ur Specific [place] 1.025 (1.005-1.030) 05/27/18 23:20 Urine Protein >=300 mg/dL (NEGATIVE) 05/27/18 23:20 Urine Glucose (UA) 100 mg/dL (NEGATIVE) H 05/27/18 23:20 Urine Ketones TRACE mg/dL (NEGATIVE) 05/27/18 23:20 Urine Blood MODERATE (NEGATIVE) H 05/27/18 23:20 Urine Nitrate NEGATIVE (NEGATIVE) 05/27/18 23:20 Urine Bilirubin NEGATIVE (NEGATIVE) 05/27/18 23:20 Urine Urobilinogen 0.2 E.U./dL (0.2 - 1.0) 05/27/18 23:20 Ur Leukocyte Esterase TRACE (NEGATIVE) H 05/27/18 23:20 Urine RBC 2-5 /hpf (0-5) H 05/27/18 23:20 Urine WBC 50-100 /hpf (0-5) H 05/27/18 23:20 Ur Epithelial Cells NONE SEEN /lpf (FEW) 05/27/18 23:20 Urine Bacteria MANY /hpf (NONE SEEN) H 05/27/18 23:20 Blood Type A POSITIVE 05/27/18 23:30 Antibody Screen NEGATIVE 05/27/18 23:30 Crossmatch See Detail 05/27/18 23:30 - Physical Exam Vitals and I&O: Vital Signs Temp 98.2 F 05/31/18 20:00 Pulse 63 05/31/18 21:16 Resp 16 05/31/18 20:00 BP 164/78 05/31/18 21:16 Pulse Ox 97 05/31/18 20:00 Intake & Output 05/31/18 05/31/18 06/01/18 06:59 18:59 06:59 Intake Total 1050 975 Output Total 1500 Balance 1050 -525 Weight (lbs) 90.083 kg Intake: Intake, IV Amount 1050 100 D5-0.45NS 1,000 ml @ 60 1000 mls/hr IV .[id number] [facility] Rx #:[id number] Piperacillin Sodium/ 50 100 Tazobact 3.375 gm In Sodium Chloride 0.9% 50 ml @ 12.5 mls/hr IV Q8HR [facility] Rx#:[id number] Oral 875 Output: Urine 1500 Other: Stool Characteristics Soft Soft Formed Formed Weight Source Bedscale Active Medications: Current Medications Acetaminophen (Tylenol) 650 mg PO Q4H PRN PRN Reason: MILD PAIN OR TEMP >100 Stop: 07/27/18 08:10 Last Admin: 05/28/18 13:42 Dose: 650 mg Ascorbic Acid (Vitamin C) 500 mg PO BID [facility] Stop: 07/27/18 08:59 Last Admin: 05/31/18 16:36 Dose: 500 mg Atenolol (Tenormin) 50 mg PO HS [facility] Stop: 07/27/18 20:59 Last Admin: 05/31/18 21:16 Dose: 50 mg [place] Oil/Citizen [place] Balsam/Trypsin (Venelex) 1 appl TP Q72H [facility] Stop: 07/29/18 10:59 Last Admin: 05/30/18 11:55 Dose: 1 appl Cholecalciferol (Vitamin D3) 1,000 iu PO DAILY [facility] Stop: 07/27/18 08:59 Last Admin: 05/31/18 10:34 Dose: 1,000 iu Dextrose (D50w) 50 ml IVP PRN PRN PRN Reason: Blood Glucose less than 70 Stop: 07/27/18 08:13 Dextrose (Glutose 40%) 18.75 gm PO PRN PRN PRN Reason: Blood Glucose less than 70 Stop: 07/27/18 08:13 Ferrous Sulfate (Iron) 325 mg PO DAILY [facility] Stop: 07/27/18 08:59 Last Admin: 05/31/18 10:35 Dose: 325 mg Gabapentin (Neurontin) 300 mg PO BID [facility] Stop: 07/27/18 08:59 Last Admin: 05/31/18 16:36 Dose: 300 mg Glipizide (Glucotrol) 10 mg PO DAILY [facility] Stop: 07/27/18 08:59 Last Admin: 05/31/18 10:34 Dose: 10 mg Glucagon (Glucagen) 1 mg IM PRN PRN PRN Reason: Blood Glucose less than 70 Stop: 07/27/18 08:13 Hydrochlorothiazide (Hctz) 25 mg PO DAILY [facility] Stop: 07/27/18 08:59 Last Admin: 05/31/18 10:43 Dose: 25 mg Dextrose/Sodium Chloride (D5-0.45ns) 1,000 mls @ 60 mls/hr IV .[id number] [facility] Stop: 07/26/18 23:44 Last Admin: 05/31/18 23:56 Dose: 60 mls/hr Piperacillin Sod/Tazobactam (Sod 3.375 gm/ Sodium Chloride) 50 mls @ 12.5 mls/ hr IV Q8HR [facility] Stop: 07/27/18 04:59 Last Admin: 05/31/18 21:17 Dose: 12.5 mls/hr Ibuprofen (Motrin) 600 mg PO BID [facility] Stop: 07/27/18 08:59 Last Admin: 05/31/18 16:36 Dose: Not Given Insulin Glargine (Lantus Insulin) 20 units SUBQ HS [facility] Stop: 07/29/18 20:59 Last Admin: 05/31/18 21:54 Dose: 20 units Insulin Human Lispro (Humalog Insulin Sliding Scale) 0 units SUBQ [facility]; Protocol Stop: 07/27/18 11:29 Last Admin: 05/31/18 21:23 Dose: Not Given Lactobacillus Rhamnosus (Culturelle 15b) 1 each PO DAILY [facility] Stop: 07/27/18 08:59 Last Admin: 05/31/18 10:34 Dose: 1 each Lisinopril (Zestril) 20 mg PO DAILY [facility] Stop: 07/27/18 08:59 Last Admin: 05/31/18 10:42 Dose: 20 mg Metformin HCl (Glucophage) 1,000 mg PO DAILY [facility] Stop: 07/27/18 08:59 Last Admin: 05/31/18 10:33 Dose: 1,000 mg Miscellaneous (Probiotic Screen) 1 ea MC PRN PRN PRN Reason: PROTOCOL Stop: 07/30/18 09:59 Morphine Sulfate (Morphine) 1 mg IVP Q4HR PRN PRN Reason: Pain (Moderate) Stop: 07/27/18 08:10 Mupirocin (Bactroban Oint) 1 appl NS BID [facility] Stop: 06/03/18 17:01 Last Admin: 05/31/18 16:39 Dose: Not Given Pantoprazole Sodium (Protonix) 40 mg PO DAILY [facility] Stop: 07/27/18 08:59 Last Admin: 05/31/18 10:33 Dose: 40 mg Zinc Sulfate (Zinc Sulfate) 220 mg PO DAILY [facility] Stop: 07/27/18 09:09 Last Admin: 05/31/18 10:33 Dose: 220 mg General: no acute distress, well developed, well nourished HEENT: atraumatic, normocephalic, PERRLA, EOMI Neck: supple, no thyromegaly Cardiovascular: S1S2, regular Lungs: clear to auscultation bilaterally, clear to percussion Abdomen: soft, no tender, no distended Extremities: no cyanosis, no clubbing, no edema Neurological: awake, alert, oriented, other (paraplegia) Skin: other (sacral decubitus.) - Procedures Procedures: Procedures Procedure Code Date EXCISION OF BACK SUBCU/FASCIA, OPEN APPROACH [id number] 11/20/17 TRANSFUSE NONAUT RED BLOOD CELLS IN PERIPH VEIN, [facility] [id number] 05/28/18 Infectious Disease Assmt/Plan - Assessment Assessment: 1. Sacral decubitus ulcer stage 4. no sign of infection at this time, 2. Right heel ulcer. 3. Left ankle ulcer. 4. paraplegia s/p failed back surgery. 5. DM2. 6. HTN. - Plan Plan: Wound care. Nutritional Asmnt/Malnutr-PDOC - Dietary Evaluation Malnutrition Findings (Please click <Entered> for more info): Nutritional Asmnt/Malnutrition Start: 05/28/18 14: 14 Text: Status: Complete Freq: Protocol: Document 05/28/18 14:14 CALVIN (Rec: 05/28/18 14:28 CALVIN [email or web address]) Nutritional Asmnt/Malnutrition Patient General Information Nutritional Screening Consult Diagnosis non-healing wounds/anemia Pertinent Medical Hx/Surgical Hx paraplegia, HTN, GERD, DM, anemia, muscle weakness, depression Subjective Information Consult: active wounds. patient asleep at time of visit. Spoke with nurse Malhotra who states patient has only eaten one meal, did not eat much (<50%). Current Diet Order/ Nutrition Support 45gm CCHO Patient / S.O Not Indicated Pertinent Medications vitamin C, vitamin D, D50W, D5 -0.45NS, iron, Glipizide, Glucagon, Levemir, humalog, culturelle, Metformin, protonix, zinc sulfate Pertinent Labs (05/28) BUN 40, Glucose 242-287 , Albumin 2.7 (decreased) Nutritional Hx/Data Height 1.75 m Height (Calculated Centimeters) 175.3 Current Weight (lbs) 85.275 kg Weight (Calculated Kilograms) 85.3 Weight (Calculated Grams) 05671.4 [place] Body Weight 160 % [place] Body Weight 117 Body Mass Index (BMI) 27.7 Recent Weight Change No Weight Status Overweight GI Symptoms GI Symptoms None Last BM none noted since admission Difficult in: None Food Allergies No Cultural/Ethnic/Orthodoxy Belief none indicated Usual diet at home unknown Skin Integrity/Comment: Jass 12, 3+ pitting edema, non-healing wounds to sacral area the size 2.5 inch x 2. 5inh hole that extens to an area the size of an orange Current %PO Fair (50-74%) Estimated Nutritional Goals BEE in Kcals: Using Current wt Calories/Kcals/Kg 85.4kg CBW 25-30 kcal/kg Kcals Calculated ~8610-6585 kcal/day Protein: Using Current wt Protein g/k.1-1.3gm/kg (wounds) Protein Calculated ~95-110 gm/day Fluid: ml ~2900-0225 ml/day (1 ml/kcal) Nutritional Problem 2. Problem Problem Inadequate oral intake related to Etiology current diet order/poor appetite aeb Signs/Symptoms: meeting <50% of nutrient needs 1. Problem Problem Increased nutrient needs related to Etiology impaired skin integrity aeb Signs/Symptoms: non-healing wounds to sacral area the size 2.5 inch x 2. 5inh hole that extens to an area the size of an orange Intervention/Recommendation Comments 1. Increase diet to 60gm CCHO, low sodium to better meet nutrient needs. 2. MD to adjust insulin regimen as needed 3. Consider adding MVI in addition to current vitamin C for optimal wound healing. 4. WIll provide Glucerna with each meal to increase calorie/ protein goals. Expected Outcomes/Goals Expected Outcomes/Goals Improved skin integrity, oral intake >75% of meals, diet progresses F/U MR 3/26-
[2018-06-01] MEDS: D5-0.45NS 1,000 ML IV SCH ×2 (04:16→22:05)
[2018-06-01] MEDS: INSULIN LISPRO SLIDING SCALE 100 UNITS/ML UNIT SUBQ SCH ×4 (08:06→21:16)
[2018-06-01] MEDS: Multivitamin w/ Minerals Tab PO SCH (08:10)
[2018-06-01] MEDS: Lactobacillus Rhamnosus GG 15 Billion CFU CAP.SPRINK PO SCH (08:11)
[2018-06-01] MEDS: Pantoprazole 40 mg EC Tab PO SCH (08:11)
[2018-06-01] MEDS: Ferrous Sulfate 325 MG TAB PO SCH (08:12)
--- NOTE | 2018-06-01 08:16 | General Progress Note ---
Subjective - Review of Systems Service Date: 06/01/18 Subjective: Patient resting comfortably in bed. no acute distress. Awake, alert. depressed. s/p blood transfusion. Objective - Results Result Diagrams: 05/31/18 08:55 05/30/18 08:35 Recent Labs: Laboratory Last Values WBC 8.9 Th/cmm (4.8-10.8) 05/31/18 08:55 RBC 3.19 Mil/cmm (4.30-5.70) L 05/31/18 08:55 Hgb 9.0 gm/dL (12-16) L 05/31/18 08:55 Hct 27.3 % (33.0-45.0) L 05/31/18 08:55 MCV 85.3 fl (80-99) 05/31/18 08:55 MCH 28.1 pg (26.0-30.0) 05/31/18 08:55 MCHC Differential 32.9 pg (28.0-36.0) 05/31/18 08:55 RDW 13.4 % (11.5-20.0) 05/31/18 08:55 Plt Count 369 Th/cmm (150-400) 05/31/18 08:55 MPV 7.0 fl 05/31/18 08:55 Add Manual Diff YES 05/27/18 22:20 Neutrophils % 72.2 % (40.0-80.0) 05/31/18 08:55 Band Neutrophils % 0 % (0-10) 05/27/18 22:20 Lymphocytes % 19.0 % (20.0-50.0) L 05/31/18 08:55 Monocytes % 5.1 % (2.0-10.0) 05/31/18 08:55 Eosinophils % 3.1 % (0.0-5.0) 05/31/18 08:55 Basophils % 0.6 % (0.0-2.0) 05/31/18 08:55 Neutrophils (Manual) 71 % (40-80) 05/27/18 22:20 Lymphocytes 21 % (20-50) 05/27/18 22:20 Monocytes 7 % (2-10) 05/27/18 22:20 Eosinophils 1 % (0-5) 05/27/18 22:20 Basophils 0 % (0-3) 03/22/19 22:20 Total Retics Counted 6.0 % (0.5-1.5) H 05/31/18 08:55 Absolute Retic 191.4 Th/cmm 05/31/18 08:55 Corrected Retic Count 3.6 % (0.5-1.5) H 05/31/18 08:55 Sodium 139 mEq/L (136-145) 05/30/18 08:35 Potassium 3.8 mEq/L (3.5-5.1) 05/30/18 08:35 Chloride 108 mEq/L (98-107) H 05/30/18 08:35 Carbon Dioxide 23.5 mEq/L (21.0-31.0) 05/30/18 08:35 Anion Gap 11.3 (7.0-16.0) 05/30/18 08:35 BUN 29 mg/dL (7-25) H 05/30/18 08:35 Creatinine 1.3 mg/dL (0.7-1.3) 05/30/18 08:35 Est GFR ( Amer) > 60.0 ml/min (>90) 05/30/18 08:35 Est GFR (Non-Af Amer) > 60.0 ml/min 05/30/18 08:35 BUN/Creatinine Ratio 22.3 05/30/18 08:35 Glucose 118 mg/dL (70-105) H 05/30/18 08:35 POC Glucose 89 MG/DL (70 - 105) 06/01/18 07:50 Calcium 8.3 mg/dL (8.6-10.3) L 05/30/18 08:35 Transferrin 143 mg/dL (200-370) L 05/31/18 08:55 Total Bilirubin 0.3 mg/dL (0.3-1.0) 05/28/18 07:29 AST 8 U/L (13-39) L 05/28/18 07:29 ALT 8 U/L (7-52) 05/28/18 07:29 Alkaline Phosphatase 61 U/L (34-104) 05/28/18 07:29 Total Protein 6.1 gm/dL (6.0-8.3) 05/28/18 07:29 Albumin 2.7 gm/dL (4.2-5.5) L 05/28/18 07:29 Globulin 3.4 gm/dL 05/28/18 07:29 Albumin/Globulin Ratio 0.8 (1.0-1.8) L 05/28/18 07:29 TSH 2.75 uIU/ml (0.34-5.60) 05/31/18 08:55 Urine Source CLEAN C 05/27/18 23:20 Urine Color YELLOW 05/27/18 23:20 Urine Clarity CLOUDY (CLEAR) 05/27/18 23:20 Urine pH 6.0 (4.6 - 8.0) 05/27/18 23:20 Ur Specific [place] 1.025 (1.005-1.030) 05/27/18 23:20 Urine Protein >=300 mg/dL (NEGATIVE) 05/27/18 23:20 Urine Glucose (UA) 100 mg/dL (NEGATIVE) H 05/27/18 23:20 Urine Ketones TRACE mg/dL (NEGATIVE) 05/27/18 23:20 Urine Blood MODERATE (NEGATIVE) H 05/27/18 23:20 Urine Nitrate NEGATIVE (NEGATIVE) 05/27/18 23:20 Urine Bilirubin NEGATIVE (NEGATIVE) 05/27/18 23:20 Urine Urobilinogen 0.2 E.U./dL (0.2 - 1.0) 05/27/18 23:20 Ur Leukocyte Esterase TRACE (NEGATIVE) H 05/27/18 23:20 Urine RBC 2-5 /hpf (0-5) H 05/27/18 23:20 Urine WBC 50-100 /hpf (0-5) H 05/27/18 23:20 Ur Epithelial Cells NONE SEEN /lpf (FEW) 05/27/18 23:20 Urine Bacteria MANY /hpf (NONE SEEN) H 05/27/18 23:20 Blood Type A POSITIVE 05/27/18 23:30 Antibody Screen NEGATIVE 05/27/18 23:30 Crossmatch See Detail 05/27/18 23:30 - Physical Exam Vitals and I&O: Vital Signs Temp 98.8 F 06/01/18 04:00 Pulse 63 06/01/18 04:00 Resp 17 06/01/18 04:00 BP 155/85 06/01/18 04:00 Pulse Ox 97 06/01/18 04:00 Intake & Output 05/31/18 06/01/18 06/01/18 18:59 06:59 18:59 Intake Total 975 310 Output Total 1500 405 Balance -525 -95 Weight (lbs) 90.083 kg 77.111 kg Intake: Intake, IV Amount 100 310 D5-0.45NS 1,000 ml @ 60 260 mls/hr IV .[id number] [facility] Rx #:[id number] Piperacillin Sodium/ 100 50 Tazobact 3.375 gm In Sodium Chloride 0.9% 50 ml @ 12.5 mls/hr IV Q8HR [facility] Rx#:[id number] Oral 875 Output: Drainage 55 Medial Sacrum 55 Urine 1500 350 Other: Stool Characteristics Soft Soft Formed Formed Weight Source Bedscale Estimated Active Medications: Current Medications Acetaminophen (Tylenol) 650 mg PO Q4H PRN PRN Reason: MILD PAIN OR TEMP >100 Stop: 07/27/18 08:10 Last Admin: 05/28/18 13:42 Dose: 650 mg Ascorbic Acid (Vitamin C) 500 mg PO BID [facility] Stop: 07/27/18 08:59 Last Admin: 05/31/18 16:36 Dose: 500 mg Atenolol (Tenormin) 50 mg PO HS [facility] Stop: 07/27/18 20:59 Last Admin: 05/31/18 21:16 Dose: 50 mg [place] Oil/[place] Balsam/Trypsin (Venelex) 1 appl TP Q72H [facility] Stop: 07/29/18 10:59 Last Admin: 05/30/18 11:55 Dose: 1 appl Cholecalciferol (Vitamin D3) 1,000 iu PO DAILY [facility] Stop: 07/27/18 08:59 Last Admin: 05/31/18 10:34 Dose: 1,000 iu Dextrose (D50w) 50 ml IVP PRN PRN PRN Reason: Blood Glucose less than 70 Stop: 07/27/18 08:13 Dextrose (Glutose 40%) 18.75 gm PO PRN PRN PRN Reason: Blood Glucose less than 70 Stop: 07/27/18 08:13 Ferrous Sulfate (Iron) 325 mg PO DAILY [facility] Stop: 07/27/18 08:59 Last Admin: 05/31/18 10:35 Dose: 325 mg Gabapentin (Neurontin) 300 mg PO BID [facility] Stop: 07/27/18 08:59 Last Admin: 05/31/18 16:36 Dose: 300 mg Glipizide (Glucotrol) 10 mg PO DAILY [facility] Stop: 07/27/18 08:59 Last Admin: 05/31/18 10:34 Dose: 10 mg Glucagon (Glucagen) 1 mg IM PRN PRN PRN Reason: Blood Glucose less than 70 Stop: 07/27/18 08:13 Hydrochlorothiazide (Hctz) 25 mg PO DAILY [facility] Stop: 07/27/18 08:59 Last Admin: 05/31/18 10:43 Dose: 25 mg Dextrose/Sodium Chloride (D5-0.45ns) 1,000 mls @ 60 mls/hr IV .[id number] [facility] Stop: 07/26/18 23:44 Last Admin: 06/01/18 04:16 Dose: 60 mls/hr Piperacillin Sod/Tazobactam (Sod 3.375 gm/ Sodium Chloride) 50 mls @ 12.5 mls/ hr IV Q8HR [facility] Stop: 07/27/18 04:59 Last Admin: 06/01/18 04:16 Dose: 12.5 mls/hr Ibuprofen (Motrin) 600 mg PO BID [facility] Stop: 07/27/18 08:59 Last Admin: 05/31/18 16:36 Dose: Not Given Insulin Glargine (Lantus Insulin) 20 units SUBQ HS [facility] Stop: 07/29/18 20:59 Last Admin: 05/31/18 21:54 Dose: 20 units Insulin Human Lispro (Humalog Insulin Sliding Scale) 0 units SUBQ ACHS [facility]; Protocol Stop: 07/27/18 11:29 Last Admin: 06/01/18 08:06 Dose: Not Given Lactobacillus Rhamnosus (Culturelle 15b) 1 each PO DAILY [facility] Stop: 07/27/18 08:59 Last Admin: 05/31/18 10:34 Dose: 1 each Lisinopril (Zestril) 20 mg PO DAILY [facility] Stop: 07/27/18 08:59 Last Admin: 05/31/18 10:42 Dose: 20 mg Metformin HCl (Glucophage) 1,000 mg PO DAILY [facility] Stop: 07/27/18 08:59 Last Admin: 05/31/18 10:33 Dose: 1,000 mg Miscellaneous (Probiotic Screen) 1 ea MC PRN PRN PRN Reason: PROTOCOL Stop: 07/30/18 09:59 Morphine Sulfate (Morphine) 1 mg IVP Q4HR PRN PRN Reason: Pain (Moderate) Stop: 07/27/18 08:10 Mupirocin (Bactroban Oint) 1 appl NS BID [facility] Stop: 06/03/18 17:01 Last Admin: 05/31/18 16:39 Dose: Not Given Pantoprazole Sodium (Protonix) 40 mg PO DAILY [facility] Stop: 07/27/18 08:59 Last Admin: 05/31/18 10:33 Dose: 40 mg Zinc Sulfate (Zinc Sulfate) 220 mg PO DAILY [facility] Stop: 07/27/18 09:09 Last Admin: 05/31/18 10:33 Dose: 220 mg General: Alert, Oriented x3, No acute distress HEENT: Atraumatic, PERRLA, EOMI Neck: Supple Cardiovascular: Regular rate, Normal S1, Normal S2 Lungs: Clear to auscultation Abdomen: Bowel sounds Extremities: no Clubbing, no Cyanosis, no Edema Neurological: Normal gait, Normal speech - Procedures Procedures: Procedures Procedure Code Date EXCISION OF BACK SUBCU/FASCIA, OPEN APPROACH [id number] 11/20/17 TRANSFUSE NONAUT RED BLOOD CELLS IN PERIPH VEIN, PERC 38962V6 05/28/18 Assessment/Plan - Assessment Assessment: Sacral Decubitus Ulcer Stage 4 +ESBL +Klebsiella Left heel ulcer Right Ankle Ulcer Paraplegia s/p failed back surgery HTN DM2 GERD muscle weakness diabetes mellitus type 2 UTI +ESBL +Klebsiella Anemia S/p blood transfusion incontinence failed back surgery - Plan Plan: continue IV antibiotics wound vac continue current treatment. Nutritional Asmnt/Malnutr-PDOC - Dietary Evaluation Malnutrition Findings (Please click <Entered> for more info): Nutritional Asmnt/Malnutrition Start: 05/28/18 14: 14 Text: Status: Complete Freq: Protocol: Document 05/28/18 14:14 CALVIN (Rec: 05/28/18 14:28 CALVIN RAMON [email or web address]) Nutritional Asmnt/Malnutrition Patient General Information Nutritional Screening Consult Diagnosis non-healing wounds/anemia Pertinent Medical Hx/Surgical Hx paraplegia, HTN, GERD, DM, anemia, muscle weakness, depression Subjective Information Consult: active wounds. patient asleep at time of visit. Spoke with nurse Marya who states patient has only eaten one meal, did not eat much (<50%). Current Diet Order/ Nutrition Support 45gm CCHO Patient / S.O Not Indicated Pertinent Medications vitamin C, vitamin D, D50W, D5 -0.45NS, iron, Glipizide, Glucagon, Levemir, humalog, culturelle, Metformin, protonix, zinc sulfate Pertinent Labs (05/28) BUN 40, Glucose 242-287 , Albumin 2.7 (decreased) Nutritional Hx/Data Height 1.75 m Height (Calculated Centimeters) 175.3 Current Weight (lbs) 85.275 kg Weight (Calculated Kilograms) 85.3 Weight (Calculated Grams) 70958.4 [place] Body Weight 160 % [place] Body Weight 117 Body Mass Index (BMI) 27.7 Recent Weight Change No Weight Status Overweight GI Symptoms GI Symptoms None Last BM none noted since admission Difficult in: None Food Allergies No Cultural/Ethnic/Scientologist Belief none indicated Usual diet at home unknown Skin Integrity/Comment: Jass 12, 3+ pitting edema, non-healing wounds to sacral area the size 2.5 inch x 2. 5inh hole that extens to an area the size of an orange Current %PO Fair (50-74%) Estimated Nutritional Goals BEE in Kcals: Using Current wt Calories/Kcals/Kg 85.4kg CBW 25-30 kcal/kg Kcals Calculated ~2560-9304 kcal/day Protein: Using Current wt Protein g/k.1-1.3gm/kg (wounds) Protein Calculated ~95-110 gm/day Fluid: ml ~1121-4228 ml/day (1 ml/kcal) Nutritional Problem 2. Problem Problem Inadequate oral intake related to Etiology current diet order/poor appetite aeb Signs/Symptoms: meeting <50% of nutrient needs 1. Problem Problem Increased nutrient needs related to Etiology impaired skin integrity aeb Signs/Symptoms: non-healing wounds to sacral area the size 2.5 inch x 2. 5inh hole that extens to an area the size of an orange Intervention/Recommendation Comments 1. Increase diet to 60gm CCHO, low sodium to better meet nutrient needs. 2. MD to adjust insulin regimen as needed 3. Consider adding MVI in addition to current vitamin C for optimal wound healing. 4. WIll provide Glucerna with each meal to increase calorie/ protein goals. Expected Outcomes/Goals Expected Outcomes/Goals Improved skin integrity, oral intake >75% of meals, diet progresses F/U MR 05/31-
[2018-06-01 12:08] LABS: FERRITIN 544 ng/mL (30-400); IRON LC 36 ug/dL (38-169); TIBC (LC) 181 ug/dL (250-450); UIBC 145 ug/dL (111-343)
[2018-06-01] MEDS: Insulin Glargine 100 units/ml 10ml Vial SUBQ SCH (21:16)
[2018-06-02] MEDS: INSULIN LISPRO SLIDING SCALE 100 UNITS/ML UNIT SUBQ SCH ×2 (06:51→11:38)
--- NOTE | 2018-06-02 08:07 | General Progress Note ---
Subjective - Review of Systems Service Date: 06/02/18 Subjective: Patient resting comfortably in bed. no acute distress. Awake, alert. depressed. s/p blood transfusion. tolerating wound vac to sacral decubitus ulcer. +E. Coli + MRSA +Klebsiella + Bacteroides Objective - Results Result Diagrams: 05/31/18 08:55 05/30/18 08:35 Recent Labs: Laboratory Last Values WBC 8.9 Th/cmm (4.8-10.8) 05/31/18 08:55 RBC 3.19 Mil/cmm (4.30-5.70) L 05/31/18 08:55 Hgb 9.0 gm/dL (12-16) L 05/31/18 08:55 Hct 27.3 % (33.0-45.0) L 05/31/18 08:55 MCV 85.3 fl (80-99) 05/31/18 08:55 MCH 28.1 pg (26.0-30.0) 05/31/18 08:55 MCHC Differential 32.9 pg (28.0-36.0) 05/31/18 08:55 RDW 13.4 % (11.5-20.0) 05/31/18 08:55 Plt Count 369 Th/cmm (150-400) 05/31/18 08:55 MPV 7.0 fl 05/31/18 08:55 Add Manual Diff YES 05/27/18 22:20 Neutrophils % 72.2 % (40.0-80.0) 05/31/18 08:55 Band Neutrophils % 0 % (0-10) 05/27/18 22:20 Lymphocytes % 19.0 % (20.0-50.0) L 05/31/18 08:55 Monocytes % 5.1 % (2.0-10.0) 05/31/18 08:55 Eosinophils % 3.1 % (0.0-5.0) 05/31/18 08:55 Basophils % 0.6 % (0.0-2.0) 05/31/18 08:55 Neutrophils (Manual) 71 % (40-80) 05/27/18 22:20 Lymphocytes 21 % (20-50) 05/27/18 22:20 Monocytes 7 % (2-10) 05/27/18 22:20 Eosinophils 1 % (0-5) 05/27/18 22:20 Basophils 0 % (0-3) 05/27/18 22:20 Total Retics Counted 6.0 % (0.5-1.5) H 05/31/18 08:55 Absolute Retic 191.4 Th/cmm 05/31/18 08:55 Corrected Retic Count 3.6 % (0.5-1.5) H 05/31/18 08:55 Sodium 139 mEq/L (136-145) 05/30/18 08:35 Potassium 3.8 mEq/L (3.5-5.1) 05/30/18 08:35 Chloride 108 mEq/L (98-107) H 05/30/18 08:35 Carbon Dioxide 23.5 mEq/L (21.0-31.0) 05/30/18 08:35 Anion Gap 11.3 (7.0-16.0) 05/30/18 08:35 BUN 29 mg/dL (7-25) H 05/30/18 08:35 Creatinine 1.3 mg/dL (0.7-1.3) 05/30/18 08:35 Est GFR ( Amer) > 60.0 ml/min (>90) 05/30/18 08:35 Est GFR (Non-Af Amer) > 60.0 ml/min 05/30/18 08:35 BUN/Creatinine Ratio 22.3 05/30/18 08:35 Glucose 118 mg/dL (70-105) H 05/30/18 08:35 POC Glucose 161 MG/DL (70 - 105) H 06/01/18 11:47 Calcium 8.3 mg/dL (8.6-10.3) L 05/30/18 08:35 Iron 36 ug/dL (38-169) L 05/31/18 08:55 TIBC 181 ug/dL (250-450) L 05/31/18 08:55 Iron Saturation 20 % (15-55) 05/31/18 08:55 Unsaturated IBC 145 ug/dL (111-343) 05/31/18 08:55 Transferrin 143 mg/dL (200-370) L 05/31/18 08:55 Ferritin 544 ng/mL (30-400) H 05/31/18 08:55 Total Bilirubin 0.3 mg/dL (0.3-1.0) 05/28/18 07:29 AST 8 U/L (13-39) L 05/28/18 07:29 ALT 8 U/L (7-52) 05/28/18 07:29 Alkaline Phosphatase 61 U/L (34-104) 05/28/18 07:29 Total Protein 6.1 gm/dL (6.0-8.3) 05/28/18 07:29 Albumin 2.7 gm/dL (4.2-5.5) L 05/28/18 07:29 Globulin 3.4 gm/dL 05/28/18 07:29 Albumin/Globulin Ratio 0.8 (1.0-1.8) L 05/28/18 07:29 TSH 2.75 uIU/ml (0.34-5.60) 05/31/18 08:55 Urine Source CLEAN C 05/27/18 23:20 Urine Color YELLOW 05/27/18 23:20 Urine Clarity CLOUDY (CLEAR) 05/27/18 23:20 Urine pH 6.0 (4.6 - 8.0) 05/27/18 23:20 Ur Specific [place] 1.025 (1.005-1.030) 05/27/18 23:20 Urine Protein >=300 mg/dL (NEGATIVE) 05/27/18 23:20 Urine Glucose (UA) 100 mg/dL (NEGATIVE) H 05/27/18 23:20 Urine Ketones TRACE mg/dL (NEGATIVE) 05/27/18 23:20 Urine Blood MODERATE (NEGATIVE) H 05/27/18 23:20 Urine Nitrate NEGATIVE (NEGATIVE) 05/27/18 23:20 Urine Bilirubin NEGATIVE (NEGATIVE) 05/27/18 23:20 Urine Urobilinogen 0.2 E.U./dL (0.2 - 1.0) 05/27/18 23:20 Ur Leukocyte Esterase TRACE (NEGATIVE) H 05/27/18 23:20 Urine RBC 2-5 /hpf (0-5) H 05/27/18 23:20 Urine WBC 50-100 /hpf (0-5) H 05/27/18 23:20 Ur Epithelial Cells NONE SEEN /lpf (FEW) 05/27/18 23:20 Urine Bacteria MANY /hpf (NONE SEEN) H 05/27/18 23:20 Blood Type A POSITIVE 05/27/18 23:30 Antibody Screen NEGATIVE 05/27/18 23:30 Crossmatch See Detail 05/27/18 23:30 - Physical Exam Vitals and I&O: Vital Signs Temp 98.8 F 06/02/18 04:00 Pulse 73 06/02/18 04:00 Resp 18 06/02/18 04:00 BP 163/77 06/02/18 04:00 Pulse Ox 96 06/02/18 04:00 Intake & Output 06/01/18 06/02/18 06/02/18 18:59 06:59 18:59 Intake Total 100 50 Output Total 1900 Balance 100 50 -1900 Weight (lbs) 77.111 kg Intake: Intake, IV Amount 100 50 Piperacillin Sodium/ 100 50 Tazobact 3.375 gm In Sodium Chloride 0.9% 50 ml @ 12.5 mls/hr IV Q8HR [facility] Rx#:[id number] Output: Urine 1900 Other: Stool Characteristics Soft Soft Formed Formed Weight Source Estimated Active Medications: Current Medications Acetaminophen (Tylenol) 650 mg PO Q4H PRN PRN Reason: MILD PAIN OR TEMP >100 Stop: 07/27/18 08:10 Last Admin: 05/28/18 13:42 Dose: 650 mg Ascorbic Acid (Vitamin C) 500 mg PO BID [facility] Stop: 07/27/18 08:59 Last Admin: 06/01/18 17:58 Dose: Not Given Atenolol (Tenormin) 50 mg PO HS [facility] Stop: 07/27/18 20:59 Last Admin: 06/01/18 21:07 Dose: Not Given [place] Oil/[place] Balsam/Trypsin (Venelex) 1 appl TP Q72H [facility] Stop: 07/29/18 10:59 Last Admin: 05/30/18 11:55 Dose: 1 appl Cholecalciferol (Vitamin D3) 1,000 iu PO DAILY [facility] Stop: 07/27/18 08:59 Last Admin: 06/01/18 08:11 Dose: 1,000 iu Dextrose (D50w) 50 ml IVP PRN PRN PRN Reason: Blood Glucose less than 70 Stop: 07/27/18 08:13 Dextrose (Glutose 40%) 18.75 gm PO PRN PRN PRN Reason: Blood Glucose less than 70 Stop: 07/27/18 08:13 Ferrous Sulfate (Iron) 325 mg PO DAILY [facility] Stop: 07/27/18 08:59 Last Admin: 06/01/18 08:12 Dose: 325 mg Gabapentin (Neurontin) 300 mg PO BID [facility] Stop: 07/27/18 08:59 Last Admin: 06/01/18 17:58 Dose: Not Given Glipizide (Glucotrol) 10 mg PO DAILY [facility] Stop: 07/27/18 08:59 Last Admin: 06/01/18 08:17 Dose: 10 mg Glucagon (Glucagen) 1 mg IM PRN PRN PRN Reason: Blood Glucose less than 70 Stop: 07/27/18 08:13 Hydrochlorothiazide (Hctz) 25 mg PO DAILY [facility] Stop: 07/27/18 08:59 Last Admin: 06/01/18 08:10 Dose: 25 mg Dextrose/Sodium Chloride (D5-0.45ns) 1,000 mls @ 60 mls/hr IV .[id number] [facility] Stop: 07/26/18 23:44 Last Admin: 06/01/18 04:16 Dose: 60 mls/hr Piperacillin Sod/Tazobactam (Sod 3.375 gm/ Sodium Chloride) 50 mls @ 12.5 mls/ hr IV Q8HR [facility] Stop: 07/27/18 04:59 Last Admin: 06/02/18 05:54 Dose: 12.5 mls/hr Ibuprofen (Motrin) 600 mg PO BID [facility] Stop: 07/27/18 08:59 Last Admin: 06/01/18 17:59 Dose: Not Given Insulin Glargine (Lantus Insulin) 20 units SUBQ HS [facility] Stop: 07/29/18 20:59 Last Admin: 06/01/18 21:16 Dose: Not Given Insulin Human Lispro (Humalog Insulin Sliding Scale) 0 units SUBQ ACHS [facility]; Protocol Stop: 07/27/18 11:29 Last Admin: 06/02/18 06:51 Dose: Not Given Lactobacillus Rhamnosus (Culturelle 15b) 1 each PO DAILY [facility] Stop: 07/27/18 08:59 Last Admin: 06/01/18 08:11 Dose: 1 each Lisinopril (Zestril) 20 mg PO DAILY [facility] Stop: 07/27/18 08:59 Last Admin: 06/01/18 08:12 Dose: 20 mg Metformin HCl (Glucophage) 1,000 mg PO DAILY [facility] Stop: 07/27/18 08:59 Last Admin: 06/01/18 08:17 Dose: 1,000 mg Miscellaneous (Probiotic Screen) 1 ea MC PRN PRN PRN Reason: PROTOCOL Stop: 07/30/18 09:59 Morphine Sulfate (Morphine) 1 mg IVP Q4HR PRN PRN Reason: Pain (Moderate) Stop: 07/27/18 08:10 Mupirocin (Bactroban Oint) 1 appl NS BID [facility] Stop: 06/03/18 17:01 Last Admin: 06/01/18 17:59 Dose: Not Given Pantoprazole Sodium (Protonix) 40 mg PO DAILY [facility] Stop: 07/27/18 08:59 Last Admin: 06/01/18 08:11 Dose: 40 mg Zinc Sulfate (Zinc Sulfate) 220 mg PO DAILY [facility] Stop: 07/27/18 09:09 Last Admin: 06/01/18 08:10 Dose: 220 mg General: Alert, Oriented x3, No acute distress HEENT: Atraumatic, PERRLA, EOMI Neck: Supple Cardiovascular: Regular rate, Normal S1, Normal S2 Lungs: Clear to auscultation Abdomen: Bowel sounds Extremities: no Clubbing, no Cyanosis, no Edema Neurological: Normal gait, Normal speech - Procedures Procedures: Procedures Procedure Code Date EXCISION OF BACK SUBCU/FASCIA, OPEN APPROACH [id number] 11/20/17 TRANSFUSE NONAUT RED BLOOD CELLS IN PERIPH VEIN, PERC 23399Q6 05/28/18 Assessment/Plan - Assessment Assessment: Sacral Decubitus Ulcer Stage 4 +ESBL +Klebsiella +MRSA +Bacteroides Left heel ulcer Right Ankle Ulcer Paraplegia s/p failed back surgery HTN DM2 GERD muscle weakness diabetes mellitus type 2 UTI +ESBL +Klebsiella Anemia S/p blood transfusion incontinence failed back surgery - Plan Plan: continue IV antibiotics per ID discharge planning continue wound vac increase Ferrous Sulfate 325mg PO BID Nutritional Asmnt/Malnutr-PDOC - Dietary Evaluation Malnutrition Findings (Please click <Entered> for more info): Nutritional Asmnt/Malnutrition Start: 05/28/18 14: 14 Text: Status: Complete Freq: Protocol: Document 05/28/18 14:14 MMULHERN (Rec: 05/28/18 14:28 MMULHERN ANA M- [email or web address]) Nutritional Asmnt/Malnutrition Patient General Information Nutritional Screening Consult Diagnosis non-healing wounds/anemia Pertinent Medical Hx/Surgical Hx paraplegia, HTN, GERD, DM, anemia, muscle weakness, depression Subjective Information Consult: active wounds. patient asleep at time of visit. Spoke with nurse Marya who states patient has only eaten one meal, did not eat much (<50%). Current Diet Order/ Nutrition Support 45gm CCHO Patient / S.O Not Indicated Pertinent Medications vitamin C, vitamin D, D50W, D5 -0.45NS, iron, Glipizide, Glucagon, Levemir, humalog, culturelle, Metformin, protonix, zinc sulfate Pertinent Labs (05/28) BUN 40, Glucose 242-287 , Albumin 2.7 (decreased) Nutritional Hx/Data Height 1.75 m Height (Calculated Centimeters) 175.3 Current Weight (lbs) 85.275 kg Weight (Calculated Kilograms) 85.3 Weight (Calculated Grams) 68158.4 [place] Body Weight 160 % [place] Body Weight 117 Body Mass Index (BMI) 27.7 Recent Weight Change No Weight Status Overweight GI Symptoms GI Symptoms None Last BM none noted since admission Difficult in: None Food Allergies No Cultural/Ethnic/Judaism Belief none indicated Usual diet at home unknown Skin Integrity/Comment: Jass 12, 3+ pitting edema, non-healing wounds to sacral area the size 2.5 inch x 2. 5inh hole that extens to an area the size of an orange Current %PO Fair (50-74%) Estimated Nutritional Goals BEE in Kcals: Using Current wt Calories/Kcals/Kg 85.4kg CBW 25-30 kcal/kg Kcals Calculated ~5932-4235 kcal/day Protein: Using Current wt Protein g/k.1-1.3gm/kg (wounds) Protein Calculated ~95-110 gm/day Fluid: ml ~5593-9544 ml/day (1 ml/kcal) Nutritional Problem 2. Problem Problem Inadequate oral intake related to Etiology current diet order/poor appetite aeb Signs/Symptoms: meeting <50% of nutrient needs 1. Problem Problem Increased nutrient needs related to Etiology impaired skin integrity aeb Signs/Symptoms: non-healing wounds to sacral area the size 2.5 inch x 2. 5inh hole that extens to an area the size of an orange Intervention/Recommendation Comments 1. Increase diet to 60gm CCHO, low sodium to better meet nutrient needs. 2. MD to adjust insulin regimen as needed 3. Consider adding MVI in addition to current vitamin C for optimal wound healing. 4. WIll provide Glucerna with each meal to increase calorie/ protein goals. Expected Outcomes/Goals Expected Outcomes/Goals Improved skin integrity, oral intake >75% of meals, diet progresses F/U MR 05/31-
--- NOTE | 2018-06-02 08:55 | Infectious Disease Prog Note ---
Infectious Disease Subjective - Review of Systems Service Date: 06/02/18 Subjective: There is no new change, no fever. Infectious Disease Objective - Results Result Diagrams: 05/31/18 08:55 05/30/18 08:35 Recent Labs: Laboratory Last Values WBC 8.9 Th/cmm (4.8-10.8) 05/31/18 08:55 RBC 3.19 Mil/cmm (4.30-5.70) L 05/31/18 08:55 Hgb 9.0 gm/dL (12-16) L 05/31/18 08:55 Hct 27.3 % (33.0-45.0) L 05/31/18 08:55 MCV 85.3 fl (80-99) 05/31/18 08:55 MCH 28.1 pg (26.0-30.0) 05/31/18 08:55 MCHC Differential 32.9 pg (28.0-36.0) 05/31/18 08:55 RDW 13.4 % (11.5-20.0) 05/31/18 08:55 Plt Count 369 Th/cmm (150-400) 05/31/18 08:55 MPV 7.0 fl 05/31/18 08:55 Add Manual Diff YES 05/27/18 22:20 Neutrophils % 72.2 % (40.0-80.0) 05/31/18 08:55 Band Neutrophils % 0 % (0-10) 05/27/18 22:20 Lymphocytes % 19.0 % (20.0-50.0) L 05/31/18 08:55 Monocytes % 5.1 % (2.0-10.0) 05/31/18 08:55 Eosinophils % 3.1 % (0.0-5.0) 05/31/18 08:55 Basophils % 0.6 % (0.0-2.0) 05/31/18 08:55 Neutrophils (Manual) 71 % (40-80) 05/27/18 22:20 Lymphocytes 21 % (20-50) 05/27/18 22:20 Monocytes 7 % (2-10) 05/27/18 22:20 Eosinophils 1 % (0-5) 05/27/18 22:20 Basophils 0 % (0-3) 05/27/18 22:20 Total Retics Counted 6.0 % (0.5-1.5) H 05/31/18 08:55 Absolute Retic 191.4 Th/cmm 05/31/18 08:55 Corrected Retic Count 3.6 % (0.5-1.5) H 05/31/18 08:55 Sodium 139 mEq/L (136-145) 05/30/18 08:35 Potassium 3.8 mEq/L (3.5-5.1) 05/30/18 08:35 Chloride 108 mEq/L (98-107) H 05/30/18 08:35 Carbon Dioxide 23.5 mEq/L (21.0-31.0) 05/30/18 08:35 Anion Gap 11.3 (7.0-16.0) 05/30/18 08:35 BUN 29 mg/dL (7-25) H 05/30/18 08:35 Creatinine 1.3 mg/dL (0.7-1.3) 05/30/18 08:35 Est GFR ( Amer) > 60.0 ml/min (>90) 05/30/18 08:35 Est GFR (Non-Af Amer) > 60.0 ml/min 05/30/18 08:35 BUN/Creatinine Ratio 22.3 05/30/18 08:35 Glucose 118 mg/dL (70-105) H 05/30/18 08:35 POC Glucose 161 MG/DL (70 - 105) H 06/01/18 11:47 Calcium 8.3 mg/dL (8.6-10.3) L 05/30/18 08:35 Iron 36 ug/dL (38-169) L 05/31/18 08:55 TIBC 181 ug/dL (250-450) L 05/31/18 08:55 Iron Saturation 20 % (15-55) 05/31/18 08:55 Unsaturated IBC 145 ug/dL (111-343) 05/31/18 08:55 Transferrin 143 mg/dL (200-370) L 05/31/18 08:55 Ferritin 544 ng/mL (30-400) H 05/31/18 08:55 Total Bilirubin 0.3 mg/dL (0.3-1.0) 05/28/18 07:29 AST 8 U/L (13-39) L 05/28/18 07:29 ALT 8 U/L (7-52) 05/28/18 07:29 Alkaline Phosphatase 61 U/L (34-104) 05/28/18 07:29 Total Protein 6.1 gm/dL (6.0-8.3) 05/28/18 07:29 Albumin 2.7 gm/dL (4.2-5.5) L 05/28/18 07:29 Globulin 3.4 gm/dL 05/28/18 07:29 Albumin/Globulin Ratio 0.8 (1.0-1.8) L 05/28/18 07:29 TSH 2.75 uIU/ml (0.34-5.60) 05/31/18 08:55 Urine Source CLEAN C 05/27/18 23:20 Urine Color YELLOW 05/27/18 23:20 Urine Clarity CLOUDY (CLEAR) 05/27/18 23:20 Urine pH 6.0 (4.6 - 8.0) 05/27/18 23:20 Ur Specific [place] 1.025 (1.005-1.030) 05/27/18 23:20 Urine Protein >=300 mg/dL (NEGATIVE) 05/27/18 23:20 Urine Glucose (UA) 100 mg/dL (NEGATIVE) H 05/27/18 23:20 Urine Ketones TRACE mg/dL (NEGATIVE) 05/27/18 23:20 Urine Blood MODERATE (NEGATIVE) H 05/27/18 23:20 Urine Nitrate NEGATIVE (NEGATIVE) 05/27/18 23:20 Urine Bilirubin NEGATIVE (NEGATIVE) 05/27/18 23:20 Urine Urobilinogen 0.2 E.U./dL (0.2 - 1.0) 05/27/18 23:20 Ur Leukocyte Esterase TRACE (NEGATIVE) H 05/27/18 23:20 Urine RBC 2-5 /hpf (0-5) H 05/27/18 23:20 Urine WBC 50-100 /hpf (0-5) H 05/27/18 23:20 Ur Epithelial Cells NONE SEEN /lpf (FEW) 05/27/18 23:20 Urine Bacteria MANY /hpf (NONE SEEN) H 05/27/18 23:20 Blood Type A POSITIVE 05/27/18 23:30 Antibody Screen NEGATIVE 05/27/18 23:30 Crossmatch See Detail 05/27/18 23:30 - Physical Exam Vitals and I&O: Vital Signs Temp 98.8 F 06/02/18 04:00 Pulse 73 06/02/18 04:00 Resp 18 06/02/18 04:00 BP 163/77 06/02/18 04:00 Pulse Ox 96 06/02/18 04:00 Intake & Output 06/01/18 06/02/18 06/02/18 18:59 06:59 18:59 Intake Total 100 50 Output Total 1900 Balance 100 50 -1900 Weight (lbs) 77.111 kg Intake: Intake, IV Amount 100 50 Piperacillin Sodium/ 100 50 Tazobact 3.375 gm In Sodium Chloride 0.9% 50 ml @ 12.5 mls/hr IV Q8HR [facility] Rx#:[id number] Output: Urine 1900 Other: Stool Characteristics Soft Soft Formed Formed Weight Source Estimated Active Medications: Current Medications Acetaminophen (Tylenol) 650 mg PO Q4H PRN PRN Reason: MILD PAIN OR TEMP >100 Stop: 07/27/18 08:10 Last Admin: 05/28/18 13:42 Dose: 650 mg Ascorbic Acid (Vitamin C) 500 mg PO BID [facility] Stop: 07/27/18 08:59 Last Admin: 06/01/18 17:58 Dose: Not Given Atenolol (Tenormin) 50 mg PO HS [facility] Stop: 07/27/18 20:59 Last Admin: 06/01/18 21:07 Dose: Not Given [place] Oil/[place] Balsam/Trypsin (Venelex) 1 appl TP Q72H [facility] Stop: 07/29/18 10:59 Last Admin: 05/30/18 11:55 Dose: 1 appl Cholecalciferol (Vitamin D3) 1,000 iu PO DAILY [facility] Stop: 07/27/18 08:59 Last Admin: 06/01/18 08:11 Dose: 1,000 iu Dextrose (D50w) 50 ml IVP PRN PRN PRN Reason: Blood Glucose less than 70 Stop: 07/27/18 08:13 Dextrose (Glutose 40%) 18.75 gm PO PRN PRN PRN Reason: Blood Glucose less than 70 Stop: 07/27/18 08:13 Ferrous Sulfate (Iron) 325 mg PO BID [facility] Stop: 08/01/18 08:59 Gabapentin (Neurontin) 300 mg PO BID [facility] Stop: 07/27/18 08:59 Last Admin: 06/01/18 17:58 Dose: Not Given Glipizide (Glucotrol) 10 mg PO DAILY [facility] Stop: 07/27/18 08:59 Last Admin: 06/01/18 08:17 Dose: 10 mg Glucagon (Glucagen) 1 mg IM PRN PRN PRN Reason: Blood Glucose less than 70 Stop: 07/27/18 08:13 Hydrochlorothiazide (Hctz) 25 mg PO DAILY [facility] Stop: 07/27/18 08:59 Last Admin: 06/01/18 08:10 Dose: 25 mg Dextrose/Sodium Chloride (D5-0.45ns) 1,000 mls @ 60 mls/hr IV .[id number] [facility] Stop: 07/26/18 23:44 Last Admin: 06/01/18 22:05 Dose: Not Given Piperacillin Sod/Tazobactam (Sod 3.375 gm/ Sodium Chloride) 50 mls @ 12.5 mls/ hr IV Q8HR [facility] Stop: 07/27/18 04:59 Last Admin: 06/02/18 05:54 Dose: 12.5 mls/hr Ibuprofen (Motrin) 600 mg PO BID [facility] Stop: 07/27/18 08:59 Last Admin: 06/01/18 17:59 Dose: Not Given Insulin Glargine (Lantus Insulin) 20 units SUBQ HS [facility] Stop: 07/29/18 20:59 Last Admin: 06/01/18 21:16 Dose: Not Given Insulin Human Lispro (Humalog Insulin Sliding Scale) 0 units SUBQ ACHS [facility]; Protocol Stop: 07/27/18 11:29 Last Admin: 06/02/18 06:51 Dose: Not Given Lactobacillus Rhamnosus (Culturelle 15b) 1 each PO DAILY [facility] Stop: 07/27/18 08:59 Last Admin: 06/01/18 08:11 Dose: 1 each Lisinopril (Zestril) 20 mg PO DAILY [facility] Stop: 07/27/18 08:59 Last Admin: 06/01/18 08:12 Dose: 20 mg Lorazepam (Ativan) 0.5 mg PO Q6HR PRN; Protocol PRN Reason: Agitation Stop: 08/01/18 08:05 Metformin HCl (Glucophage) 1,000 mg PO DAILY [facility] Stop: 07/27/18 08:59 Last Admin: 06/01/18 08:17 Dose: 1,000 mg Miscellaneous (Probiotic Screen) 1 ea MC PRN PRN PRN Reason: PROTOCOL Stop: 07/30/18 09:59 Morphine Sulfate (Morphine) 1 mg IVP Q4HR PRN PRN Reason: Pain (Moderate) Stop: 07/27/18 08:10 Mupirocin (Bactroban Oint) 1 appl NS BID [facility] Stop: 06/03/18 17:01 Last Admin: 06/01/18 17:59 Dose: Not Given Pantoprazole Sodium (Protonix) 40 mg PO DAILY [facility] Stop: 07/27/18 08:59 Last Admin: 06/01/18 08:11 Dose: 40 mg Zinc Sulfate (Zinc Sulfate) 220 mg PO DAILY [facility] Stop: 07/27/18 09:09 Last Admin: 06/01/18 08:10 Dose: 220 mg General: no acute distress, well developed, well nourished HEENT: atraumatic, normocephalic, PERRLA, EOMI Neck: supple, no thyromegaly Cardiovascular: S1S2, regular Lungs: clear to auscultation bilaterally, clear to percussion Abdomen: soft, no tender, no distended Extremities: no cyanosis, no clubbing Neurological: awake, alert, oriented, CN 2-12 intact Skin: intact - Procedures Procedures: Procedures Procedure Code Date EXCISION OF BACK SUBCU/FASCIA, OPEN APPROACH [id number] 11/20/17 TRANSFUSE NONAUT RED BLOOD CELLS IN PERIPH VEIN, PERC 78251O6 05/28/18 Infectious Disease Assmt/Plan - Assessment Assessment: 1. Sacral decubitus ulcer stage 4. no sign of infection at this time, 2. Right heel ulcer. 3. Left ankle ulcer. 4. paraplegia s/p failed back surgery. 5. DM2. 6. HTN. 7. UTI. - Plan Plan: Wound care. may change antibiotics to levaquin ( UTI). Nutritional Asmnt/Malnutr-PDOC - Dietary Evaluation Malnutrition Findings (Please click <Entered> for more info): Nutritional Asmnt/Malnutrition Start: 05/28/18 14: 14 Text: Status: Complete Freq: Protocol: Document 05/28/18 14:14 MMULHERN (Rec: 05/28/18 14:28 CALVIN ANA M- [id number]) Nutritional Asmnt/Malnutrition Patient General Information Nutritional Screening Consult Diagnosis non-healing wounds/anemia Pertinent Medical Hx/Surgical Hx paraplegia, HTN, GERD, DM, anemia, muscle weakness, depression Subjective Information Consult: active wounds. patient asleep at time of visit. Spoke with nurse Marya who states patient has only eaten one meal, did not eat much (<50%). Current Diet Order/ Nutrition Support 45gm [facility] [place] Patient / S.O Not Indicated Pertinent Medications vitamin C, vitamin D, D50W, D5 -0.45NS, iron, Glipizide, Glucagon, Levemir, humalog, culturelle, Metformin, protonix, zinc sulfate Pertinent Labs (05/28) BUN 40, Glucose 242-287 , Albumin 2.7 (decreased) Nutritional Hx/Data Height 1.75 m Height (Calculated Centimeters) 175.3 Current Weight (lbs) 85.275 kg Weight (Calculated Kilograms) 85.3 Weight (Calculated Grams) 94461.4 [place] Body Weight 160 % [place] Body Weight 117 Body Mass Index (BMI) 27.7 Recent Weight Change No Weight Status Overweight GI Symptoms GI Symptoms None Last BM none noted since admission Difficult in: None Food Allergies No Cultural/Ethnic/Gnosticist Belief none indicated Usual diet at home unknown Skin Integrity/Comment: Jass 12, 3+ pitting edema, non-healing wounds to sacral area the size 2.5 inch x 2. 5inh hole that extens to an area the size of an orange Current %PO Fair (50-74%) Estimated Nutritional Goals BEE in Kcals: Using Current wt Calories/Kcals/Kg 85.4kg CBW 25-30 kcal/kg Kcals Calculated ~5626-3974 kcal/day Protein: Using Current wt Protein g/k.1-1.3gm/kg (wounds) Protein Calculated ~95-110 gm/day Fluid: ml ~1879-9937 ml/day (1 ml/kcal) Nutritional Problem 2. Problem Problem Inadequate oral intake related to Etiology current diet order/poor appetite aeb Signs/Symptoms: meeting <50% of nutrient needs 1. Problem Problem Increased nutrient needs related to Etiology impaired skin integrity aeb Signs/Symptoms: non-healing wounds to sacral area the size 2.5 inch x 2. 5inh hole that extens to an area the size of an orange Intervention/Recommendation Comments 1. Increase diet to 60gm CCHO, low sodium to better meet nutrient needs. 2. MD to adjust insulin regimen as needed 3. Consider adding MVI in addition to current vitamin C for optimal wound healing. 4. WIll provide Glucerna with each meal to increase calorie/ protein goals. Expected Outcomes/Goals Expected Outcomes/Goals Improved skin integrity, oral intake >75% of meals, diet progresses F/U MR 05/31-
[2018-06-02] MEDS ORDERED: Ferrous Sulfate 325 MG TAB PO SCH (09:00)
[2018-06-02] MEDS: Lactobacillus Rhamnosus GG 15 Billion CFU CAP.SPRINK PO SCH (11:21)
[2018-06-02] MEDS: Pantoprazole 40 mg EC Tab PO SCH (11:22)
[2018-06-02] MEDS: Multivitamin w/ Minerals Tab PO SCH (11:22)
[2018-06-02] MEDS: Venelex 60gm Tube TP SCH (11:23)
--- NOTE | 2018-06-02 11:52 | Progress Notes ---
DATE: 06/01/2018 SUBJECTIVE: Case was discussed with staff of the patient, reviewed records. The patient continues to be depressed; however, continues to refuse medication, does not want to be on anything. He denies any current intent to harm himself or anybody. He is still refusing medication, so I will check with him in a few days. Thank you very much for allowing me to participate in the care of this most interesting gentleman. JOB# [id number]
[2018-06-02] MEDS: D5-0.45NS 1,000 ML IV SCH (14:18)
--- NOTE | 2018-06-12 10:17 | Discharge Summary ---
DATE OF DISCHARGE: 06/02/2018 PRELIMINARY DIAGNOSES: 1. Stage 5 sacral decubitus ulcer. 2. Paraplegia. 3. Hypertension. 4. Gastroesophageal reflux disease. 5. Muscle weakness. 6. Diabetes mellitus type 2. 7. Urinary tract infection. 8. Anemia, status post blood transfusion. 9. Incontinence. 10. Failed back surgery. DISCHARGE DIAGNOSES: 1. Sacral decubitus ulcer, stage 4, positive for ESBL, positive for klebsiella, positive for MRSA, positive for bacteroides. 2. Left heel ulcer. 3. Right ankle ulcer. 4. Paraplegia status post failed back surgery. 5. Hypertension. 6. Diabetes mellitus type 2. 7. Gastroesophageal reflux disease. 8. Muscle weakness. 9. Urinary tract infection positive for ESBL, klebsiella. 10. Anemia, status post blood transfusion. 11. Incontinence. 12. Failed back surgery. 13. Depression. BRIEF HISTORY OF PRESENT ILLNESS: This is a 42-year-old male who [facility] to [facility] ER [facility] for evaluation of a nonhealing sacral decubitus ulcer. The patient has a previous history of paraplegia due to failed back surgery, hypertension, gastroesophageal reflux disease, diabetes mellitus, anemia, muscle weakness, depression. While in the ER, the patient had routine lab work, which revealed the following: White count was 8.3, hemoglobin 7.1, hematocrit 21.6, platelets 389. Sodium 136, potassium 4.7, BUN 40, creatinine 1.2, glucose 282. While in the ER, the patient was given 1 unit of packed red blood cells and initially started on Zosyn IV and was subsequently admitted for further evaluation and treatment. HOSPITAL COURSE: The patient was seen and evaluated by ID, see dictated report. The patient also was seen by Psychiatry for his history of depression, see dictated report. The patient was also seen by General Surgery for the sacral decubitus ulcer, see dictated report. The patient was started on IV antibiotics, also wound VAC had been started, was subsequently transferred back to [facility] for continued care and treatment. [facility]# [id number]
== END 2018-06-02 14:00 | DRG 380 ==
LOC: ER 19:21 → MSI 05-28 00:10
PROVIDERS: ADMIT Family Medicine; ATTEND Family Medicine
PROC: 30233N1 Transfusion of Nonautologous Red Blood Cells into Peripheral Vein, Percutaneous Approach (ICD-10-PCS; principal; 2018-05-28)
DX: L89.154 Pressure ulcer of sacral region, stage 4 (principal); E43 Unspecified severe protein-calorie malnutrition; G82.20 Paraplegia, unspecified; F33.1 Major depressive disorder, recurrent, moderate; E11.9 Type 2 diabetes mellitus without complications; B96.1 Klebsiella pneumoniae [K. pneumoniae] as the cause of diseases classified elsewhere; D64.9 Anemia, unspecified; L89.519 Pressure ulcer of right ankle, unspecified stage; L89.629 Pressure ulcer of left heel, unspecified stage; I10 Essential (primary) hypertension; K21.9 Gastro-esophageal reflux disease without esophagitis; N39.0 Urinary tract infection, site not specified; R32 Unspecified urinary incontinence; Z79.4 Long term (current) use of insulin; Z16.12 Extended spectrum beta lactamase (ESBL) resistance
CPT/HCPCS: 36415-UA; 80048-TC; 80053-TC; 81001-TC; 81003-TC; 82728-90; 82948-90; 83036-90; 83540-90; 83550-90; 84443-TC; 84466-90; 85007-TC; 85025-TC; 85044-TC; 86850-TC; 86900-TC; 86901-TC; 86922-TC; 87070-90; 87075-90; 87086-90; 87205-90; J1815; J2543; P9016; Z7610